=== PATIENT | female | born 1955 | race Caucasian/White ===

== ENCOUNTER → 2019-05-10 13:33 | Outpatient (BNVA) | payer MEDICAID, SELFPAY | PROVIDERS: Family Provider Internal Medicine; PCP Internal Medicine; Visit Provider Anesthesiology | DX: G89.29 Other chronic pain (principal); M54.16 Radiculopathy, lumbar region; M51.36 Other intervertebral disc degeneration, lumbar region; M47.816 Spondylosis without myelopathy or radiculopathy, lumbar region; M16.0 Bilateral primary osteoarthritis of hip; M17.0 Bilateral primary osteoarthritis of knee; Z79.891 Long term (current) use of opiate analgesic | CPT/HCPCS: 99214 ==

== ENCOUNTER → 2019-07-03 12:53 | Outpatient (BNVA) | payer MEDICAID, SELFPAY | PROVIDERS: Family Provider Internal Medicine; PCP Internal Medicine; Visit Provider Nurse Practitioner | DX: G89.29 Other chronic pain (principal); M54.5 Low back pain; M25.562 Pain in left knee; Z79.891 Long term (current) use of opiate analgesic | CPT/HCPCS: 99214 ==

== ENCOUNTER → 2019-07-09 13:35 | Outpatient (BNVA) | payer MEDICAID, SELFPAY | PROVIDERS: Family Provider Internal Medicine; PCP Internal Medicine; Visit Provider Nurse Practitioner | DX: F25.9 Schizoaffective disorder, unspecified (principal); F43.12 Post-traumatic stress disorder, chronic | CPT/HCPCS: 99214 ==

== ENCOUNTER → 2019-07-30 07:31 | Outpatient (BNVA) | payer MEDICAID, SELFPAY | PROVIDERS: Family Provider Internal Medicine; PCP Internal Medicine; Visit Provider Nurse Practitioner | DX: F43.12 Post-traumatic stress disorder, chronic (principal); F25.0 Schizoaffective disorder, bipolar type | CPT/HCPCS: 99214 ==

== ENCOUNTER → 2019-09-05 08:16 | Outpatient (BNVA) | payer MEDICAID, SELFPAY | PROVIDERS: Family Provider Internal Medicine; Visit Provider Nurse Practitioner | DX: F25.0 Schizoaffective disorder, bipolar type (principal); F43.12 Post-traumatic stress disorder, chronic | CPT/HCPCS: 99214 ==

== ENCOUNTER 2019-09-10 08:52 | Outpatient (CLI) | payer MEDICAID, SELFPAY ==
--- NOTE | 2019-09-10 09:28 | ECG_ITS ---
NAME OF STUDY: LEXISCAN SESTAMIBI STRESS TEST INDICATION: CHATTERJEE, PROCEDURE: At the baseline, the EKG revealed normal sinus rhythm with diffuse nonspecific ST-T changes. Poor R wave progression. The baseline blood pressure was 151/82 mm Hg with a heart rate of 90 beats/min. Lexiscan was infused over a period of 20 seconds. A total of 0.4 milligrams of Lexiscan was infused. The stress phase was continued for a total of 5 minutes. Heart rate at the end of the stress phase was 83 with a blood pressure 115/68. The EKG at the peak infusion revealed no significant changes. Sestamibi was injected 20 seconds after the Lexiscan infusion. Blood pressure at the end of the recovery phase was 118/70 with a heart rate of 88 per minute. CONCLUSION: 1. No significant EKG changes with the LexiScan infusion 2. No LexiScan induced chest pain or cardiac arrhythmia 3. Normal blood pressure and heart rate response 4. Sestamibi/sestamibi perfusion scan pending; see separate report. Electronically Signed On 09-11-2019 10:53:57 CDT by Julio Suazo M.D. [id number]
--- NOTE | 2019-09-10 09:28 | NMCV_ITS ---
NM shira perf SPECT r/s* [id number] Humera Navarrete Age: 64 Gender: F : 1955 Exam Date: 09/10/2019 10:29 Ordering Phys: Homero Arango MD Technologist: ANTONIO Brown Exam Location: [facility] Indications: CHATTERJEE STRESS TEST Please see separate stress test report in [facility] for full findings IMAGE PROTOCOL Rest/Stress 1 Lexiscan Day Radiopharmaceutical Dose (mCi) Administration Site Administered by Rest: Tc-99m 10.8 IV ANTONIO Pardo Sestamibi Stress:Tc-99m 32.7 IV ANTONIO Brown Sestamistephanie Rest: 10-Sep-2019 60 Discovery 630 Stress: 10-Sep-2019 30 Discovery 630 0.4mg Lexiscan. Images obtained in supine and prone position. SPECT RESULTS Technical Quality: Good Raw Data Analysis: Breast attenuation Image Corrections: No attenuation or motion correction applied Summed Stress Score: 4 Summed Rest Score: 8 Summed Difference Score: 0 PERFUSION FINDINGS Small area of decreased tracer uptake was noted in the mid and apical inferior wall and LV apex with no significant reversibility FUNCTIONAL RESULTS (calculated via Gated SPECT) Stress Image LV EF (%): 59 Stress EDV (mL):85 TID: 1.04 Stress ESV (mL):35 FUNCTIONAL FINDINGS: LV wall motion analysis revealing no gross wall motion abnormalities. IMPRESSIONS 1. Myocardial perfusion imaging revealing a small area of persistent decreased uptake in the apical inferior and LV apex, suggestive of myocardial scarring versus attenuation artifact. 2. Normal LV ejection fraction 59%. 3. LV wall motion analysis revealing no gross wall motion normalities. 4. Normal LV volume. No significant coronary ischemia, based on the above findings. No previous studies are available for comparison Dr Julio Suazo MD [facility] (Electronically Signed) Final Date: 10 Sep 2019 13:17 S
[2019-09-10 10:00] VITALS: BMI 44.6
[2019-09-10] MEDS: regadenoson 0.4 Mg/5 ml Syringe IVP (11:06)
[2019-09-10 11:31] VITALS: BP 118/70; PULSE 86
== END 2019-09-10 08:53 | disposition home or self-care (01) ==
LOC: RAD 08:55
PROVIDERS: Family Provider Internal Medicine; Visit Provider Internal Medicine
DX: R06.09 Other forms of dyspnea (principal)
CPT/HCPCS: 78452; 93017; A9500; J2785

== ENCOUNTER → 2019-09-26 08:23 | Outpatient (BNVA) | payer MEDICAID, SELFPAY | PROVIDERS: Family Provider Internal Medicine; PCP Internal Medicine; Visit Provider Nurse Practitioner | DX: F43.12 Post-traumatic stress disorder, chronic (principal); F25.0 Schizoaffective disorder, bipolar type | CPT/HCPCS: 99214 ==

== ENCOUNTER → 2019-11-14 10:47 | Outpatient (BNVA) | payer MEDICAID, SELFPAY | PROVIDERS: Family Provider Internal Medicine; PCP Internal Medicine; Visit Provider Anesthesiology | DX: G89.29 Other chronic pain (principal); M47.816 Spondylosis without myelopathy or radiculopathy, lumbar region; M54.16 Radiculopathy, lumbar region; M51.36 Other intervertebral disc degeneration, lumbar region; M17.0 Bilateral primary osteoarthritis of knee; M16.0 Bilateral primary osteoarthritis of hip; Z79.891 Long term (current) use of opiate analgesic | CPT/HCPCS: 99214 ==

== ENCOUNTER 2019-11-19 10:11 | Outpatient (CLI) | payer MEDICAID, SELFPAY ==
--- NOTE | 2019-11-19 14:19 | PFTS_ITS ---
Date of Study:11/19/19 Date of Dictation: MECHANICS: Forced vital capacity (FVC) is reduced. Forced expiratory volume in one second (FEV1) is reduced. FEV1/FVC is normal. FLOW VOLUME LOOP: Narrow. LUNG VOLUMES: Total lung capacity (TLC) is reduced. Residual volume (RV) is normal. DIFFUSING CAPACITY FOR CARBON MONOXIDE: Normal. INTERPRETATION: The pulmonary function tests are consistent with moderately severe restriction. There is no significant postbronchodilator response. Given the normal gas exchange, the etiology of restriction is likely extrapulmonary. The patient has reduction of both inspiratory capacity and expiratory reserve volume a feature that can be seen in patients with neuromuscular weakness. MTDD
== END 2019-11-19 10:12 | disposition home or self-care (01) ==
LOC: RT 10:15
PROVIDERS: PCP Internal Medicine; Visit Provider Internal Medicine
DX: R06.09 Other forms of dyspnea (principal)
CPT/HCPCS: 94060; 94726; 94729; J7611

== ENCOUNTER → 2019-12-20 10:03 | Outpatient (BNVA) | payer MEDICAID, SELFPAY | PROVIDERS: PCP Internal Medicine; Visit Provider Nurse Practitioner | DX: M54.42 Lumbago with sciatica, left side (principal); M51.36 Other intervertebral disc degeneration, lumbar region; M25.561 Pain in right knee; M16.0 Bilateral primary osteoarthritis of hip; Z79.891 Long term (current) use of opiate analgesic | CPT/HCPCS: 99213; 99214 ==

== ENCOUNTER → 2019-12-30 07:59 | Outpatient (BNVA) | payer MEDICAID, SELFPAY | PROVIDERS: PCP Internal Medicine; Visit Provider Nurse Practitioner | DX: F43.12 Post-traumatic stress disorder, chronic (principal); F25.0 Schizoaffective disorder, bipolar type; Z79.899 Other long term (current) drug therapy | CPT/HCPCS: 99214 ==

== ENCOUNTER → 2020-02-13 13:23 | Outpatient (BNVA) | payer MEDICAID, SELFPAY | PROVIDERS: PCP Internal Medicine; Visit Provider Anesthesiology | DX: G89.29 Other chronic pain (principal); M51.36 Other intervertebral disc degeneration, lumbar region; M47.816 Spondylosis without myelopathy or radiculopathy, lumbar region; M54.16 Radiculopathy, lumbar region; Z79.891 Long term (current) use of opiate analgesic | CPT/HCPCS: 99212; 99214 ==

== ENCOUNTER → 2020-02-25 08:17 | Outpatient (BNVA) | payer MEDICAID, SELFPAY | PROVIDERS: PCP Internal Medicine; Visit Provider Nurse Practitioner | DX: F43.12 Post-traumatic stress disorder, chronic (principal); F25.0 Schizoaffective disorder, bipolar type | CPT/HCPCS: 99214 ==

== ENCOUNTER → 2020-04-16 08:45 | Outpatient (BNVA) | payer MEDICAID, SELFPAY | PROVIDERS: PCP Internal Medicine; Visit Provider Nurse Practitioner | DX: G89.29 Other chronic pain (principal); M51.36 Other intervertebral disc degeneration, lumbar region; M47.816 Spondylosis without myelopathy or radiculopathy, lumbar region; M54.16 Radiculopathy, lumbar region; M17.0 Bilateral primary osteoarthritis of knee; M16.0 Bilateral primary osteoarthritis of hip; Z79.891 Long term (current) use of opiate analgesic | CPT/HCPCS: 99214 ==

== ENCOUNTER 2020-05-19 14:37 | Outpatient (CLI) | payer MEDICAID, SELFPAY ==
--- NOTE | 2020-05-19 14:42 | XRR_ITS ---
PROCEDURE INFORMATION: Exam: XR Abdomen, 1 View Exam date and time: 05/19/2020 3:05 PM Age: 64 years old Clinical indication: Condition or disease; Intestinal condition; Other: Full incontinence of feces; Prior surgery; Surgery type: Appy, gb, colon; Additional info: R15.9 - full incontinence of feces TECHNIQUE: Imaging protocol: XR of the abdomen. Views: Frontal supine view of the abdomen. 1 View. COMPARISON: CT abdomen pelvis wo con [id number] 05/10/2015 2:25 PM FINDINGS: Gastrointestinal tract: Normal. No bowel dilation. Evidence of cholecystectomy is seen. Intraperitoneal space: A small metallic surgical clip is seen in the upper central pelvis Bones/joints: Sclerotic densities and vacuum phenomena in the lower lumbar spine. These findings correspond to osteoarthritis. XR/XR KUB [id number] IMPRESSION: 1. No acute GI abnormality. 2. Status post cholecystectomy. 3. Metallic surgical clips upper central pelvis. 4. Osteoarthritis lumbar spine
== END 2020-05-19 14:38 | disposition home or self-care (01) ==
PROVIDERS: PCP Internal Medicine; Visit Provider Internal Medicine
DX: R15.9 Full incontinence of feces (principal); Z90.49 Acquired absence of other specified parts of digestive tract; M47.816 Spondylosis without myelopathy or radiculopathy, lumbar region
CPT/HCPCS: 74018

== ENCOUNTER → 2020-06-23 07:29 | Outpatient (BNVA) | payer MEDICAID, SELFPAY | PROVIDERS: PCP Internal Medicine; Visit Provider Nurse Practitioner | DX: F25.0 Schizoaffective disorder, bipolar type (principal); F43.12 Post-traumatic stress disorder, chronic | CPT/HCPCS: 99214 ==

== ENCOUNTER → 2020-06-24 10:21 | Outpatient (BNVA) | payer MEDICAID, SELFPAY | PROVIDERS: PCP Internal Medicine; Visit Provider Nurse Practitioner | DX: G89.29 Other chronic pain (principal); M51.36 Other intervertebral disc degeneration, lumbar region; M54.16 Radiculopathy, lumbar region; M47.816 Spondylosis without myelopathy or radiculopathy, lumbar region; M17.0 Bilateral primary osteoarthritis of knee; M16.0 Bilateral primary osteoarthritis of hip; Z79.891 Long term (current) use of opiate analgesic | CPT/HCPCS: 99213 ==

== ENCOUNTER → 2020-08-06 09:38 | Outpatient (BNVA) | payer MEDICAID, SELFPAY | PROVIDERS: PCP Internal Medicine; Visit Provider Nurse Practitioner | DX: F43.12 Post-traumatic stress disorder, chronic (principal); F25.0 Schizoaffective disorder, bipolar type; Z79.899 Other long term (current) drug therapy | CPT/HCPCS: 99214 ==

== ENCOUNTER 2020-08-12 15:01 | Emergency (ER) | payer MEDICAID, SELFPAY ==
[2020-08-12 15:02] VITALS: BP 145/61; PULSE 78; RESP 18; TEMP 36.6; O2SAT 96; BMI 40.3
[2020-08-12 15:17] VITALS: BP 145/61; PULSE 75; RESP 16
--- NOTE | 2020-08-12 15:19 | XR_ITS ---
WS: [id number] Lumbar spine, 3 views, 08/12/2020 Clinical Data: leg problems Comparison: CT lumbar spine, 10/18/2018. Findings: No new compression fractures or subluxation is seen. There is an old compression fracture involving 5 0% of the central vertebral body height of T12. There is degenerative disc narrowing at L3-L4, L4-L5 and L5-S1. Transverse processes and SI joints are normal.Minimal osteoarthritic spurring at L4 and L5 is seen. There are clips in the right upper quadrant from a cholecystectomy. XR/XR lumbar spine 2-3V* [id number] Impression: 1. Old T12 compression fracture. 2. Degenerative disc disease at L3-L4, L4-L5 and L5-S1. 3. Anterior osteoarthritic change of L4 and L5
--- NOTE | 2020-08-12 15:20 | ED_ITS ---
HPI - Weakness General: Chief complaint: Weakness Stated complaint: Bilateral leg weakness Time Seen by Provider: 08/12/20 15:12 History of Present Illness: HPI Narrative: . Patient has longstanding history of legs being weak and buckling at times. Patient arrives via ambulance today with complaints that knee is just buckling more. Denies any specific problem besides that is feeling fine Complaint: difficulty walking (nees feel like they would give out on her sporadically) Onset (ago): month(s) Duration: intermittent and progressively worsening Location: LLE and RLE Migration: none Severity: mild Severity scale (1-10): 1 Associated symptoms: Reports no associated symptoms; Denies chest pain, chills, easy bruising, fever(s), headache(s), nausea or vomiting Review of Systems Const: Denies: fever(s), chills or body aches Eyes: Denies: change in vision or blurry vision ENMT: Denies: throat pain or nasal congestion Card: Denies: chest pain or dyspnea on exertion Resp: Denies: dyspnea, productive cough or non-productive cough GI: Denies: abdominal pain, nausea or vomiting Musc: Reports: extremity pain and muscle weakness (Both legs feel weak at time) Skin/Breast: Denies: rash Neuro: Denies: headache(s) Psych: Denies: anxiety or depression Mayank/Lymph: Denies: easy bruising PFSH ED PFSH: Medical History (Updated 08/12/20 @ 16:23 by ANNA Belcher) Bilateral primary osteoarthritis of hip Bilateral primary osteoarthritis of knee Chronic low back pain Chronic lumbar radiculopathy Degeneration of lumbar intervertebral disc Encounter for long-term opiate analgesic use On high dose antipsychotic drug therapy Opioid contract exists Pain in right knee Post-traumatic stress disorder, chronic Schizoaffective disorder, bipolar type Spondylosis without myelopathy or radiculopathy, lumbar region Surgical History History of colostomy Family History Father Cancer Mother Cancer Other Diabetes Social History Smoking and tobacco status: former smoker Alcohol intake: former Former alcohol use details: NOT CURRENT History of recent travel: No Physical Exam Const: COMMON NORMALS: no acute distress, average body habitus and patient oriented x3 HENMT: COMMON NORMALS: normocephalic HEAD & SCALP: normal to inspection and normocephalic FACE & SINUS: normal facial exam Eye: COMMON NORMALS: conjunctivae normal GENERAL EYE: appearance normal, both eyes and all related structures CONJUNCTIVA: Yes conjunctivae normal Neck/C-Spine: COMMON NORMALS: no JVD Chest: COMMONS NORMALS: normal inspection of the chest Resp: COMMON NORMALS: normal respiratory effort and clear to auscultation bilaterally AUSCULTATION: clear to auscultation bilaterally Cardio: COMMON NORMALS: no JVD, regular rate and regular rhythm RATE: regular rate RHYTHM: regular rhythm GI: COMMON NORMALS: Normal to inspection, nondistended, normoactive bowel sounds present Extremity: COMMON NORMALS: normal to inspection and full ROM Neuro: COMMON NORMALS: patient oriented x3 Course Vital Signs: Vital signs: Vital Signs Temperature 97.8 F 08/12/20 15:02 Pulse Rate 75 08/12/20 15:17 Respiratory Rate 16 08/12/20 15:17 Blood Pressure 145/61 08/12/20 15:17 Pulse Oximetry 96 08/12/20 15:02 MDM - Weakness MDM Narrative: Medical decision making narrative: Patient having leg weakness by consistent with her hypocalcemia. Is discussed with Dr. Arango medications that might be causing this problem. She has increased calcium in her foods. Her arthritis in her back is worsening her L4-L5 shows increased arthritis in area. Lab Data: Labs: Lab Results 08/12/20 08/12/20 08/12/20 Range/Units 14:45 15:40 15:40 WBC 7.9 Cancelled (4.0-10.0) 10^3/ uL Corrected WBC Cancelled RBC 4.15 Cancelled (4.1-5.3) 10^6/u L Hgb 11.0 L Cancelled (11.5-15.3) g/dL Hct 36.4 L Cancelled (37.0-47.0) % MCV 87.7 Cancelled (81-99) fL MCH 26.5 L Cancelled (28.0-34.0) pg MCHC 30.2 Cancelled (30.0-36.0) g/dL RDW 17.5 H Cancelled (12.1-15.1) % Plt Count 275 Cancelled (130-400) 10^3/c mm MPV 11.9 H Cancelled (7.4-10.4) fL Gran % Cancelled Neut % (Auto) 53.7 Cancelled % Lymph % (Auto) 37.3 Cancelled % Hardeman % (Auto) 4.9 Cancelled % Eos % (Auto) 2.9 Cancelled % Baso % (Auto) 0.9 Cancelled % Neut # (Auto) 4.27 Cancelled (1.8-7.7) 10^3/u L Lymph # (Auto) 3.0 Cancelled (0.8-4.8) 10^3/u L Hardeman # (Auto) 0.4 Cancelled (0.2-0.9) 10^3/u L Eos # (Auto) 0.2 Cancelled (0.0-0.8) 10^3/u L Baso # (Auto) 0.1 Cancelled (0.0-0.1) 10^3/u L Absolute Gran (aut o) Cancelled Nucleated RBC % (a uto) 0 Cancelled % Nucleated RBCs # 0.0 Cancelled /100WBC Sodium 132 L (136-145) mmol/L Potassium 4.3 (3.5-5.1) mmol/L Chloride 97 L (98-107) mmol/L Carbon Dioxide 25 (22-29) mmol/L Anion Gap 14.3 (5-19) BUN 11 (8-23) mg/dL Creatinine 1.0 H (0.5-0.9) mg/dL GFR Calculation 55.6 L (90-130) mL/min Glucose 109 (65-115) mg/dL Calculated Osmolal ity 274 L (285-295) mOsm/k g Calcium 8.0 L (8.5-10.5) mg/dL Total Bilirubin 0.2 (0.15-1.2) mg/dL AST 23 (0-32) U/L ALT 24 (0-33) U/L Alkaline Phosphata se 183 H (35-105) IU/L Total Protein 7.3 (6.6-8.7) g/dL Albumin 4.1 (3.5-5.2) g/dL Globulin 3.2 (1.3-4.6) g/dL Discharge Plan Discharge Patient Disposition: Home Clinical Impression: Hypocalcemia, Degeneration of lumbar intervertebral disc Condition: Stable Prescriptions: New Calcium 500 500 mg calcium (1,250 mg) tablet 500 mg PO BID Qty: 30 RF: 0 No Action aspirin 81 mg tablet,delayed release (DR/EC) 81 mg PO QAM RF: 0 tizanidine 4 mg tablet 4 mg PO QID PRN (Reason: muscle spasticity) 30 Days Qty: 120 RF: 0 gabapentin 600 mg tablet 600 mg PO TID Qty: 90 RF: 1 oxycodone 20 mg tablet 20 mg PO QID PRN (Reason: pain) 30 Days Qty: 30 RF: 0 ziprasidone HCl [Geodon] 80 mg capsule 80 mg PO TID Qty: 90 RF: 2 quetiapine [Seroquel] 400 mg tablet 1,200 mg PO .BEDTIME Qty: 90 RF: 2 Linzess 145 mcg capsule 145 mcg PO QAM Qty: 30 RF: 3 solifenacin [Vesicare] 10 mg tablet 10 mg PO DAILY Qty: 30 RF: 3 lovastatin 40 mg tablet 40 mg PO DAILY Qty: 30 RF: 3 pantoprazole [Protonix] 40 mg tablet,delayed release (DR/EC) 40 mg PO BID Qty: 60 RF: 5 albuterol sulfate 2.5 mg /3 mL (0.083 %) solution for nebulization 2.5 mg INHALATION QID PRN (Reason: shortness of breath or wheezing) Qty: 90 RF: 0 Prozac 20 mg Capsule 20 mg PO TID RF: 0 Paxil 10 mg tablet 10 mg PO BEDTIME RF: 0 Lamictal 200 mg tablet 200 mg PO QAM RF: 0 Mobic 15 mg tablet 15 mg PO DAILY PRN (Reason: UNKNOWN) RF: 0 ropinirole 2 mg tablet 2 - 4 mg PO BEDTIME RF: 0 Discharge Orders: Discharge ED (Routine); Ordered 08/12/20 Ordered By: Fer Paul Referrals: Homero Arango MD [Primary Care Provider] - Discharge Diet: Usual diet Discharge Activity: Resume usual activity Patient Instructions: Hypocalcemia (ED), Opioid Safety Activity Restrictions/Additional Instructions: Follow-up with medical provider as directed. Take medications as prescribed. Return to the ER or your medical provider if condition worsens. Please read and understand discharge instructions. If any questions ask please. Increase calcium in your diet Coding Level of Care Code ED Indigo Mixer for Chg Fwd Exam Comprehensive
--- NOTE | 2020-08-12 15:26 | PC.NURSE ---
Read and agree with assessment
[2020-08-12 16:03] LABS: Alanine Aminotransferase 24 U/L (0-33); Albumin Level 4.1 g/dL (3.5-5.2); Alkaline Phosphatase 183 IU/L (35-105); Blood Urea Nitrogen 11 mg/dL (8-23); Carbon Dioxide 25 mmol/L (22-29); Chloride 97 mmol/L (98-107); Creatinine Clr Calc Pharmacy 71.6649; Globulin 3.2 g/dL (1.3-4.6); Glomerular Filtration Rate 55.6 mL/min (90-130); Glucose 109 mg/dL (65-115); Osmolality Calculated 274 mOsm/kg (285-295); Sodium 132 mmol/L (136-145); Total Bilirubin 0.2 mg/dL (0.15-1.2); Total Protein 7.3 g/dL (6.6-8.7)
[2020-08-12 16:13] LABS: Basophils # 0.1 10^3/uL (0.0-0.1); Basophils % 0.9 %; Eosinophils # 0.2 10^3/uL (0.0-0.8); Eosinophils % 2.9 %; Hematocrit 36.4 % (37.0-47.0); Lymphocytes % 37.3 %; Mean Corpuscular HGB Conc 30.2 g/dL (30.0-36.0); Mean Corpuscular Hemoglobin 26.5 pg (28.0-34.0); Mean Corpuscular Volume 87.7 fL (81-99); Mean Platelet Volume 11.9 fL (7.4-10.4); Monocytes # 0.4 10^3/uL (0.2-0.9); Monocytes % 4.9 %; Neutrophils # 4.27 10^3/uL (1.8-7.7); Neutrophils % 53.7 %; Nucleated Red Blood Cells % 0 %; Platelet Count 275 10^3/cmm (130-400); Red Blood Count 4.15 10^6/uL (4.1-5.3); Red Cell Distribution Width 17.5 % (12.1-15.1); White Blood Count 7.9 10^3/uL (4.0-10.0)
[2020-08-12 16:15] LABS: Anion Gap 14.3 (5-19); Aspartate Amino Transferase 23 U/L (0-32); Potassium 4.3 mmol/L (3.5-5.1)
[2020-08-12 16:59] VITALS: BP 99/78; PULSE 73; RESP 14; O2SAT 97
== END 2020-08-12 17:15 | disposition home or self-care (01) ==
PROVIDERS: Emergency Provider Nurse Practitioner Family; PCP Internal Medicine
DX: E83.51 Hypocalcemia (principal); M51.36 Other intervertebral disc degeneration, lumbar region; Z79.82 Long term (current) use of aspirin; Z87.891 Personal history of nicotine dependence
CPT/HCPCS: 72100; 80053; 85025; 99283

== ENCOUNTER 2020-08-18 09:10 | Inpatient (IN) | payer MEDICAID, SELFPAY ==
[2020-08-18] VITALS (8 sets, daily range): BP systolic 112–152; BP diastolic 52–80; PULSE 65–87; RESP 16–18; TEMP 36.6–36.9; O2SAT 94–98; BMI 40.3
--- NOTE | 2020-08-18 09:55 | XRR_ITS ---
PROCEDURE INFORMATION: Exam: XR Chest Exam date and time: 08/18/2020 10:10 AM Age: 65 years old Clinical indication: Cough and dyspnea and other: Weaknes, unable to umbulate; Patient HX: No chest complaints per PT; Additional info: Dyspnea/cough TECHNIQUE: Imaging protocol: XR of the chest. Views: 1 view. COMPARISON: CR Chest 2 views* [id number] 08/04/2016 3:52 PM FINDINGS: Lungs: Unremarkable. No consolidation. Pleural spaces: Unremarkable. No pleural effusion. No pneumothorax. Heart/Mediastinum: Unremarkable. No cardiomegaly. Bones/joints: Unremarkable. XR/XR chest 1V portable [id number] IMPRESSION: No acute findings.
--- NOTE | 2020-08-18 09:56 | ECG_ITS ---
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1955 Requested By: Wayne Wilkins Order Number: [id number] Reading MD: MICH TOPETE Measurements Intervals Shirley Rate: 66 P: 47 AL: 182 QRS: 69 QRSD: 107 T: 88 QT: 441 QTc: 462 Interpretive Statements SINUS RHYTHM WITH SINUS ARRHYTHMIA LOW QRS VOLTAGE IN PRECORDIAL LEADS [QRS DEFLECTION < 1.0 mV IN CHEST LEADS] NONSPECIFIC T-WAVE ABNORMALITY Compared to ECG 05/10/2015 15:09:49 Low QRS voltage now present T-wave abnormality still present Electronically Signed On 08-18-2020 23:40:29 CDT by MICH TOPETE [id number]
--- NOTE | 2020-08-18 09:57 | ED_ITS ---
HPI - Extremity Problem General: Chief complaint: Extremity Problem,Nontraumatic Stated complaint: unable to ambulate Time Seen by Provider: 08/18/20 09:25 History of Present Illness: HPI Narrative: 65-year-old female who presents emergency room complaining of not being able to walk. She was seen a week ago she said she had fallen she said she is not able to stand. Is difficult to get her to drill down to exactly what the issue is ultimately it seems to be more of an issue of proximal muscle weakness. She is complaining of some knee discomfort but states that is not really the limiting factor to her walking. Not previously had episodes like this she said it seemed to begin a week ago. She has choreatic-like movements in the lower extremities more noticeable on the left than the right but present bilaterally. She also has lower extremity ataxia again more prominent with left than right. She also states she is having difficulty with speech but no difficulty with swallowing. She has some visual blurring that is a little more prominent than it was previously. Onset (ago): week(s) Pain Consistency: constant Location: left, right and lower extremity Relieving factors: nothing Exacerbating factors: nothing Associated symptoms: Deny arthralgias, chest pain, fever(s), myalgias, rash or short of breath Review of Systems Const: Denies: fever(s), chills, body aches, change in appetite, fatigue or malaise ENMT: Denies: throat pain, ear or mastoid pain, nasal discharge or nasal congestion Card: Denies: chest pain Resp: Denies: dyspnea, productive cough or non-productive cough GI: Denies: abdominal pain, nausea, vomiting, hematemesis, coffee ground emesis, diarrhea, constipation, bloating, hematochezia or melena : Denies: flank pain, difficulty voiding, dysuria, urinary frequency or urinary urgency Skin/Breast: Denies: rash PFSH ED PFSH: Medical History (Updated 08/20/20 @ 07:44 by Wayne Cabrera DO) Bilateral primary osteoarthritis of hip Bilateral primary osteoarthritis of knee Chronic low back pain Chronic lumbar radiculopathy Degeneration of lumbar intervertebral disc Encounter for long-term opiate analgesic use On high dose antipsychotic drug therapy Opioid contract exists Pain in right knee Post-traumatic stress disorder, chronic Schizoaffective disorder, bipolar type Spondylosis without myelopathy or radiculopathy, lumbar region Surgical History History of colostomy Family History Father Cancer Mother Cancer Other Diabetes Social History Smoking and tobacco status: former smoker Alcohol intake: former Former alcohol use details: NOT CURRENT History of recent travel: No Physical Exam Const: COMMON NORMALS: no acute distress GENERAL APPEARANCE: cooperative and comfortable ORIENTATION/CONSCIOUSNESS: Yes awake, Yes oriented to person, Yes oriented to place and Yes oriented to time HENMT: COMMON NORMALS: normocephalic, atraumatic and hearing grossly normal bilaterally HEAD & SCALP: normocephalic and atraumatic Neck/C-Spine: COMMON NORMALS: no JVD Resp: COMMON NORMALS: normal respiratory effort, No retractions, No use of accessory muscles and clear to auscultation bilaterally AUSCULTATION: clear to auscultation bilaterally Cardio: COMMON NORMALS: no JVD, regular rate, regular rhythm and No murmurs present (Cardio) RATE: regular rate RHYTHM: regular rhythm GI: COMMON NORMALS: Soft to palpation and No hepatosplenomegaly present AUSCULTATION: Yes normoactive bowel sounds PALPATION: Yes Soft to palpation, No Tenderness to palpation present (GI), No Guarding due to palpation present (GI) and Yes No hepatosplenomegaly present Extremity: COMMON NORMALS: normal to inspection, capillary refill normal, no clubbing, cyanosis or edema, no calf tenderness and no pedal edema NARRATIVE EXTREMITY EXAM: Patient is choreatic movements of the lower and upper extremities with the right being greater than the right she has difficulty with [id number] difficulty with holding objects still with the right hand. She is unable to ambulate. Interestingly her proximal muscle strength and function seems to be preserved she can flex at the hip without difficulty while sitting in bed. Neuro: SENSORIUM/ORIENTATION: Yes oriented to person, Yes oriented to place and Yes oriented to time Skin: COMMON NORMALS: no rashes or lesions noted GENERAL SKIN EXAM: no rashes or lesions noted Course Vital Signs: Vital signs: Vital Signs Temperature 97.5 F L 08/20/20 07:25 Pulse Rate 83 08/20/20 07:25 Respiratory Rate 18 08/20/20 07:25 Blood Pressure 111/71 08/20/20 07:25 Pulse Oximetry 92 08/20/20 07:25 MDM - Extremity (Nontraumatic) MDM Narrative: Medical decision making narrative: 1110 -discussed with Dr. Ovalles requested consult. She is planning to come to the emergency room to see this patient. Patient will be admitted. Discussed with Dr. Ovalles. We will get an MRI hold off on lumbar tap some of her medications may be contributing to this. Lab Data: Labs: Lab Results 08/18/20 08/18/20 08/18/20 Range/Units 10:09 10:09 10:09 WBC 5.9 (4.0-10.0) 10^3/ uL RBC 4.31 (4.1-5.3) 10^6/u L Hgb 11.4 L (11.5-15.3) g/dL Hct 38.5 (37.0-47.0) % MCV 89.3 (81-99) fL MCH 26.5 L (28.0-34.0) pg MCHC 29.6 L (30.0-36.0) g/dL RDW 17.2 H (12.1-15.1) % Plt Count 267 (130-400) 10^3/c mm MPV 11.3 H (7.4-10.4) fL Neut % (Auto) 51.9 % Lymph % (Auto) 38.4 % [place] % (Auto) 5.3 % Eos % (Auto) 3.2 % Baso % (Auto) 0.9 % Neut # (Auto) 3.05 (1.8-7.7) 10^3/u L Lymph # (Auto) 2.3 (0.8-4.8) 10^3/u L [place] # (Auto) 0.3 (0.2-0.9) 10^3/u L Eos # (Auto) 0.2 (0.0-0.8) 10^3/u L Baso # (Auto) 0.1 (0.0-0.1) 10^3/u L Nucleated RBC % (a uto) 0 % Nucleated RBCs # 0.0 /100WBC Sodium 137 (136-145) mmol/L Potassium 4.4 (3.5-5.1) mmol/L Chloride 101 (98-107) mmol/L Carbon Dioxide 28 (22-29) mmol/L Anion Gap 12.4 (5-19) BUN 20 (8-23) mg/dL Creatinine 1.1 H (0.5-0.9) mg/dL GFR Calculation 49.8 L (90-130) mL/min Glucose 105 (65-115) mg/dL Calculated Osmolal ity 287 (285-295) mOsm/k g Lactic Acid 1.2 (0.5-2.2) mmol/L Calcium 8.4 L (8.5-10.5) mg/dL Magnesium 2.4 H (1.7-2.3) mg/dL Total Bilirubin 0.2 (0.15-1.2) mg/dL AST 17 (0-32) U/L ALT 20 (0-33) U/L Alkaline Phosphata se 193 H (35-105) IU/L Creatine Kinase 76 (26-192) U/L Troponin T Baselin e (0-10) ng/L Troponin T 120 Min gaby (0-10) ng/L Delta Troponin T (0-10) ABS# Total Protein 7.0 (6.6-8.7) g/dL Albumin 4.2 (3.5-5.2) g/dL Globulin 2.8 (1.3-4.6) g/dL TSH (0.27-4.20) uIU/ mL Free T4 (0.82-1.77) ng/d L Free T3 (2.0-4.4) PG/ML Urine Color (Yellow) Urine Appearance (CLEAR) Urine pH (5-7) Ur Specific Gravit y (1.005-1.030) Urine Protein (Negative) Urine Glucose (UA) (Normal) Urine Ketones (Negative) Urine Blood (Negative) Urine Nitrate (Negative) Urine Bilirubin (Negative) Urine Urobilinogen (Negative) mg/dL Ur Leukocyte Julia ase (Negative) Urine Opiates Scre en (Negative) ng/mL Ur Barbiturates Sc reen (Negative) ng/mL Ur Phencyclidine S crn (Negative) ng/mL Ur Amphetamines Sc reen (Negative) ng/mL U Benzodiazepines Scrn (Negative) ng/mL Urine Cocaine Scre en (Negative) ng/mL U Marijuana (THC) Screen (Negative) ng/mL 08/18/20 08/18/20 08/18/20 Range/Units 10:09 10:09 11:53 WBC (4.0-10.0) 10^3/ uL RBC (4.1-5.3) 10^6/u L Hgb (11.5-15.3) g/dL Hct (37.0-47.0) % MCV (81-99) fL MCH (28.0-34.0) pg MCHC (30.0-36.0) g/dL RDW (12.1-15.1) % Plt Count (130-400) 10^3/c mm MPV (7.4-10.4) fL Neut % (Auto) % Lymph % (Auto) % [place] % (Auto) % Eos % (Auto) % Baso % (Auto) % Neut # (Auto) (1.8-7.7) 10^3/u L Lymph # (Auto) (0.8-4.8) 10^3/u L [place] # (Auto) (0.2-0.9) 10^3/u L Eos # (Auto) (0.0-0.8) 10^3/u L Baso # (Auto) (0.0-0.1) 10^3/u L Nucleated RBC % (a uto) % Nucleated RBCs # /100WBC Sodium (136-145) mmol/L Potassium (3.5-5.1) mmol/L Chloride (98-107) mmol/L Carbon Dioxide (22-29) mmol/L Anion Gap (5-19) BUN (8-23) mg/dL Creatinine (0.5-0.9) mg/dL GFR Calculation (90-130) mL/min Glucose (65-115) mg/dL Calculated Osmolal ity (285-295) mOsm/k g Lactic Acid (0.5-2.2) mmol/L Calcium (8.5-10.5) mg/dL Magnesium (1.7-2.3) mg/dL Total Bilirubin (0.15-1.2) mg/dL AST (0-32) U/L ALT (0-33) U/L Alkaline Phosphata se (35-105) IU/L Creatine Kinase (26-192) U/L Troponin T Baselin e 6 (0-10) ng/L Troponin T 120 Min gaby (0-10) ng/L Delta Troponin T (0-10) ABS# Total Protein (6.6-8.7) g/dL Albumin (3.5-5.2) g/dL Globulin (1.3-4.6) g/dL TSH 8.06 H (0.27-4.20) uIU/ mL Free T4 0.60 L (0.82-1.77) ng/d L Free T3 2.0 (2.0-4.4) PG/ML Urine Color Yellow (Yellow) Urine Appearance Clear (CLEAR) Urine pH 6.5 (5-7) Ur Specific Gravit y 1.010 (1.005-1.030) Urine Protein Neg (Negative) Urine Glucose (UA) Norm (Normal) Urine Ketones Negative (Negative) Urine Blood Neg (Negative) Urine Nitrate Negative (Negative) Urine Bilirubin Neg (Negative) Urine Urobilinogen Norm (Negative) mg/dL Ur Leukocyte Julia ase Negative (Negative) Urine Opiates Scre en (Negative) ng/mL Ur Barbiturates Sc reen (Negative) ng/mL Ur Phencyclidine S crn (Negative) ng/mL Ur Amphetamines Sc reen (Negative) ng/mL U Benzodiazepines Scrn (Negative) ng/mL Urine Cocaine Scre en (Negative) ng/mL U Marijuana (THC) Screen (Negative) ng/mL 08/18/20 08/18/20 Range/Units 11:53 12:06 WBC (4.0-10.0) 10^3/ uL RBC (4.1-5.3) 10^6/u L Hgb (11.5-15.3) g/dL Hct (37.0-47.0) % MCV (81-99) fL MCH (28.0-34.0) pg MCHC (30.0-36.0) g/dL RDW (12.1-15.1) % Plt Count (130-400) 10^3/c mm MPV (7.4-10.4) fL Neut % (Auto) % Lymph % (Auto) % [place] % (Auto) % Eos % (Auto) % Baso % (Auto) % Neut # (Auto) (1.8-7.7) 10^3/u L Lymph # (Auto) (0.8-4.8) 10^3/u L [place] # (Auto) (0.2-0.9) 10^3/u L Eos # (Auto) (0.0-0.8) 10^3/u L Baso # (Auto) (0.0-0.1) 10^3/u L Nucleated RBC % (a uto) % Nucleated RBCs # /100WBC Sodium (136-145) mmol/L Potassium (3.5-5.1) mmol/L Chloride (98-107) mmol/L Carbon Dioxide (22-29) mmol/L Anion Gap (5-19) BUN (8-23) mg/dL Creatinine (0.5-0.9) mg/dL GFR Calculation (90-130) mL/min Glucose (65-115) mg/dL Calculated Osmolal ity (285-295) mOsm/k g Lactic Acid (0.5-2.2) mmol/L Calcium (8.5-10.5) mg/dL Magnesium (1.7-2.3) mg/dL Total Bilirubin (0.15-1.2) mg/dL AST (0-32) U/L ALT (0-33) U/L Alkaline Phosphata se (35-105) IU/L Creatine Kinase (26-192) U/L Troponin T Baselin e (0-10) ng/L Troponin T 120 Min gaby 6.00 (0-10) ng/L Delta Troponin T 0 (0-10) ABS# Total Protein (6.6-8.7) g/dL Albumin (3.5-5.2) g/dL Globulin (1.3-4.6) g/dL TSH (0.27-4.20) uIU/ mL Free T4 (0.82-1.77) ng/d L Free T3 (2.0-4.4) PG/ML Urine Color (Yellow) Urine Appearance (CLEAR) Urine pH (5-7) Ur Specific Gravit y (1.005-1.030) Urine Protein (Negative) Urine Glucose (UA) (Normal) Urine Ketones (Negative) Urine Blood (Negative) Urine Nitrate (Negative) Urine Bilirubin (Negative) Urine Urobilinogen (Negative) mg/dL Ur Leukocyte Julia ase (Negative) Urine Opiates Scre en Negative (Negative) ng/mL Ur Barbiturates Sc reen Negative (Negative) ng/mL Ur Phencyclidine S crn Negative (Negative) ng/mL Ur Amphetamines Sc reen Negative (Negative) ng/mL U Benzodiazepines Scrn Negative (Negative) ng/mL Urine Cocaine Scre en Negative (Negative) ng/mL U Marijuana (THC) Screen Negative (Negative) ng/mL Discharge Plan Discharge Patient Disposition: Admitted As Inpatient Admit Provider: Acosta Perea Clinical Impression: Myoclonus, Toxic encephalopathy, Schizoaffective disorder, bipolar type Condition: Stable Coding Level of Care Code ED Evaluator Transfer Students for Srini Perdomo
--- NOTE | 2020-08-18 09:59 | CT_ITS ---
WS: [id number] CT HEAD TECHNIQUE: Noncontrast and contrast-enhanced CT of the head. CLINICAL INFORMATION: CVA COMPARISON: CT 4 24,010 DLP: 1223.[address] scans at [facility] use at least one of these dose optimization techniques: automat ed exposure control; mA and/or kV adjustment per patient size (includes targeted exams where dose is matched to clinical indication); or iterative reconstruction. FINDINGS: No evidence of intracranial hemorrhage or mass effect. Ventricular system and basal cisterns are eddy nt. Mild small vessel changes. Mild parenchymal volume loss. No abnormal intracranial enhancement. Pa ranasal sinuses and mastoid air cells are well aerated. CT/CT head wo/w con 55014 IMPRESSION: 1. No evidence of intracranial hemorrhage or mass effect. 2. No abnormal intracranial enhancement. 3. Mild small vessel changes. Mild parenchymal volume loss. 4. No acute intracranial findings. Attempted notification Wayne Cabrera DO at 08/18/2020 10:46 AM.
[2020-08-18 10:17] LABS: Basophils # 0.1 10^3/uL (0.0-0.1); Basophils % 0.9 %; Eosinophils # 0.2 10^3/uL (0.0-0.8); Eosinophils % 3.2 %; Hematocrit 38.5 % (37.0-47.0); Hemoglobin 11.4 g/dL (11.5-15.3); Lymphocytes # 2.3 10^3/uL (0.8-4.8); Lymphocytes % 38.4 %; Mean Corpuscular HGB Conc 29.6 g/dL (30.0-36.0); Mean Corpuscular Hemoglobin 26.5 pg (28.0-34.0); Mean Corpuscular Volume 89.3 fL (81-99); Mean Platelet Volume 11.3 fL (7.4-10.4); Monocytes # 0.3 10^3/uL (0.2-0.9); Monocytes % 5.3 %; Neutrophils # 3.05 10^3/uL (1.8-7.7); Neutrophils % 51.9 %; Nucleated Red Blood Cells % 0 %; Platelet Count 267 10^3/cmm (130-400); Red Blood Count 4.31 10^6/uL (4.1-5.3); Red Cell Distribution Width 17.2 % (12.1-15.1); White Blood Count 5.9 10^3/uL (4.0-10.0)
[2020-08-18 10:34] LABS: Alanine Aminotransferase 20 U/L (0-33); Albumin Level 4.2 g/dL (3.5-5.2); Alkaline Phosphatase 193 IU/L (35-105); Anion Gap 12.4 (5-19); Aspartate Amino Transferase 17 U/L (0-32); Blood Urea Nitrogen 20 mg/dL (8-23); Calcium 8.4 mg/dL (8.5-10.5); Carbon Dioxide 28 mmol/L (22-29); Chloride 101 mmol/L (98-107); Creatine Phosphokinase 76 U/L (26-192); Globulin 2.8 g/dL (1.3-4.6); Glomerular Filtration Rate 49.8 mL/min (90-130); Glucose 105 mg/dL (65-115); Magnesium 2.4 mg/dL (1.7-2.3); Osmolality Calculated 287 mOsm/kg (285-295); Potassium 4.4 mmol/L (3.5-5.1); Sodium 137 mmol/L (136-145); Total Bilirubin 0.2 mg/dL (0.15-1.2)
[2020-08-18] MEDS: iohexol 300 mg/mL 100 mL Btl IV (10:34)
[2020-08-18 10:35] LABS: Lactic Sepsis W/Reflex 1.2 mmol/L (0.5-2.2)
[2020-08-18 10:36] LABS: Troponin(5th) Baseline 6 ng/L (0-10)
--- NOTE | 2020-08-18 11:56 | ECG_ITS ---
[facility] Test Date: 2020-08-18 Pat Name: Humera Navarrete Department: Room: Gender: Female Vp Marketing: : 1955 Requested By: Wayne Wilkins Order Number: [id number] Reading MD: MICH TOPETE Measurements Intervals [place] Rate: 81 P: 68 DE: 187 QRS: 78 QRSD: 109 T: 60 QT: 402 QTc: 468 Interpretive Statements SINUS RHYTHM LOW QRS VOLTAGE IN PRECORDIAL LEADS [QRS DEFLECTION < 1.0 mV IN CHEST LEADS] MODERATE INTRAVENTRICULAR CONDUCTION DELAY [105+ ms QRS DURATION, 80+ ms Q/S IN V1/V2, NO Q AND 60+ ms R IN I/aVL/V5/V6] NONSPECIFIC ST & T-WAVE ABNORMALITY Compared to ECG 08/18/2020 10:57:39 Intraventricular conduction delay now present Sinus arrhythmia no longer present T-wave abnormality still present Electronically Signed On 08-18-2020 23:43:17 CDT by MICH TOPETE [id number]
[2020-08-18 12:07] LABS: Add Urine Microscopic? NO; Charge for UA Resulting for Rev
[2020-08-18 12:14] LABS: Bilirubin Urine Neg (Negative); Blood Urine Neg (Negative); Glucose Urine UA Norm (Normal); Ketones Urine Negative (Negative); Leukocyte Esterase Urine Negative (Negative); Nitrate Urine Negative (Negative); Protein Urine Neg (Negative); Urine Appearance Clear (CLEAR); Urine Color Yellow (Yellow); Urobilinogen Urine Norm (Negative); pH Urine 6.5 (5-7)
--- NOTE | 2020-08-18 12:17 | PM.CONSULT ---
Providers/Reason For Consult Consulting Physican/Specialty*: Dr. Dontae Cabrera Reason for Consult*: Diffuse tremor Primary Care Provider: Homero Arango MD History of Present Illness History of Present Illness Humera Navarrete is a 65 year old woman who was brought by EMS because she could not walk. She gives me her correct address. She says she was fine yesterday but that this morning when she got up to try to make breakfast, she had to crawl. Her boyfriend had already gone to work. She talked with her son, who lives in [place], and she says that Krish called EMS. On arrival Dr. Cabrera discovered that the patient had profound diffuse myoclonic tremor and that she could not ambulate. She says that she has not been sick. She has not had flu if symptoms such as shortness of breath, aching of the muscles. She has low back pain. She says that her medications have not changed. Her last visit with Dr. Davies occurred 04/16/2020 and he administered oxycodone 20 mg 4 times daily. She received refills from [facility] of the same medications 06/24/2020. She receives pain clinic she is on Lamictal 200 mg daily for bipolar disorder and Seroquel 1200 mg at bedtime for schizoaffective disorder in addition to Geodon 80 mg 3 times a day. She is on tizanidine 4 mg 4 times daily from the pain clinic and ropinirole 2 mg twice daily for restless legs. She is on fluoxetine 20 mg twice daily and gabapentin 600 mg 3 times daily. She is sure that she has not changed her medications in any way. She has not had fever or chills. Review of Systems General: Reports: 10 or more systems reviewed and unremarkable except in HPI and below Const: Denies: fever(s), chills or body aches Eyes: Denies: change in vision ENMT: Denies: throat pain Card: Denies: chest pain, irregular heart rhythm or dyspnea on exertion Resp: Denies: dyspnea GI: Denies: abdominal pain, nausea or vomiting Musc: Reports: back pain Neuro: Reports: weakness in extremities, lack of coordination and difficulty walking; Denies: headache(s), dizziness, vertigo or confusion Psych: Reports: depression and mood swings (History of schizoaffective disorder and bipolar disorder) Meds/Allergies Home Medications and Allergies Home Medications Medication Instructions Recorded Confirmed Last Taken Type aspirin 81 mg tablet,delayed 81 mg PO QAM 05/10/19 08/12/20 Unknown History release tizanidine 4 mg tablet 4 mg PO QID PRN 30 Days #120 tab 04/16/20 08/12/20 Unknown Rx linaclotide 145 mcg capsule 145 mcg PO QAM #30 cap 05/28/20 08/12/20 Unknown Rx solifenacin 10 mg tablet 10 mg PO DAILY #30 tab 06/18/20 08/12/20 Unknown Rx gabapentin 600 mg tablet 600 mg PO TID #90 tab 06/24/20 08/12/20 Unknown Rx oxycodone 20 mg tablet 20 mg PO QID PRN 30 Days #30 tab 06/24/20 08/12/20 Unknown Rx lovastatin 40 mg tablet 40 mg PO DAILY #30 tab 07/02/20 08/12/20 Unknown Rx pantoprazole 40 mg tablet,delayed 40 mg PO BID #60 tab 07/09/20 08/12/20 Unknown Rx release albuterol sulfate 2.5 mg INHALATION QID PRN #90 ml 07/16/20 08/12/20 Unknown Rx quetiapine 400 mg tablet 1,200 mg PO .BEDTIME #90 tab 08/06/20 08/12/20 Unknown Rx ziprasidone HCl 80 mg capsule 80 mg PO TID #90 cap 08/06/20 08/12/20 Unknown Rx Lamictal 200 mg PO QAM 08/12/20 08/12/20 Unknown History Mobic 15 mg PO DAILY PRN 08/12/20 08/12/20 Unknown History Paxil 10 mg PO BEDTIME 08/12/20 08/12/20 Unknown History calcium carbonate [Calcium 500] 500 mg PO BID #30 tab 08/12/20 Unknown Rx fluoxetine [Prozac] 20 mg PO TID 08/12/20 08/12/20 Unknown History ropinirole 2 - 4 mg PO BEDTIME 08/12/20 08/12/20 Unknown History Allergies Allergy/AdvReac Type Severity Reaction Status Date / Time divalproex sodium AdvReac BEHAVIORAL Verified 08/18/20 09:16 [From Depakote] CHANGES NAUSEA AND VOMITING lithium AdvReac BEHAVIORAL Verified 08/18/20 09:16 CHANGES NAUSEA AND VOMITING PFSH Acute PFSH: Medical History (Updated 08/18/20 @ 12:28 by Gisela Ovalles MD) Bilateral primary osteoarthritis of hip Bilateral primary osteoarthritis of knee Chronic low back pain Chronic lumbar radiculopathy Degeneration of lumbar intervertebral disc Encounter for long-term opiate analgesic use On high dose antipsychotic drug therapy Opioid contract exists Pain in right knee Post-traumatic stress disorder, chronic Schizoaffective disorder, bipolar type Spondylosis without myelopathy or radiculopathy, lumbar region Surgical History History of colostomy Family History Father Cancer Mother Cancer Other Diabetes Social History Smoking and tobacco status: former smoker Alcohol intake: former Former alcohol use details: NOT CURRENT History of recent travel: No Vitals/I&O/Wt Last Vital Signs Temp 97.8 F 08/18/20 09:11 Pulse 87 08/18/20 11:26 Resp 18 08/18/20 11:26 BP 152/78 08/18/20 11:26 Pulse Ox 98 08/18/20 11:26 Weight last 48 hrs Weight 250 lb Physical Exam Narrative: EXAM NARRATIVE: Mental status exam: She is a little bit euphoric. She jokes about my daughter Lisa that she has seen on television. She knows what program is playing on the television to the point that she asks me not to change the channel. She is alert to the date and her address. She has intermittent pauses of speech due to myoclonic jerks. Cranial nerves: Eye movements full. Visual michael full to confrontation. Facial movements symmetric with intermittent myoclonic movements of the face. Similar movements with the tongue with tremor on tongue protrusion. Tongue and palate midline. She is managing her secretions. Motor: She has diffuse high amplitude myoclonic tremor in all 4 extremities which limits [id number] and [id number]. She cannot move herself up, sit up or maintain balance. Sensory exam intact to pin and touch distally. Deep tendon reflexes brisk throughout. Right toe upgoing and left is equivocal. Coordination: Remarkable for her diffuse high amplitude myoclonic tremor. Gait: Unable. HEENT no rash. Normocephalic. No conjunctival injection or scleral icterus Neck: Supple. Carotid upstroke strong bilaterally. Chest: Clear to auscultation cardiovascular: S1 and S2 normal with regular rate and rhythm. She is not tachycardic. Abdomen deferred. Extremities: No deformities. A&P Assessment and plan (1) Myoclonus: This 65-year-old woman presents with severe diffuse polymyoclonus. This is usually a toxic phenomenon but could be postinfectious such as postinfectious cerebellitis. She has not been ill of late. She is on a lot of medications that have the potential to cause toxic encephalopathy including high-dose opioids, Seroquel, Geodon, antidepressants. I think toxic encephalopathy is the most likely diagnosis. Thyroid encephalopathy is in the process of rule out but she is not tachycardic so I doubt that this is thyroid storm. MRI with and without contrast indicated to rule out postinfectious cerebellitis. Hold off on spinal fluid analysis for now as we obtained further toxic information and allow her medications to wear off somewhat. I would maintain her current dosages of atypical antipsychotics to avoid precipitating neuroleptic malignant syndrome. I would check CPK serially for that diagnosis. It would be reasonable to hold lamotrigine and gabapentin. It would be reasonable to cut back on oxycodone. Patient seen emergently in the emergency department and discussed with Dr. Cabrera. Status: Acute (2) Toxic encephalopathy: Status: Acute Consult Attestations Medical Necessity Statement: Severe diffuse myoclonus and inability to walk Time Spent in Patient Care: Greater than 35 minutes Critical Care Time: Critical Care Time (min): 45 Coding Level of Care Code Acute Tool Planer Set Up Operator for Srini Perdomo Diagnoses Myoclonus G25.3 Toxic encephalopathy G92
[2020-08-18 12:19] LABS: Amphetamines Screen Urine Negative (Negative); Barbiturates Screen Urine Negative (Negative); Benzodiazepines Screen Urine Negative (Negative); Cocaine Screen Urine Negative (Negative); Opiate Screen Urine Negative (Negative); PCP Screen Urine Negative (Negative); THC Screen Urine Negative (Negative)
[2020-08-18 12:29] LABS: Troponin 5 2HR Delta 0 ABS# (0-10)
[2020-08-18 12:32] LABS: Thyroid Stimulating Hormone 8.06 uIU/mL (0.27-4.20)
[2020-08-18] MEDS: sodium chloride 0.9% 1,000 ML 100 ML IV (15:31)
[2020-08-18] MEDS: acetaminophen 325 mg Tablet 650 MG PO (15:45)
--- NOTE | 2020-08-18 15:56 | ECG_ITS ---
[facility] ED Test Date: 2020-08-18 Pat Name: Humera Navarrete Department: Room: 271 Gender: Female Data Clerk: : 1955 Requested By: Wayne Wilkins Order Number: [id number] Margarita MD: Melissa Bagley M.D. Measurements Intervals [place] Rate: 75 P: 78 WI: 180 QRS: 75 QRSD: 96 T: 23 QT: 397 QTc: 445 Interpretive Statements SINUS RHYTHM LOW QRS VOLTAGE IN PRECORDIAL LEADS [QRS DEFLECTION < 1.0 mV IN CHEST LEADS] NONSPECIFIC T-WAVE ABNORMALITY Compared to ECG 08/18/2020 13:15:15 Intraventricular conduction delay no longer present T-wave abnormality still present Electronically Signed On 08-22-2020 5:29:15 CDT by Melissa Bagley M.D. [email or web address] [email or web address] Book Farmmari[facility].[employer]/store/OM/[id number]
--- NOTE | 2020-08-18 16:19 | PC.NURSE ---
radiology called wanting to know if pt could have mri tomorrow at 1015. this nurse asked Dr. Pineda who replied it needed to be today. This nurse called radiology and let know.
[2020-08-18 17:09] LABS: Troponin 5 6HR Delta 0 ng/L (0-12)
--- NOTE | 2020-08-18 17:58 | P.HP_ITS ---
Providers/Chief Complaint Admitting Physician: Acosta Perea MD Primary Care Provider: Homero Arango MD Chief Complaint: unable to ambulate History of Present Illness Humera Navarrete is a 65 year old female with a past medical history as outlined below who presented to the ER with chief complaints of inability to walk that started yesterday morning. Upon presentation to the ER she was noted to have profound diffuse myoclonic tremor and she could not ambulate. No recent change in her medications, no recent history of viral respiratory or diarrheal illness.. She was evaluated by Dr. Ovalles in the ER. Reports history of similar short-lived episodes in the past of myoclonus over the last 5 to 6 months that resolved within 24 hours. States usually this affects her legs. Review of Systems General: Reports: 10 or more systems reviewed and unremarkable except in HPI and below Const: Denies: fever(s), chills or body aches Eyes: Denies: change in vision, blurry vision or photophobia ENMT: Reports: hoarseness; Denies: throat pain, enlarged tonsils, odynophagia or nasal congestion Card: Denies: chest pain, palpitations, irregular heart rhythm, edema, swelling of feet/ankles, lightheadedness, pre-syncope, dyspnea on exertion or orthopnea Resp: Denies: dyspnea, productive cough, non-productive cough, wheezing, stridor, pain on inspiration, change in phlegm color, hemoptysis or chest congestion GI: Denies: abdominal pain, nausea, vomiting, hematemesis, coffee ground emesis, dysphagia, heartburn, diarrhea, constipation, GI cramping, change in stool character, hematochezia or melena : Denies: flank pain, difficulty voiding, dysuria, urinary frequency, urinary urgency, urinary hesitancy or hematuria Musc: Denies: neck pain, back pain, extremity pain, joint swelling, joint warmth or deformity Neuro: Reports: weakness in extremities and difficulty walking; Denies: headache(s), numbness in extremities, sensory changes, frequent falls, dizziness, vertigo, behavioral changes, Slurred speech present or seizure-like activity Psych: Denies: anxiety, depression, suicidal ideation or homicidal ideation Endo: Denies: polyuria, polydipsia, tired all the time, cold intolerance or hot flashes Mayank/Lymph: Denies: easy bruising or easy bleeding Medications/Allergies Home Medications Medication Instructions Recorded Confirmed Last Taken Type aspirin 81 mg tablet,delayed 81 mg PO BID@0600,1800 05/10/19 08/18/20 08/18/20 History release oxycodone 20 mg tablet 20 mg PO QID PRN 30 Days #30 tab 06/24/20 08/18/20 Unknown Rx albuterol sulfate 2.5 mg INHALATION QID PRN #90 ml 07/16/20 08/18/20 Unknown Rx fluoxetine [Prozac] 20 mg PO TID@0600,1200,1800 08/12/20 08/18/20 08/18/20 History meloxicam [Mobic] 15 mg PO DAILY@0600 PRN 08/12/20 08/18/20 08/18/20 History paroxetine HCl [Paxil] 10 mg PO BEDTIME@1800 PRN 08/12/20 08/18/20 Unknown History ropinirole 2 - 4 mg PO BEDTIME@1800 08/12/20 08/18/20 08/17/20 History Geodon 80 mg PO TID@0600,1200,1800 08/18/20 08/18/20 08/18/20 History Protonix 40 mg PO BID@0600,1800 08/18/20 08/18/20 08/18/20 History Seroquel 1,200 mg PO TID@06,12,18 08/18/20 08/18/20 08/18/20 History Vesicare 10 mg PO DAILY@0600 08/18/20 08/18/20 08/18/20 History albuterol sulfate See Rx Instructions .ROUTE .COMPLEX 08/18/20 08/18/20 Unknown History gabapentin 600 mg PO TID@0600,1200,1800 08/18/20 08/18/20 08/18/20 History linaclotide [Linzess] 145 mcg PO DAILY@0600 08/18/20 08/18/20 Unknown History lovastatin 40 mg PO DAILY@1800 08/18/20 08/18/20 08/18/20 History tizanidine 4 mg PO QID@0600,1200,1800 PRN 08/18/20 08/18/20 08/18/20 History Allergies Allergy/AdvReac Type Severity Reaction Status Date / Time divalproex sodium AdvReac BEHAVIORAL Verified 08/18/20 09:16 [From Depakote] CHANGES NAUSEA AND VOMITING lithium AdvReac BEHAVIORAL Verified 08/18/20 09:16 CHANGES NAUSEA AND VOMITING PFSH Acute PFSH: Medical History Bilateral primary osteoarthritis of hip Bilateral primary osteoarthritis of knee Chronic low back pain Chronic lumbar radiculopathy Degeneration of lumbar intervertebral disc Encounter for long-term opiate analgesic use On high dose antipsychotic drug therapy Opioid contract exists Pain in right knee Post-traumatic stress disorder, chronic Schizoaffective disorder, bipolar type Spondylosis without myelopathy or radiculopathy, lumbar region Surgical History History of colostomy Family History Father Cancer Mother Cancer Other Diabetes Social History Smoking and tobacco status: former smoker Alcohol intake: former Former alcohol use details: NOT CURRENT History of recent travel: No Vitals/I&O/Wt Last Vital Signs Temp 97.9 F 08/18/20 15:00 Pulse 76 08/18/20 15:00 Resp 17 08/18/20 15:00 BP 112/68 08/18/20 15:00 Pulse Ox 97 08/18/20 15:00 08/18/20 08/18/20 08/18/20 06:59 14:59 22:59 Intake Total 240 / 240 Balance 240 / 240 Weight last 48 hrs Weight 113.398 kg Physical Exam Const: COMMON NORMALS: no acute distress, average body habitus, patient or iented x3, no limitations, healthy appearing, alert and well nourished HENMT: COMMON NORMALS: normocephalic and atraumatic HEAD & SCALP: normocephalic and atraumatic Eye: COMMON NORMALS: Equal, round and reactive pupils present, EOMs intact bilaterally, conjunctivae normal and no scleral icterus CONJUNCTIVA: Yes conjunctivae normal PUPIL: Yes Equal, round and reactive pupils present Neck/C-Spine: COMMON NORMALS: no JVD Resp: COMMON NORMALS: normal respiratory effort, No retractions, No use of accessory muscles, clear to auscultation bilaterally and percussion normal AUSCULTATION: clear to auscultation bilaterally PERCUSSION: percussion normal Cardio: COMMON NORMALS: no JVD, regular rate, regular rhythm, S1 normal heart sound present, S2 normal heart sound present, No gallops present (Cardio), No clicks present (Cardio), No murmurs present (Cardio), No rub (Cardio) and Peripheral pulses 2+ throughout RATE: regular rate RHYTHM: regular rhythm HEART SOUNDS: S1 normal heart sound present and S2 normal heart sound present PERIPHERAL PULSES: Peripheral pulses 2+ throughout GI: COMMON NORMALS: Normal to inspection, nondistended, normoactive bowel sounds present, Soft to palpation, non-tender, No hepatosplenomegaly present, no masses and no bruits PALPATION: Yes Soft to palpation and Yes No hepato splenomegaly present Extremity: COMMON NORMALS: normal to inspection, full ROM, capillary refill normal, no joint enlargement, no clubbing, cyanosis or edema, no calf tenderness and no pedal edema Neuro: COMMON NORMALS: patient oriented x3 and CN's II-XII intact bilaterally SENSORIUM/ORIENTATION: Yes alert OTHER: diffuse myoclonic jerks Psych: COMMON NORMALS: mental status grossly normal, Normal thought process present, cooperative, normal affect, speech normal, activity/motor behavior normal, denies hallucinations, denies homicidal ideation and denies suicidal ideation SPEECH: Yes normal speech THOUGHT PROCESS: Normal thought process present Skin: COMMON NORMALS: no rashes or lesions noted, no wounds, turgor normal, no jaundice, no petechiae and no mottling GENERAL SKIN EXAM: no rashes or lesions noted and turgor normal Data : 08/18/20 10:09 08/18/20 10:09 A&P Assessment and plan (1) Myoclonus: severe diffuse polymyoclonus. Differentials include medication sode effects from high-dose opioids, Seroquel, Geodon, antidepressants vs postinfectious cerebellitis. 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
[2020-08-18] MEDS: enoxaparin 40 mg/0.4 mL Syringe SUBCUT (18:37)
[2020-08-19] VITALS (8 sets, daily range): BP systolic 114–156; BP diastolic 71–90; PULSE 75–81; RESP 15–18; TEMP 36.4–36.9; O2SAT 91–96
[2020-08-19] MEDS: sodium chloride 0.9% 1,000 ML 100 ML IV ×2 (01:40→11:54)
[2020-08-19 05:30] LABS: Basophils # 0.1 10^3/uL (0.0-0.1); Basophils % 1.1 %; Eosinophils # 0.2 10^3/uL (0.0-0.8); Eosinophils % 3.7 %; Hematocrit 36.5 % (37.0-47.0); Hemoglobin 11.1 g/dL (11.5-15.3); Lymphocytes # 2.9 10^3/uL (0.8-4.8); Lymphocytes % 44.7 %; Mean Corpuscular HGB Conc 30.4 g/dL (30.0-36.0); Mean Corpuscular Hemoglobin 26.7 pg (28.0-34.0); Mean Platelet Volume 11.5 fL (7.4-10.4); Monocytes # 0.4 10^3/uL (0.2-0.9); Monocytes % 5.9 %; Neutrophils # 2.88 10^3/uL (1.8-7.7); Neutrophils % 44.3 %; Nucleated Red Blood Cells % 0 %; Platelet Count 267 10^3/cmm (130-400); Red Blood Count 4.15 10^6/uL (4.1-5.3); Red Cell Distribution Width 17.1 % (12.1-15.1); White Blood Count 6.5 10^3/uL (4.0-10.0)
[2020-08-19 06:09] LABS: Estmated Average Glucose 128; Hemoglobin A1C 6.1 % (4.0-6.0)
[2020-08-19 06:23] LABS: Alanine Aminotransferase 18 U/L (0-33); Albumin Level 3.7 g/dL (3.5-5.2); Alkaline Phosphatase 166 IU/L (35-105); Anion Gap 11.4 (5-19); Aspartate Amino Transferase 23 U/L (0-32); Blood Urea Nitrogen 18 mg/dL (8-23); Calcium 8.3 mg/dL (8.5-10.5); Carbon Dioxide 28 mmol/L (22-29); Chloride 103 mmol/L (98-107); Globulin 3.1 g/dL (1.3-4.6); Glomerular Filtration Rate 49.8 mL/min (90-130); Glucose 112 mg/dL (65-115); Osmolality Calculated 289 mOsm/kg (285-295); Potassium 4.4 mmol/L (3.5-5.1); Sodium 138 mmol/L (136-145); Total Bilirubin 0.2 mg/dL (0.15-1.2); Total Protein 6.8 g/dL (6.6-8.7)
[2020-08-19 06:25] LABS: Creatine Phosphokinase 67 U/L (26-192)
[2020-08-19] MEDS: ziprasidone hcl 40 mg Capsule 80 MG PO ×3 (06:36→17:12)
[2020-08-19] MEDS: aspirin 81 mg EC Tablet PO ×2 (06:36→17:13)
[2020-08-19] MEDS: pantoprazole DR 40 mg Tablet PO ×2 (06:37→17:13)
--- NOTE | 2020-08-19 10:27 | PC.CHAP ---
Pastoral Care Encounter/Spiritual Assessment Type of Contact [] Declined deli slicer visit [] Patient/Family/Request visit [] Outpatient visit [] Follow-up visit [] Physician referral [] Code/Alert [x] Routine visit [] Staff referral [] Actively dying [] Patient sleeping [] Family support [] [] Out of room [] Palliative care [] [] Receiving care in room [] Pre-surgical visit [] Trauma [] Long length of stay [] ICU visit [] Other: Relational/Emotional Strength [x] Patient feels connected with others/family/visitors/staff [] Distress [] Loneliness/isolation [] Abandonment Spirituality of Patient [x] Person of Tessy [x] Attends Advent of their Tessy [x] Believes in Prayer [] Reads Bible or Jewish materials [] There are Spiritual issues to be addressed Mouse Breeder Interventions [x] Prayer [x] Active listening [x] Non-anxious presence [x] Spiritual/emotional support [] Crisis/trauma care [] Spiritual counseling [] Bereavement support [] Provided bereavement packet [] Provided Bible/devotional materials [] Provided toy/stuffed animal, coloring book to patient or family member [] Provided Communion [] Anointing/[place] [] Salvation [x] Completed spiritual assessment [] Other: Impact on Illness or Injury [] Angry [] Fearful [] Anxious [] Often cries [] Exhaustion [] Unable to work [] Unable to attend voodoo [] Unable to walk/stand [] Unable to read [] Unable to drive [] Unable to eat/drink [] Unable to sleep [] Unable to be with family [] Patient intubated [] Other: Summary Time spent with patient 15 mniun
[2020-08-19] MEDS: fluoxetine 20 mg Capsule PO ×2 (11:53→17:13)
[2020-08-19 14:28] LABS: Anti-Nuclear Antibody Screen NEGATIVE (NEGATIVE)
[2020-08-19] MEDS: ropinirole 2 mg Tablet PO (17:13)
--- NOTE | 2020-08-19 17:37 | P.PN_ITS ---
Subjective Subjective: Interval history: Improving lower extremity weakness today, patient was able to walk from bed to bedside chair. Fasciculations still persisting however better than before. Could not complete MRI as patient is claustrophobic, declined sedation for the procedure. Medications: Reviewed: Yes Vitals/I&O/Wt Last Vital Signs Temp 98.0 F 08/19/20 16:00 Pulse 80 08/19/20 16:00 Resp 18 08/19/20 16:00 BP 132/71 08/19/20 16:00 Pulse Ox 96 08/19/20 16:00 08/19/20 08/19/20 08/19/20 06:59 14:59 22:59 Intake Total 1000 / 1280 1360 / 1360 Output Total 300 / 300 Balance 700 / 980 1360 / 1360 Weight last 48 hrs Weight 113.398 kg Physical Exam Narrative: EXAM NARRATIVE: GENERAL: Awake, alert, oriented, in no acute distress. [] HEENT: Normocephalic, atraumatic, PERRLA. [] CHEST: Clear to auscultation bilaterally. [] CVS: S1, S2 normal. No murmur, rubs, gallops. Peripheral pulses palpable. [] ABDOMEN: Soft, nontender. Nondistended. Bowel sounds heard. [] NEUROVASCULAR: Awake, alert. Power 4/5 all extremities. myoclonus+, improving [] EXTREMITIES: No edema. [] Data : 08/19/20 04:58 08/19/20 04:58 A&P Assessment and plan (1) Myoclonus: severe diffuse polymyoclonus. Differentials include medication sode effects from high-dose opioids, Seroquel, Geodon, antidepressants vs postinfectious cerebellitis. 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
[2020-08-19] MEDS: enoxaparin 40 mg/0.4 mL Syringe SUBCUT (18:08)
--- NOTE | 2020-08-19 19:39 | P.PN_ITS ---
Subjective Subjective: Interval history: Her mother clonus has resolved. I am not sure why but she has not had an MRI of the brain and I think it can be canceled at this point. She says she has never experienced anything like this before. She is absolutely sure that she did not take any of her medications as an extra dose nor did she skip any of her medications. She would very much like to go home in the morning if it is possible. She will be glad to see me as an outpatient. Vitals/I&O/Wt Last Vital Signs Temp 98.4 F 08/19/20 19:35 Pulse 75 08/19/20 19:35 Resp 18 08/19/20 19:35 BP 114/79 08/19/20 19:35 Pulse Ox 95 08/19/20 19:35 08/19/20 08/19/20 08/19/20 06:59 14:59 22:59 Intake Total 1000 / 1280 1360 / 1360 240 / 1600 Output Total 300 / 300 Balance 700 / 980 1360 / 1360 240 / 1600 Weight last 48 hrs Weight 250 lb Physical Exam Narrative: EXAM NARRATIVE: Mental status exam: Again as yesterday she is alert and oriented. She is of above average intelligence. She is enthusiastic and has a good sense of humor. Cranial nerves II through XII are intact and she no longer has facial tremor. Speech is clear. Motor exam reveals no sign of tremor or myoclonus. She has normal strength throughout. Gait: She is ambulating with a walker. Data : 08/19/20 04:58 08/19/20 04:58 A&P Assessment and plan (1) Toxic encephalopathy: This 65-year-old woman presented with acute severe polymyoclonus. This is almost always a toxic phenomenon. She was hypocalcemic but in order to produce the kind of muscle irritability that she presented with, I would expect her calcium to be 7.5 or below and hers was 8. Similarly, she is hypothyroid with slightly elevated TSH, but polymyoclonus would be more likely associated with hyperthyroidism than hypothyroidism. She is confident that her medication dosages were not unusual. As I mentioned in my consult, multiple medications that she is taking may cause polymyoclonus include gabapentin, lamotrigine, less likely Geodon, more likely oxycodone and less likely quetiapine. At this time I would recommend discharging her on the same medications that she was taking before. I will be glad to see her in my clinic. I would schedule an EEG as an outpatient but I think we can cancel the MRI. Status: Acute (2) Myoclonus: Status: Acute (3) Hypocalcemia: Status: Acute (4) Hypothyroid: Status: Acute Attestations Medical Necessity Statement*: Severe gait disorder with polymyoclonus Coding Level of Care Code Acute Food Mixer for g Fwd Diagnoses Toxic encephalopathy G92 Myoclonus G25.3 Hypocalcemia E83.51 Hypothyroid E03.9
[2020-08-19] MEDS: quetiapine 300 mg Tablet 1200 MG PO (21:50)
--- NOTE | 2020-08-19 22:04 | PC.NURSE ---
Patient caught IV on something and accidentally pulled it out. She does not want another IV placed. Dr. Quan notified.
[2020-08-20] VITALS: BP 120/79; PULSE 74; RESP 18; TEMP 36.9; O2SAT 95
[2020-08-20 04:00] VITALS: BP 132/81; PULSE 84; RESP 18; TEMP 36.6; O2SAT 94
[2020-08-20] MEDS: aspirin 81 mg EC Tablet PO (05:53)
[2020-08-20] MEDS: ziprasidone hcl 40 mg Capsule 80 MG PO ×2 (05:53→11:20)
[2020-08-20] MEDS: fluoxetine 20 mg Capsule PO ×2 (05:57→11:20)
[2020-08-20] MEDS: pantoprazole DR 40 mg Tablet PO (05:58)
[2020-08-20 07:25] VITALS: BP 111/71; PULSE 83; RESP 18; TEMP 36.4; O2SAT 92
[2020-08-20 08:48] VITALS: PULSE 82; RESP 18; O2SAT 95
[2020-08-20 11:21] VITALS: BP 110/69; PULSE 86; RESP 18; TEMP 37.2; O2SAT 90
--- NOTE | 2020-08-20 12:10 | PM.DCS ---
Discharge Providers Date of Admission: 08/18/20 14:38 Date of Discharge: August 20, 2020 Attending Provider at Admission: Acosta Perea MD Attending Provider at Discharge: Tiffanie Pineda MD Primary Care Provider: Homero Arango MD Diagnoses at Discharge Discharge Diagnosis (1) Toxic encephalopathy: Status: Acute (2) Myoclonus: Status: Acute (3) Hypocalcemia: Status: Inactive (4) Hypothyroid: Status: Acute Reason for Visit Reason for Visit: unable to ambulate Hospital Course Hospital Course Humera Sosa is a 65-year-old female with multiple past medical history as outlined in HPI who presented to the ER on August 18, 2020 with chief complaints of inability to walk that started approximately 24 hours prior to ER arrival. She was found to have profound diffuse myoclonic tremor. No recent history of viral or diarrheal illness. She was seen by neurology during the course of admission. Patient did not tolerate an MRI and refused MRI with sedation to rule out infectious infectious cerebellitis. More likely that this was contributed by multiple medications that she is taking such as gabapentin, lamotrigine, Geodon, oxycodone and quetiapine. Her polymyoclonus did improve during the course of admission. She no longer had facial tremor, muscle strength improved, she was able to ambulate in the room. She was discharged on the same medications that she was taking before per neurology recommendations. Outpatient EEG will be scheduled, follow-up with neurology in 1 month. Incidentally noted to have hypothyroidism, added levothyroxine 25 mics, encouraged to follow-up with primary care provider. Physical Exam Narrative: EXAM NARRATIVE: GENERAL: Awake, alert, oriented, in no acute distress. [] HEENT: Normocephalic, atraumatic, PERRLA. [] CHEST: Clear to auscultation bilaterally. [] CVS: S1, S2 normal. No murmur, rubs, gallops. Peripheral pulses palpable. [] ABDOMEN: Soft, nontender. Nondistended. Bowel sounds heard. [] NEUROVASCULAR: Awake, alert. Power 5/5 all extremities. Ambulating with a walker today [] EXTREMITIES: No edema. [] Discharge Data Data Completed and Pending: Completed Studies During Hospitalization Category Date Time Status CT head wo/w con [id number] Stat Cat Scan 08/18/20 09:59 Completed XR chest 1V rima ble [id number] Stat Exams 08/18/20 09:55 Completed Pending at discharge Category Date Time Status SANTA Screen w/ Ref delia Stat Lab 08/18/20 16:40 Results Glucose CSF Routi ne Lab 08/18/20 14:15 Uncollected Lamotrigine (Lami ctal) Level Routin e Lab 08/18/20 16:40 Received Oligoclonal Bands IGG, CSF Stat Lab 08/18/20 16:40 Stop Req Labs from last 24 hours 08/18/20 16:40 SANTA Screen Negative Vitals: Last Vital Signs Temp 98.9 F 08/20/20 11:21 Pulse 86 08/20/20 11:21 Resp 18 08/20/20 11:21 BP 110/69 08/20/20 11:21 Pulse Ox 90 08/20/20 11:21 Discharge Plan Discharge Patient Disposition: Home Condition: Stable Prescriptions: New levothyroxine 25 mcg capsule 25 mcg PO DAILY 30 Days Qty: 30 RF: 0 Continued aspirin 81 mg tablet,delayed release (DR/EC) 81 mg PO BID@0600,1800 RF: 0 oxycodone 20 mg tablet 20 mg PO QID PRN (Reason: pain) 30 Days Qty: 30 RF: 0 albuterol sulfate 2.5 mg /3 mL (0.083 %) solution for nebulization 2.5 mg INHALATION QID PRN (Reason: shortness of breath or wheezing) Qty: 90 RF: 0 fluoxetine [Prozac] 20 mg Capsule 20 mg PO TID@0600,1200,1800 RF: 0 paroxetine HCl [Paxil] 10 mg tablet 10 mg PO BEDTIME@1800 RF: 0 meloxicam [Mobic] 15 mg tablet 15 mg PO DAILY@0600 PRN (Reason: UNKNOWN) RF: 0 ropinirole 2 mg tablet 2 - 4 mg PO BEDTIME@1800 RF: 0 albuterol sulfate 2.5 mg /3 mL (0.083 %) Solution For Nebulization See Rx Instructions .ROUTE .COMPLEX RF: 0 Geodon 80 mg capsule 80 mg PO TID@0600,1200,1800 RF: 0 gabapentin 600 mg tablet 600 mg PO TID@0600,1200,1800 RF: 0 tizanidine 4 mg tablet 4 mg PO QID PRN (Reason: muscle spasticity) RF: 0 lovastatin 40 mg tablet 40 mg PO DAILY@1800 RF: 0 Protonix 40 mg tablet,delayed release (DR/EC) 40 mg PO BID@0600,1800 RF: 0 Vesicare 10 mg tablet 10 mg PO DAILY@0600 RF: 0 quetiapine [Seroquel] 400 mg tablet 1,200 mg PO BEDTIME RF: 0 linaclotide 145 mcg capsule 145 mcg PO DAILY@0600 RF: 0 lamotrigine 200 mg Tablet 200 mg PO DAILY RF: 0 Discharge Orders: Discharge Order (Routine); Ordered 08/20/20 Ordered By: Tiffanie Pineda Other Ambulatory Orders: EEG electroencephalogram (Routine) Timeframe: 1 Week Facility: [facility] - Location: Neurology Ordered By: Tiffanie Pineda Referrals: Homero Arango MD [Primary Care Provider] - 08/27/20 11:15 am (You have an appointment with Dr. Arango on August 27 at 11:15. ) Gisela Ovalles MD [Physician] - 1 month Patient Instructions: Hypothyroidism (GEN), Opioid Safety Discharge Attestations Time Spent in Discharge Care*: less than 30 min Quality Metrics Clinical Quality Measures During this hospital stay, did patient experience: None Coding Level of Care Code Acute Chg FW DC note Diagnoses Toxic encephalopathy G92 Myoclonus G25.3 Hypocalcemia E83.51 Hypothyroid E03.9
[2020-08-20 13:50] VITALS: BP 110/69; PULSE 86; RESP 18; TEMP 37.2; O2SAT 90
--- NOTE | 2020-08-21 15:51 | PC.RESP ---
Pulmonary Rehab information sent to patient.
[2020-08-23 19:12] LABS: Lamotrigine (Lamictal) Level 8.6 mcg/mL (4.0-18.0)
== END 2020-08-20 13:51 | disposition home or self-care (01) | DRG 91 ==
LOC: ER 10:49 → MEDSURG 14:39
PROVIDERS: Admitting Provider Student in an Organized Health Care Education/Training Program; Emergency Provider Family Medicine; PCP Internal Medicine; Visit Provider Student in an Organized Health Care Education/Training Program
DX: G25.3 Myoclonus (principal); G92 Toxic encephalopathy; F25.0 Schizoaffective disorder, bipolar type; M16.0 Bilateral primary osteoarthritis of hip; M17.0 Bilateral primary osteoarthritis of knee; G89.29 Other chronic pain; M47.896 Other spondylosis, lumbar region; F43.12 Post-traumatic stress disorder, chronic; Z87.891 Personal history of nicotine dependence; Z93.3 Colostomy status; F40.240 Claustrophobia; E83.51 Hypocalcemia; E03.9 Hypothyroidism, unspecified; Z79.82 Long term (current) use of aspirin; Z79.891 Long term (current) use of opiate analgesic
CPT/HCPCS: 36415; 70470; 71045; 80053; 80175; 80306; 81003; 82550; 83036; 83605; 83735; 83916; 84439; 84443; 84481; 84484; 85025; 86038; 93005; 96372; 97161; 97530; 99285; C1751; J1650; J7030; Q9967

== ENCOUNTER → 2020-09-09 07:54 | Outpatient (BNVA) | payer MEDICAID, SELFPAY | PROVIDERS: PCP Internal Medicine; Visit Provider Anesthesiology | DX: G89.29 Other chronic pain (principal); M51.36 Other intervertebral disc degeneration, lumbar region; M47.816 Spondylosis without myelopathy or radiculopathy, lumbar region; M54.16 Radiculopathy, lumbar region; M17.0 Bilateral primary osteoarthritis of knee; Z79.891 Long term (current) use of opiate analgesic | CPT/HCPCS: 99214 ==

== ENCOUNTER → 2020-09-22 08:11 | Outpatient (BNVA) | payer MEDICAID, SELFPAY | PROVIDERS: PCP Internal Medicine; Visit Provider Nurse Practitioner | DX: F25.0 Schizoaffective disorder, bipolar type (principal); F43.12 Post-traumatic stress disorder, chronic | CPT/HCPCS: 99214 ==

== ENCOUNTER → 2020-11-06 08:25 | Outpatient (BNVA) | payer MEDICAID, SELFPAY | PROVIDERS: PCP Internal Medicine; Visit Provider Anesthesiology | DX: G89.29 Other chronic pain (principal); M51.36 Other intervertebral disc degeneration, lumbar region; M47.816 Spondylosis without myelopathy or radiculopathy, lumbar region; M54.16 Radiculopathy, lumbar region; F17.290 Nicotine dependence, other tobacco product, uncomplicated; Z79.891 Long term (current) use of opiate analgesic | CPT/HCPCS: 99213 ==

== ENCOUNTER → 2020-11-10 07:24 | Outpatient (BNVA) | payer MEDICAID, SELFPAY | PROVIDERS: PCP Internal Medicine; Visit Provider Nurse Practitioner | DX: F43.12 Post-traumatic stress disorder, chronic (principal); F25.0 Schizoaffective disorder, bipolar type | CPT/HCPCS: 99214 ==

== ENCOUNTER → 2020-12-21 14:55 | Outpatient (BNVA) | payer MEDICAID, SELFPAY | PROVIDERS: PCP Internal Medicine; Visit Provider Nurse Practitioner Family | DX: Z20.822 Contact with and (suspected) exposure to COVID-19 (principal); J06.9 Acute upper respiratory infection, unspecified | CPT/HCPCS: 87426 ==

== ENCOUNTER 2020-12-22 15:48 | Emergency (ER) | payer MEDICAID, SELFPAY ==
[2020-12-22 16:02] VITALS: BP 127/100; PULSE 89; RESP 26; TEMP 38.1; O2SAT 97; BMI 33.9
--- NOTE | 2020-12-22 16:03 | XRR_ITS ---
PROCEDURE INFORMATION: Exam: XR Chest Exam date and time: 12/22/2020 4:03 PM Age: 65 years old Clinical indication: Other: Hypoxia TECHNIQUE: Imaging protocol: XR of the chest. Views: 1 view. COMPARISON: CR XR chest 1V portable [id number] 08/18/2020 10:00 AM FINDINGS: Lungs: Diffusely increased interstitial opacities are more prominent than prior imaging. No focal airspace consolidation. Overall mild decrease in lung volumes. Pleural spaces: Unremarkable. No pleural effusion. No pneumothorax. Heart/Mediastinum: Unremarkable. No cardiomegaly. Bones/joints: Unremarkable. XR/XR chest 1V portable [id number] IMPRESSION: Increased prominence of the pulmonary interstitium diffusely. Interstitial edema versus pneumonia in the differential.
[2020-12-22 16:20] VITALS: O2SAT 92
[2020-12-22 16:20] LABS: ABG PCO2 35.2 mmHg (35-45); ABG PH Result 7.37 (7.35-7.45); Arterial Blood Gas Hematocrit 38.7 % (37-47); Base Excess ABG -4.1 mmol/L (-2.0-2.0); Blood Gas Allen Test Pos; Blood Gas Operator Identificat ED; Blood Gas Sample Site Radial, right; Blood Gas Sample Type Arterial; HCO3 ABG 20.5 mmol/L (22-26); Oxygen Device NRB; PO2 ABG 68.5 mmHg (80.0-100.0)
[2020-12-22 16:22] VITALS: PULSE 92; RESP 24; O2SAT 94
[2020-12-22 16:25] LABS: Basophils % 0.2 %; Hematocrit 37.8 % (37.0-47.0); Hemoglobin 12.1 g/dL (11.5-15.3); Lymphocytes # 1.7 10^3/uL (0.8-4.8); Lymphocytes % 27.4 %; Mean Corpuscular Hemoglobin 26.5 pg (28.0-34.0); Mean Corpuscular Volume 82.9 fl (81-99); Mean Platelet Volume 11.6 fL (7.4-10.4); Monocytes # 0.2 10^3/uL (0.2-0.9); Monocytes % 3.2 %; Neutrophils # 4.31 10^3/uL (1.8-7.7); Neutrophils % 68.7 %; Nucleated Red Blood Cells % 0 %; Platelet Count 229 10^3/cmm (130-400); Red Blood Count 4.56 10^6/uL (4.1-5.3); Red Cell Distribution Width 16.4 % (12.1-15.1); White Blood Count 6.3 10^3/uL (4.0-10.0)
--- NOTE | 2020-12-22 16:28 | W.ED.COVID ---
HPI - COVID General: Chief Complaint: COVID symptoms Stated Complaint: SOB/ COVID + Time Seen by Provider: 12/22/20 16:03 Triage information: Has fever, cough or shortness of breath. Exposure to COVID + person last 14 days History of Present Illness: HPI Narrative: 65-year-old female presents emergency room via EMS with known Covid. She tested positive Covid yesterday on 8 antigen test. Was administered through one of the outlying clinics. She is obese with a history of hypertension. 90s on arrival. He has had an ostomy a nonproductive cough myalgias headache and diarrhea. Has not previously been vaccinated and not previously been known to have Covid. States her symptoms began approximately 1 week ago MD complaint: known COVID positive Prior covid testing: yes, results known Prior testing date: 12/21/20 COVID 19 common symptoms: positive fever(s), chills, cough, non-productive cough, dyspnea, fatigue and body aches; negative throat pain, nasal congestion, nausea, vomiting or diarrhea COVID 19 other sytmptoms: positive requiring oxygen; negative chest pain Onset (ago): day(s) Severity: severe Pertinent comorbid conditions: hypertension, heart disease, COPD/respiratory disease and obesity Treatment prior to arrival: oxygen and breathing treatments COVID Results: SARS-CoV-2 Antigen (Rapid) Positive (Negative) H 12/21/20 14:55 12/21/20 Review of Systems Const: Reports: fever(s), chills, body aches and fatigue ENMT: Denies: throat pain, ear or mastoid pain, nasal discharge or nasal congestion Card: Denies: chest pain, edema, dyspnea on exertion or orthopnea Resp: Reports: dyspnea and non-productive cough GI: Denies: abdominal pain, nausea, vomiting, hematemesis, coffee ground emesis, diarrhea, constipation, bloating, hematochezia or melena : Denies: flank pain, difficulty voiding, dysuria, urinary frequency or urinary urgency Skin/Breast: Denies: rash or pruritus PFSH ED PFSH: Medical History (Updated 12/29/20 @ 06:03 by Wayne Cabrera DO) Bilateral primary osteoarthritis of hip Bilateral primary osteoarthritis of knee Chronic low back pain Chronic lumbar radiculopathy Degeneration of lumbar intervertebral disc Encounter for long-term opiate analgesic use On high dose antipsychotic drug therapy Opioid contract exists Pain in right knee Post-traumatic stress disorder, chronic Schizoaffective disorder, bipolar type Spondylosis without myelopathy or radiculopathy, lumbar region Surgical History History of colostomy Family History Father Cancer Mother Cancer Other Diabetes Social History Smoking and tobacco status: current every day smoker e-cigarettes E-Cigarette Details: vaporizer device E-cig/vape details: NON NICOTINE Alcohol intake: former Former alcohol use details: NOT CURRENT History of recent travel: No Physical Exam Const: COMMON NORMALS: average body habitus, patient oriented x3 and alert GENERAL APPEARANCE: cooperative, comfortable, well kempt and well developed NUTRITIONAL APPEARANCE: obese ORIENTATION/CONSCIOUSNESS: Yes awake, Yes oriented to person and Yes oriented to place HENMT: COMMON NORMALS: normocephalic, atraumatic and EAC's normal HEAD & SCALP: normocephalic and atraumatic EXTERNAL AUDITORY CANAL: EAC's normal Neck/C-Spine: COMMON NORMALS: no meningeal signs Lymph: LYMPHATIC: no lymphadenopathy noted Resp: AUSCULTATION: rales, rhonchi and wheezes Cardio: RATE: tachycardic HEART SOUNDS: no murmurs GI: COMMON NORMALS: Normal to inspection, nondistended, normoactive bowel sounds present, Soft to palpation and No hepatosplenomegaly present PALPATION: Yes Soft to palpation and Yes No hepatosplenomegaly present : COMMON NORMALS: Yes no CVA tenderness BLADDER/KIDNEY EXAM: Yes no CVA tenderness Back/Pelvis: COMMON NORMALS: no CVA tenderness LUMBAR SPINE/LOWER BACK: Yes normal to inspection Extremity: COMMON NORMALS: no clubbing, cyanosis or edema, no calf tenderness and no pedal edema Neuro: COMMON NORMALS: patient oriented x3 SENSORIUM/ORIENTATION: Yes alert, Yes oriented to person and Yes oriented to place MENINGEAL SIGNS: Yes no meningeal signs Psych: APPEARANCE: Yes well kempt Skin: COMMON NORMALS: no rashes or lesions noted and turgor normal GENERAL SKIN EXAM: no rashes or lesions noted and turgor normal Course Vital Signs: Vital signs: Vital Signs Temperature 100.5 F H 12/22/20 16:02 Pulse Rate 76 12/22/20 22:47 Respiratory Rate 18 12/22/20 22:47 Blood Pressure 126/63 12/22/20 22:47 Pulse Oximetry 91 12/22/20 22:47 MDM - COVID MDM Narrative: Medical decision making narrative: Patient tested positive yesterday for Covid. will need to be admitted to. We are able to get a bed at [facility] we do not have any beds available for this patient in our facility at this time. Patient switched to BiPAP for transfer to allow safe transfer since that heated high flow had a too high of an oxygen consumption rate for ground ambulance. Lab Data: Labs: Lab Results 12/22/20 12/22/20 12/22/20 Range/Units 16:10 16:15 16:15 WBC (4.0-10.0) 10^3/ uL RBC (4.1-5.3) 10^6/u L Hgb (11.5-15.3) g/dL Hct (37.0-47.0) % MCV (81-99) fl MCH (28.0-34.0) pg MCHC (30.0-36.0) g/dL RDW (12.1-15.1) % Plt Count (130-400) 10^3/c mm MPV (7.4-10.4) fL Neut % (Auto) % Lymph % (Auto) % [place] % (Auto) % Eos % (Auto) % Baso % (Auto) % Neut # (Auto) (1.8-7.7) 10^3/u L Lymph # (Auto) (0.8-4.8) 10^3/u L [place] # (Auto) (0.2-0.9) 10^3/u L Eos # (Auto) (0.0-0.8) 10^3/u L Baso # (Auto) (0.0-0.1) 10^3/u L Nucleated RBC % (a uto) % Nucleated RBCs # /100WBC D-Dimer 0.60 H (0-0.59) ug/mIFE U Specimen Type Arterial Sample Site Radial, right ABG pH 7.37 (7.35-7.45) ABG pCO2 35.2 (35-45) mmHg ABG pO2 68.5 L (80.0-100.0) mmH g ABG HCO3 20.5 L (22-26) mmol/L ABG Base Excess -4.1 L (-2.0-2.0) mmol/ L Demian Test Pos Hematocrit 38.7 (37-47) % O2 Delivery Device Nrb O2 Liters/Min 15.0 % FiO2 100.0 % Municipal [address] Judge ID Ed Sodium 133 L (136-145) mmol/L Potassium 3.8 (3.5-5.1) mmol/L Chloride 96 L (98-107) mmol/L Carbon Dioxide 20 L (22-29) mmol/L Anion Gap 20.8 H (5-19) BUN 19 (8-23) mg/dL Creatinine 1.3 H (0.5-0.9) mg/dL GFR Calculation 41.1 L (90-130) mL/min Glucose 139 H (65-115) mg/dL Calculated Osmolal ity 281 L (285-295) mOsm/k g Lactic Acid (0.5-2.2) mmol/L Calcium 8.3 L (8.5-10.5) mg/dL Magnesium (1.7-2.3) mg/dL Total Bilirubin 0.3 (0.15-1.2) mg/dL AST 47 H (0-32) U/L ALT 40 H (0-33) U/L Alkaline Phosphata se 331 H (35-105) IU/L Creatine Kinase 240 H (26-192) U/L Troponin T Baselin e (0-10) ng/L Troponin T 120 Min [place] (0-10) ng/L Delta Troponin T (0-10) ABS# C-Reactive Protein 195.5 H (0.0-4.9) mg/L NT-Pro-B Natriuret Pep (0-125) pg/mL Total Protein 7.7 (6.6-8.7) g/dL Albumin 3.9 (3.5-5.2) g/dL Globulin 3.8 (1.3-4.6) g/dL Procalcitonin 0.30 (0-0.5) ng/mL 12/22/20 12/22/20 12/22/20 Range/Units 16:15 16:15 16:15 WBC 6.3 (4.0-10.0) 10^3/ uL RBC 4.56 (4.1-5.3) 10^6/u L Hgb 12.1 (11.5-15.3) g/dL Hct 37.8 (37.0-47.0) % MCV 82.9 (81-99) fl MCH 26.5 L (28.0-34.0) pg MCHC 32.0 (30.0-36.0) g/dL RDW 16.4 H (12.1-15.1) % Plt Count 229 (130-400) 10^3/c mm MPV 11.6 H (7.4-10.4) fL Neut % (Auto) 68.7 % Lymph % (Auto) 27.4 % [place] % (Auto) 3.2 % Eos % (Auto) 0.0 % Baso % (Auto) 0.2 % Neut # (Auto) 4.31 (1.8-7.7) 10^3/u L Lymph # (Auto) 1.7 (0.8-4.8) 10^3/u L [place] # (Auto) 0.2 (0.2-0.9) 10^3/u L Eos # (Auto) 0.0 (0.0-0.8) 10^3/u L Baso # (Auto) 0.0 (0.0-0.1) 10^3/u L Nucleated RBC % (a uto) 0 % Nucleated RBCs # 0.0 /100WBC D-Dimer (0-0.59) ug/mIFE U Specimen Type Sample Site ABG pH (7.35-7.45) ABG pCO2 (35-45) mmHg ABG pO2 (80.0-100.0) mmH g ABG HCO3 (22-26) mmol/L ABG Base Excess (-2.0-2.0) mmol/ L Demian Test Hematocrit (37-47) % O2 Delivery Device O2 Liters/Min % FiO2 % Municipal Court Judge ID Sodium (136-145) mmol/L Potassium (3.5-5.1) mmol/L Chloride (98-107) mmol/L Carbon Dioxide (22-29) mmol/L Anion Gap (5-19) BUN (8-23) mg/dL Creatinine (0.5-0.9) mg/dL GFR Calculation (90-130) mL/min Glucose (65-115) mg/dL Calculated Osmolal ity (285-295) mOsm/k g Lactic Acid 1.6 (0.5-2.2) mmol/L Calcium (8.5-10.5) mg/dL Magnesium (1.7-2.3) mg/dL Total Bilirubin (0.15-1.2) mg/dL AST (0-32) U/L ALT (0-33) U/L Alkaline Phosphata se (35-105) IU/L Creatine Kinase (26-192) U/L Troponin T Baselin e 8 (0-10) ng/L Troponin T 120 Min [place] (0-10) ng/L Delta Troponin T (0-10) ABS# C-Reactive Protein (0.0-4.9) mg/L NT-Pro-B Natriuret Pep (0-125) pg/mL Total Protein (6.6-8.7) g/dL Albumin (3.5-5.2) g/dL Globulin (1.3-4.6) g/dL Procalcitonin (0-0.5) ng/mL 12/22/20 12/22/20 Range/Units 16:15 18:30 WBC (4.0-10.0) 10^3/ uL RBC (4.1-5.3) 10^6/u L Hgb (11.5-15.3) g/dL Hct (37.0-47.0) % MCV (81-99) fl MCH (28.0-34.0) pg MCHC (30.0-36.0) g/dL RDW (12.1-15.1) % Plt Count (130-400) 10^3/c mm MPV (7.4-10.4) fL Neut % (Auto) % Lymph % (Auto) % [place] % (Auto) % Eos % (Auto) % Baso % (Auto) % Neut # (Auto) (1.8-7.7) 10^3/u L Lymph # (Auto) (0.8-4.8) 10^3/u L [place] # (Auto) (0.2-0.9) 10^3/u L Eos # (Auto) (0.0-0.8) 10^3/u L Baso # (Auto) (0.0-0.1) 10^3/u L Nucleated RBC % (a uto) % Nucleated RBCs # /100WBC D-Dimer (0-0.59) ug/mIFE U Specimen Type Sample Site ABG pH (7.35-7.45) ABG pCO2 (35-45) mmHg ABG pO2 (80.0-100.0) mmH g ABG HCO3 (22-26) mmol/L ABG Base Excess (-2.0-2.0) mmol/ L Demian Test Hematocrit (37-47) % O2 Delivery Device O2 Liters/Min % FiO2 % Municipal Court Judge ID Sodium (136-145) mmol/L Potassium (3.5-5.1) mmol/L Chloride (98-107) mmol/L Carbon Dioxide (22-29) mmol/L Anion Gap (5-19) BUN (8-23) mg/dL Creatinine (0.5-0.9) mg/dL GFR Calculation (90-130) mL/min Glucose (65-115) mg/dL Calculated Osmolal ity (285-295) mOsm/k g Lactic Acid (0.5-2.2) mmol/L Calcium (8.5-10.5) mg/dL Magnesium 2.0 (1.7-2.3) mg/dL Total Bilirubin (0.15-1.2) mg/dL AST (0-32) U/L ALT (0-33) U/L Alkaline Phosphata se (35-105) IU/L Creatine Kinase 241 H (26-192) U/L Troponin T Baselin e (0-10) ng/L Troponin T 120 Min [place] 6.27 (0-10) ng/L Delta Troponin T -1.73 L (0-10) ABS# C-Reactive Protein (0.0-4.9) mg/L NT-Pro-B Natriuret Pep 62 (0-125) pg/mL Total Protein (6.6-8.7) g/dL Albumin (3.5-5.2) g/dL Globulin (1.3-4.6) g/dL Procalcitonin (0-0.5) ng/mL COVID Results: SARS-CoV-2 Antigen (Rapid) Positive (Negative) H 12/21/20 14:55 12/21/20 Discharge Plan Discharge Patient Disposition: Xfer Short-Term Hosp Clinical Impression: COVID-19, COPD (chronic obstructive pulmonary disease) Prescriptions: No Action aspirin 81 mg tablet,delayed release (DR/EC) 81 mg PO BID@0600,1800 RF: 0 Geodon 80 mg capsule 80 mg PO TID@0600,1200,1800 Qty: 90 RF: 1 quetiapine [Seroquel] 400 mg tablet 1,200 mg PO BEDTIME Qty: 90 RF: 1 lamotrigine 200 mg tablet 200 mg PO DAILY Qty: 30 RF: 1 trazodone 50 mg tablet 50 mg PO .HS Qty: 30 RF: 1 oxycodone 20 mg tablet 20 mg PO QID PRN (Reason: pain) 30 Days Qty: 30 RF: 0 albuterol sulfate 2.5 mg /3 mL (0.083 %) solution for nebulization 2.5 mg INHALATION QID MDD SEE PHARMACY COMMENT PRN (Reason: shortness of breath or wheezing) Qty: 90 RF: 0 Vesicare 10 mg tablet 10 mg PO DAILY@0600 Qty: 90 RF: 3 levothyroxine 25 mcg capsule 25 mcg PO DAILY 30 Days Qty: 30 RF: 3 Viibryd 20 mg tablet 20 mg PO DAILY Qty: 45 RF: 1 lovastatin 40 mg tablet 40 mg PO DAILY@1800 Qty: 30 RF: 3 tizanidine 4 mg tablet 4 mg PO TID PRN (Reason: muscle spasticity) 30 Days Qty: 90 RF: 1 gabapentin 600 mg tablet 600 mg PO TID@0600,1200,1800 30 Days Qty: 90 RF: 1 meloxicam [Mobic] 15 mg tablet 15 mg PO DAILY@0600 PRN (Reason: UNKNOWN) RF: 0 ropinirole 2 mg tablet 2 - 4 mg PO BEDTIME@1800 RF: 0 albuterol sulfate 2.5 mg /3 mL (0.083 %) Solution For Nebulization See Rx Instructions .ROUTE .COMPLEX RF: 0 pantoprazole [Protonix] 40 mg tablet,delayed release (DR/EC) 40 mg PO BID@0600,1800 RF: 0 linaclotide 145 mcg capsule 145 mcg PO DAILY@0600 RF: 0 Referrals: Homero Arango MD [Primary Care Provider] - Coding Level of Care Code ED Logistics Engineering Manager for Chg Fwd Exam Comprehensive
[2020-12-22 16:59] LABS: Lactic Sepsis W/Reflex 1.6 mmol/L (0.5-2.2)
--- NOTE | 2020-12-22 17:17 | ECG_ITS ---
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 Measurements Intervals [place] Rate: 87 P: 5 [place]: 152 QRS: 18 QRSD: 92 T: -4 QT: 378 QTc: 456 Interpretive Statements SINUS RHYTHM WITH SINUS ARRHYTHMIA LOW QRS VOLTAGE IN PRECORDIAL LEADS [QRS DEFLECTION < 1.0 mV IN CHEST LEADS] NONSPECIFIC ST & T-WAVE ABNORMALITY Compared to ECG 08/18/2020 16:30:50 No significant changes Electronically Signed On 12-22-2020 21:39:05 CDT by Warren Mohr M.D. [id number]
[2020-12-22 17:23] LABS: Alanine Aminotransferase 40 U/L (0-33); Albumin Level 3.9 g/dL (3.5-5.2); Alkaline Phosphatase 331 IU/L (35-105); Aspartate Amino Transferase 47 U/L (0-32); Blood Urea Nitrogen 19 mg/dL (8-23); C Reactive Protein 195.5 mg/L (0.0-4.9); Calcium 8.3 mg/dL (8.5-10.5); Carbon Dioxide 20 mmol/L (22-29); Chloride 96 mmol/L (98-107); Creatine Phosphokinase 240 U/L (26-192); Globulin 3.8 g/dL (1.3-4.6); Glomerular Filtration Rate 41.1 mL/min (90-130); Glucose 139 mg/dL (65-115); Osmolality Calculated 281 mOsm/kg (285-295); Sodium 133 mmol/L (136-145); Total Bilirubin 0.3 mg/dL (0.15-1.2); Total Protein 7.7 g/dL (6.6-8.7)
[2020-12-22 17:24] LABS: Anion Gap 20.8 (5-19); Potassium 3.8 mmol/L (3.5-5.1)
[2020-12-22] MEDS: remdesivir 200 MG in sodium chloride 0.9% (100 ml) 100 ML 100 MG IV (17:36)
[2020-12-22 18:13] LABS: Troponin(5th) Baseline 8 ng/L (0-10)
--- NOTE | 2020-12-22 18:13 | PC.PHAR ---
PT STATES SHE HAS HOME HEALTH, BUT DOESN'T KNOW WHICH ONE AT THIS TIME. SHE CANNOT CONFIRM MEDICATIONS. I GOT A PHARMACY LIST FROM [facility] AND I AM USING THAT AND THE PT'S MEDICATION HISTORY TO DO THE MED LIST.
--- NOTE | 2020-12-22 18:17 | PC.PHAR ---
I WAS ABLE TO FIND THE NAME OF THE HOME HEALTH COMPANY, BUT THEY ARE CLOSED AT THIS TIME. I CANNOT GET A MEDICATION LIST FROM THEM.
[2020-12-22 18:27] LABS: Creatine Phosphokinase 241 U/L (26-192); NT Pro B Type Natriuretic Pept 62 pg/mL (0-125)
[2020-12-22 18:29] VITALS: PULSE 87; RESP 38; O2SAT 93
--- NOTE | 2020-12-22 19:17 | ECG_ITS ---
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 Measurements Intervals [place] Rate: 85 P: 30 NC: 160 QRS: 26 QRSD: 92 T: -27 QT: 382 QTc: 456 Interpretive Statements SINUS RHYTHM LOW QRS VOLTAGE IN PRECORDIAL LEADS [QRS DEFLECTION < 1.0 mV IN CHEST LEADS] ST DEVIATION AND MODERATE T-WAVE ABNORMALITY, CONSIDER INFERIOR ISCHEMIA [-0.1+ mV T-WAVE IN II/aVF] Compared to ECG 12/22/2020 17:43:14 Possible ischemia now present Sinus arrhythmia no longer present T-wave abnormality still present Electronically Signed On 12-22-2020 21:39:31 CDT by Warren Mohr M.D. [id number]
[2020-12-22 19:26] LABS: Troponin 5 2HR 6.27 ng/L (0-10)
[2020-12-22 19:29] LABS: Troponin 5 2HR Delta -1.73 ABS# (0-10)
[2020-12-22 22:47] VITALS: BP 126/63; PULSE 76; RESP 18; O2SAT 91
== END 2020-12-22 23:39 | disposition short-term general hospital (02) ==
PROVIDERS: Family Medicine; Emergency Provider Family Medicine; PCP Internal Medicine
DX: U07.1 COVID-19 (principal); J44.9 Chronic obstructive pulmonary disease, unspecified; I10 Essential (primary) hypertension; E66.9 Obesity, unspecified; Z68.33 Body mass index [BMI] 33.0-33.9, adult
CPT/HCPCS: 36600; 71045; 80053; 82550; 82803; 83605; 83735; 83880; 84145; 84484; 85025; 85378; 86140; 87040; 93005; 96365; 99284

== ENCOUNTER 2021-01-05 16:23 | Inpatient (IN) | payer MEDICAID, SELFPAY ==
[2021-01-05] VITALS (8 sets, daily range): BP systolic 114–138; BP diastolic 65–84; PULSE 89–106; RESP 20–26; TEMP 36.6–37.2; O2SAT 93–96; BMI 36.3
--- NOTE | 2021-01-05 17:08 | W.ED.SOB ---
HPI - SOB/Dyspnea General: Chief Complaint: Shortness of Breath/Dyspnea Stated Complaint: SOB/ COVID + Time Seen by Provider: 01/05/21 16:47 History of Present Illness: HPI Narrative: 65-year-old female with a history of COPD came down with coronavirus infection on December 21. She was admitted to [facility] and discharged approximately 4 days ago. Since then she has been using oxygen between 3 and 6 L/min. She was discharged with these instructions. However over the last few days she has been increasing the oxygen to 7 L/min due to her dyspnea with minimal exertion. EMS reports that with her ambulating to the cot she dropped to about 84% on 6 L by their nasal cannula. She has ongoing dry cough, shortness of breath, and malaise. She has had difficulty taking care of herself due to this dyspnea and not wanting to exert herself. She is not having any hemoptysis and no longer having any fevers. She is using her inhalers at home. She was discharged with some medication which came in the mail but she has not yet opened it. Associated symptoms: Deny abdominal pain, chest pain, extremity pain, fever(s), hemoptysis, nausea, syncope or vomiting Review of Systems General: Reports: 10 or more systems reviewed and unremarkable except in HPI and below Const: Reports: body aches, fatigue and malaise; Denies: fever(s) or chills Eyes: Denies: change in vision ENMT: Denies: throat pain Card: Denies: chest pain, edema or syncope Resp: Reports: dyspnea, non-productive cough and wheezing; Denies: productive cough, pain on inspiration or hemoptysis GI: Denies: abdominal pain, nausea, vomiting or diarrhea : Denies: flank pain, dysuria or urinary frequency Musc: Denies: neck pain, back pain, extremity pain or extremity swelling Skin/Breast: Denies: rash or erythema Neuro: Reports: weakness in extremities (no energy) and difficulty walking; Denies: headache(s), numbness in extremities or lack of coordination PFS ED PFSH: Medical History (Updated 01/05/21 @ 19:32 by Boni Wilkinson MD) Bilateral primary osteoarthritis of hip Bilateral primary osteoarthritis of knee Chronic low back pain Chronic lumbar radiculopathy Degeneration of lumbar intervertebral disc Encounter for long-term opiate analgesic use On high dose antipsychotic drug therapy Opioid contract exists Pain in right knee Post-traumatic stress disorder, chronic Schizoaffective disorder, bipolar type Spondylosis without myelopathy or radiculopathy, lumbar region Surgical History History of colostomy Family History Father Cancer Mother Cancer Other Diabetes Social History Smoking and tobacco status: current every day smoker e-cigarettes E-Cigarette Details: vaporizer device E-cig/vape details: NON NICOTINE Alcohol intake: former Former alcohol use details: NOT CURRENT History of recent travel: No Physical Exam Const: COMMON NORMALS: no limitations, alert and well nourished EXAM LIMITATIONS: no altered mental status GENERAL APPEARANCE: cooperative and well developed NUTRITIONAL APPEARANCE: obese ORIENTATION/CONSCIOUSNESS: Yes awake, Yes oriented to person, Yes oriented to place and Yes oriented to time; not confused HENMT: COMMON NORMALS: normocephalic, atraumatic, external ears normal and Normal external nose present HEAD & SCALP: normal to inspection, normocephalic and atraumatic FACE & SINUS: face symmetric NOSE: Normal external nose present EXTERNAL EAR: Yes external ears normal MOUTH: lip normal; no muffled voice Eye: COMMON NORMALS: EOMs intact bilaterally and conjunctivae normal GENERAL EYE: appearance normal, both eyes and all related structures CONJUNCTIVA: Yes conjunctivae normal Neck/C-Spine: COMMON NORMALS: no JVD GENERAL: Yes normal visual inspection and Yes trachea midline Chest: CHEST: Yes Symmetrical chest wall rise Resp: EFFORT & INSPECTION: Yes tachypneic, Yes labored, Yes Actively coughing (With inspiration) non-productive, No tracheal deviation and No tripod positioning AUSCULTATION: wheezes and diminished lung sounds Cardio: COMMON NORMALS: no JVD, regular rate and regular rhythm RATE: regular rate RHYTHM: regular rhythm PERIPHERAL PULSES: radial pulses present GI: COMMON NORMALS: Soft to palpation INSPECTION: Yes normal to inspection PALPATION: Yes Soft to palpation, No Tenderness to palpation present (GI) and No Guarding due to palpation present (GI) Back/Pelvis: COMMON NORMALS: thoraco-lumbar ROM normal Extremity: COMMON NORMALS: normal to inspection GENERAL: Yes normal exam except as noted Neuro: COMMON NORMALS: moves all extremities, no focal motor deficits and no sensory deficits noted SENSORIUM/ORIENTATION: Yes alert, Yes oriented to person, Yes oriented to place and Yes oriented to time Psych: COMMON NORMALS: mental status grossly normal, Normal thought process present, cooperative, normal affect and speech normal SPEECH: Yes normal speech THOUGHT PROCESS: Normal thought process present Skin: COMMON NORMALS: no rashes or lesions noted, turgor normal and no jaundice GENERAL SKIN EXAM: no rashes or lesions noted and turgor normal Course Vital Signs: Vital signs: Vital Signs Temperature 98.9 F 01/05/21 18:31 Pulse Rate 90 01/05/21 18:39 Respiratory Rate 20 H 01/05/21 18:39 Blood Pressure 114/73 01/05/21 18:31 Pulse Oximetry 95 01/05/21 18:39 MDM - SOB/Dyspnea MDM Narrative: Medical decision making narrative: 65-year-old female with COPD who is recovering from coronavirus infection on day 14 based on my review. She presents with ongoing symptoms of dyspnea with hypoxia. She had known hypoxic respiratory failure on discharge. She was sent home with some medications but states that she has not yet started them as they came in the mail and she has not been feeling well. She does not have any unilateral extremity pain, swelling, and denies any hemoptysis. Patient has multifocal pneumonia on CXR. She remains tachypneic with any minimal exertion; which causes her to get weak. She is still on 6L NC and as long as she isn't exerting herself, she stay above 90% spo2. Start rocephin/doxycycline. Continue steorids and inhalation treatment. Discussed with Dr Pineda for admission. Lab Data: Labs: Lab Results 01/05/21 01/05/21 Range/Units 17:04 17:04 WBC 10.1 H (4.0-10.0) 10^3/ uL RBC 4.00 L (4.1-5.3) 10^6/u L Hgb 10.5 L (11.5-15.3) g/dL Hct 34.3 L (37.0-47.0) % MCV 85.8 (81-99) fl MCH 26.3 L (28.0-34.0) pg MCHC 30.6 (30.0-36.0) g/dL RDW 16.8 H (12.1-15.1) % Plt Count 234 (130-400) 10^3/c mm MPV 12.0 H (7.4-10.4) fL Neut % (Auto) 71.4 % Lymph % (Auto) 20.1 % [place] % (Auto) 6.8 % Eos % (Auto) 1.0 % Baso % (Auto) 0.4 % Neut # (Auto) 7.18 (1.8-7.7) 10^3/u L Lymph # (Auto) 2.0 (0.8-4.8) 10^3/u L Mower # (Auto) 0.7 (0.2-0.9) 10^3/u L Eos # (Auto) 0.1 (0.0-0.8) 10^3/u L Baso # (Auto) 0.0 (0.0-0.1) 10^3/u L Nucleated RBC % (a uto) 0 % Nucleated RBCs # 0.0 /100WBC Sodium 140 (136-145) mmol/L Potassium 4.3 (3.5-5.1) mmol/L Chloride 102 (98-107) mmol/L Carbon Dioxide 26 (22-29) mmol/L Anion Gap 16.3 (5-19) BUN 11 (8-23) mg/dL Creatinine 0.9 (0.5-0.9) mg/dL GFR Calculation 62.8 L (90-130) mL/min Glucose 104 (65-115) mg/dL Calculated Osmolal ity 290 (285-295) mOsm/k g Calcium 8.4 L (8.5-10.5) mg/dL Magnesium 2.3 (1.7-2.3) mg/dL Total Bilirubin 0.3 (0.15-1.2) mg/dL AST 26 (0-32) U/L ALT 30 (0-33) U/L Alkaline Phosphata se 253 H (35-105) IU/L NT-Pro-B Natriuret Pep 1437 H (0-125) pg/mL Total Protein 7.3 (6.6-8.7) g/dL Albumin 3.3 L (3.5-5.2) g/dL Globulin 4.0 (1.3-4.6) g/dL EKG Data^: EKG 1: Interpretation: This appears to be a sinus rhythm although there is electrical interference. The axis is normal, the QRS is borderline prolonged, there are no concerning ST segment elevations although there are some nonspecific T wave changes, no ectopy is noted, wandering baseline in a few leads. Discharge Plan Discharge Patient Disposition: Admitted As Inpatient Clinical Impression: Pneumonia due to 2019 novel coronavirus, Acute hypoxemic respiratory failure due to severe acute respiratory syndrome coronavirus 2 (SARS-CoV-2) disease Condition: Stable Coding Level of Care Code ED Travel Agent for Chg Fwd Exam Comprehensive
--- NOTE | 2021-01-05 17:11 | XRR_ITS ---
PROCEDURE INFORMATION: Exam: XR Chest Exam date and time: 01/05/2021 5:11 PM Age: 65 years old Clinical indication: Cough and shortness of breath; Additional info: Covid dyspnea TECHNIQUE: Imaging protocol: XR of the chest. Views: 1 view. COMPARISON: CR XR chest 1V portable [id number] 12/22/2020 4:12 PM FINDINGS: Lungs: Patchy ground-glass opacities have increased in both lungs. Pleural spaces: Unremarkable. No pleural effusion. No pneumothorax. Heart/Mediastinum: Unremarkable. No cardiomegaly. Bones/joints: Unremarkable. XR/XR chest 1V portable [id number] IMPRESSION: 1. Worsened multilobar pneumonia.
--- NOTE | 2021-01-05 17:11 | ECG_ITS ---
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 Measurements Intervals [place] Rate: 92 P: 14 [place]: 153 QRS: 10 QRSD: 86 T: -22 QT: 360 QTc: 445 Interpretive Statements SINUS RHYTHM LOW QRS VOLTAGE IN PRECORDIAL LEADS [QRS DEFLECTION < 1.0 mV IN CHEST LEADS] Compared to ECG 12/22/2020 19:31:09 T-wave abnormality no longer present Possible ischemia no longer present Electronically Signed On 01-07-2021 9:00:19 CDT by Melissa Bagley M.D. [id number]
[2021-01-05 17:41] LABS: Basophils % 0.4 %; Eosinophils # 0.1 10^3/uL (0.0-0.8); Hematocrit 34.3 % (37.0-47.0); Hemoglobin 10.5 g/dL (11.5-15.3); Lymphocytes % 20.1 %; Mean Corpuscular HGB Conc 30.6 g/dL (30.0-36.0); Mean Corpuscular Hemoglobin 26.3 pg (28.0-34.0); Mean Corpuscular Volume 85.8 fl (81-99); Monocytes # 0.7 10^3/uL (0.2-0.9); Monocytes % 6.8 %; Neutrophils # 7.18 10^3/uL (1.8-7.7); Neutrophils % 71.4 %; Nucleated Red Blood Cells % 0 %; Platelet Count 234 10^3/cmm (130-400); Red Cell Distribution Width 16.8 % (12.1-15.1); White Blood Count 10.1 10^3/uL (4.0-10.0)
[2021-01-05 18:01] LABS: Alanine Aminotransferase 30 U/L (0-33); Albumin Level 3.3 g/dL (3.5-5.2); Alkaline Phosphatase 253 IU/L (35-105); Anion Gap 16.3 (5-19); Aspartate Amino Transferase 26 U/L (0-32); Blood Urea Nitrogen 11 mg/dL (8-23); Calcium 8.4 mg/dL (8.5-10.5); Carbon Dioxide 26 mmol/L (22-29); Chloride 102 mmol/L (98-107); Glomerular Filtration Rate 62.8 mL/min (90-130); Glucose 104 mg/dL (65-115); Magnesium 2.3 mg/dL (1.7-2.3); NT Pro B Type Natriuretic Pept 1437 pg/mL (0-125); Osmolality Calculated 290 mOsm/kg (285-295); Potassium 4.3 mmol/L (3.5-5.1); Sodium 140 mmol/L (136-145); Total Bilirubin 0.3 mg/dL (0.15-1.2); Total Protein 7.3 g/dL (6.6-8.7)
[2021-01-05] MEDS: ipratropium-albuterol 3 mL Neb INHALATION (18:29)
[2021-01-05] MEDS: magnesium sulfate premix 2 GM/50 ML PIGGYBACK IV (18:42)
[2021-01-05 19:43] LABS: D Dimer 5.86 ug/mIFEU (0-0.59)
--- NOTE | 2021-01-05 19:43 | PC.NURSE ---
Attempted to ambulate patient she only walked about 5 feet before her spo2 dropped to 86on 6L/NC from 94% on 6L/NC. Respiration increased from 24 to 38 and begins coughing. Patient is assisted back to bed. Doctor is notified.
--- NOTE | 2021-01-05 19:47 | CTR_ITS ---
PROCEDURE INFORMATION: Exam: CTA Chest With Contrast Exam date and time: 01/05/2021 7:47 PM Age: 65 years old Clinical indication: Abnormal findings; Abnormal diagnostic tests; Elevated d-dimer; Cough and shortness of breath; Additional info: Hypoxia, recent covid, elevated dd TECHNIQUE: Imaging protocol: Computed tomographic angiography of the chest with contrast. 3D rendering (Not supervised by radiologist): MIP and/or 3D reconstructed images were created by the technologist. Radiation optimization: All CT scans at this facility use at least one of these dose optimization techniques: automated exposure control; mA and/or kV adjustment per patient size (includes targeted exams where dose is matched to clinical indication); or iterative reconstruction. Contrast material: OMNI 350; Contrast volume: 76 ml; Contrast route: INTRAVENOUS (IV); COMPARISON: CR (CHEST, ) 01/05/2021 5:46 PM RADIATION DOSE METRICS: Total DLP (mGy-cm): 538.74 FINDINGS: Pulmonary arteries: Multiple small filling defects within pulmonary artery branches of the right upper, middle, and lower lobes. Small filling defects within pulmonary artery branches in the left upper and lower lobes. Aorta: Unremarkable. No aortic aneurysm. No aortic dissection. Thyroid: 1.2 cm right thyroid nodule. No follow-up imaging is recommended. Lungs: Peripheral ground-glass opacities scattered throughout both lungs, greatest in the upper lobes. Pleural spaces: Unremarkable. No pneumothorax. No pleural effusion. Heart: The heart size is normal. No evidence for elevated right heart pressure. Mediastinal space: Hiatal hernia. Lymph nodes: Prominent mediastinal and hilar lymph nodes are most likely reactive. Gallbladder and bile ducts: Cholecystectomy. Prominence of the bile ducts is most likely reservoir effect. Bones/joints: T12 compression fracture. Soft tissues: Unremarkable. CT/CT angio chest PE protcl [id number] IMPRESSION: 1. Study is positive for bilateral pulmonary emboli. No evidence for elevated right heart pressure. 2. Severe multilobar ground-glass opacities, consistent with COVID-19 pneumonia. 3. Age indeterminate T12 compression fracture. COMMENTS: Consistent with the [employer]'s Incidental Findings Committee white paper (J Am Jomar Radiol 2015): In patients aged 35 years and older with an incidental thyroid nodule equal to or greater than 1.[address], MRI or extrathyroidal US, further evaluation with dedicated thyroid US is recommended for patients with normal life expectancy and without comorbidities. For smaller nodules without suspicious features, no further evaluation or follow up is recommended. Radiation Dose CTDIVOL = (mGy): DLP = 538.74 (mGy-cm)
[2021-01-05] MEDS: iohexol 350 mg/mL 100 mL Btl IV (20:05)
--- NOTE | 2021-01-05 21:08 | P.HP_ITS ---
Providers/Chief Complaint Admitting Physician: Tiffanie Pineda MD Primary Care Provider: Homero Arango MD Chief Complaint: SOB/ COVID + History of Present Illness Humera Navarrete is a 65 year old female with PMH COPD, PTSD, h/o polymyoclonus, recently diagnosed with COVID 19 pneumonia for which she was admitted at [facility] in [place] and discharged 4 days ago. She was using up to 6lpm NC supplemental 02 at home, however found to have low sats in the 80s in spite of 6lpm, desaturating with minimal exertion. ROS + for fatigue, dry cough additionally. She is uncertain of her home medications at discharge. CTA perfromed today shows B/L PE. States possibly was diagnosed with clots at [facility] but not sure if she was discharged with any anticoagulants. Review of Systems General: Reports: 10 or more systems reviewed and unremarkable except in HPI and below Const: Denies: fever(s), chills or body aches Eyes: Denies: change in vision, blurry vision or photophobia ENMT: Reports: hoarseness; Denies: throat pain, enlarged tonsils, odynophagia or nasal congestion Card: Denies: chest pain, palpitations, irregular heart rhythm, edema, swelling of feet/ankles, lightheadedness, pre-syncope, dyspnea on exertion or orthopnea Resp: Denies: dyspnea, productive cough, non-productive cough, wheezing, stridor, pain on inspiration, change in phlegm color, hemoptysis or chest congestion GI: Denies: abdominal pain, nausea, vomiting, hematemesis, coffee ground emesis, dysphagia, heartburn, diarrhea, constipation, GI cramping, change in stool character, hematochezia or melena : Denies: flank pain, difficulty voiding, dysuria, urinary frequency, urinary urgency, urinary hesitancy or hematuria Musc: Denies: neck pain, back pain, extremity pain, joint swelling, joint warmth or deformity Neuro: Denies: headache(s), numbness in extremities, weakness in extremities, sensory changes, difficulty walking, frequent falls, dizziness, vertigo, behavioral changes, Slurred speech present or seizure-like activity Psych: Denies: anxiety, depression, suicidal ideation or homicidal ideation Endo: Denies: polyuria, polydipsia, tired all the time, cold intolerance or hot flashes Mayank/Lymph: Denies: easy bruising or easy bleeding Medications/Allergies Home Medications Medication Instructions Recorded Confirmed Last Taken Type aspirin 81 mg tablet,delayed 81 mg PO BID@0600,1800 05/10/19 12/22/20 08/18/20 History release albuterol sulfate 2.5 mg INHALATION QID PRN #90 ml 07/16/20 12/22/20 Unknown Rx MDD SEE PHARMACY COMMENT meloxicam [Mobic] 15 mg PO DAILY@0600 PRN 08/12/20 12/22/20 08/18/20 History ropinirole 2 - 4 mg PO BEDTIME@1800 08/12/20 12/22/20 08/17/20 History albuterol sulfate See Rx Instructions .ROUTE .COMPLEX 08/18/20 12/22/20 Unknown History linaclotide 145 mcg PO DAILY@0600 08/18/20 12/22/20 Unknown History pantoprazole [Protonix] 40 mg PO BID@0600,1800 08/18/20 12/22/20 08/18/20 History levothyroxine 25 mcg capsule 25 mcg PO DAILY 30 Days #30 cap 10/15/20 12/22/20 Unknown Rx solifenacin 10 mg tablet 10 mg PO DAILY@0600 #90 tab 10/15/20 12/22/20 Unknown Rx oxycodone 20 mg tablet 20 mg PO QID PRN 30 Days #30 tab 11/06/20 12/22/20 Unknown Rx lamotrigine 200 mg tablet 200 mg PO DAILY #30 tab 11/10/20 12/22/20 Unknown Rx quetiapine 400 mg tablet 1,200 mg PO BEDTIME #90 tab 11/10/20 12/22/20 Unknown Rx trazodone 50 mg tablet 50 mg PO .HS #30 tab 11/10/20 12/22/20 Unknown Rx ziprasidone HCl 80 mg capsule 80 mg PO TID@0600,1200,1800 #90 cap 11/10/2012/22 Unknown Rx vilazodone 20 mg tablet 20 mg PO DAILY #45 tab 11/12/20 12/22/20 Unknown Rx lovastatin 40 mg tablet 40 mg PO DAILY@1800 #30 tab 11/20/20 12/22/20 Unknown Rx gabapentin 600 mg tablet 600 mg PO TID@0600,1200,1800 30 11/30/20 12/22/20 Unknown Rx Days #90 tab tizanidine 4 mg tablet 4 mg PO TID PRN 30 Days #90 tab 11/30/20 12/22/20 Unknown Rx Allergies Allergy/AdvReac Type Severity Reaction Status Date / Time divalproex sodium AdvReac BEHAVIORAL Verified 12/22/20 10:02 [From Depakote] CHANGES NAUSEA AND VOMITING lithium AdvReac BEHAVIORAL Verified 12/22/20 10:02 CHANGES NAUSEA AND VOMITING PFSH Acute PFSH: Medical History Bilateral primary osteoarthritis of hip Bilateral primary osteoarthritis of knee Chronic low back pain Chronic lumbar radiculopathy Degeneration of lumbar intervertebral disc Encounter for long-term opiate analgesic use On high dose antipsychotic drug therapy Opioid contract exists Pain in right knee Post-traumatic stress disorder, chronic Schizoaffective disorder, bipolar type Spondylosis without myelopathy or radiculopathy, lumbar region Surgical History History of colostomy Family History Father Cancer Mother Cancer Other Diabetes Social History Smoking and tobacco status: current every day smoker e-cigarettes E-Cigarette Details: vaporizer device E-cig/vape details: NON NICOTINE Alcohol intake: former Former alcohol use details: NOT CURRENT History of recent travel: No Vitals/I&O/Wt Last Vital Signs Temp 97.9 F 01/05/21 19:39 Pulse 91 01/05/21 19:39 Resp 24 H 01/05/21 19:39 BP 121/72 01/05/21 19:39 Pulse Ox 96 01/05/21 19:39 Weight last 48 hrs Weight 102.058 kg Physical Exam Narrative: EXAM NARRATIVE: General: No acute distress, AO x3 HEENT: PERRLA, pupils bilaterally equal and reactive, pallors not present Chest: B/L fine crackles to auscultation CVS: S1-S2 regular, no murmurs, no tachycardia, no gallops, no rubs Abdomen: Soft, nontender, no organomegaly, bowel sounds present Neuro: No focal deficits, no facial deformity, AO x3, power 5/5 in all limbs Extremities: no edema clubbing or cyanosis Data : 01/05/21 17:04 01/05/21 17:04 A&P Assessment and plan (1) Pulmonary embolism: Start Lovenox 1mg/kg s/c q12h for treatment Check LE Duplex Status: Acute Qualifiers: Pulmonary embolism type: multiple subsegmental (without acute cor pulmonale) Qualified Code(s): I26.94 - Multiple subsegmental pulmonary emboli without acute cor pulmonale (2) Pneumonia due to 2019 novel coronavirus: B/L infiltrates on CXR compatible with COVID 19 pneumonia Recently treated at [facility], obtain records Obtain baseline CRP today Dexamethasone 6mg IVP for scattered wheezing on exam today, can likely taper down if inflammatory markers return within range Inhaled scheduled duoneb and budesonide supplemental 02 to keep saturation >90-92% Status: Acute (3) Acute hypoxemic respiratory failure due to severe acute respiratory syndrome coronavirus 2 (SARS-CoV-2) disease: As above Status: Acute Attestations Medical Necessity Statement*: >2midnight stay anticipated for treatment of PE, hypoxic respiratory failure 2/2 COVID 19 pneumonia Coding Level of Care Code Acute Concrete [employer] Buster for [facility] Fwd Diagnoses Pulmonary embolism I26.94 Pulmonary embolism type: multiple subsegmental (without acute cor pulmonale) Pneumonia due to 2019 novel coronavirus U07.1; J12.82 Acute hypoxemic respiratory failure due to severe acute respiratory syndrome coronavirus 2 (SARS-CoV-2) disease U07.1; J96.01
[2021-01-05] MEDS: cefTRIAXone 1,000 MG in sodium chloride 0.9% (plus) 50 ML 100 MG IV (21:37)
[2021-01-05] MEDS: dexamethasone 4 mg/mL INJ 6 MG IVP (22:08)
[2021-01-05] MEDS: enoxaparin 100 mg/mL Syringe SUBCUT (22:12)
[2021-01-05] MEDS: doxycycline 100 MG in sodium chloride 0.9% (plus) 100 ML IV (22:27)
[2021-01-05 22:47] LABS: C Reactive Protein 135.4 mg/L (0.0-4.9)
[2021-01-05] MEDS: trazodone 50 mg Tablet PO (23:42)
--- NOTE | 2021-01-05 23:53 | PC.NURSE ---
[id number] This nurse has taken over care of this patient at this time
[2021-01-06] VITALS (15 sets, daily range): BP systolic 99–125; BP diastolic 69–87; PULSE 78–97; RESP 18–20; TEMP 36.8–37; O2SAT 90–96; BMI 36.9
[2021-01-06] MEDS: ipratropium-albuterol 3 mL Neb INHALATION ×4 (02:05→22:44)
[2021-01-06 04:18] LABS: Basophils % 0.1 %; Hematocrit 33.8 % (37.0-47.0); Hemoglobin 10.2 g/dL (11.5-15.3); Lymphocytes # 0.9 10^3/uL (0.8-4.8); Lymphocytes % 12.2 %; Mean Corpuscular HGB Conc 30.2 g/dL (30.0-36.0); Mean Corpuscular Hemoglobin 26.3 pg (28.0-34.0); Mean Corpuscular Volume 87.1 fl (81-99); Mean Platelet Volume 11.4 fL (7.4-10.4); Monocytes # 0.1 10^3/uL (0.2-0.9); Monocytes % 1.1 %; Neutrophils # 6.44 10^3/uL (1.8-7.7); Neutrophils % 86.3 %; Nucleated Red Blood Cells % 0 %; Platelet Count 234 10^3/cmm (130-400); Red Blood Count 3.88 10^6/uL (4.1-5.3); Red Cell Distribution Width 16.8 % (12.1-15.1); White Blood Count 7.5 10^3/uL (4.0-10.0)
--- NOTE | 2021-01-06 04:36 | PC.NURSE ---
patient does not want to get into hospital bed
[2021-01-06 05:00] LABS: Alanine Aminotransferase 27 U/L (0-33); Albumin Level 3.1 g/dL (3.5-5.2); Alkaline Phosphatase 268 IU/L (35-105); Anion Gap 17.4 (5-19); Aspartate Amino Transferase 21 U/L (0-32); Blood Urea Nitrogen 12 mg/dL (8-23); Calcium 8.5 mg/dL (8.5-10.5); Carbon Dioxide 25 mmol/L (22-29); Chloride 101 mmol/L (98-107); Creatinine Clr Calc Pharmacy 84.5608; Globulin 4.4 g/dL (1.3-4.6); Glucose 230 mg/dL (65-115); Osmolality Calculated 295 mOsm/kg (285-295); Potassium 4.4 mmol/L (3.5-5.1); Sodium 139 mmol/L (136-145); Thyroid Stimulating Hormone 1.16 uIU/mL (0.27-4.20); Total Bilirubin 0.2 mg/dL (0.15-1.2); Total Protein 7.5 g/dL (6.6-8.7)
[2021-01-06] MEDS: aspirin 81 mg EC Tablet PO ×2 (05:45→19:11)
[2021-01-06] MEDS: gabapentin 300 mg Capsule 600 MG PO ×3 (05:45→19:11)
[2021-01-06] MEDS: pantoprazole DR 40 mg Tablet PO ×2 (05:45→19:12)
[2021-01-06] MEDS: ziprasidone hcl 40 mg Capsule 80 MG PO ×3 (05:45→19:10)
--- NOTE | 2021-01-06 09:14 | USCV_ITS ---
Sherrie Navarretey Age: 65 Gender: F : 1955 Exam Date: 01/06/2021 09:37 Ordering Phys: Nishant Navarro MD Technologist: [place]am [place] [facility] [place]: SOB PE BP: 156 / 103 HR: 89 Rhythm: Sinus Technical Quality: Adequate MEASUREMENTS (Male / Female) Normal Values 2D ECHO LV Diastolic Diameter PLAX 3.2 cm 4.2 - 5.9 / 3.9 - 5.3 cm LV Systolic Diameter PLAX 2.2 cm IVS Diastolic Thickness 0.9 cm 0.6 - 1.0 / 0.6 - 0.9 cm IVS Systolic Thickness 0.9 cm LVPW Diastolic Thickness 1.1 cm 0.6 - 1.0 / 0.6 - 0.9 cm LVPW Systolic Thickness 1.4 cm LVOT Diameter 2.0 cm LV Ejection Fraction 2D Teich 62.1 % LV Ejection Fraction MOD 2C 74.7 % LV Ejection Fraction 2C AL 73.1 % LA Diameter 3.1 cm LA Width 3.8 cm LA Height 4.7 cm RA Width 3.3 cm RA Height 4.5 cm DOPPLER AV Peak Velocity 165.0 cm/s LVOT Peak Velocity 100.0 cm/s AV Area Cont Eq vti 2.1 cm squared AV Area Cont Eq pk 1.9 cm squared MV Area PHT 5.0 cm squared Mitral E to A Ratio 1.5 MV E' Velocity 50.0 cm/s Mitral E to MV E' Ratio 7.8 Mitral E to LV E' Lateral Ratio 7.4 Mitral E to LV E' Septal Ratio 8.4 TR Peak Velocity 142.7 cm/s TR Peak Gradient 8.1 mmHg TV Peak E Velocity 64.0 cm/s Right Atrial Pressure 3.0 mmHg Pulmonary Artery Systolic Pressu 11.1 mmHg PV Peak Velocity 93.0 cm/s FINDINGS Left Ventricle Normal left ventricular size. LV systolic function is normal with EF of 55-60%. No regional wall motion abnormalities. Normal diastolic filling pattern. Right Ventricle Not well visualized. Grossly normal in size and function Right Atrium The right atrium is normal in size. Left Atrium The left atrium is normal in size. Mitral Valve Structurally normal mitral valve without significant stenosis or prolapse. There is no mitral regurgitation. Aortic Valve Structurally normal aortic valve without significant sclerosis or stenosis. There is no aortic regurgitation. Tricuspid Valve Structurally normal tricuspid valve without significant stenosis or regurgitation. Insufficient TR jet to calculate RVSP Pulmonic Valve Structurally normal pulmonic valve without significant stenosis. There is no pulmonic regurgitation. Pericardium Normal pericardium without effusion. Aorta Normal ascending aorta dimension. CONCLUSIONS LV systolic function is normal with EF of 55-60% Diastolic function is normal Grossly RV is normal in size and function No significant valvular heart disease No comparison studies are avialable Warren Mohr MD (Electronically Signed) Final Date: 06 January 2021 16:53 S
[2021-01-06] MEDS: budesonide 0.5 mg/2 mL Neb INHALATION ×2 (09:19→22:44)
[2021-01-06] MEDS: levothyroxine 25 mcg Tablet PO (10:05)
[2021-01-06] MEDS: lamoTRIgine 100 mg Tablet 200 MG PO (10:05)
[2021-01-06] MEDS: enoxaparin 100 mg/mL Syringe SUBCUT ×2 (10:06→21:14)
[2021-01-06] MEDS: azithromycin 500 MG in sodium chloride 0.9% 250 ML 250 MG IV (10:08)
[2021-01-06 10:33] LABS: Troponin(5th) Baseline 7 ng/L (0-10)
--- NOTE | 2021-01-06 10:36 | PC.PHAR ---
PT STATES SHE HAS SOMEONE FROM [facility] IN [facility] THAT SETS UP HER MEDS FOR HER-MEDICATIONS ENTERED ARE MEDS THAT ARE ON THE PTS MED LIST FROM [facility] IN [place] AND WHAT THE PHARMACY HAS FILLED RECENTLY-NOTES ARE MADE IN THE PHARMACY COMMENTS
[2021-01-06 10:41] LABS: NT Pro B Type Natriuretic Pept 1076 pg/mL (0-125); Procalcitonin 0.07 ng/mL (0-0.5)
--- NOTE | 2021-01-06 11:15 | ECG_ITS ---
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 Measurements Intervals [place] Rate: 86 P: 56 [place]: 160 QRS: 25 QRSD: 95 T: -1 QT: 363 QTc: 435 Interpretive Statements SINUS RHYTHM LOW QRS VOLTAGE IN PRECORDIAL LEADS [QRS DEFLECTION < 1.0 mV IN CHEST LEADS] NONSPECIFIC T-WAVE ABNORMALITY Compared to ECG 01/05/2021 17:38:41 T-wave abnormality now present Electronically Signed On 01-07-2021 10:38:27 CDT by Melissa Bagley M.D. [id number]
[2021-01-06] MEDS: cefTRIAXone 1,000 MG in sodium chloride 0.9% (plus) 50 ML 100 MG IV (11:31)
[2021-01-06] MEDS: sucralfate 1 gm Tablet PO ×3 (11:34→21:15)
[2021-01-06 12:06] LABS: Ferritin 148 ng/mL (15-150); Iron 23 ug/dL (37-145); Percent Saturation 9.8 % (20-50); Total Iron Binding Capacity 234 mcg/dl; Unsaturated Iron Binding 211 ug/dL (112-347)
[2021-01-06 12:22] LABS: Vitamin B12 291 pg/mL (232-1245)
--- NOTE | 2021-01-06 15:15 | ECG_ITS ---
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 Measurements Intervals [place] Rate: 82 P: 61 [place]: 161 QRS: 34 QRSD: 90 T: -14 QT: 356 QTc: 417 Interpretive Statements SINUS RHYTHM LOW QRS VOLTAGE IN PRECORDIAL LEADS [QRS DEFLECTION < 1.0 mV IN CHEST LEADS] NONSPECIFIC T-WAVE ABNORMALITY Compared to ECG 01/06/2021 12:08:04 No significant changes Electronically Signed On 01-07-2021 9:28:44 CDT by Melissa Bagley M.D. [id number]
--- NOTE | 2021-01-06 16:39 | PM.PN ---
Subjective Subjective: Interval history: Patient was seen this morning, she tells me that she was hospitalized in [facility], she is not sure if she had a blood clot, she doesn't remember a lot of what happened, she is not sure if she had a GI bleed or was told she was anemic, but she was discharged on 6 L, currently no chest pain, she is feeling better, on 6 L, no nausea, no vomiting, no chest pain, no shortness of breath Vitals/I&O/Wt Last Vital Signs Temp 98.4 F 01/06/21 03:30 Pulse 85 01/06/21 15:00 Resp 20 H 01/06/21 15:00 BP 125/73 01/06/21 12:00 Pulse Ox 93 01/06/21 15:00 01/06/21 01/06/21 01/06/21 06:59 14:59 22:59 Intake Total 100 / 200 300 / 300 Balance 100 / 200 300 / 300 Weight last 48 hrs Weight 102.058 kg Physical Exam Const: COMMON NORMALS: no acute distress and patient oriented x3 Resp: COMMON NORMALS: No retractions and No use of accessory muscles AUSCULTATION: wheezes Cardio: COMMON NORMALS: regular rate, regular rhythm, S1 normal heart sound present and S2 normal heart sound present RATE: regular rate RHYTHM: regular rhythm HEART SOUNDS: S1 normal heart sound present and S2 normal heart sound present GI: COMMON NORMALS: Normal to inspection, nondistended, normoactive bowel sounds present, Soft to palpation, non-tender and No hepatosplenomegaly present PALPATION: Yes Soft to palpation and Yes No hepatosplenomegaly present Extremity: COMMON NORMALS: no pedal edema Neuro: COMMON NORMALS: patient oriented x3 Psych: COMMON NORMALS: mental status grossly normal Data : 01/06/21 04:00 01/06/21 04:00 A&P Assessment and plan (1) Pulmonary embolism: Start Lovenox 1mg/kg s/c q12h for treatment Lower extremity ultrasound negative for DVT No significant delta troponin, EKG sinus rhythm BNP elevated at 1076, is not fluid overloaded, echocardiogram pending Status: Acute Qualifiers: Pulmonary embolism type: multiple subsegmental (without acute cor pulmonale) Qualified Code(s): I26.94 - Multiple subsegmental pulmonary emboli without acute cor pulmonale (2) Pneumonia due to 2019 novel coronavirus: B/L infiltrates on CXR compatible with COVID 19 pneumonia Recently treated at [facility], obtain records CRP 135, pro-Alvino within normal limits Dexamethasone 6mg IVP for scattered wheezing on exam today Inhaled scheduled duoneb and budesonide supplemental 02 to keep saturation >90-92% We'll start on Rocephin and azithromycin Follow urine cultures, blood cultures, sputum cultures Vitamin C, zinc, vitamin D Status: Acute (3) Acute hypoxemic respiratory failure due to severe acute respiratory syndrome coronavirus 2 (SARS-CoV-2) disease: As above Status: Acute Additional A&P Information Hemoglobin 10.2, Protonix, Carafate, iron studies, folate Continue his home Seroquel, Zyprexa, gabapentin, Lamictal, QTC 417, will monitor QTC Hypothyroidism, continue levothyroxine Attestations Medical Necessity Statement*: Requires hospitalization due to form embolism, pneumonia secondary COVID-19, possible secondary bacterial pneumonia Coding Level of Care Code Acute Learning Solutions Specialist for [facility] Fwd Diagnoses Pulmonary embolism I26.94 Pulmonary embolism type: multiple subsegmental (without acute cor pulmonale) Pneumonia due to 2019 novel coronavirus U07.1; J12.82 Acute hypoxemic respiratory failure due to severe acute respiratory syndrome coronavirus 2 (SARS-CoV-2) disease U07.1; J96.01
[2021-01-06 17:47] LABS: Troponin 5 6HR 8.61 ng/L (0-10); Troponin 5 6HR Delta 1.61 ng/L (0-12)
[2021-01-06 18:29] LABS: Glucose Point of Care 116 mg/dL (70-110)
[2021-01-06] MEDS: atorvastatin 40 mg Tablet 20 MG PO (19:11)
[2021-01-06] MEDS: ropinirole 2 mg Tablet PO (19:11)
[2021-01-06] MEDS: ascorbic acid 500 mg Tablet PO (19:12)
[2021-01-06] MEDS: dexamethasone 4 mg/mL INJ 6 MG IVP (21:14)
[2021-01-06] MEDS: trazodone 50 mg Tablet PO (21:15)
[2021-01-06] MEDS: quetiapine 300 mg Tablet 1200 MG PO (21:15)
--- NOTE | 2021-01-06 21:19 | USCV_ITS ---
Humera Navarrete Age: 65 Gender: F : 1955 Exam Date: 01/06/2021 05:01 Ordering Phys: Tiffanie Pineda MD Technologist: Tamy Way [place] [facility] [place]: PE HISTORY: PE PROCEDURES: The venous duplex Doppler examination of both lower extremities was performed in the standard fashion. The following venous structures were evaluated: common femoral vein, profunda vein, proximal portion of the greater saphenous vein, superficial femoral vein, and the popliteal vein. In addition, the posterior tibial and peroneal trunk were evaluated. Serial compression, augmentation maneuvers, and spectral Doppler flow evaluation were performed. FINDINGS: Normal 2-D Doppler and augmentation and compressibility throughout the lower extremity venous structures. Additional imaging through the proximal calf veins also reveals no thrombus. Limited evaluation of the greater saphenous vein is patent with no thrombus.. CONCLUSIONS No evidence of right lower extremity DVT. No evidence of left lower extremity DVT. Lázaro Mcgregor MD (Electronically Signed) Final Date: 06 January 2021 09:57 S
[2021-01-07] VITALS (9 sets, daily range): BP systolic 100–112; BP diastolic 56–75; PULSE 79–91; RESP 17–28; TEMP 36.4–36.8; O2SAT 90–97
[2021-01-07] MEDS: ipratropium-albuterol 3 mL Neb INHALATION ×4 (04:27→20:15)
[2021-01-07] MEDS: pantoprazole DR 40 mg Tablet PO ×2 (05:36→17:50)
[2021-01-07] MEDS: gabapentin 300 mg Capsule 600 MG PO ×3 (05:36→17:50)
[2021-01-07] MEDS: aspirin 81 mg EC Tablet PO ×2 (05:36→17:50)
[2021-01-07] MEDS: ziprasidone hcl 40 mg Capsule 80 MG PO ×3 (05:36→17:49)
[2021-01-07 05:51] LABS: Basophils % 0.1 %; Hematocrit 30.7 % (37.0-47.0); Hemoglobin 9.3 g/dL (11.5-15.3); Lymphocytes # 1.4 10^3/uL (0.8-4.8); Lymphocytes % 10.7 %; Mean Corpuscular HGB Conc 30.3 g/dL (30.0-36.0); Mean Corpuscular Hemoglobin 26.3 pg (28.0-34.0); Mean Platelet Volume 11.5 fL (7.4-10.4); Monocytes # 0.6 10^3/uL (0.2-0.9); Monocytes % 4.2 %; Neutrophils # 11.24 10^3/uL (1.8-7.7); Neutrophils % 84.6 %; Nucleated Red Blood Cells % 0 %; Platelet Count 249 10^3/cmm (130-400); Red Blood Count 3.53 10^6/uL (4.1-5.3); Red Cell Distribution Width 17.1 % (12.1-15.1); White Blood Count 13.3 10^3/uL (4.0-10.0)
[2021-01-07 06:02] LABS: INR 1.04 (0.8-1.2)
[2021-01-07 06:08] LABS: Alanine Aminotransferase 33 U/L (0-33); Alkaline Phosphatase 242 IU/L (35-105); Anion Gap 14.2 (5-19); Aspartate Amino Transferase 26 U/L (0-32); Blood Urea Nitrogen 20 mg/dL (8-23); C Reactive Protein 67.6 mg/L (0.0-4.9); Calcium 8.3 mg/dL (8.5-10.5); Carbon Dioxide 27 mmol/L (22-29); Chloride 104 mmol/L (98-107); Globulin 3.9 g/dL (1.3-4.6); Glucose 184 mg/dL (65-115); Magnesium 2.4 mg/dL (1.7-2.3); Osmolality Calculated 299 mOsm/kg (285-295); Phosphorus 3.3 mg/dL (2.5-4.5); Potassium 4.2 mmol/L (3.5-5.1); Sodium 141 mmol/L (136-145); Total Bilirubin 0.2 mg/dL (0.15-1.2); Total Protein 6.9 g/dL (6.6-8.7)
[2021-01-07 06:17] LABS: NT Pro B Type Natriuretic Pept 797 pg/mL (0-125); Procalcitonin 0.07 ng/mL (0-0.5)
[2021-01-07] MEDS: budesonide 0.5 mg/2 mL Neb INHALATION ×2 (08:53→20:15)
[2021-01-07] MEDS: zinc gluconate 50 mg Tablet PO (09:17)
[2021-01-07] MEDS: cholecalciferol (vitamin D3) 1,000 unit Tablet 1000 UNIT PO (09:17)
[2021-01-07] MEDS: azithromycin 250 mg Tablet PO (09:17)
[2021-01-07] MEDS: levothyroxine 25 mcg Tablet PO (09:17)
[2021-01-07] MEDS: cefTRIAXone 1,000 MG in sodium chloride 0.9% (plus) 50 ML 100 MG IV (09:17)
[2021-01-07] MEDS: lamoTRIgine 100 mg Tablet 200 MG PO (09:17)
[2021-01-07] MEDS: ascorbic acid 500 mg Tablet PO ×2 (09:17→17:50)
[2021-01-07] MEDS: enoxaparin 100 mg/mL Syringe SUBCUT ×2 (09:18→21:11)
[2021-01-07] MEDS: FUROsemide 10 mg/mL SDV 4mL 40 MG IVP ×2 (10:27→21:14)
[2021-01-07] MEDS: cefepime 2,000 MG in sodium chloride 0.9% (plus) 50 ML 100 MG IV ×2 (10:29→23:01)
[2021-01-07] MEDS: sucralfate 1 gm Tablet PO ×3 (11:30→21:15)
--- NOTE | 2021-01-07 15:49 | P.PN_ITS ---
Subjective Subjective: Interval history: Patient was seen this morning, she is on 15 L, she complains of shortness of breath, no chest pain, no palpitations, she is a bit anxious, denies nausea, no vomiting, no fevers overnight Vitals/I&O/Wt Last Vital Signs Temp 97.5 F L 01/07/21 11:45 Pulse 82 01/07/21 15:02 Resp 17 01/07/21 15:02 BP 100/56 01/07/21 11:45 Pulse Ox 91 01/07/21 15:02 01/07/21 01/07/21 01/07/21 06:59 14:59 22:59 Intake Total 590 / 590 Output Total 1100 / 1100 1200 / 2300 Balance -510 / -510 -1200 / -1710 Weight last 48 hrs Weight 103.737 kg Weight 102.058 kg Physical Exam Const: COMMON NORMALS: no acute distress and patient oriented x3 Resp: COMMON NORMALS: normal respiratory effort, No retractions and No use of accessory muscles AUSCULTATION: diminished lung sounds diffuse Cardio: COMMON NORMALS: regular rate, regular rhythm, S1 normal heart sound present and S2 normal heart sound present RATE: regular rate RHYTHM: regular rhythm HEART SOUNDS: S1 normal heart sound present and S2 normal heart sound present GI: COMMON NORMALS: Normal to inspection, nondistended, normoactive bowel sounds present, Soft to palpation and non-tender PALPATION: Yes Soft to palpation Extremity: COMMON NORMALS: no pedal edema Neuro: COMMON NORMALS: patient oriented x3 Psych: COMMON NORMALS: mental status grossly normal Data : 01/07/21 05:18 01/07/21 05:18 Micro: Microbiology 01/07/21 09:33 Bacterial Antigens - Final Urine,Voided 01/06/21 20:35 Blood Culture - Preliminary Blood SPECIMEN COLLECTED 01/06/21 20:30 Blood Culture - Preliminary Blood SPECIMEN COLLECTED A&P Assessment and plan (1) Pulmonary embolism: Start Lovenox 1mg/kg s/c q12h for treatment Lower extremity ultrasound negative for DVT No significant delta troponin, EKG sinus rhythm BNP elevated at 1076, Lasix 40 IV twice daily echocardiogram LV systolic function is normal with EF of 55-60% Diastolic function is normal Grossly RV is normal in size and function No significant valvular heart disease No comparison studies are avialable Probably find out positive thing with you Status: Acute Qualifiers: Pulmonary embolism type: multiple subsegmental (without acute cor pulmonale) Qualified Code(s): I26.94 - Multiple subsegmental pulmonary emboli without acute cor pulmonale (2) Pneumonia due to 2019 novel coronavirus: B/L infiltrates on CXR compatible with COVID 19 pneumonia Recently treated at [facility], obtain records CRP 67.6, pro-Alvino within normal limits Dexamethasone 6mg IVP for scattered wheezing on exam today Inhaled scheduled duoneb and budesonide On 15L, slightly tachypnic, anxious supplemental 02 to keep saturation >90-92% Expand antibiotic coverage to vancomycin, cefepime add caspofungin Follow urine cultures, blood cultures, sputum cultures Vitamin C, zinc, vitamin D Status: Acute (3) Acute hypoxemic respiratory failure due to severe acute respiratory syndrome coronavirus 2 (SARS-CoV-2) disease: As above Status: Acute Additional A&P Information Hemoglobin 9.3, Protonix, Carafate, iron studies, folate Continue his home Seroquel, Zyprexa, gabapentin, Lamictal, QTC 417, will monitor QTC Hypothyroidism, continue levothyroxine Attestations Medical Necessity Statement*: Patient course hospitalization for acute respiratory failure secondary pulmonary bleed, possible secondary bacterial infection Coding Level of Care Code Acute Director [employer] for [facility] Fw Diagnoses Pulmonary embolism I26.94 Pulmonary embolism type: multiple subsegmental (without acute cor pulmonale) Pneumonia due to 2019 novel coronavirus U07.1; J12.82 Acute hypoxemic respiratory failure due to severe acute respiratory syndrome coronavirus 2 (SARS-CoV-2) disease U07.1; J96.01
[2021-01-07] MEDS: atorvastatin 40 mg Tablet 20 MG PO (17:49)
[2021-01-07] MEDS: ropinirole 2 mg Tablet PO (17:50)
[2021-01-07] MEDS: dexamethasone 4 mg/mL INJ 6 MG IVP (21:12)
[2021-01-07] MEDS: quetiapine 300 mg Tablet 1200 MG PO (21:15)
[2021-01-07] MEDS: trazodone 50 mg Tablet PO (21:15)
[2021-01-08] VITALS (11 sets, daily range): BP systolic 94–123; BP diastolic 56–79; PULSE 79–92; RESP 16–22; TEMP 36.2–36.7; O2SAT 90–97
[2021-01-08] MEDS: ipratropium-albuterol 3 mL Neb INHALATION ×4 (03:45→20:14)
[2021-01-08] MEDS: vancomycin 1,250 MG/250 ML PIGGYBACK 250 MG IV ×2 (04:37→16:24)
[2021-01-08 05:21] LABS: Basophils % 0.2 %; Eosinophils % 0.1 %; Hemoglobin 9.2 g/dL (11.5-15.3); Lymphocytes # 1.5 10^3/uL (0.8-4.8); Lymphocytes % 16.9 %; Mean Corpuscular HGB Conc 30.7 g/dL (30.0-36.0); Mean Corpuscular Hemoglobin 26.8 pg (28.0-34.0); Mean Corpuscular Volume 87.5 fl (81-99); Mean Platelet Volume 11.6 fL (7.4-10.4); Monocytes # 0.4 10^3/uL (0.2-0.9); Monocytes % 4.5 %; Neutrophils # 6.88 10^3/uL (1.8-7.7); Neutrophils % 77.8 %; Nucleated Red Blood Cells % 0 %; Platelet Count 258 10^3/cmm (130-400); Red Blood Count 3.43 10^6/uL (4.1-5.3); Red Cell Distribution Width 17.2 % (12.1-15.1); White Blood Count 8.8 10^3/uL (4.0-10.0)
[2021-01-08 05:38] LABS: INR 1.12 (0.8-1.2)
[2021-01-08 05:56] LABS: ABG PCO2 45.8 mmHg (35-45); ABG PH Result 7.43 (7.35-7.45); Arterial Blood Gas Hematocrit 35.5 % (37-47); Base Excess ABG 5.3 mmol/L (-2.0-2.0); Blood Gas Sample Site Brachial, right; Blood Gas Sample Type Arterial; HCO3 ABG 30.4 mmol/L (22-26); Oxygen Device NC; PO2 ABG 80.6 mmHg (80.0-100.0)
[2021-01-08 05:56] LABS: NT Pro B Type Natriuretic Pept 514 pg/mL (0-125)
--- NOTE | 2021-01-08 06:00 | ECG_ITS ---
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 Measurements Intervals [place] Rate: 78 P: 24 [place]: 146 QRS: 37 QRSD: 106 T: 49 QT: 420 QTc: 479 Interpretive Statements SINUS RHYTHM LOW QRS VOLTAGE IN PRECORDIAL LEADS [QRS DEFLECTION < 1.0 mV IN CHEST LEADS] NONSPECIFIC T-WAVE ABNORMALITY Compared to ECG 01/06/2021 15:56:04 No significant changes Electronically Signed On 01-08-2021 20:38:33 CDT by Warren Mohr M.D. [id number]
[2021-01-08 06:06] LABS: Creatine Phosphokinase 29 U/L (26-192)
[2021-01-08] MEDS: gabapentin 300 mg Capsule 600 MG PO ×3 (06:11→16:26)
[2021-01-08] MEDS: sucralfate 1 gm Tablet PO ×4 (06:16→22:24)
[2021-01-08] MEDS: ziprasidone hcl 40 mg Capsule 80 MG PO ×3 (06:17→16:26)
[2021-01-08] MEDS: aspirin 81 mg EC Tablet PO ×2 (06:17→16:25)
[2021-01-08] MEDS: pantoprazole DR 40 mg Tablet PO ×2 (06:18→16:26)
[2021-01-08 06:22] LABS: Alanine Aminotransferase 41 U/L (0-33); Alkaline Phosphatase 242 IU/L (35-105); Anion Gap 14.3 (5-19); Aspartate Amino Transferase 27 U/L (0-32); Blood Urea Nitrogen 17 mg/dL (8-23); C Reactive Protein 52.8 mg/L (0.0-4.9); Calcium 8.1 mg/dL (8.5-10.5); Carbon Dioxide 27 mmol/L (22-29); Chloride 99 mmol/L (98-107); Globulin 4.1 g/dL (1.3-4.6); Glucose 152 mg/dL (65-115); Magnesium 1.9 mg/dL (1.7-2.3); NT Pro B Type Natriuretic Pept 514 pg/mL (0-125); Osmolality Calculated 287 mOsm/kg (285-295); Phosphorus 3.6 mg/dL (2.5-4.5); Potassium 4.3 mmol/L (3.5-5.1); Sodium 136 mmol/L (136-145); Total Bilirubin 0.2 mg/dL (0.15-1.2); Total Protein 7.1 g/dL (6.6-8.7)
--- NOTE | 2021-01-08 07:00 | XR_ITS ---
WS: [id number] Portable AP upright chest, 01/08/2021 Clinical Data: sob Comparison: Portable chest, 01/05/2021. Findings: The diffuse bilateral pulmonary opacities are not changed. The heart is slightly enlarged. No pneumothorax is seen. There are no nodules, masses or effusions. XR/XR chest 1V portable [id number] Impression: 1. Diffuse bilateral pulmonary opacities consistent with pneumonia. 2. Cardiomegaly.
[2021-01-08] MEDS: ascorbic acid 500 mg Tablet PO ×2 (08:47→16:25)
[2021-01-08] MEDS: lamoTRIgine 100 mg Tablet 200 MG PO (08:48)
[2021-01-08] MEDS: zinc gluconate 50 mg Tablet PO (08:48)
[2021-01-08] MEDS: cholecalciferol (vitamin D3) 1,000 unit Tablet 1000 UNIT PO (08:48)
[2021-01-08] MEDS: levothyroxine 25 mcg Tablet PO (08:48)
[2021-01-08] MEDS: enoxaparin 100 mg/mL Syringe SUBCUT ×2 (08:49→22:24)
[2021-01-08] MEDS: budesonide 0.5 mg/2 mL Neb INHALATION ×2 (09:24→20:14)
[2021-01-08] MEDS: cefepime 2,000 MG in sodium chloride 0.9% (plus) 50 ML 100 MG IV ×2 (10:35→23:00)
[2021-01-08] MEDS: ALPRAZolam 0.5 mg Tablet 0.25 MG PO (14:32)
--- NOTE | 2021-01-08 14:59 | P.PN_ITS ---
Subjective Subjective: Interval history: This morning patient was seen, she continues to complain of shortness of breath with minimal exertion, is quite anxious, no chest pain, no palpitations, no fevers, no chills Vitals/I&O/Wt Last Vital Signs Temp 97.8 F 01/08/21 12:00 Pulse 79 01/08/21 12:00 Resp 18 01/08/21 12:00 BP 115/74 01/08/21 12:00 Pulse Ox 90 01/08/21 12:00 01/07/21 01/08/21 01/08/21 22:59 06:59 14:59 Intake Total 300.000 / 1130.000 300 / 300 Output Total 1200 / 2300 1100 / 3400 Balance -1200 / -1470 -800.000 / -2270.000 300 / 300 Weight last 48 hrs Weight 103.737 kg Physical Exam Const: COMMON NORMALS: no acute distress and patient oriented x3 Resp: COMMON NORMALS: normal respiratory effort, No retractions, No use of accessory muscles and clear to auscultation bilaterally AUSCULTATION: clear to auscultation bilaterally Cardio: COMMON NORMALS: regular rate, regular rhythm, S1 normal heart sound present and S2 normal heart sound present RATE: regular rate RHYTHM: regular rhythm HEART SOUNDS: S1 normal heart sound present and S2 normal heart sound present GI: COMMON NORMALS: Normal to inspection, nondistended, normoactive bowel sounds present, Soft to palpation and non-tender PALPATION: Yes Soft to palpation Extremity: COMMON NORMALS: no pedal edema Neuro: COMMON NORMALS: patient oriented x3 Psych: COMMON NORMALS: mental status grossly normal Data : 01/08/21 05:00 01/08/21 05:00 Micro: Microbiology 01/07/21 10:49 MRSA Culture - Final Nose 01/06/21 20:30 Blood Culture - Preliminary Blood NEGATIVE TO DATE 01/06/21 20:35 Blood Culture - Preliminary Blood NEGATIVE TO DATE 01/07/21 09:33 Bacterial Antigens - Final Urine,Voided A&P Assessment and plan (1) Pulmonary embolism: Start Lovenox 1mg/kg s/c q12h for treatment Lower extremity ultrasound negative for DVT No significant delta troponin, EKG sinus rhythm BNP elevated at 1076, Lasix 40 IV twice daily echocardiogram LV systolic function is normal with EF of 55-60% Diastolic function is normal Grossly RV is normal in size and function No significant valvular heart disease No comparison studies are avialable Probably find out positive thing with you Status: Acute Qualifiers: Pulmonary embolism type: multiple subsegmental (without acute cor pulmonale) Qualified Code(s): I26.94 - Multiple subsegmental pulmonary emboli without acute cor pulmonale (2) Pneumonia due to 2019 novel coronavirus: B/L infiltrates on CXR compatible with COVID 19 pneumonia Recently treated at [facility], obtain records Dexamethasone 6mg IVP for scattered wheezing on exam today Inhaled scheduled duoneb and budesonide On 11L, slightly tachypnic, anxious supplemental 02 to keep saturation >90-92% Currently on vancomycin, cefepime On caspofungin Follow urine cultures, blood cultures, sputum cultures Vitamin C, zinc, vitamin D Status: Acute (3) Acute hypoxemic respiratory failure due to severe acute respiratory syndrome coronavirus 2 (SARS-CoV-2) disease: As above Status: Acute Additional A&P Information Hemoglobin 9.2, Protonix, Carafate, iron iron studies show low iron, low normal ferritin, concerning for possible slow GI bleed, Hemoccult pending, continue Protonix and Carafate, monitor hemoglobin Continue his home Seroquel, Zyprexa, gabapentin, Lamictal, QTC 417, will monitor QTC Hypothyroidism, continue levothyroxine Attestations Medical Necessity Statement*: Patient requires hospitalization for pulmonary embolism, pneumonia secondary to COVID-19, anemia Coding Level of Care Code Acute 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
[2021-01-08] MEDS: atorvastatin 40 mg Tablet 20 MG PO (16:25)
[2021-01-08] MEDS: ropinirole 2 mg Tablet PO (16:26)
--- NOTE | 2021-01-08 18:02 | PC.RESP ---
SMOKING CESSATION AND PULMONARY REHAB INFORMATION SENT TO PATIENT.
[2021-01-08] MEDS: dexamethasone 4 mg/mL INJ 6 MG IVP (21:05)
[2021-01-08] MEDS: trazodone 50 mg Tablet PO (22:24)
[2021-01-08] MEDS: quetiapine 300 mg Tablet 1200 MG PO (22:24)
[2021-01-09] VITALS (15 sets, daily range): BP systolic 99–140; BP diastolic 63–80; PULSE 77–91; RESP 17–24; TEMP 36.3–37.1; O2SAT 90–98
[2021-01-09 02:40] LABS: Basophils % 0.5 %; Eosinophils % 0.4 %; Hematocrit 30.5 % (37.0-47.0); Lymphocytes # 1.3 10^3/uL (0.8-4.8); Lymphocytes % 16.8 %; Mean Corpuscular HGB Conc 29.5 g/dL (30.0-36.0); Mean Corpuscular Hemoglobin 25.9 pg (28.0-34.0); Mean Corpuscular Volume 87.6 fl (81-99); Mean Platelet Volume 11.6 fL (7.4-10.4); Monocytes # 0.2 10^3/uL (0.2-0.9); Monocytes % 2.8 %; Neutrophils # 6.22 10^3/uL (1.8-7.7); Nucleated Red Blood Cells % 0 %; Platelet Count 279 10^3/cmm (130-400); Red Blood Count 3.48 10^6/uL (4.1-5.3); White Blood Count 7.9 10^3/uL (4.0-10.0)
[2021-01-09] MEDS: ipratropium-albuterol 3 mL Neb INHALATION ×4 (02:43→20:25)
[2021-01-09 02:47] LABS: INR 1.06 (0.8-1.2)
[2021-01-09 03:00] LABS: Vancomycin Trough 13.2 ug/mL (10-15)
[2021-01-09] MEDS: vancomycin 1,250 MG/250 ML PIGGYBACK 250 MG IV ×2 (03:00→15:25)
[2021-01-09 03:09] LABS: NT Pro B Type Natriuretic Pept 238 pg/mL (0-125); Procalcitonin 0.07 ng/mL (0-0.5)
[2021-01-09 03:21] LABS: Alanine Aminotransferase 36 U/L (0-33); Albumin Level 3.1 g/dL (3.5-5.2); Alkaline Phosphatase 237 IU/L (35-105); Anion Gap 15.6 (5-19); Aspartate Amino Transferase 27 U/L (0-32); Blood Urea Nitrogen 16 mg/dL (8-23); C Reactive Protein 35.7 mg/L (0.0-4.9); Calcium 8.6 mg/dL (8.5-10.5); Carbon Dioxide 25 mmol/L (22-29); Chloride 100 mmol/L (98-107); Creatine Phosphokinase 25 U/L (26-192); Globulin 3.8 g/dL (1.3-4.6); Glomerular Filtration Rate 62.8 mL/min (90-130); Glucose 213 mg/dL (65-115); Magnesium 1.9 mg/dL (1.7-2.3); Osmolality Calculated 290 mOsm/kg (285-295); Phosphorus 3.5 mg/dL (2.5-4.5); Potassium 4.6 mmol/L (3.5-5.1); Sodium 136 mmol/L (136-145); Total Bilirubin 0.2 mg/dL (0.15-1.2); Total Protein 6.9 g/dL (6.6-8.7)
--- NOTE | 2021-01-09 06:00 | ECG_ITS ---
[facility] Test Date: 2021-01-09 Pat Name: Humera Navarrete Department: Room: 276 Gender: Female [employer]oth [employer] Weaver: : 1955 Requested By: Nishant Navarro Order Number: [id number] Margarita MD: Melissa Bagley M.D. Measurements Intervals [place] Rate: 80 P: 19 MO: 145 QRS: 34 QRSD: 108 T: 46 QT: 408 QTc: 473 Interpretive Statements SINUS RHYTHM Compared to ECG 01/08/2021 05:09:33 T-wave abnormality no longer present Electronically Signed On 01-11-2021 21:43:13 CDT by Melissa Bagley M.D. [id number]
[2021-01-09] MEDS: ziprasidone hcl 40 mg Capsule 80 MG PO ×3 (06:19→17:45)
[2021-01-09] MEDS: pantoprazole DR 40 mg Tablet PO ×2 (06:20→17:45)
[2021-01-09] MEDS: aspirin 81 mg EC Tablet PO ×2 (06:21→17:46)
[2021-01-09] MEDS: gabapentin 300 mg Capsule 600 MG PO ×3 (06:21→17:46)
[2021-01-09] MEDS: sucralfate 1 gm Tablet PO ×4 (06:56→22:06)
[2021-01-09] MEDS: levothyroxine 25 mcg Tablet PO (09:13)
[2021-01-09] MEDS: zinc gluconate 50 mg Tablet PO (09:14)
[2021-01-09] MEDS: lamoTRIgine 100 mg Tablet 200 MG PO (09:14)
[2021-01-09] MEDS: cholecalciferol (vitamin D3) 1,000 unit Tablet 1000 UNIT PO (09:14)
[2021-01-09] MEDS: ascorbic acid 500 mg Tablet PO ×2 (09:14→17:46)
[2021-01-09] MEDS: enoxaparin 100 mg/mL Syringe SUBCUT ×2 (09:15→22:06)
[2021-01-09] MEDS: budesonide 0.5 mg/2 mL Neb INHALATION ×2 (10:20→20:25)
[2021-01-09] MEDS: cefepime 2,000 MG in sodium chloride 0.9% (plus) 50 ML 100 MG IV ×2 (10:49→22:05)
--- NOTE | 2021-01-09 15:59 | PM.PN ---
Subjective Subjective: Interval history: Patient is doing well this morning, is on 8 L, still complaining of shortness of breath with exertion, no fevers, chills, no nausea, no vomiting, Vitals/I&O/Wt Last Vital Signs Temp 98.0 F 01/09/21 15:43 Pulse 81 01/09/21 15:43 Resp 24 H 01/09/21 15:43 BP 103/63 01/09/21 15:43 Pulse Ox 92 01/09/21 15:43 01/09/21 01/09/21 01/09/21 06:59 14:59 22:59 Intake Total 300 / 1330 540 / 540 Output Total 1500 / 1500 600 / 600 Balance -1200 / -170 540 / 540 -600 / -60 Physical Exam Const: COMMON NORMALS: no acute distress and patient oriented x3 Resp: COMMON NORMALS: normal respiratory effort, No retractions, No use of accessory muscles and clear to auscultation bilaterally AUSCULTATION: clear to auscultation bilaterally Cardio: COMMON NORMALS: regular rate, regular rhythm, S1 normal heart sound present and S2 normal heart sound present RATE: regular rate RHYTHM: regular rhythm HEART SOUNDS: S1 normal heart sound present and S2 normal heart sound present GI: COMMON NORMALS: Normal to inspection, nondistended, normoactive bowel sounds present, Soft to palpation, non-tender and No hepatosplenomegaly present PALPATION: Yes Soft to palpation and Yes No hepatosplenomegaly present Extremity: COMMON NORMALS: no pedal edema Neuro: COMMON NORMALS: patient oriented x3 Psych: COMMON NORMALS: mental status grossly normal Data : 01/09/21 02:20 01/09/21 02:20 Micro: Microbiology 01/07/21 10:49 MRSA Culture - Final Nose A&P Assessment and plan (1) Pulmonary embolism: Continue Lovenox 1mg/kg s/c q12h for treatment Lower extremity ultrasound negative for DVT No significant delta troponin, EKG sinus rhythm BNP 232 hold Lasix echocardiogram LV systolic function is normal with EF of 55-60% Diastolic function is normal Grossly RV is normal in size and function No significant valvular heart disease No comparison studies are avialable Plan for today continue antibiotics, continue steroids, monitor respiratory status, hold off Lasix Status: Acute Qualifiers: Pulmonary embolism type: multiple subsegmental (without acute cor pulmonale) Qualified Code(s): I26.94 - Multiple subsegmental pulmonary emboli without acute cor pulmonale (2) Pneumonia due to 2019 novel coronavirus: B/L infiltrates on CXR compatible with COVID 19 pneumonia Recently treated at [facility], obtain records Dexamethasone 6mg IVP for scattered wheezing on exam today Inhaled scheduled duoneb and budesonide On 8L, currently resting comfortably supplemental 02 to keep saturation >90-92% Currently on vancomycin, cefepime On caspofungin Follow urine cultures, blood cultures, sputum cultures Vitamin C, zinc, vitamin D Status: Acute (3) Acute hypoxemic respiratory failure due to severe acute respiratory syndrome coronavirus 2 (SARS-CoV-2) disease: As above Status: Acute Additional A&P Information Hemoglobin 9.2, Protonix, Carafate, iron iron studies show low iron, low normal ferritin, concerning for possible slow GI bleed, Hemoccult pending, continue Protonix and Carafate, monitor hemoglobin Continue his home Seroquel, Zyprexa, gabapentin, Lamictal, QTC 417, will monitor QTC Hypothyroidism, continue levothyroxine Attestations Medical Necessity Statement*: Patient requires hospitalization for pulmonary embolism, pneumonia, acute respiratory failure COVID-19 Coding Level of Care Code Acute Supervisor Partial Dent[employer] Department for [facility] Diagnoses Pulmonary embolism I26.94 Pulmonary embolism type: multiple subsegmental (without acute cor pulmonale) Pneumonia due to 2019 novel coronavirus U07.1; J12.82 Acute hypoxemic respiratory failure due to severe acute respiratory syndrome coronavirus 2 (SARS-CoV-2) disease U07.1; J96.01
[2021-01-09] MEDS: ropinirole 2 mg Tablet PO (17:46)
[2021-01-09] MEDS: atorvastatin 40 mg Tablet 20 MG PO (17:47)
--- NOTE | 2021-01-09 18:52 | PC.NURSE ---
Shift Note Frequent safety and comfort rounds continue. Patient rested well throughout this shift with no complaints. Patient currently resting in bed watching television. Will continue to monitor.
[2021-01-09] MEDS: dexamethasone 4 mg/mL INJ 6 MG IVP (22:04)
[2021-01-09] MEDS: ALPRAZolam 0.5 mg Tablet 0.25 MG PO (22:07)
[2021-01-09] MEDS: trazodone 50 mg Tablet PO (22:07)
[2021-01-09] MEDS: quetiapine 300 mg Tablet 1200 MG PO (22:07)
[2021-01-10] VITALS (12 sets, daily range): BP systolic 101–124; BP diastolic 66–81; PULSE 74–88; RESP 18–30; TEMP 36.6–37.1; O2SAT 90–97
[2021-01-10] MEDS: ipratropium-albuterol 3 mL Neb INHALATION ×4 (02:30→21:19)
[2021-01-10] MEDS: vancomycin 1,250 MG/250 ML PIGGYBACK 250 MG IV ×2 (03:58→15:03)
[2021-01-10 07:10] LABS: Basophils % 0.4 %; Eosinophils % 0.4 %; Hemoglobin 9.5 g/dL (11.5-15.3); Lymphocytes # 1.8 10^3/uL (0.8-4.8); Lymphocytes % 22.2 %; Mean Corpuscular HGB Conc 29.7 g/dL (30.0-36.0); Mean Corpuscular Volume 87.4 fl (81-99); Mean Platelet Volume 12.7 fL (7.4-10.4); Monocytes # 0.2 10^3/uL (0.2-0.9); Monocytes % 2.9 %; Neutrophils # 5.84 10^3/uL (1.8-7.7); Neutrophils % 73.3 %; Nucleated Red Blood Cells % 0 %; Platelet Count 233 10^3/cmm (130-400); Red Blood Count 3.66 10^6/uL (4.1-5.3); Red Cell Distribution Width 17.1 % (12.1-15.1)
[2021-01-10] MEDS: ziprasidone hcl 40 mg Capsule 80 MG PO ×3 (07:28→17:16)
[2021-01-10] MEDS: gabapentin 300 mg Capsule 600 MG PO ×3 (07:29→17:16)
[2021-01-10] MEDS: pantoprazole DR 40 mg Tablet PO ×2 (07:29→17:16)
[2021-01-10] MEDS: sucralfate 1 gm Tablet PO ×4 (07:29→21:21)
[2021-01-10] MEDS: aspirin 81 mg EC Tablet PO ×2 (07:29→17:16)
[2021-01-10 07:55] LABS: Alanine Aminotransferase 34 U/L (0-33); Albumin Level 3.3 g/dL (3.5-5.2); Alkaline Phosphatase 220 IU/L (35-105); Anion Gap 12.6 (5-19); Aspartate Amino Transferase 18 U/L (0-32); Blood Urea Nitrogen 24 mg/dL (8-23); C Reactive Protein 22.2 mg/L (0.0-4.9); Calcium 8.8 mg/dL (8.5-10.5); Carbon Dioxide 28 mmol/L (22-29); Chloride 103 mmol/L (98-107); Globulin 3.8 g/dL (1.3-4.6); Glucose 147 mg/dL (65-115); Magnesium 2.1 mg/dL (1.7-2.3); NT Pro B Type Natriuretic Pept 199 pg/mL (0-125); Osmolality Calculated 295 mOsm/kg (285-295); Phosphorus 3.2 mg/dL (2.5-4.5); Potassium 4.6 mmol/L (3.5-5.1); Sodium 139 mmol/L (136-145); Total Bilirubin 0.2 mg/dL (0.15-1.2); Total Protein 7.1 g/dL (6.6-8.7)
[2021-01-10 07:57] LABS: NT Pro B Type Natriuretic Pept 209 pg/mL (0-125)
[2021-01-10] MEDS: zinc gluconate 50 mg Tablet PO (08:45)
[2021-01-10] MEDS: levothyroxine 25 mcg Tablet PO (08:45)
[2021-01-10] MEDS: ascorbic acid 500 mg Tablet PO ×2 (08:45→17:16)
[2021-01-10] MEDS: cholecalciferol (vitamin D3) 1,000 unit Tablet 1000 UNIT PO (08:45)
[2021-01-10] MEDS: lamoTRIgine 100 mg Tablet 200 MG PO (08:45)
[2021-01-10] MEDS: ALPRAZolam 0.5 mg Tablet 0.25 MG PO ×2 (08:46→21:21)
[2021-01-10] MEDS: enoxaparin 100 mg/mL Syringe SUBCUT ×2 (08:48→21:20)
[2021-01-10 09:47] LABS: Creatine Phosphokinase 23 U/L (26-192)
[2021-01-10] MEDS: budesonide 0.5 mg/2 mL Neb INHALATION ×2 (09:56→21:19)
[2021-01-10] MEDS: cefepime 2,000 MG in sodium chloride 0.9% (plus) 50 ML 100 MG IV ×2 (11:45→23:55)
[2021-01-10] MEDS: ropinirole 2 mg Tablet PO (17:16)
[2021-01-10] MEDS: atorvastatin 40 mg Tablet 20 MG PO (17:16)
--- NOTE | 2021-01-10 17:19 | PC.NURSE ---
Shift Note Frequent safety and comfort rounds continue. Orders and/or nursing care completed as indicated. Patient monitored for response to intervention and treatment(s). Education provided includes using incentive spirometer. Patient verbalized understanding. Patient did complain of shortness of breath at beginning of shift and received a breathing treatment from respiratory, patient then improved. Patient is currently resting comfortably in bed watching television. Will continue to monitor.
--- NOTE | 2021-01-10 17:29 | PM.PN ---
Subjective Subjective: Interval history: Patient was seen this morning, no fevers, no chills, no nausea, no vomiting, still complains of shortness of breath with exertion, but down to 8 L Vitals/I&O/Wt Last Vital Signs Temp 98.8 F 01/10/21 16:00 Pulse 74 01/10/21 16:00 Resp 20 H 01/10/21 16:00 BP 117/67 01/10/21 16:00 Pulse Ox 92 01/10/21 16:00 01/10/21 01/10/21 01/10/21 06:59 14:59 22:59 Intake Total 250 / 1330 780 / 780 490 / 1270 Output Total 900 / 1500 1000 / 1000 400 / 1400 Balance -650 / -170 -220 / -220 90 / -130 Physical Exam Const: COMMON NORMALS: no acute distress and patient oriented x3 Resp: COMMON NORMALS: normal respiratory effort, No retractions and No use of accessory muscles AUSCULTATION: wheezes Cardio: COMMON NORMALS: regular rate, regular rhythm, S1 normal heart sound present and S2 normal heart sound present RATE: regular rate RHYTHM: regular rhythm HEART SOUNDS: S1 normal heart sound present and S2 normal heart sound present GI: COMMON NORMALS: Normal to inspection, nondistended, normoactive bowel sounds present, Soft to palpation and non-tender PALPATION: Yes Soft to palpation Extremity: COMMON NORMALS: no pedal edema Neuro: COMMON NORMALS: patient oriented x3 Psych: COMMON NORMALS: mental status grossly normal Data : 01/10/21 06:07 01/10/21 06:07 A&P Assessment and plan (1) Pulmonary embolism: Continue Lovenox 1mg/kg s/c q12h for treatment Lower extremity ultrasound negative for DVT No significant delta troponin, EKG sinus rhythm Hold Lasix for today echocardiogram LV systolic function is normal with EF of 55-60% Diastolic function is normal Grossly RV is normal in size and function No significant valvular heart disease No comparison studies are avialable Plan for today de-escalate antibiotics, continue steroids, monitor respiratory status, hold off on Lasix Status: Acute Qualifiers: Pulmonary embolism type: multiple subsegmental (without acute cor pulmonale) Qualified Code(s): I26.94 - Multiple subsegmental pulmonary emboli without acute cor pulmonale (2) Pneumonia due to 2019 novel coronavirus: B/L infiltrates on CXR compatible with COVID 19 pneumonia Recently treated at [facility] Dexamethasone 6mg IVP for scattered wheezing on exam today Inhaled scheduled duoneb and budesonide On 8L, currently resting comfortably supplemental 02 to keep saturation >90-92% Continue cefepime, stop vancomycin Stop caspofungin Follow urine cultures, blood cultures, sputum cultures so far negative Vitamin C, zinc, vitamin D Status: Acute (3) Acute hypoxemic respiratory failure due to severe acute respiratory syndrome coronavirus 2 (SARS-CoV-2) disease: As above Status: Acute Additional A&P Information Hemoglobin 9.5, Protonix, Carafate, iron iron studies show low iron, low normal ferritin, concerning for possible slow GI bleed, Hemoccult pending, continue Protonix and Carafate, monitor hemoglobin Continue his home Seroquel, Zyprexa, gabapentin, Lamictal, QTC 417, will monitor QTC Hypothyroidism, continue levothyroxine Attestations Medical Necessity Statement*: Patient requires hospitalization for acute respiratory failure secondary to pulmonary blood, COVID-19, possible secondary bacterial pneumonia Coding Level of Care Code Acute Director Emergency Services for [facility] Fwd Diagnoses Pulmonary embolism I26.94 Pulmonary embolism type: multiple subsegmental (without acute cor pulmonale) Pneumonia due to 2019 novel coronavirus U07.1; J12.82 Acute hypoxemic respiratory failure due to severe acute respiratory syndrome coronavirus 2 (SARS-CoV-2) disease U07.1; J96.01
[2021-01-10] MEDS: dexamethasone 4 mg/mL INJ 6 MG IVP (21:20)
[2021-01-10] MEDS: quetiapine 300 mg Tablet 1200 MG PO (21:21)
[2021-01-10] MEDS: trazodone 50 mg Tablet PO (21:22)
[2021-01-11] VITALS (9 sets, daily range): BP systolic 94–140; BP diastolic 64–84; PULSE 73–89; RESP 16–24; TEMP 36.6–36.8; O2SAT 92–96
[2021-01-11] MEDS: ipratropium-albuterol 3 mL Neb INHALATION ×3 (03:05→21:05)
[2021-01-11 06:43] LABS: Basophils % 0.4 %; Eosinophils % 0.1 %; Hematocrit 30.6 % (37.0-47.0); Hemoglobin 9.1 g/dL (11.5-15.3); Lymphocytes # 1.7 10^3/uL (0.8-4.8); Lymphocytes % 23.9 %; Mean Corpuscular HGB Conc 29.7 g/dL (30.0-36.0); Mean Corpuscular Hemoglobin 26.3 pg (28.0-34.0); Mean Corpuscular Volume 88.4 fl (81-99); Mean Platelet Volume 11.2 fL (7.4-10.4); Monocytes # 0.3 10^3/uL (0.2-0.9); Monocytes % 3.4 %; Neutrophils # 5.18 10^3/uL (1.8-7.7); Neutrophils % 71.2 %; Nucleated Red Blood Cells % 0 %; Platelet Count 294 10^3/cmm (130-400); Red Blood Count 3.46 10^6/uL (4.1-5.3); Red Cell Distribution Width 17.2 % (12.1-15.1); White Blood Count 7.3 10^3/uL (4.0-10.0)
[2021-01-11] MEDS: aspirin 81 mg EC Tablet PO ×2 (06:48→17:16)
[2021-01-11] MEDS: gabapentin 300 mg Capsule 600 MG PO ×3 (06:48→17:16)
[2021-01-11] MEDS: sucralfate 1 gm Tablet PO ×4 (06:48→21:27)
[2021-01-11] MEDS: ziprasidone hcl 40 mg Capsule 80 MG PO ×3 (06:48→17:16)
[2021-01-11] MEDS: pantoprazole DR 40 mg Tablet PO ×2 (06:49→17:16)
[2021-01-11 07:14] LABS: Alanine Aminotransferase 34 U/L (0-33); Albumin Level 3.3 g/dL (3.5-5.2); Alkaline Phosphatase 198 IU/L (35-105); Anion Gap 13.6 (5-19); Aspartate Amino Transferase 21 U/L (0-32); Blood Urea Nitrogen 20 mg/dL (8-23); C Reactive Protein 12.6 mg/L (0.0-4.9); Calcium 8.7 mg/dL (8.5-10.5); Carbon Dioxide 27 mmol/L (22-29); Chloride 100 mmol/L (98-107); Globulin 3.5 g/dL (1.3-4.6); Glucose 135 mg/dL (65-115); Magnesium 1.9 mg/dL (1.7-2.3); Osmolality Calculated 287 mOsm/kg (285-295); Phosphorus 4.1 mg/dL (2.5-4.5); Potassium 4.6 mmol/L (3.5-5.1); Sodium 136 mmol/L (136-145); Total Bilirubin 0.2 mg/dL (0.15-1.2); Total Protein 6.8 g/dL (6.6-8.7)
[2021-01-11 07:15] LABS: NT Pro B Type Natriuretic Pept 133 pg/mL (0-125)
[2021-01-11] MEDS: budesonide 0.5 mg/2 mL Neb INHALATION ×2 (08:58→21:05)
[2021-01-11] MEDS: cholecalciferol (vitamin D3) 1,000 unit Tablet 1000 UNIT PO (09:21)
[2021-01-11] MEDS: ascorbic acid 500 mg Tablet PO ×2 (09:21→17:16)
[2021-01-11] MEDS: levothyroxine 25 mcg Tablet PO (09:21)
[2021-01-11] MEDS: lamoTRIgine 100 mg Tablet 200 MG PO (09:21)
[2021-01-11] MEDS: enoxaparin 100 mg/mL Syringe SUBCUT ×2 (09:21→21:27)
[2021-01-11] MEDS: zinc gluconate 50 mg Tablet PO (09:21)
[2021-01-11] MEDS: cefepime 2,000 MG in sodium chloride 0.9% (plus) 50 ML 100 MG IV ×2 (11:09→22:51)
--- NOTE | 2021-01-11 15:12 | P.PN_ITS ---
Subjective Subjective: Interval history: Patient was seen and examined this morning,SOB has improved at rest ,has SOB with exertion. Medications: Reviewed: Yes Vitals/I&O/Wt Last Vital Signs Temp 98.0 F 01/11/21 12:00 Pulse 77 01/11/21 12:00 Resp 20 H 01/11/21 12:00 BP 140/81 01/11/21 12:00 Pulse Ox 93 01/11/21 12:00 01/11/21 01/11/21 01/11/21 06:59 14:59 22:59 Intake Total 1300 / 3050 1530 / 1530 Output Total 1750 / 3150 Balance -450 / -100 1530 / 1530 Physical Exam Const: COMMON NORMALS: patient oriented x3 HENMT: COMMON NORMALS: normocephalic and atraumatic HEAD & SCALP: normocephalic and atraumatic Resp: COMMON NORMALS: clear to auscultation bilaterally EFFORT & INSPECTION: Yes symmetric chest movement AUSCULTATION: clear to auscultation bilaterally Cardio: COMMON NORMALS: regular rate, regular rhythm, S1 normal heart sound present, S2 normal heart sound present, No gallops present (Cardio), No murmurs present (Cardio), No rub (Cardio) and Peripheral pulses 2+ throughout RATE: regular rate RHYTHM: regular rhythm HEART SOUNDS: S1 normal heart sound present and S2 normal heart sound present PERIPHERAL PULSES: Peripheral pulses 2+ throughout GI: COMMON NORMALS: Normal to inspection, nondistended, normoactive bowel sounds present, Soft to palpation, non-tender, No hepatosplenomegaly present and no masses AUSCULTATION: Yes normoactive bowel sounds PALPATION: Yes Soft to palpation and Yes No hepatosplenomegaly present RECTAL EXAM: deferred Extremity: COMMON NORMALS: no clubbing, cyanosis or edema and no pedal edema Neuro: COMMON NORMALS: patient oriented x3 Data : 01/12/21 03:05 01/12/21 03:05 A&P Assessment and plan (1) Pulmonary embolism: Continue Lovenox 1mg/kg s/c q12h for treatment Lower extremity ultrasound negative for DVT No significant delta troponin, EKG sinus rhythm Hold Lasix for today echocardiogram LV systolic function is normal with EF of 55-60% Diastolic function is normal Grossly RV is normal in size and function No significant valvular heart disease No comparison studies are avialable Plan for today de-escalate antibiotics, continue steroids, monitor respiratory status, hold off on Lasix Status: Acute Qualifiers: Pulmonary embolism type: multiple subsegmental (without acute cor pulmonale) Qualified Code(s): I26.94 - Multiple subsegmental pulmonary emboli without acute cor pulmonale (2) Pneumonia due to 2019 novel coronavirus: B/L infiltrates on CXR compatible with COVID 19 pneumonia Recently treated at [facility] Dexamethasone 6mg IVP for scattered wheezing on exam today Inhaled scheduled duoneb and budesonide On 8L, currently resting comfortably supplemental 02 to keep saturation >90-92% Continue cefepime, stop vancomycin Stop caspofungin Follow urine cultures, blood cultures, sputum cultures so far negative Vitamin C, zinc, vitamin D Status: Acute (3) Acute hypoxemic respiratory failure due to severe acute respiratory syndrome coronavirus 2 (SARS-CoV-2) disease: As above Status: Acute Additional A&P Information Hemoglobin 9.5, Protonix, Carafate, iron iron studies show low iron, low normal ferritin, concerning for possible slow GI bleed, Hemoccult pending, continue Protonix and Carafate, monitor hemoglobin Continue his home Seroquel, Zyprexa, gabapentin, Lamictal, QTC 417, will monitor QTC Hypothyroidism, continue levothyroxine Attestations Medical Necessity Statement*: Patient needs to be in hospital for management of Pneumonia Coding Level of Care Code Acute [employer] for [facility] Fwd Diagnoses Pulmonary embolism I26.94 Pulmonary embolism type: multiple subsegmental (without acute cor pulmonale) Pneumonia due to 2019 novel coronavirus U07.1; J12.82 Acute hypoxemic respiratory failure due to severe acute respiratory syndrome coronavirus 2 (SARS-CoV-2) disease U07.1; J96.01
[2021-01-11] MEDS: atorvastatin 40 mg Tablet 20 MG PO (17:16)
[2021-01-11] MEDS: ropinirole 2 mg Tablet PO (17:16)
--- NOTE | 2021-01-11 17:49 | PC.RESP ---
RT Shift Note Frequent safety and respiratory rounds continue. Orders completed as indicated. Patient monitored pre and post treatments throughout shift. Patient did tolerate treatments appropriately. Condition improved. Patient and/or indirect sales representative educated on respiratory treatment and medications. Patient and/or indirect sales representative verbalized understanding. Will continue to monitor patient progress.
[2021-01-11] MEDS: quetiapine 300 mg Tablet 1200 MG PO (21:26)
[2021-01-11] MEDS: trazodone 50 mg Tablet PO (21:27)
[2021-01-11] MEDS: dexamethasone 4 mg/mL INJ 6 MG IVP (21:27)
[2021-01-12] VITALS (8 sets, daily range): BP systolic 108–148; BP diastolic 63–88; PULSE 70–77; RESP 17–20; TEMP 36.4–36.9; O2SAT 80–96
[2021-01-12] MEDS: ipratropium-albuterol 3 mL Neb INHALATION ×2 (02:50→08:53)
[2021-01-12 03:24] LABS: Basophils # 0.1 10^3/uL (0.0-0.1); Basophils % 0.6 %; Eosinophils # 0.1 10^3/uL (0.0-0.8); Hematocrit 31.2 % (37.0-47.0); Hemoglobin 9.2 g/dL (11.5-15.3); Lymphocytes # 2.4 10^3/uL (0.8-4.8); Lymphocytes % 30.8 %; Mean Corpuscular HGB Conc 29.5 g/dL (30.0-36.0); Mean Corpuscular Hemoglobin 26.6 pg (28.0-34.0); Mean Corpuscular Volume 90.2 fl (81-99); Mean Platelet Volume 11.1 fL (7.4-10.4); Monocytes # 0.3 10^3/uL (0.2-0.9); Monocytes % 3.2 %; Neutrophils # 4.99 10^3/uL (1.8-7.7); Neutrophils % 63.1 %; Nucleated Red Blood Cells % 0 %; Platelet Count 299 10^3/cmm (130-400); Red Blood Count 3.46 10^6/uL (4.1-5.3); Red Cell Distribution Width 17.3 % (12.1-15.1); White Blood Count 7.9 10^3/uL (4.0-10.0)
[2021-01-12 03:57] LABS: NT Pro B Type Natriuretic Pept 68 pg/mL (0-125); Procalcitonin 0.08 ng/mL (0-0.5)
[2021-01-12 04:08] LABS: Alanine Aminotransferase 38 U/L (0-33); Alkaline Phosphatase 190 IU/L (35-105); Anion Gap 14.2 (5-19); Aspartate Amino Transferase 25 U/L (0-32); Blood Urea Nitrogen 24 mg/dL (8-23); C Reactive Protein 7.9 mg/L (0.0-4.9); Calcium 8.4 mg/dL (8.5-10.5); Carbon Dioxide 25 mmol/L (22-29); Chloride 101 mmol/L (98-107); Globulin 3.5 g/dL (1.3-4.6); Glucose 151 mg/dL (65-115); Magnesium 1.9 mg/dL (1.7-2.3); Osmolality Calculated 287 mOsm/kg (285-295); Phosphorus 3.3 mg/dL (2.5-4.5); Potassium 5.2 mmol/L (3.5-5.1); Sodium 135 mmol/L (136-145); Total Bilirubin 0.2 mg/dL (0.15-1.2); Total Protein 6.5 g/dL (6.6-8.7)
[2021-01-12] MEDS: gabapentin 300 mg Capsule 600 MG PO ×2 (06:26→12:03)
[2021-01-12] MEDS: ziprasidone hcl 40 mg Capsule 80 MG PO ×2 (06:26→12:03)
[2021-01-12] MEDS: sucralfate 1 gm Tablet PO ×2 (06:26→12:04)
[2021-01-12] MEDS: aspirin 81 mg EC Tablet PO (06:26)
[2021-01-12] MEDS: pantoprazole DR 40 mg Tablet PO (06:26)
[2021-01-12] MEDS: budesonide 0.5 mg/2 mL Neb INHALATION (08:53)
[2021-01-12] MEDS: zinc gluconate 50 mg Tablet PO (09:12)
[2021-01-12] MEDS: levothyroxine 25 mcg Tablet PO (09:12)
[2021-01-12] MEDS: cholecalciferol (vitamin D3) 1,000 unit Tablet 1000 UNIT PO (09:12)
[2021-01-12] MEDS: enoxaparin 100 mg/mL Syringe SUBCUT (09:12)
[2021-01-12] MEDS: ascorbic acid 500 mg Tablet PO (09:12)
[2021-01-12] MEDS: lamoTRIgine 100 mg Tablet 200 MG PO (09:12)
--- NOTE | 2021-01-12 11:33 | PM.DCS ---
Discharge Providers Date of Admission: 01/05/21 19:27 Date of Discharge: January 12, 2021 Attending Provider at Admission: Tiffanie Pineda MD Attending Provider at Discharge: Shawn Mittal MD Primary Care Provider: Homero Arango MD Diagnoses at Discharge Discharge Diagnosis (1) Pulmonary embolism: Status: Acute Qualifiers: Pulmonary embolism type: multiple subsegmental (without acute cor pulmonale) Qualified Code(s): I26.94 - Multiple subsegmental pulmonary emboli without acute cor pulmonale (2) Pneumonia due to 2019 novel coronavirus: Status: Acute (3) Acute hypoxemic respiratory failure due to severe acute respiratory syndrome coronavirus 2 (SARS-CoV-2) disease: Status: Acute Reason for Visit Reason for Visit: SOB/ COVID + Hospital Course Hospital Course 65 year old female with PMH COPD, PTSD, h/o polymyoclonus, recently diagnosed with COVID 19 pneumonia for which she was admitted at [facility] in [place] and discharged 4 days ago. She was using up to 6lpm NC supplemental 02 at home, however found to have low sats in the 80s in spite of 6lpm, desaturating with minimal exertion. CTA perfromed on admission showed B/L PE. She was admitted for the management of pulmonary embolism, pneumonia, she was kept on broad-spectrum antibiotics and dexamethasone, and other respiratory support, she was also kept on therapeutic anticoagulation and was discharged on Eliquis. Blood culture was negative, urine bacterial antigen was negative.CV venous duplex LE BI: No DVT. Patient responded well to the medical management, she was discharged on home oxygen (3 L on rest and 5 L on exertion) Patient will continue to follow with the primary care physician as well as pulmonary as an outpatient. Physical Exam Const: COMMON NORMALS: patient oriented x3 HENMT: COMMON NORMALS: normocephalic and atraumatic HEAD & SCALP: normocephalic and atraumatic Resp: COMMON NORMALS: clear to auscultation bilaterally EFFORT & INSPECTION: Yes symmetric chest movement AUSCULTATION: clear to auscultation bilaterally Cardio: COMMON NORMALS: regular rate, regular rhythm, S1 normal heart sound present, S2 normal heart sound present, No gallops present (Cardio), No murmurs present (Cardio), No rub (Cardio) and Peripheral pulses 2+ throughout RATE: regular rate RHYTHM: regular rhythm HEART SOUNDS: S1 normal heart sound present and S2 normal heart sound present PERIPHERAL PULSES: Peripheral pulses 2+ throughout GI: COMMON NORMALS: Normal to inspection, nondistended, normoactive bowel sounds present, Soft to palpation, non-tender, No hepatosplenomegaly present and no masses AUSCULTATION: Yes normoactive bowel sounds PALPATION: Yes Soft to palpation and Yes No hepatosplenomegaly present RECTAL EXAM: deferred Extremity: COMMON NORMALS: no clubbing, cyanosis or edema and no pedal edema Neuro: COMMON NORMALS: patient oriented x3 Discharge Data Data Completed and Pending: Completed Studies During Hospitalization Category Date Time Status CT angio chest PE protcl [id number] Urge nt Cat Scan 01/05/21 19:47 Completed XR chest 1V rima ble [id number] Routine Exams 01/08/21 07:00 Completed XR chest 1V rima ble [id number] Urgent Exams 01/05/21 17:11 [place] [id number] Routin e Ultrasound 01/06/21 21:19 Completed CV. echo complete * [id number] Routine Ultrasound 01/06/21 09:14 Completed Pending at discharge Category Date Time Status Clostridioides Di fficile PCR Routin e Lab 01/07/21 09:29 Ordered Enteric Bacterial Panel by PCR Rout ine Lab 01/07/21 09:29 Ordered Enteric Parasite Panel by PCR Routi ne Lab 01/07/21 09:29 Ordered Immunochemical Fe phil OCB Routine Lab 01/07/21 09:29 Ordered Lactoferrin Routi ne Lab 01/07/21 09:29 Ordered Sputum Culture an d Gram Stain Stat Lab 01/06/21 16:42 Uncollected Labs from last 24 hours 01/12/21 01/12/21 03:05 03:05 WBC 7.9 RBC 3.46 L Hgb 9.2 L Hct 31.2 L MCV 90.2 MCH 26.6 L MCHC 29.5 L RDW 17.3 H Plt Count 299 MPV 11.1 H Neut % (Auto) 63.1 Lymph % (Auto) 30.8 [place] % (Auto) 3.2 Eos % (Auto) 1.0 Baso % (Auto) 0.6 Neut # (Auto) 4.99 Lymph # (Auto) 2.4 [place] # (Auto) 0.3 Eos # (Auto) 0.1 Baso # (Auto) 0.1 Nucleated RBC % (a uto) 0 Nucleated RBCs # 0.0 Sodium 135 L Potassium 5.2 H Chloride 101 Carbon Dioxide 25 Anion Gap 14.2 BUN 24 H Creatinine 0.7 GFR Calculation 84.0 L Glucose 151 H Calculated Osmolal ity 287 Calcium 8.4 L Phosphorus 3.3 Magnesium 1.9 Total Bilirubin 0.2 AST 25 ALT 38 H Alkaline Phosphata se 190 H C-Reactive Protein 7.9 H NT-Pro-B Natriuret Pep 68 Total Protein 6.5 L Albumin 3.0 L Globulin 3.5 Procalcitonin 0.08 Vitals: Last Vital Signs Temp 97.6 F 01/12/21 11:21 Pulse 76 01/12/21 11:21 Resp 18 01/12/21 11:21 BP 108/63 01/12/21 11:21 Pulse Ox 94 01/12/21 11:21 Discharge Plan Discharge Patient Disposition: Home Condition: Stable Prescriptions: New Medrol ([place]) 4 mg tablets,dose pack See Rx Instructions .ROUTE .COMPLEX Qty: 21 RF: 0 budesonide 90 mcg/actuation aerosol powdr breath activated 1 inh inhalation BID Qty: 1 RF: 0 Eliquis 5 mg tablet 5 mg PO BID Qty: 60 RF: 3 Continued aspirin 81 mg tablet,delayed release (DR/EC) 81 mg PO QAM RF: 0 Geodon 80 mg capsule 80 mg PO TID@0600,1200,1800 Qty: 90 RF: 1 quetiapine [Seroquel] 400 mg tablet 1,200 mg PO BEDTIME Qty: 90 RF: 1 lamotrigine 200 mg tablet 200 mg PO DAILY Qty: 30 RF: 1 oxycodone 20 mg tablet 20 mg PO QID PRN (Reason: pain) 30 Days Qty: 30 RF: 0 albuterol sulfate 2.5 mg /3 mL (0.083 %) solution for nebulization 2.5 mg INHALATION QID MDD SEE PHARMACY COMMENT PRN (Reason: shortness of breath or wheezing) Qty: 90 RF: 0 Vesicare 10 mg tablet 10 mg PO DAILY@0600 Qty: 90 RF: 3 lovastatin 40 mg tablet 40 mg PO DAILY@1800 Qty: 30 RF: 3 tizanidine 4 mg tablet 4 mg PO TID PRN (Reason: muscle spasticity) 30 Days Qty: 90 RF: 1 gabapentin 600 mg tablet 600 mg PO TID@0600,1200,1800 30 Days Qty: 90 RF: 1 ropinirole 2 mg tablet 2 - 4 mg PO BEDTIME RF: 0 pantoprazole [Protonix] 40 mg tablet,delayed release (DR/EC) 40 mg PO BID RF: 0 trazodone 50 mg Tablet 50 mg PO BEDTIME RF: 0 levothyroxine 25 mcg Tablet 25 mcg PO QAM RF: 0 Viibryd 10 mg Tablet 10 mg PO TID RF: 0 Discontinued dexamethasone 4 mg Tablet 6 mg PO DAILY RF: 0 Discharge Orders: Discharge Order (Routine); Ordered 01/12/21 Ordered By: Shawn Mittal Other Ambulatory Orders: DME: Oxygen (Order) Location: None Selected Ordered By: Shawn Mittal Referrals: Homero Arango MD [Primary Care Provider] - 01/26/21 10:45 am Datar,Mikael Dias MD [Physician] - 01/26/21 1:30 pm (appointment in 2 weeks ) Discharge Diet: Regular Discharge Activity: Increase activity as tolerated Patient Instructions: Methylprednisolone (By mouth), Budesonide (By breathing), Using Oxygen at Home (GEN), Hypoxia (GEN), Pneumonia (GEN), Opioid Safety, Pneumonia Stoplight Discharge Attestations Time Spent in Discharge Care*: less than 30 min Specific Discharge Activities: educating patient, educating and/or supporting family/caregiver, discussing with pcp/other providers, discussing with immigration case manager/social workers/dc planners, documenting/other paperwork and evaluating patient/reviewing data Status at Discharge: Cognitive status at discharge: cognitively intact, Behavioral status at discharge: cooperative, Functional status at discharge: independent ambulation Overall status at discharge: patient is progressing back to baseline Quality Metrics Clinical Quality Measures During this hospital stay, did patient experience: None Coding Level of Care Code Acute Chg FW DC note Exam Detailed Diagnoses Pulmonary embolism I26.94 Pulmonary embolism type: multiple subsegmental (without acute cor pulmonale) Pneumonia due to 2019 novel coronavirus U07.1; J12.82 Acute hypoxemic respiratory failure due to severe acute respiratory syndrome coronavirus 2 (SARS-CoV-2) disease U07.1; J96.01
[2021-01-12] MEDS: cefepime 2,000 MG in sodium chloride 0.9% (plus) 50 ML 100 MG IV (12:02)
--- NOTE | 2021-01-12 14:53 | PC.NURSE ---
patient given discharge instructions and verbalized understanding of instructions. patient's IV removed. patient taken to private vehicle via wheelchair by staff.
--- NOTE | 2021-01-14 09:29 | PC.SOCIAL ---
discharge follow up call made. patient will have medications delivered to her home today. patient given follow up appointment date and times. no questions or concerns voiced. patient is using home O2 @3L.
== END 2021-01-12 14:56 | disposition home or self-care (01) | DRG 177 ==
LOC: ER 20:12 → ER IP 20:17 → MEDSURG 01-06 15:17
PROVIDERS: Family Medicine; Admitting Provider Student in an Organized Health Care Education/Training Program; Emergency Provider Emergency Medicine; PCP Internal Medicine; Visit Provider Internal Medicine
DX: U07.1 COVID-19 (principal); J12.82 Pneumonia due to coronavirus disease 2019; I26.94 Multiple subsegmental thrombotic pulmonary emboli without acute cor pulmonale; J96.01 Acute respiratory failure with hypoxia; J44.0 Chronic obstructive pulmonary disease with (acute) lower respiratory infection; D64.9 Anemia, unspecified; E03.9 Hypothyroidism, unspecified; G25.3 Myoclonus; F43.12 Post-traumatic stress disorder, chronic; F25.0 Schizoaffective disorder, bipolar type
CPT/HCPCS: 36415; 36416; 36600; 71045; 71275; 80053; 80202; 82550; 82607; 82728; 82746; 82803; 82962; 83540; 83550; 83735; 83880; 84100; 84145; 84443; 84484; 85025; 85378; 85610; 86140; 86403; 87040; 87641; 93005; 93306; 93970; 94640; 96365; 96372; 99285; J0456; J0637; J0692; J0696; J1100; J1650; J1940; J2930; J3370; J3475; J3490; J7050; J7626; Q0144; Q9967

== ENCOUNTER → 2021-01-19 10:17 | Outpatient (BNVA) | payer MEDICAID, SELFPAY | PROVIDERS: PCP Internal Medicine; Visit Provider Anesthesiology | DX: G89.29 Other chronic pain (principal); M51.36 Other intervertebral disc degeneration, lumbar region; M47.816 Spondylosis without myelopathy or radiculopathy, lumbar region; M54.16 Radiculopathy, lumbar region; M17.0 Bilateral primary osteoarthritis of knee; M16.0 Bilateral primary osteoarthritis of hip; F17.290 Nicotine dependence, other tobacco product, uncomplicated; Z79.891 Long term (current) use of opiate analgesic | CPT/HCPCS: 99214 ==

== ENCOUNTER 2021-01-21 20:02 | Inpatient (IN) | payer MEDICAID, SELFPAY ==
[2021-01-21] VITALS (9 sets, daily range): BP systolic 111–161; BP diastolic 84–110; PULSE 81–101; RESP 12–26; TEMP 37.1; O2SAT 93–100; BMI 40.2
--- NOTE | 2021-01-21 20:05 | CTR_ITS ---
PROCEDURE INFORMATION: Exam: CT Head Without Contrast Exam date and time: 01/21/2021 8:05 PM Age: 65 years old Clinical indication: Altered mental status/memory loss; Patient HX: Worsening lethargy. ; Additional info: AMS TECHNIQUE: Imaging protocol: Computed tomography of the head without contrast. Total images: 187 Radiation optimization: All CT scans at this facility use at least one of these dose optimization techniques: automated exposure control; mA and/or kV adjustment per patient size (includes targeted exams where dose is matched to clinical indication); or iterative reconstruction. COMPARISON: CT head wo/w con [id number] 08/18/2020 10:42 AM RADIATION DOSE METRICS: Total DLP (mGy-cm): 1523.72 FINDINGS: Brain: No evidence of active or acute intracranial pathologic process, hemorrhage, or trauma. No visible evidence of diffuse cerebral edema or generalized demyelination. No hyperdense MCA or insular ribbon sign. No mass effect. No midline shift. Cerebral ventricles: No ventriculomegaly. Paranasal sinuses: Visualized sinuses are unremarkable. No fluid levels. Mastoid air cells: Visualized mastoid air cells are well aerated. Bones/joints: Unremarkable. No acute fracture. Soft tissues: Unremarkable. Other findings: Motion artifact. CT/CT head wo con* [id number] IMPRESSION: No evidence of active or acute intracranial pathologic process, hemorrhage, or trauma. Radiation Dose CTDIVOL = (mGy): DLP = 1523.72 (mGy-cm)
--- NOTE | 2021-01-21 20:05 | ECG_ITS ---
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 Measurements Intervals [place] Rate: 93 P: 45 PA: 158 QRS: 35 QRSD: 90 T: 40 QT: 367 QTc: 458 Interpretive Statements SINUS RHYTHM WITH SINUS ARRHYTHMIA Compared to ECG 01/09/2021 05:34:59 No significant changes Electronically Signed On 01-21-2021 20:38:42 CDT by Julio Suazo M.D. [id number]
--- NOTE | 2021-01-21 20:05 | XRR_ITS ---
PROCEDURE INFORMATION: Exam: XR Chest Exam date and time: 01/21/2021 8:05 PM Age: 65 years old Clinical indication: Other: AMS TECHNIQUE: Imaging protocol: XR of the chest. Views: 1 view. Total images: 1 COMPARISON: CR XR chest 1V portable [id number] 01/08/2021 6:16 AM FINDINGS: Lungs: No definite visible evidence of active interstitial or alveolar airspace disease. Senile fibrosis. Interval improvement cardiopulmonary status since last evaluation of 01/08/2021. Pleural spaces: Unremarkable. No pleural effusion. No pneumothorax. Heart/Mediastinum: Cardiomegaly. Bones/joints: Unremarkable. Other findings: Obesity. XR/XR chest 1V portable [id number] IMPRESSION: Nonacute.
--- NOTE | 2021-01-21 20:07 | W.ED.AMS ---
HPI - Altered Mental Status General: Chief Complaint: General Medical Stated Complaint: ALTERED MENTAL Time Seen by Provider: 01/21/21 20:03 Source: patient and EMS Mode of arrival: EMS Limitations: no limitations History of Present Illness: HPI narrative: 65-year-old female who states she is unsure what happened but does remain at found her in her house altered with shallow respirations. Patient was normal earlier this morning. She is on gabapentin EMS given Narcan she is now awake and alert. Patient states she feels great and feels at her baseline. She has no complaints. She denies any head injuries. She did have Covid 1 month ago. She denies any recent fevers or vomiting. Associated symptoms: Deny depression Review of Systems Const: Denies: fever(s), chills, body aches or change in appetite Eyes: Denies: blurry vision or eye discomfort ENMT: Denies: throat pain or dental pain Card: Denies: chest pain Resp: Denies: dyspnea GI: Denies: abdominal pain, nausea, vomiting or diarrhea : Denies: dysuria Musc: Denies: neck pain or back pain Skin/Breast: Denies: rash Neuro: Denies: headache(s) Psych: Denies: depression Mayank/Lymph: Denies: easy bruising All/Imm: Denies: urticaria PFSH ED PFSH: Medical History Acute hypoxemic respiratory failure due to severe acute respiratory syndrome coronavirus 2 (SARS-CoV-2) disease Bilateral primary osteoarthritis of hip Bilateral primary osteoarthritis of knee Chronic low back pain Chronic lumbar radiculopathy Degeneration of lumbar intervertebral disc Encounter for long-term opiate analgesic use On high dose antipsychotic drug therapy Opioid contract exists Pain in right knee Pneumonia due to 2019 novel coronavirus Post-traumatic stress disorder, chronic Pulmonary embolism Schizoaffective disorder, bipolar type Spondylosis without myelopathy or radiculopathy, lumbar region Surgical History History of colostomy Family History Father Cancer Mother Cancer Other Diabetes Social History Smoking and tobacco status: current every day smoker e-cigarettes E-Cigarette Details: vaporizer device E-cig/vape details: NON NICOTINE Alcohol intake: former Former alcohol use details: NOT CURRENT History of recent travel: No Physical Exam Const: COMMON NORMALS: no acute distress, patient oriented x3 and healthy appearing HENMT: COMMON NORMALS: normocephalic and atraumatic HEAD & SCALP: normocephalic and atraumatic Eye: COMMON NORMALS: Equal, round and reactive pupils present and EOMs intact bilaterally PUPIL: Yes Equal, round and reactive pupils present Neck/C-Spine: COMMON NORMALS: full ROM and supple Chest: COMMONS NORMALS: normal inspection of the chest and normal palpation of entire chest wall Resp: COMMON NORMALS: normal respiratory effort, No retractions, No use of accessory muscles and clear to auscultation bilaterally AUSCULTATION: clear to auscultation bilaterally Cardio: COMMON NORMALS: regular rate, regular rhythm and No murmurs present (Cardio) RATE: regular rate RHYTHM: regular rhythm GI: COMMON NORMALS: Normal to inspection, nondistended, normoactive bowel sounds present, Soft to palpation, non-tender and no masses PALPATION: Yes Soft to palpation Extremity: COMMON NORMALS: normal to inspection and full ROM Neuro: COMMON NORMALS: patient oriented x3, moves all extremities and no focal motor deficits Psych: COMMON NORMALS: mental status grossly normal, Normal thought process present and cooperative THOUGHT PROCESS: Normal thought process present Skin: COMMON NORMALS: no rashes or lesions noted and no wounds GENERAL SKIN EXAM: no rashes or lesions noted Course Vital Signs: Vital signs: Vital Signs Temperature 98.7 F 01/21/21 20:05 Pulse Rate 91 01/21/21 23:37 Respiratory Rate 14 01/21/21 23:37 Blood Pressure 112/89 01/21/21 23:37 Pulse Oximetry 97 01/21/21 23:37 MDM - Altered Mental Status MDM Narrative: Medical decision making narrative: Patient presents here with altered mental status of bleed likely due to taking too much of her medication. She will awake with Narcan. Slight elevation in CO2 as well placed patient on BiPAP and is improving. Spoke to hospitalist will admit for her altered mental status. She has been stable while here. Lab Data: Labs: Lab Results 09/23/21 09/23/21 09/23/21 21:04 21:05 21:05 WBC 11.2 10^3/uL H 10 ^3/uL (4.0-10.0) RBC 3.83 10^6/uL L 10 ^6/uL (4.1-5.3) Hgb 10.0 g/dL L g/dL (11.5-15.3) Hct 34.0 % L % (37.0-47.0) MCV 88.8 fl fl (81-99) MCH 26.1 pg L pg (28.0-34.0) MCHC 29.4 g/dL L g/dL (30.0-36.0) RDW 17.4 % H % (12.1-15.1) Plt Count 373 10^3/cmm 10^3 /cmm (130-400) MPV 11.2 fL H fL (7.4-10.4) Neut % (Auto) 53.8 % % Lymph % (Auto) 34.1 % % [place] % (Auto) 6.0 % % Eos % (Auto) 4.6 % % Baso % (Auto) 0.7 % % Neut # (Auto) 6.01 10^3/uL 10^3 /uL (1.8-7.7) Lymph # (Auto) 3.8 10^3/uL 10^3/ uL (0.8-4.8) [place] # (Auto) 0.7 10^3/uL 10^3/ uL (0.2-0.9) Eos # (Auto) 0.5 10^3/uL 10^3/ uL (0.0-0.8) Baso # (Auto) 0.1 10^3/uL 10^3/ uL (0.0-0.1) Nucleated RBC % (a uto) 0 % % Nucleated RBCs # 0.0 /100WBC /100W BC Specimen Type Arterial Sample Site Radial, left ABG pH 7.22 L (7.35-7.45) ABG pCO2 ABG pO2 133.0 mmHg H mmHg (80.0-100.0) ABG HCO3 27.0 mmol/L H mmo l/L (22-26) ABG Base Excess -1.4 mmol/L mmol/ L (-2.0-2.0) Demian Test Pos Hematocrit 29.9 % L % (37-47) O2 Delivery Device Room air FiO2 21.0 % % PEEP Test Center Administrator ID [email or web address] Sodium 140 mmol/L mmol/L (136-145) Potassium 4.4 mmol/L mmol/L (3.5-5.1) Chloride 106 mmol/L mmol/L (98-107) Carbon Dioxide 25 mmol/L mmol/L (22-29) Anion Gap 13.4 (5-19) BUN 19 mg/dL mg/dL (8-23) Creatinine 1.0 mg/dL H mg/dL (0.5-0.9) GFR Calculation 55.6 mL/min L mL/ min (90-130) Glucose 114 mg/dL mg/dL (65-115) Calculated Osmolal ity 293 mOsm/kg mOsm/ kg (285-295) Calcium 8.0 mg/dL L mg/dL (8.5-10.5) Total Bilirubin 0.2 mg/dL mg/dL (0.15-1.2) AST 30 U/L U/L (0-32) ALT 28 U/L U/L (0-33) Alkaline Phosphata se 170 IU/L H IU/L (35-105) Total Protein 6.6 g/dL g/dL (6.6-8.7) Albumin 3.4 g/dL L g/dL (3.5-5.2) Globulin 3.2 g/dL g/dL (1.3-4.6) TSH 9.04 uIU/mL H uIU /mL (0.27-4.20) Urine Color Urine Appearance Urine pH Ur Specific Gravit y Urine Protein Urine Glucose (UA) Urine Ketones Urine Blood Urine Nitrate Urine Bilirubin Urine Urobilinogen Ur Leukocyte Julia ase Salicylates 0.5 mg/dL L mg/dL (3-10) Urine Opiates Scre en Acetaminophen < 5.0 ug/mL L ug/ mL (10-30) Ur Barbiturates Sc reen Ur Phencyclidine S crn Ur Amphetamines Sc reen U Benzodiazepines Scrn Urine Cocaine Scre en U Marijuana (THC) Screen Ethyl Alcohol < 10 mg/dL mg/dL (0-10) 01/21/21 01/21/21 01/21/21 22:22 22:24 22:24 WBC RBC Hgb Hct MCV MCH MCHC RDW Plt Count MPV Neut % (Auto) Lymph % (Auto) [place] % (Auto) Eos % (Auto) Baso % (Auto) Neut # (Auto) Lymph # (Auto) [place] # (Auto) Eos # (Auto) Baso # (Auto) Nucleated RBC % (a uto) Nucleated RBCs # Specimen Type Arterial Sample Site Radial, left ABG pH 7.28 L (7.35-7.45) ABG pCO2 57.6 mmHg H mmHg (35-45) ABG pO2 78.7 mmHg L mmHg (80.0-100.0) ABG HCO3 27.1 mmol/L H mmo l/L (22-26) ABG Base Excess -0.3 mmol/L mmol/ L (-2.0-2.0) Demian Test Pos Hematocrit 30.4 % L % (37-47) O2 Delivery Device Bipap FiO2 30.0 % % PEEP 8.0 cmH20 cmH20 Test Center Administrator ID [email or web address] Sodium Potassium Chloride Carbon Dioxide Anion Gap BUN Creatinine GFR Calculation Glucose Calculated Osmolal ity Calcium Total Bilirubin AST ALT Alkaline Phosphata se Total Protein Albumin Globulin TSH Urine Color Yellow (Yellow) Urine Appearance Clear (CLEAR) Urine pH 5 (5-7) Ur Specific Gravit y 1.030 (1.005-1.030) Urine Protein Neg (Negative) Urine Glucose (UA) Norm (Normal) Urine Ketones Negative (Negative) Urine Blood Neg (Negative) Urine Nitrate Negative (Negative) Urine Bilirubin Neg (Negative) Urine Urobilinogen Norm mg/dL mg/dL (Negative) Ur Leukocyte Julia ase Negative (Negative) Salicylates Urine Opiates Scre en Positive ng/mL H ng/mL (Negative) Acetaminophen Ur Barbiturates Sc reen Negative ng/mL ng /mL (Negative) Ur Phencyclidine S crn Negative ng/mL ng /mL (Negative) Ur Amphetamines Sc reen Negative ng/mL ng /mL (Negative) U Benzodiazepines Scrn Negative ng/mL ng /mL (Negative) Urine Cocaine Scre en Positive ng/mL H ng/mL (Negative) U Marijuana (THC) Screen Negative ng/mL ng /mL (Negative) Ethyl Alcohol Imaging Data^: CT Head: Radiologist's impression: [address] [address] [address] Scan Report Signed Patient: Humera Navarrete Unit #: [id number] : 1955 Age/Sex: 65 / F ADM Date: 01/21/21 Loc: ER Room/Bed: Attending Dr: Ordering Provider/Ordering MD: Shola Longo MD Date of Service: 01/21/21 Procedure(s): CT head wo con* [id number] Accession Number(s): [id number] Report Number: [id number] PROCEDURE INFORMATION: Exam: CT Head Without Contrast Exam date and time: 01/21/2021 8:05 PM Age: 65 years old Clinical indication: Altered mental status/memory loss; Patient HX: Worsening lethargy. ; Additional info: AMS TECHNIQUE: Imaging protocol: Computed tomography of the head without contrast. Total images: 187 Radiation optimization: All CT scans at this facility use at least one of these dose optimization techniques: automated exposure control; mA and/or kV adjustment per patient size (includes targeted exams where dose is matched to clinical indication); or iterative reconstruction. COMPARISON: CT head wo/w con [id number] 08/18/2020 10:42 AM RADIATION DOSE METRICS: Total DLP (mGy-cm): 1523.72 FINDINGS: Brain: No evidence of active or acute intracranial pathologic process, hemorrhage, or trauma. No visible evidence of diffuse cerebral edema or generalized demyelination. No hyperdense MCA or insular ribbon sign. No mass effect. No midline shift. Cerebral ventricles: No ventriculomegaly. Paranasal sinuses: Visualized sinuses are unremarkable. No fluid levels. Mastoid air cells: Visualized mastoid air cells are well aerated. Bones/joints: Unremarkable. No acute fracture. Soft tissues: Unremarkable. Other findings: Motion artifact. CT/CT head wo con* [id number] IMPRESSION: No evidence of active or acute intracranial pathologic process, hemorrhage, or trauma. Radiation Dose CTDIVOL = (mGy): DLP = 1523.72 (mGy-cm) Dictated By: Ozzy Roberto Signed By: Ozzy Roberto Signed Date/Time: 01/21/212114 DD/ 12 CXR: Radiologist's impression: [address] [address] XRay Report Signed Patient: Humera Navarrete Unit #: [id number] : 1955 Age/Sex: 65 / F ADM Date: 01/21/21 Loc: ER Room/Bed: Attending Dr: Ordering Provider/Ordering MD: Shola Longo MD Date of Service: 01/21/21 Procedure(s): XR chest 1V portable [id number] Accession Number(s): [id number] Report Number: [id number] PROCEDURE INFORMATION: Exam: XR Chest Exam date and time: 01/21/2021 8:05 PM Age: 65 years old Clinical indication: Other: AMS TECHNIQUE: Imaging protocol: XR of the chest. Views: 1 view. Total images: 1 COMPARISON: CR XR chest 1V portable [id number] 01/08/2021 6:16 AM FINDINGS: Lungs: No definite visible evidence of active interstitial or alveolar airspace disease. Senile fibrosis. Interval improvement cardiopulmonary status since last evaluation of 01/08/2021. Pleural spaces: Unremarkable. No pleural effusion. No pneumothorax. Heart/Mediastinum: Cardiomegaly. Bones/joints: Unremarkable. Other findings: Obesity. XR/XR chest 1V portable [id number] IMPRESSION: Nonacute. Dictated By: Ozzy Roberto Signed By: Ozzy Roberto Signed Date/Time: 01/21/212031 DD/ 30 EKG Data^: EKG 1: Attestation: I personally reviewed and interpreted this EKG as follows: EKG interpretation date: 01/21/21 EKG interpretation time: 20:15 Interpretation: nsr hr [address] or t wave abnormalities qrd 90 qtc 418 Discharge Plan Discharge Admit Provider: Tiffanie Pineda Coding Level of Care Code ED Electromechanical Engineer for Chg Fwd Exam Comprehensive
[2021-01-21 21:13] LABS: Basophils # 0.1 10^3/uL (0.0-0.1); Basophils % 0.7 %; Eosinophils # 0.5 10^3/uL (0.0-0.8); Eosinophils % 4.6 %; Lymphocytes # 3.8 10^3/uL (0.8-4.8); Lymphocytes % 34.1 %; Mean Corpuscular HGB Conc 29.4 g/dL (30.0-36.0); Mean Corpuscular Hemoglobin 26.1 pg (28.0-34.0); Mean Corpuscular Volume 88.8 fl (81-99); Mean Platelet Volume 11.2 fL (7.4-10.4); Monocytes # 0.7 10^3/uL (0.2-0.9); Neutrophils # 6.01 10^3/uL (1.8-7.7); Neutrophils % 53.8 %; Nucleated Red Blood Cells % 0 %; Platelet Count 373 10^3/cmm (130-400); Red Blood Count 3.83 10^6/uL (4.1-5.3); Red Cell Distribution Width 17.4 % (12.1-15.1); White Blood Count 11.2 10^3/uL (4.0-10.0)
[2021-01-21 21:16] LABS: ABG PH Result 7.22 (7.35-7.45); Arterial Blood Gas Hematocrit 29.9 % (37-47); Base Excess ABG -1.4 mmol/L (-2.0-2.0); Blood Gas Allen Test Pos; Blood Gas Sample Type Arterial
[2021-01-21 21:18] LABS: Blood Gas Sample Site Radial, left; Oxygen Device ROOM AIR
[2021-01-21 21:40] LABS: Alanine Aminotransferase 28 U/L (0-33); Albumin Level 3.4 g/dL (3.5-5.2); Alkaline Phosphatase 170 IU/L (35-105); Anion Gap 13.4 (5-19); Aspartate Amino Transferase 30 U/L (0-32); Blood Urea Nitrogen 19 mg/dL (8-23); Carbon Dioxide 25 mmol/L (22-29); Chloride 106 mmol/L (98-107); Globulin 3.2 g/dL (1.3-4.6); Glomerular Filtration Rate 55.6 mL/min (90-130); Glucose 114 mg/dL (65-115); Osmolality Calculated 293 mOsm/kg (285-295); Potassium 4.4 mmol/L (3.5-5.1); Salicylate 0.5 mg/dL (3-10); Sodium 140 mmol/L (136-145); Thyroid Stimulating Hormone 9.04 uIU/mL (0.27-4.20); Total Bilirubin 0.2 mg/dL (0.15-1.2); Total Protein 6.6 g/dL (6.6-8.7)
[2021-01-21] MEDS: naloxone 0.4 mg/ml SDV 1 MG IVP (21:40)
[2021-01-21 21:45] LABS: Acetaminophen < 5.0 ug/mL (10-30); Alcohol Level < 10 mg/dL (0-10)
--- NOTE | 2021-01-21 21:56 | PC.NURSE ---
Report to MAXI Murphy. Pt placed on BIpap
[2021-01-21 22:28] LABS: Add Urine Microscopic? NO; Charge for UA Resulting for Rev
[2021-01-21 22:29] LABS: Bilirubin Urine Neg (Negative); Blood Urine Neg (Negative); Glucose Urine UA Norm (Normal); Ketones Urine Negative (Negative); Leukocyte Esterase Urine Negative (Negative); Nitrate Urine Negative (Negative); Protein Urine Neg (Negative); Urine Appearance Clear (CLEAR); Urine Color Yellow (Yellow); Urobilinogen Urine Norm (Negative); pH Urine 5 (5-7)
[2021-01-21 22:37] LABS: ABG PCO2 57.6 mmHg (35-45); ABG PH Result 7.28 (7.35-7.45); Arterial Blood Gas Hematocrit 30.4 % (37-47); Base Excess ABG -0.3 mmol/L (-2.0-2.0); Blood Gas Allen Test Pos; Blood Gas Sample Type Arterial; HCO3 ABG 27.1 mmol/L (22-26); PO2 ABG 78.7 mmHg (80.0-100.0)
[2021-01-21 22:38] LABS: Blood Gas Sample Site Radial, left; Oxygen Device BIPAP
[2021-01-21 22:39] LABS: Amphetamines Screen Urine Negative (Negative); Barbiturates Screen Urine Negative (Negative); Benzodiazepines Screen Urine Negative (Negative); Cocaine Screen Urine Positive (Negative); Opiate Screen Urine Positive (Negative); PCP Screen Urine Negative (Negative); THC Screen Urine Negative (Negative)
[2021-01-21] MEDS: labetalol 5 mg/mL SDV 20mL 10 MG IVP (22:54)
--- NOTE | 2021-01-21 23:48 | P.HP_ITS ---
Providers/Chief Complaint Admitting Physician: Tiffanie Pineda MD Primary Care Provider: Homero Arango MD Chief Complaint: ALTERED MENTAL History of Present Illness Humera Navarrete is a 65 year old female with recent history of COVID 19 one month ago complicated by development of PE for which she is currently on Eliquis 5mg BID. Presents today from home with AMS. Per available history, she was found to be unresponsive at home, had shallow respirations upon EMS arrival, improved signifcantly after being given Narcan. Patient denies any intentional drug overdose, denies using opiates, however home medication list has oxycodone. U tox today is positive for opaites and cocaine. She is on multiple psychotropic medications and has previously been admitted here for myoclonus which was also thought to be related to polypharmacy. She was scheduled to have an EEG as outpatient but this has not yet been completed. ABG upon arrival showed hypercapneic respiratory failure, likely related to poor respiratory effort. Received narcan again in the ER, since has been alert, awake. Currently on Bipap with some improvement in hypercapnea. Denies chest pain, dyspnea, palpitations. Review of Systems General: Reports: 10 or more systems reviewed and unremarkable except in HPI and below Const: Denies: fever(s), chills or body aches Eyes: Denies: change in vision, blurry vision or photophobia ENMT: Reports: hoarseness; Denies: throat pain, enlarged tonsils, odynophagia or nasal congestion Card: Denies: chest pain, palpitations, irregular heart rhythm, edema, swelling of feet/ankles, lightheadedness, pre-syncope, dyspnea on exertion or orthopnea Resp: Denies: dyspnea, productive cough, non-productive cough, wheezing, stridor, pain on inspiration, change in phlegm color, hemoptysis or chest congestion GI: Denies: abdominal pain, nausea, vomiting, hematemesis, coffee ground emesis, dysphagia, heartburn, diarrhea, constipation, GI cramping, change in stool character, hematochezia or melena : Denies: flank pain, difficulty voiding, dysuria, urinary frequency, ur inary urgency, urinary hesitancy or hematuria Musc: Denies: neck pain, back pain, extremity pain, joint swelling, joint warmth or deformity Neuro: Denies: headache(s), numbness in extremities, weakness in extremities, sensory changes, difficulty walking, frequent falls, dizziness, vertigo, behavioral changes, Slurred speech present or seizure-like activity Psych: Denies: anxiety, depression, suicidal ideation or homicidal ideation Endo: Denies: polyuria, polydipsia, tired all the time, cold intolerance or hot flashes Mayank/Lymph: Denies: easy bruising or easy bleeding Medications/Allergies Home Medications Medication Instructions Recorded Confirmed Last Taken Type aspirin 81 mg tablet,delayed 81 mg PO QAM 05/10/19 01/19/21 08/18/20 History release albuterol sulfate 2.5 mg INHALATION QID PRN #90 ml 07/16/20 01/19/21 Unknown Rx MDD SEE PHARMACY COMMENT ropinirole 2 - 4 mg PO BEDTIME 08/12/20 01/19/21 08/17/20 History pantoprazole [Protonix] 40 mg PO BID 08/18/20 01/19/21 08/18/20 History solifenacin 10 mg tablet 10 mg PO DAILY@0600 #90 tab 10/15/20 01/19/21 Unknown Rx lovastatin 40 mg tablet 40 mg PO DAILY@1800 #30 tab 11/20/20 01/19/21 Unknown Rx Viibryd 10 mg PO TID 01/06/21 01/19/21 Unknown History levothyroxine 25 mcg PO QAM 01/06/21 01/19/21 Unknown History apixaban [Eliquis] 5 mg PO BID #60 tab 01/12/21 01/19/21 Unknown Rx budesonide 1 inh INHALATION BID #1 ea 01/12/21 01/19/21 Unknown Rx methylprednisolone [Medrol ([place])] See Rx Instructions .ROUTE 01/12/21 01/19/21 Unknown Rx .COMPLEX #21 ea lamotrigine 200 mg tablet 200 mg PO DAILY #30 tab 01/15/21 01/19/21 Unknown Rx quetiapine 400 mg tablet 1,200 mg PO BEDTIME #90 tab 01/15/21 01/19/21 Unknown Rx trazodone 50 mg tablet 50 mg PO BEDTIME #30 tab 01/15/21 01/19/21 Unknown Rx ziprasidone HCl 80 mg capsule 80 mg PO TID@0600,1200,1800 #90 cap 01/15/21 01/19/21 Unknown Rx gabapentin 600 mg tablet 600 mg PO TID@0600,1200,1800 30 01/19/21 01/19/21 Unknown Rx Days #90 tab oxycodone 20 mg tablet 20 mg PO QID PRN 30 Days #30 tab 01/19/21 01/19/21 Unknown Rx oxycodone 20 mg tablet 20 mg PO QID PRN 30 Days #30 tab 01/19/21 01/19/21 Unknown Rx oxycodone 20 mg tablet 20 mg PO QID PRN 30 Days #90 tab 01/19/21 01/19/21 Unknown Rx oxycodone 20 mg tablet 20 mg PO QID PRN 30 Days #90 tab 01/19/21 01/19/21 Unknown Rx tizanidine 4 mg tablet 4 mg PO TID PRN 30 Days #90 tab 01/19/21 01/19/21 Unknown Rx Allergies Allergy/AdvReac Type Severity Reaction Status Date / Time divalproex sodium AdvReac BEHAVIORAL Verified 01/19/21 10:26 [From Depakote] CHANGES NAUSEA AND VOMITING lithium AdvReac BEHAVIORAL Verified 01/19/21 10:26 CHANGES NAUSEA AND VOMITING PFSH Acute PFSH: Medical History (Updated 01/22/21 @ 00:00 by Tiffanie Pineda MD) Acute hypoxemic respiratory failure due to severe acute respiratory syndrome coronavirus 2 (SARS-CoV-2) disease Bilateral primary osteoarthritis of hip Bilateral primary osteoarthritis of knee Chronic low back pain Chronic lumbar radiculopathy Degeneration of lumbar intervertebral disc Encounter for long-term opiate analgesic use On high dose antipsychotic drug therapy Opioid contract exists Pain in right knee Pneumonia due to 2019 novel coronavirus Post-traumatic stress disorder, chronic Pulmonary embolism Schizoaffective disorder, bipolar type Schizoaffective disorder, bipolar type Spondylosis without myelopathy or radiculopathy, lumbar region Surgical History History of colostomy Family History Father Cancer Mother Cancer Other Diabetes Social History Smoking and tobacco status: current every day smoker e-cigarettes E-Cigarette Details: vaporizer device E-cig/vape details: NON NICOTINE Alcohol intake: former Former alcohol use details: NOT CURRENT History of recent travel: No Vitals/I&O/Wt Last Vital Signs Temp 98.7 F 01/21/21 20:05 Pulse 91 01/21/21 23:37 Resp 14 01/21/21 23:37 BP 112/89 01/21/21 23:37 Pulse Ox 97 01/21/21 23:37 Weight last 48 hrs Weight 99.79 kg Physical Exam Narrative: EXAM NARRATIVE: General: AO x3, though intermittently confused, tangential conversation HEENT: PERRLA, pupils bilaterally equal and reactive Chest: Normal vesicular breath sounds, scattered wheezing on auscultation CVS: S1-S2 regular, no murmurs, no tachycardia, no gallops, no rubs Abdomen: Soft, nontender, no organomegaly, bowel sounds present Neuro: No focal deficits, no facial deformity, AO x3, power 5/5 in all limbs Data : 01/21/21 21:05 01/22/21 05:06 A&P Assessment and plan (1) Altered mental status: Appears to be likely related to opiate overdose and intoxication , po lypharmacy recovery of mentation with administration of narcan correlates additionally with this possibility hold all opiates for now continuing gabapentin, lamotrigine, ziprasidone Noted also to have TSH 9 today, will check free T3-T4 to see if hypothyroidism may additionally be contributing. Normal range LFTs including T bili AST ALT, creatinine normal at 1.0. Status: Acute Qualifiers: Altered mental status type: somnolence Qualified Code(s): R40.0 - Somnolence (2) Opiate or related narcotic overdose: Status: Acute Qualifiers: Encounter type: initial encounter Injury intent: accidental or unintentional Qualified Code(s): T40.601A - Poisoning by unspecified narcotics, accidental (unintentional), initial encounter (3) Hypercapnic respiratory failure: Patient with a history of COPD, ABG with hypercapnic respiratory failure Currently on BiPAP, tolerating well. Mentation is slowly improving. Likely to be contributed by underlying COPD and hypoventilation from altered mental status. DuoNebs every 6 hours, budesonide 0.5 twice daily inhalation, prednisone 40 mg p.o. daily Status: Acute Qualifiers: Chronicity: acute Qualified Code(s): J96.02 - Acute respiratory failure with hypercapnia (4) COPD (chronic obstructive pulmonary disease): Status: Acute Qualifiers: COPD type: unspecified COPD Qualified Code(s): J44.9 - Chronic obstructive pulmonary disease, unspecified Attestations Medical Necessity Statement*: Anticipate greater than 2 midnight admission for above defined care Coding Level of Care Code Acute Director Of Personnel for [facility] Fwd Diagnoses Altered mental status R40.0 Altered mental status type: somnolence Opiate or related narcotic overdose T40.601A Encounter type: initial encounter Injury intent: accidental or unintentional Hypercapnic respiratory failure J96.02 Chronicity: acute COPD (chronic obstructive pulmonary disease) J44.9 COPD type: unspecified COPD
[2021-01-22] VITALS (20 sets, daily range): BP systolic 97–137; BP diastolic 55–80; PULSE 69–100; RESP 16–23; TEMP 36.4–37.3; O2SAT 83–98; BMI 36.8
[2021-01-22 00:51] LABS: Troponin T (5th) Once 6 ng/L (0-10)
[2021-01-22] MEDS: aspirin 81 mg EC Tablet PO (05:52)
[2021-01-22] MEDS: levothyroxine 25 mcg Tablet PO (05:52)
[2021-01-22] MEDS: ziprasidone hcl 40 mg Capsule 80 MG PO ×2 (05:52→11:59)
[2021-01-22 06:02] LABS: Alanine Aminotransferase 27 U/L (0-33); Alkaline Phosphatase 189 IU/L (35-105); Anion Gap 15.3 (5-19); Aspartate Amino Transferase 23 U/L (0-32); Blood Urea Nitrogen 18 mg/dL (8-23); Calcium 8.1 mg/dL (8.5-10.5); Carbon Dioxide 23 mmol/L (22-29); Chloride 107 mmol/L (98-107); Globulin 3.5 g/dL (1.3-4.6); Glomerular Filtration Rate 55.6 mL/min (90-130); Glucose 115 mg/dL (65-115); Magnesium 2.4 mg/dL (1.7-2.3); Osmolality Calculated 295 mOsm/kg (285-295); Potassium 4.3 mmol/L (3.5-5.1); Sodium 141 mmol/L (136-145); Total Bilirubin 0.2 mg/dL (0.15-1.2); Total Protein 6.5 g/dL (6.6-8.7)
[2021-01-22 06:05] LABS: T3 Free 2.2 PG/ML (2.0-4.4)
[2021-01-22] MEDS: gabapentin 300 mg Capsule 600 MG PO ×2 (06:06→11:59)
[2021-01-22] MEDS: lamoTRIgine 100 mg Tablet 200 MG PO (07:48)
[2021-01-22] MEDS: pantoprazole DR 40 mg Tablet PO (07:49)
[2021-01-22] MEDS: apixaban 5 mg Tablet PO ×2 (07:49→20:12)
[2021-01-22] MEDS: predniSONE 20 mg Tablet 40 MG PO (07:49)
[2021-01-22] MEDS: budesonide 0.5 mg/2 mL Neb INHALATION ×2 (09:16→20:55)
[2021-01-22] MEDS: ipratropium-albuterol 3 mL Neb INHALATION ×3 (09:16→20:55)
[2021-01-22] MEDS: levothyroxine 100 mcg Tablet PO (09:39)
--- NOTE | 2021-01-22 09:40 | PC.PHAR ---
Addendum entered by Marycarmen Duenas 01/22/21 09:48: pt had a medrol (jennie) filled on 01/12/21 6d/s pts home health med list has pt finished Original Note: pt states she has home health that sets up her meds pt states she only takes what they put in her med manufacturing planner-medications entered are from the p[facility]-rx filled on 01/20/21 30d/s for oxycodone 20mg tid pts insurance only pays for 90 tabs pt pays for the other 30 tabs so pt takes 20mg qid prn -notes are made in the pharmacy comments
--- NOTE | 2021-01-22 13:11 | PM.PN ---
Subjective Subjective: Interval history: Patient was taken off BiPAP, she is alert and awake stating that she is not sure why she is in the hospital, she is denying IV drug abuse, cocaine methamphetamine overdosing on opioids She does appear anxious, she was put on 5 L nasal cannula at home she is on 5 L She lives with her boyfriend She is not sure about her home medications Vitals/I&O/Wt Last Vital Signs Temp 97.8 F 01/22/21 11:08 Pulse 85 01/22/21 11:08 Resp 20 H 01/22/21 11:08 BP 137/77 01/22/21 11:08 Pulse Ox 94 01/22/21 11:08 01/21/21 01/22/21 01/22/21 22:59 06:59 14:59 Intake Total 200 / 200 240 / 240 Output Total 300 / 300 Balance -100 / -100 240 / 240 Weight last 48 hrs Weight 109.769 kg Weight 99.79 kg Physical Exam Narrative: EXAM NARRATIVE: Awake and alert oriented x3 GCS 15 female appears stated age Appropriate grooming No neurological deficits Oriented x3 No facial droop No signs of stroke No use of respiratory sensory muscles Mild wheezing noted on lung auscultation S1, S2 Clinically looks euvolemic No joint swelling Lower extremity no edema Data : 01/21/21 21:05 01/22/21 05:06 A&P Assessment and plan (1) Hypercapnic respiratory failure: Status: Acute Qualifiers: Chronicity: acute Qualified Code(s): J96.02 - Acute respiratory failure with hypercapnia (2) Opiate or related narcotic overdose: Status: Acute Qualifiers: Encounter type: initial encounter Injury intent: accidental or unintentional Qualified Code(s): T40.601A - Poisoning by unspecified narcotics, accidental (unintentional), initial encounter (3) Altered mental status: Status: Acute Qualifiers: Altered mental status type: somnolence Qualified Code(s): R40.0 - Somnolence (4) Hypothyroid: Status: Acute (5) Actinic keratosis: Status: Acute (6) COPD (chronic obstructive pulmonary disease): Status: Acute Qualifiers: COPD type: unspecified COPD Qualified Code(s): J44.9 - Chronic obstructive pulmonary disease, unspecified (7) Chronic lumbar radiculopathy: Status: Chronic Additional A&P Information Active issues Altered mental status Hypothyroidism Cocaine abuse Chronic hypoxia Acute hypercarbia Plan Patient did improve on BiPAP currently she is doing well on 5 L nasal cannula which is her home O2 requirement, has active wheezing continue steroids I will monitor her for 1 more day She is denying use of opioids or cocaine however not sure about her home medications I have increased her levothyroxine dose to 100 mcg She does not have typical presentation of myxedema coma blood pressure stable heart rate within normal range Acute hypercarbia seems related to drug overuse which improved after Narcan, chest x-ray unremarkable Full code Repeat ABG today Attestations Medical Necessity Statement*: Anticipating discharge tomorrow Time Spent in Patient Care: 16 - 35 minutes Coding Level of Care Code Acute 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
--- NOTE | 2021-01-22 14:28 | PC.CHAP ---
Pastoral Care Encounter/Spiritual Assessment Type of Contact [] Declined a and p mechanic visit [] Patient/Family/Request visit [] Outpatient visit [] Follow-up visit [] Physician referral [] Code/Alert [] Routine visit [] Staff referral [] Actively dying [xx] Patient sleeping [] Family support [] [] Out of room [] Palliative care [] [] Receiving care in room [] Pre-surgical visit [] Trauma [] Long length of stay [] ICU visit [xx] Other: Oxygen in use Relational/Emotional Strength [] Patient feels connected with others/family/visitors/staff [] Distress [] Loneliness/isolation [] Abandonment Spirituality of Patient [] Person of Tessy [] Attends Pentecostal of their Tessy [] Believes in Prayer [] Reads Bible or Jain materials [] There are Spiritual issues to be addressed Fabrication Engineer Interventions [] Prayer [] Active listening [] Non-anxious presence [] Spiritual/emotional support [] Crisis/trauma care [] Spiritual counseling [] Bereavement support [] Provided bereavement packet [] Provided Bible/devotional materials [] Provided toy/stuffed animal, coloring book to patient or family member [] Provided Communion [] Anointing/[place] [] Salvation [] Completed spiritual assessment [] Other: Impact on Illness or Injury [] Angry [] Fearful [] Anxious [] Often cries [] Exhaustion [] Unable to work [] Unable to attend restorationism [] Unable to walk/stand [] Unable to read [] Unable to drive [] Unable to eat/drink [] Unable to sleep [] Unable to be with family [] Patient intubated [] Other: Summary Patient on oxygen and asleep. Try follow up later. Time spent with patient
[2021-01-22 15:12] LABS: ABG PH Result 7.25 (7.35-7.45); Arterial Blood Gas Hematocrit 27.8 % (37-47); Base Excess ABG 0.8 mmol/L (-2.0-2.0); Blood Gas Operator Identificat AMH; Blood Gas Sample Site Brachial, left; Blood Gas Sample Type Arterial; HCO3 ABG 28.8 mmol/L (22-26); Oxygen Device NC
--- NOTE | 2021-01-22 15:12 | PC.RESP ---
SMOKING CESSATION INFORMATION SENT TO PATIENT.
[2021-01-22 15:17] LABS: ABG PCO2 65.4 mmHg (35-45)
[2021-01-22 17:16] LABS: Arterial Blood Gas Hematocrit 28.2 % (37-47); Base Excess ABG 3.2 mmol/L (-2.0-2.0); Blood Gas Operator Identificat AMH; Blood Gas Sample Site Brachial, left; Blood Gas Sample Type Arterial; HCO3 ABG 30.7 mmol/L (22-26); Oxygen Device BIPAP; PO2 ABG 83.1 mmHg (80.0-100.0)
[2021-01-22 17:18] LABS: ABG PCO2 63.2 mmHg (35-45)
[2021-01-22 17:22] LABS: ABG PCO2 65.4 mmHg (35-45)
[2021-01-22] MEDS: atorvastatin 40 mg Tablet 20 MG PO (20:12)
[2021-01-22] MEDS: ropinirole 2 mg Tablet PO (20:12)
[2021-01-23] VITALS (7 sets, daily range): BP systolic 115–146; BP diastolic 62–91; PULSE 83–90; RESP 16–18; TEMP 36.8–37.1; O2SAT 95–98
[2021-01-23] MEDS: ipratropium-albuterol 3 mL Neb INHALATION ×2 (03:27→08:20)
[2021-01-23 04:10] LABS: Blood Gas Allen Test Pos; Blood Gas Sample Type Arterial
[2021-01-23 04:24] LABS: ABG PCO2 49.7 mmHg (35-45); ABG PH Result 7.41 (7.35-7.45); Arterial Blood Gas Hematocrit 27.6 % (37-47); HCO3 ABG 31.5 mmol/L (22-26); PO2 ABG 76.2 mmHg (80.0-100.0)
[2021-01-23 04:26] LABS: Blood Gas Sample Site Radial, right; Oxygen Device NC
[2021-01-23] MEDS: ziprasidone hcl 40 mg Capsule 80 MG PO ×2 (04:58→11:18)
[2021-01-23] MEDS: gabapentin 300 mg Capsule 600 MG PO ×2 (04:59→11:18)
[2021-01-23] MEDS: levothyroxine 100 mcg Tablet PO (04:59)
[2021-01-23] MEDS: aspirin 81 mg EC Tablet PO (04:59)
[2021-01-23 06:47] LABS: Anion Gap 8.1 (5-19); Blood Urea Nitrogen 14 mg/dL (8-23); Calcium 8.6 mg/dL (8.5-10.5); Carbon Dioxide 31 mmol/L (22-29); Chloride 98 mmol/L (98-107); Glucose 153 mg/dL (65-115); Osmolality Calculated 280 mOsm/kg (285-295); Potassium 4.1 mmol/L (3.5-5.1); Sodium 133 mmol/L (136-145)
[2021-01-23 06:52] LABS: Procalcitonin 0.06 ng/mL (0-0.5)
[2021-01-23] MEDS: budesonide 0.5 mg/2 mL Neb INHALATION (08:20)
[2021-01-23] MEDS: lamoTRIgine 100 mg Tablet 200 MG PO (09:02)
[2021-01-23] MEDS: apixaban 5 mg Tablet PO (09:02)
--- NOTE | 2021-01-23 10:20 | P.DS_ITS ---
Discharge Providers Date of Admission: 01/21/21 22:46 Date of Discharge: January 23, 2021 Attending Provider at Admission: Tiffanie Pineda MD Attending Provider at Discharge: Jesus Cote MD Primary Care Provider: Homero Arango MD Diagnoses at Discharge Discharge Diagnosis (1) Hypercapnic respiratory failure: Status: Acute Qualifiers: Chronicity: acute Qualified Code(s): J96.02 - Acute respiratory failure with hypercapnia (2) Opiate or related narcotic overdose: Status: Acute Qualifiers: Encounter type: initial encounter Injury intent: accidental or unintentional Qualified Code(s): T40.601A - Poisoning by unspecified narcotics, accidental (unintentional), initial encounter (3) Altered mental status: Status: Acute Qualifiers: Altered mental status type: somnolence Qualified Code(s): R40.0 - Somnolence (4) Hypothyroid: Status: Acute (5) Actinic keratosis: Status: Acute (6) COPD (chronic obstructive pulmonary disease): Status: Acute Qualifiers: COPD type: unspecified COPD Qualified Code(s): J44.9 - Chronic obstructive pulmonary disease, unspecified (7) Chronic lumbar radiculopathy: Status: Chronic Reason for Visit Reason for Visit: ALTERED MENTAL Hospital Course Hospital Course Patient was admitted for management of altered mental status, hypercapnia, polysubstance abuse. Please read H&P for further detail. Patient symptoms improved with use of BiPAP, on the day of discharge pH 7.4 PCO2 49 PO2 76, at baseline she uses 5 L of oxygen, initially she denied taking cocaine however on the day of discharge she did admit to use of cocaine. Her shallow breathing and hypercapnia did improve with Narcan and use of BiPAP. She did not exhibit any neurological deficits, no seizure-like activity noticed duri ng her hospitalization. She was able to tolerate diet, she was in good mood and very conversive at the time of discharge. Eager to go home does not want to stay in the hospital for 1 more day. Her kidney function improved with IV fluid hydration. Chest x-ray, head CT unremarkable. Her cultures were unremarkable. Patient did endorse to electronic cigarettes/vaps. She was counseled at the colten e of discharge to avoid electronic cigarettes and refrain from drugs. Please note her TSH was 9.04 and free T4 0.6, I increased her levothyroxine dosage at the time of discharge she did not have typical presentation of myxedema coma she never became hypotensive, bradycardic or hypothermic, her mentation improved as explained above. Physical Exam Narrative: EXAM NARRATIVE: Awake and alert oriented x3 GCS 15 female appears stated age Appropriate grooming No neurological deficits Oriented x3 No facial droop No signs of stroke No use of respiratory sensory muscles saturating well on 5 L nasal cannula which is her baseline Mild wheezing noted on lung auscultation S1, S2 Clinically looks euvolemic No joint swelling Lower extremity no edema Discharge Data Data Completed and Pending: Completed Studies During Hospitalization Category Date Time Status CT head wo con* [id number] Urgent Cat Scan 01/21/21 20:05 Completed XR chest 1V rima ble [id number] Urgent Exams 01/21/21 20:05 Completed Labs from last 24 hours 01/23/21 01/23/21 01/22/21 06:13 03:55 17:05 Specimen Type Arterial Arterial Sample Site Radial, right Brachial, left ABG pH 7.41 7.30 L ABG pCO2 49.7 H 63.2 H* ABG pO2 76.2 L 83.1 ABG HCO3 31.5 H 30.7 H ABG Base Excess 6.0 H 3.2 H Demian Test Pos N/a Hematocrit 27.6 L 28.2 L O2 Delivery Device Nc Bipap O2 Liters/Min 4.0 FiO2 30.0 PEEP 8.0 Rn Medication ID [id number] Amh Sodium 133 L Potassium 4.1 Chloride 98 Carbon Dioxide 31 H Anion Gap 8.1 BUN 14 Creatinine 0.8 GFR Calculation 72.0 L Glucose 153 H Calculated Osmolal ity 280 L Calcium 8.6 Procalcitonin 0.06 01/22/21 01/21/21 15:00 21:04 Specimen Type Arterial Sample Site Brachial, left ABG pH 7.25 L ABG pCO2 65.4 H* 65.4 H* ABG pO2 104.0 H ABG HCO3 28.8 H ABG Base Excess 0.8 Demian Test N/a Hematocrit 27.8 L O2 Delivery Device Nc O2 Liters/Min 5.0 FiO2 40.0 PEEP Rn Medication ID Amh Sodium Potassium Chloride Carbon Dioxide Anion Gap BUN Creatinine GFR Calculation Glucose Calculated Osmolal ity Calcium Procalcitonin Vitals: Last Vital Signs Temp 98.7 F 01/23/21 07:19 Pulse 88 01/23/21 08:20 Resp 18 01/23/21 08:20 BP 146/91 01/23/21 07:19 Pulse Ox 97 01/23/21 08:20 Discharge Plan Discharge Patient Disposition: Home Condition: Stable Prescriptions: New Medrol ([place]) 4 mg tablets,dose pack See Rx Instructions .ROUTE .COMPLEX Qty: 21 RF: 0 levofloxacin 750 mg tablet 750 mg PO DAILY 5 Days Qty: 5 RF: 0 levothyroxine 75 mcg capsule 75 mcg PO DAILY Qty: 60 RF: 1 Continued aspirin 81 mg tablet,delayed release (DR/EC) 81 mg PO QAM RF: 0 gabapentin 600 mg tablet 600 mg PO TID@0600,1200,1800 30 Days Qty: 90 RF: 1 tizanidine 4 mg tablet 4 mg PO TID PRN (Reason: muscle spasticity) 30 Days Qty: 90 RF: 0 albuterol sulfate 2.5 mg /3 mL (0.083 %) solution for nebulization 2.5 mg INHALATION QID MDD SEE PHARMACY COMMENT PRN (Reason: shortness of breath or wheezing) Qty: 90 RF: 0 Vesicare 10 mg tablet 10 mg PO DAILY@0600 Qty: 90 RF: 3 lovastatin 40 mg tablet 40 mg PO DAILY@1800 Qty: 30 RF: 3 lamotrigine 200 mg tablet 200 mg PO DAILY Qty: 30 RF: 1 ropinirole 2 mg tablet 2 - 4 mg PO BEDTIME RF: 0 pantoprazole [Protonix] 40 mg tablet,delayed release (DR/EC) 40 mg PO BID RF: 0 levothyroxine 25 mcg Tablet 25 mcg PO QAM RF: 0 Viibryd 10 mg Tablet 10 mg PO TID RF: 0 budesonide 90 mcg/actuation aerosol powdr breath activated 1 inh inhalation BID Qty: 1 RF: 0 Eliquis 5 mg tablet 5 mg PO BID Qty: 60 RF: 3 Changed Seroquel 400 mg tablet 400 mg PO BEDTIME Qty: 90 RF: 1 Held oxycodone 20 mg tablet 20 mg PO QID PRN (Reason: pain) 30 Days Qty: 30 RF: 0 Hold Instructions: Resume on 02/02/21. Geodon 80 mg capsule 80 mg PO TID@0600,1200,1800 Qty: 90 RF: 1 Hold Instructions: Resume on 02/02/21. Discontinued trazodone 50 mg tablet 50 mg PO BEDTIME Qty: 30 RF: 1 Discharge Orders: Discharge Order (Routine); Ordered 01/23/21 Ordered By: Jesus Cote Discharge Diet: Cardiac Discharge Activity: Increase activity as tolerated Patient Instructions: Levothyroxine (By mouth), Methylprednisolone (By mouth), Levofloxacin (By mouth), Opioid Safety Discharge Attestations Time Spent in Discharge Care*: less than 30 min Status at Discharge: Cognitive status at discharge: cognitively intact , Behavioral status at discharge: cooperative , Quality Metrics Clinical Quality Measures During this hospital stay, did patient experience: None Coding Level of Care Code Acute Chg FW DC note Diagnoses Hypercapnic respiratory failure J96.02 Chronicity: acute Opiate or related narcotic overdose T40.601A Encounter type: initial encounter Injury intent: accidental or unintentional Altered mental status R40.0 Altered mental status type: somnolence Hypothyroid E03.9 Actinic keratosis L57.0 COPD (chronic obstructive pulmonary disease) J44.9 COPD type: unspecified COPD Chronic lumbar radiculopathy M54.16
--- NOTE | 2021-01-27 10:22 | PC.SOCIAL ---
discharge follow up call made, patient with patient. she had her follow up appointment with Dr. Aragno yesterday. patient reports she feels great. picked up new medications from the pharmacy and she is taking as directed. patient is aware to not resume oxycodone or geodon until 10-5. patient continues to use o2 at 5l. patient denies questions or concerns.
== END 2021-01-23 12:14 | disposition home or self-care (01) | DRG 917 ==
LOC: ER 22:55 → MEDSURG 23:17
PROVIDERS: Admitting Provider Student in an Organized Health Care Education/Training Program; Emergency Provider Emergency Medicine; PCP Internal Medicine; Visit Provider Internal Medicine
DX: T40.601A Poisoning by unspecified narcotics, accidental (unintentional), initial encounter (principal); J96.02 Acute respiratory failure with hypercapnia; R41.82 Altered mental status, unspecified; Z86.16 Personal history of COVID-19; M16.0 Bilateral primary osteoarthritis of hip; M17.0 Bilateral primary osteoarthritis of knee; G89.29 Other chronic pain; M54.16 Radiculopathy, lumbar region; M43.06 Spondylolysis, lumbar region; Z87.01 Personal history of pneumonia (recurrent); Z86.711 Personal history of pulmonary embolism; F25.0 Schizoaffective disorder, bipolar type; F17.290 Nicotine dependence, other tobacco product, uncomplicated; F14.10 Cocaine abuse, uncomplicated; E03.9 Hypothyroidism, unspecified; L57.0 Actinic keratosis; Z79.82 Long term (current) use of aspirin; Z79.51 Long term (current) use of inhaled steroids; Z79.01 Long term (current) use of anticoagulants
CPT/HCPCS: 36600; 70450; 71045; 80048; 80053; 80306; 80307; 81003; 82803; 83735; 84145; 84439; 84443; 84481; 84484; 85025; 93005; 94640; 94660; 94664; 96374; 99291; J2310; J2920; J3490; J7512; J7626

== ENCOUNTER → 2021-02-12 07:14 | Outpatient (BNVA) | payer MEDICARE, MEDICAID, SELFPAY | PROVIDERS: PCP Internal Medicine; Visit Provider Nurse Practitioner | DX: F43.12 Post-traumatic stress disorder, chronic (principal); F25.0 Schizoaffective disorder, bipolar type | CPT/HCPCS: 99214 ==

== ENCOUNTER → 2021-04-13 07:50 | Outpatient (BNVA) | payer MEDICARE, MEDICAID, SELFPAY | PROVIDERS: PCP Internal Medicine; Visit Provider Nurse Practitioner | DX: F25.0 Schizoaffective disorder, bipolar type (principal); F43.12 Post-traumatic stress disorder, chronic | CPT/HCPCS: 99214 ==

== ENCOUNTER 2021-07-24 18:32 | Inpatient (IN) | payer MEDICAID, SELFPAY ==
[2021-07-24 18:44] VITALS: BP 160/88; PULSE 92; RESP 16; O2SAT 96
--- NOTE | 2021-07-24 18:50 | ECG_ITS ---
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 Measurements Intervals [place] Rate: 92 P: 45 WV: 167 QRS: 30 QRSD: 107 T: -52 QT: 370 QTc: 459 Interpretive Statements SINUS RHYTHM WITH MARKED SINUS ARRHYTHMIA NONSPECIFIC ST & T-WAVE ABNORMALITY Compared to ECG 01/21/2021 20:15:50 T-wave abnormality now present Electronically Signed On 07-26-2021 9:02:03 CDT by Warren Mohr M.D. [email or web address]
--- NOTE | 2021-07-24 18:50 | CTR_ITS ---
PROCEDURE INFORMATION: Exam: CT Head Without Contrast Exam date and time: 07/24/2021 7:18 PM Age: 65 years old Clinical indication: Altered mental status/memory loss; Confusion or disorientation; Patient HX: AMS - confusion TECHNIQUE: Imaging protocol: Computed tomography of the head without contrast. Radiation optimization: All CT scans at this facility use at least one of these dose optimization techniques: automated exposure control; mA and/or kV adjustment per patient size (includes targeted exams where dose is matched to clinical indication); or iterative reconstruction. COMPARISON: CT head wo con* [id number] 01/21/2021 8:42 PM RADIATION DOSE METRICS: Total DLP (mGy-cm): 1536.32 FINDINGS: Brain: No hemorrhage or evidence of acute infarction. No mass effect. Cerebral ventricles: No ventriculomegaly. Paranasal sinuses: Visualized sinuses are unremarkable. No fluid levels. Mastoid air cells: Visualized mastoid air cells are well aerated. Bones/joints: Unremarkable. No acute fracture. Soft tissues: Unremarkable. CT/CT head wo con* [id number] IMPRESSION: No acute intracranial abnormality.
--- NOTE | 2021-07-24 18:51 | XRR_ITS ---
PROCEDURE INFORMATION: Exam: XR Chest Exam date and time: 07/24/2021 8:03 PM Age: 65 years old Clinical indication: Other: AMS TECHNIQUE: Imaging protocol: XR of the chest. Views: 1 view. COMPARISON: CR XR chest 1V portable [id number] 01/21/2021 8:11 PM FINDINGS: Lungs: Right basilar atelectasis is appreciated. The lungs are otherwise clear. The right hemidiaphragm is prominently elevated Pleural spaces: Unremarkable. No pleural effusion. No pneumothorax. Heart/Mediastinum: Unremarkable. No cardiomegaly. Bones/joints: Unremarkable. XR/XR chest 1V portable [id number] IMPRESSION: Right basilar atelectasis and prominent right hemidiaphragm elevation.
--- NOTE | 2021-07-24 18:56 | ED_ITS ---
HPI - General Adult General: Chief complaint: Altered Mental Status Stated complaint: AMS Time Seen by Provider: 07/24/21 18:47 History of Present Illness: Patient is a 65-year-old female with history of schizoaffective disorder, Covid pneumonia, COPD presenting to the emergency room for altered mental status and confusion x 1 day. The son Julio C lives in [place] had called her mother noticed that she was confused and talking funny. Patient son then called police patrol lieutenant who did a wellness check on the patient and called EMS. On arrival, patient is AAO x3, answering all questions but appears to be confused and incoherent thoughts. Patient reports that Spider-Man is here to rescue me. Patient denies any other complaints including weakness in the arms or legs, fever/chills, neck pain, chest pain, shortness breath, nausea/vomiting, diarrhea, or urinary complaints at this time. Patient has a history of psychiatric issues for which she is on multiple medication. Patient stated that she is compliant with her medicine. Onset: 1 day Duration:ongoing Location:home Severity:moderate Associated symptoms: Deny chest pain, dyspnea, nausea, rash, palpitations or vomiting Review of Systems Const: Denies: fever(s) or chills Eyes: Denies: change in vision ENMT: Denies: mouth pain Card: Denies: chest pain or palpitations Resp: Denies: dyspnea or non-productive cough GI: Denies: abdominal pain, nausea, vomiting or diarrhea : Denies: dysuria Musc: Denies: extremity pain Skin/Breast: Denies: rash or new lesions Neuro: Reports: other (+confusion); Denies: weakness in extremities Psych: Reports: other (Normal mood) Mayank/Lymph: Denies: easy bruising [facility] PFSH: Medical History (Updated 07/24/21 @ 22:51 by Nishant Navarro MD) Actinic keratosis Acute hypoxemic respiratory failure due to severe acute respiratory syndrome coronavirus 2 (SARS-CoV-2) disease Bilateral primary osteoarthritis of hip Bilateral primary osteoarthritis of knee Chronic low back pain Chronic lumbar radiculopathy COPD (chronic obstructive pulmonary disease) Degeneration of lumbar intervertebral disc Encounter for long-term opiate analgesic use Hypothyroid On high dose antipsychotic drug therapy Opioid contract exists Pain in right knee Pneumonia due to 2019 novel coronavirus Post-traumatic stress disorder, chronic Psychiatric care Pulmonary embolism Schizoaffective disorder, bipolar type Schizoaffective disorder, bipolar type Spondylosis without myelopathy or radiculopathy, lumbar region Surgical History History of colostomy Family History Father Cancer Mother Cancer Other Diabetes Social History Smoking and tobacco status: former smoker Alcohol intake: former Former alcohol use details: NOT CURRENT History of recent travel: No Physical Exam Const: COMMON NORMALS: alert HENMT: COMMON NORMALS: atraumatic HEAD & SCALP: atraumatic MOUTH: moist mucous membranes not abnormal Eye: COMMON NORMALS: EOMs intact bilaterally and conjunctivae normal CONJUNCTIVA: Yes conjunctivae normal Neck/C-Spine: COMMON NORMALS: full ROM and supple Resp: COMMON NORMALS: normal respiratory effort and clear to auscultation bilaterally AUSCULTATION: clear to auscultation bilaterally Cardio: COMMON NORMALS: regular rate RATE: regular rate GI: COMMON NORMALS: Soft to palpation and non-tender PALPATION: Yes Soft to palpation Extremity: COMMON NORMALS: full ROM Neuro: SENSORIUM/ORIENTATION: Yes alert MOTOR EXAM: No Abnormal motor strength present and Other motor observations present (+ Moving all extremities, following commands, neuro exam grossly intact) OTHER: +GCS of 14 (confusion ) Psych: COMMON NORMALS: speech normal SPEECH: Yes normal speech MOOD & AFFECT: Yes euthymic mood THOUGHT PROCESS: Circumstantial thought process present, incoherent, disorganized and confused Course Vital Signs: Vital signs: Vital Signs Temperature 97.6 F 07/25/21 07:32 Pulse Rate 77 07/25/21 07:32 Respiratory Rate 18 07/25/21 07:32 Blood Pressure 132/62 07/25/21 07:32 Pulse Oximetry 95 07/25/21 07:32 [facility] [place] - General Adult Medical Decision Making 65-year-old female with history of COPD, COVID pneumonia, schizoaffective disorder presenting to the emergency room for evaluation of new onset altered mental status of unknown duration. On exam, patient is GCS 14 confused and has incoherent thoughts. Rest of physical exam within normal limit. CT brain within normal limit your x-ray chest did not show any focal pathology other than right-sided hemidiaphragm elevation. No signs of pneumonia. UA showed 2+ bacteria without any nitrite or leukocyte esterase or WBC. Patient has a new SONYA on CKD with creatinine 1.3 with baseline of 1.0. WBC of 13.3, unclear cause. Patient is afebrile, do not suspect that this is sepsis. Given new onset of altered mental status, I have discussed case with patient's son Julio C and Tiburcio. Both sons agree that this is unlikely due to psychiatric flareups this patient psychiatric complaints has largely been under control [facility] e she was 18. It is unclear why patient is having acute onset of altered mental status and will be admitted to the hospital for further evaluation of this time. Disposition: admission Lab Data : 07/25/21 08:29 07/25/21 02:[address] 07/24/21 18:50 IMPRESSION: No acute intracranial abnormality. Chest X-Ray 07/24/21 18:51 IMPRESSION: Right basilar atelectasis and prominent right hemidiaphragm elevation. Laboratory Results WBC 13.5 10^3/uL (4.0-10.0) H 07/24/21 18:18 RBC 4.26 10^6/uL (4.1-5.3) 07/24/21 18:18 Hgb 8.8 g/dL (11.5-15.3) L 07/24/21 18:18 Hct 30.0 % (37.0-47.0) L 07/24/21 18:18 MCV 70.4 fl (81-99) L 07/24/21 18:18 MCH 20.7 pg (28.0-34.0) L 07/24/21 18:18 MCHC 29.3 g/dL (30.0-36.0) L 07/24/21 18:18 RDW 19.9 % (12.1-15.1) H 07/24/21 18:18 Plt Count 337 10^3/cmm (130-400) 07/24/21 18:18 MPV 11.9 fL (7.4-10.4) H 07/24/21 18:18 Neut % (Auto) 63.0 % 07/24/21 18:18 Lymph % (Auto) 30.3 % 07/24/21 18:18 [place] % (Auto) 5.3 % 07/24/21 18:18 Eos % (Auto) 0.4 % 07/24/21 18:18 Baso % (Auto) 0.6 % 07/24/21 18:18 Neut # (Auto) 8.49 10^3/uL (1.8-7.7) H 07/24/21 18:18 Lymph # (Auto) 4.1 10^3/uL (0.8-4.8) 07/24/21 18:18 [place] # (Auto) 0.7 10^3/uL (0.2-0.9) 07/24/21 18:18 Eos # (Auto) 0.1 10^3/uL (0.0-0.8) 07/24/21 18:18 Baso # (Auto) 0.1 10^3/uL (0.0-0.1) 07/24/21 18:18 Nucleated RBC % (auto) 0 % 07/24/21 18:18 Nucleated RBCs # 0.0 /100WBC 07/24/21 18:18 Specimen Type Venous 07/24/21 19:50 Sample Site Not specified 07/24/21 19:50 Demian Test N/a 07/24/21 19:50 VBG pH 7.32 (7.32-7.42) 07/24/21 19:50 VBG pCO2 54.0 mmHg (41-51) H 07/24/21 19:50 VBG pO2 29.0 mmHg (25-40) 07/24/21 19:50 VBG HCO3 27.5 mmol/L (24-28) 07/24/21 19:50 VBG Base Excess 0.9 mmol/L (-3.0-3.0) 07/24/21 19:50 VBG Hematocrit 26.4 % (37-47) L 07/24/21 19:50 O2 Delivery Device Room air 07/24/21 19:50 Rn Team Leader ID Buttr 07/24/21 19:50 Sodium 136 mmol/L (136-145) 07/24/21 18:18 Potassium 3.7 mmol/L (3.5-5.1) 07/24/21 18:18 Chloride 100 mmol/L (98-107) 07/24/21 18:18 Carbon Dioxide 22 mmol/L (22-29) 07/24/21 18:18 Anion Gap 17.7 (5-19) 07/24/21 18:18 BUN 15 mg/dL (8-23) 07/24/21 18:18 Creatinine 1.3 mg/dL (0.5-0.9) H 07/24/21 18:18 GFR Calculation 41.1 mL/min (90-130) L 07/24/21 18:18 Glucose 98 mg/dL (65-115) 07/24/21 18:18 Calculated Osmolality 283 mOsm/kg (285-295) L 07/24/21 18:18 Calcium 9.8 mg/dL (8.5-10.5) 07/24/21 18:18 Total Bilirubin 0.2 mg/dL (0.15-1.2) 07/24/21 18:18 AST 18 U/L (0-32) 07/24/21 18:18 ALT 14 U/L (0-33) 07/24/21 18:18 Alkaline Phosphatase 167 IU/L (35-105) H 07/24/21 18:18 Ammonia 21 umol/L (11-51) 07/24/21 20:02 Creatine Kinase 138 U/L (26-192) 07/24/21 18:18 Troponin T Baseline 9 ng/L (0-10) 07/24/21 18:18 Troponin T 120 Minute 11.13 ng/L (0-10) H 07/24/21 20:02 Delta Troponin T 2.13 ABS# (0-10) 07/24/21 20:02 Total Protein 7.9 g/dL (6.6-8.7) 07/24/21 18:18 Albumin 4.3 g/dL (3.5-5.2) 07/24/21 18:18 Globulin 3.6 g/dL (1.3-4.6) 07/24/21 18:18 Lipase 12 U/L (13-60) L 07/24/21 18:18 TSH 1.82 uIU/mL (0.27-4.20) 07/24/21 18:18 Free T4 1.03 ng/dL (0.82-1.77) 07/24/21 18:18 Urine Color Yellow (Yellow) 07/24/21 19:37 Urine Appearance Clear (CLEAR) 07/24/21 19:37 Urine pH 5 (5-7) 07/24/21 19:37 Ur Specific [place] 1.030 (1.005-1.030) 07/24/21 19:37 Urine Protein 1+ (Negative) H 07/24/21 19:37 Urine Glucose (UA) Norm (Normal) 07/24/21 19:37 Urine Ketones 1+ (Negative) H 07/24/21 19:37 Urine Blood Neg (Negative) 07/24/21 19:37 Urine Nitrate Negative (Negative) 07/24/21 19:37 Urine Bilirubin Neg (Negative) 07/24/21 19:37 Urine Urobilinogen Norm mg/dL (Negative) 07/24/21 19:37 Ur Leukocyte Esterase Negative (Negative) 07/24/21 19:37 Urine RBC 0-4 /hpf (0-2) H 07/24/21 19:37 Urine WBC 0-4 /hpf (0-5) H 07/24/21 19:37 Ur Squamous Epith Cells 15-25 /hpf (0-5) H 07/24/21 19:37 Amorphous Sediment 2+ /hpf 07/24/21 19:37 Urine Bacteria 2+ /hpf (NONE) H 07/24/21 19:37 Hyaline Casts 0-4 /lpf H 07/24/21 19:37 Urine Mucus 4+ /hpf 07/24/21 19:37 Salicylates < 0.3 mg/dL (3-10) L 07/24/21 18:18 Urine Opiates Screen Negative ng/mL (Negative) 07/24/21 19:37 Acetaminophen < 5.0 ug/mL (10-30) L 07/24/21 18:18 Ur Barbiturates Screen Negative ng/mL (Negative) 07/24/21 19:37 Ur Phencyclidine Scrn Negative ng/mL (Negative) 07/24/21 19:37 Ur Amphetamines Screen Negative ng/mL (Negative) 07/24/21 19:37 U Benzodiazepines Scrn Negative ng/mL (Negative) 07/24/21 19:37 Urine Cocaine Screen Positive ng/mL (Negative) H 07/24/21 19:37 U Marijuana (THC) Screen Positive ng/mL (Negative) H 07/24/21 19:37 Imaging Data Other Imaging: Radiologist's impression: [facility] [address] [place] [address]. [place] [address] CT Scan Report Signed Patient: Humera Navarrete Unit #: [id number] : 1955 Age/Sex: 65 / F ADM Date: 07/24/21 Loc: ER Room/Bed: Attending Dr: Ordering Provider/Ordering MD: Jesse Jaramillo MD Date of Service: 07/24/21 Procedure(s): CT head wo con* [id number] Accession Number(s): [id number] Report Number: [id number] PROCEDURE INFORMATION: Exam: CT Head Without Contrast Exam date and time: 07/24/2021 7:18 PM Age: 65 years old Clinical indication: Altered mental status/memory loss; Confusion or disorientation; Patient HX: AMS - confusion TECHNIQUE: Imaging protocol: Computed tomography of the head without contrast. Radiation optimization: All CT scans at this facility use at least one of these dose optimization techniques: automated exposure control; mA and/or kV adjustment per patient size (includes targeted exams where dose is matched to clinical indication); or iterative reconstruction. COMPARISON: CT head wo con* [id number] 01/21/2021 8:42 PM RADIATION DOSE METRICS: Total DLP (mGy-cm): 1536.32 FINDINGS: Brain:? No hemorrhage or evidence of acute infarction. No mass effect. Cerebral ventricles: No ventriculomegaly. Paranasal sinuses: Visualized sinuses are unremarkable. No fluid levels. Mastoid air cells: Visualized mastoid air cells are well aerated. Bones/joints: Unremarkable. No acute fracture. Soft tissues: Unremarkable. CT/CT head wo con* [id number] IMPRESSION: No acute intracranial abnormality. ? Dictated By: Alvin Villalba MD Signed By: Alvin Villalba MD Signed Date/Time: 07/24/211942 DD/ 17 [employer] [address] [place] [address] XRay Report Signed Patient: Humera Navarrete Unit #: [id number] : 1955 Age/Sex: 65 / F ADM Date: 07/24/21 Loc: ER Room/Bed: Attending Dr: Ordering Provider/Ordering MD: Jesse Jaramillo MD Date of Service: 07/24/21 Procedure(s): XR chest 1V portable [id number] Accession Number(s): [id number] Report Number: [id number] PROCEDURE INFORMATION: Exam: XR Chest Exam date and time: 07/24/2021 8:03 PM Age: 65 years old Clinical indication: Other: AMS TECHNIQUE: Imaging protocol: XR of the chest. Views: 1 view. COMPARISON: CR XR chest 1V portable [id number] 01/21/2021 8:11 PM FINDINGS: Lungs: Right basilar atelectasis is appreciated. The lungs are otherwise clear. The right hemidiaphragm is prominently elevated Pleural spaces: Unremarkable. No pleural effusion. No pneumothorax. Heart/Mediastinum: Unremarkable. No cardiomegaly. Bones/joints: Unremarkable. XR/XR chest 1V portable [id number] IMPRESSION: Right basilar atelectasis and prominent right hemidiaphragm elevation. ? Dictated By: Alvin Villalba MD Signed By: Alvin Villalba MD Signed Date/Time: 07/24/212027 DD/ 02 Discharge Plan Discharge Patient Disposition: Admitted As Inpatient Admit Provider: Nishant Navarro Clinical Impression: Altered mental status Condition: Stable Coding Level of Care Code ED [employer]iler for Chg Fwd Exam Comprehensive
[2021-07-24 19:12] LABS: Basophils # 0.1 10^3/uL (0.0-0.1); Basophils % 0.6 %; Eosinophils # 0.1 10^3/uL (0.0-0.8); Eosinophils % 0.4 %; Hemoglobin 8.8 g/dL (11.5-15.3); Lymphocytes # 4.1 10^3/uL (0.8-4.8); Lymphocytes % 30.3 %; Mean Corpuscular HGB Conc 29.3 g/dL (30.0-36.0); Mean Corpuscular Hemoglobin 20.7 pg (28.0-34.0); Mean Corpuscular Volume 70.4 fl (81-99); Mean Platelet Volume 11.9 fL (7.4-10.4); Monocytes # 0.7 10^3/uL (0.2-0.9); Monocytes % 5.3 %; Neutrophils # 8.49 10^3/uL (1.8-7.7); Nucleated Red Blood Cells % 0 %; Platelet Count 337 10^3/cmm (130-400); Red Blood Count 4.26 10^6/uL (4.1-5.3); Red Cell Distribution Width 19.9 % (12.1-15.1); White Blood Count 13.5 10^3/uL (4.0-10.0)
[2021-07-24 19:34] LABS: Troponin(5th) Baseline 9 ng/L (0-10)
[2021-07-24 19:43] LABS: Acetaminophen < 5.0 ug/mL (10-30); Alanine Aminotransferase 14 U/L (0-33); Albumin Level 4.3 g/dL (3.5-5.2); Alkaline Phosphatase 167 IU/L (35-105); Anion Gap 17.7 (5-19); Aspartate Amino Transferase 18 U/L (0-32); Blood Urea Nitrogen 15 mg/dL (8-23); Calcium 9.8 mg/dL (8.5-10.5); Carbon Dioxide 22 mmol/L (22-29); Chloride 100 mmol/L (98-107); Creatine Phosphokinase 138 U/L (26-192); Globulin 3.6 g/dL (1.3-4.6); Glomerular Filtration Rate 41.1 mL/min (90-130); Glucose 98 mg/dL (65-115); Lipase 12 U/L (13-60); Osmolality Calculated 283 mOsm/kg (285-295); Potassium 3.7 mmol/L (3.5-5.1); Salicylate < 0.3 mg/dL (3-10); Sodium 136 mmol/L (136-145); Thyroid Stimulating Hormone 1.82 uIU/mL (0.27-4.20); Total Bilirubin 0.2 mg/dL (0.15-1.2); Total Protein 7.9 g/dL (6.6-8.7)
[2021-07-24 20:02] LABS: Base Excess VBG 0.9 mmol/L (-3.0-3.0); Blood Gas Sample Site Not specified; Blood Gas Sample Type Venous; HCO3 VBG 27.5 mmol/L (24-28); Oxygen Device ROOM AIR; Venous Blood Gas Hematocrit 26.4 % (37-47); pH VBG 7.32 (7.32-7.42)
[2021-07-24 20:17] LABS: Add Urine Microscopic? YES; Bilirubin Urine Neg (Negative); Blood Urine Neg (Negative); Glucose Urine UA Norm (Normal); Ketones Urine 1+ (Negative); Leukocyte Esterase Urine Negative (Negative); Nitrate Urine Negative (Negative); Protein Urine 1+ (Negative); Urine Appearance Clear (CLEAR); Urine Color Yellow (Yellow); Urobilinogen Urine Norm (Negative); pH Urine 5 (5-7)
[2021-07-24 20:26] LABS: Troponin 5 2HR 11.13 ng/L (0-10)
[2021-07-24 20:27] LABS: Ammonia 21 umol/L (11-51); Troponin 5 2HR Delta 2.13 ABS# (0-10)
[2021-07-24 20:33] LABS: Add Urine Culture? No; Amorphous Sediment Urine 2+ /hpf; Bacteria Urine 2+ /hpf; Hyaline Casts Urine 0-4 /lpf; Mucus Urine 4+ /hpf; RBC Urine 0-4 /hpf (0-2); Squamous Epithelial Cell Urine 15-25 /hpf (0-5); WBC Urine 0-4 /hpf (0-5)
--- NOTE | 2021-07-24 20:50 | ECG_ITS ---
[facility] Test Date: 2021-07-24 Pat Name: Humera Navarrete Department: Room: Gender: Female Family Educator: : 1955 Requested By: Jesse Jaramillo Order Number: [id number] Margarita MD: Warren Mohr M.D. Measurements Intervals [place] Rate: 80 P: 38 CT: 169 QRS: 45 QRSD: 105 T: -9 QT: 379 QTc: 439 Interpretive Statements SINUS RHYTHM ST DEVIATION AND MODERATE T-WAVE ABNORMALITY, CONSIDER INFERIOR ISCHEMIA [-0.1+ mV T-WAVE IN II/aVF] Compared to ECG 07/24/2021 19:08:17 Possible ischemia now present Sinus arrhythmia no longer present T-wave abnormality still present Electronically Signed On 07-26-2021 9:07:14 CDT by Warren Mohr M.D. [id number]
[2021-07-24 20:52] VITALS: BP 145/81; PULSE 92; RESP 16; TEMP 36.8; O2SAT 96
[2021-07-24] MEDS: sodium chloride 0.9% 1,000 ML 999 ML IV (20:59)
[2021-07-24 22:06] VITALS: BP 135/70; PULSE 89; RESP 16; TEMP 36.8; O2SAT 97
--- NOTE | 2021-07-24 22:40 | PM.HP ---
Providers/Chief Complaint Admitting Physician: Nishant Navarro MD Primary Care Provider: Homero Arango MD Chief Complaint: AMS History of Present Illness Humera Navarrete is a 65 year old female with a history of COVID-19 pneumonia, developed a pulmonary emboli on Eliquis, history of drug use, history of back pain on narcotics, history of schizoaffective disorder, history of anemia concerning for slow GI bleed, hypothyroidism, on multiple psychotropic medications who presents [facility] due to altered mental status. Currently patient is alert to person, to place, to time, she follows all commands, her speech is pressured, but she has no complaints and she does not know why she is here in the hospital. She tells her that she lives with her boyfriend Tonny, she had 4 children before she met Tonny, she denies any falls, no injuries, no chest pain, no shortness of breath, no abdominal pain, no diarrhea, no dysuria, no cough. She does not know why she is here in the hospital, she tells me that they forced her to come here, no neck pain, no weakness, no slurring of her words, no facial droop, no focal paresthesias. What I was told was family had called patient, and she was not acting appropriately, so her son in [place] called the police who did a wellness check, on arrival she was alert oriented x3, but appeared to have incoherent thoughts, confused, she was telling the officers that Spider-Man is here to rescue me. Denies suicidal ideation, denies homicidal ideation, denies hearing or seeing things are not there, denies feeling down depressed or sad. She adamantly denies any drug use, no alcohol use, but does eventually confessed that she uses marijuana, but tells me that it is too expensive and she cannot afford it anymore Review of Systems Const: Denies: fever(s), chills, fatigue or malaise Eyes: Denies: change in vision or blurry vision ENMT: Denies: nasal congestion Resp: Denies: dyspnea, productive cough, non-productive cough or wheezing GI: Denies: abdominal pain, nausea, vomiting, hematemesis, diarrhea, constipation, hematochezia or melena : Denies: flank pain, dysuria or urinary frequency Musc: Denies: neck pain or back pain Skin/Breast: Denies: rash Neuro: Denies: headache(s), dizziness or vertigo Psych: Denies: anxiety or depression Endo: Denies: polyuria or polydipsia Medications/Allergies Home Medications Medication Instructions Recorded Confirmed Last Taken Type albuterol sulfate 2.5 mg (3 mL) INHALATION QID PRN 07/16/20 07/06/21 Unknown Rx #90 ml MDD SEE PHARMACY COMMENT apixaban 5 mg tablet (Eliquis) 5 mg PO BID #60 tab 01/12/21 07/06/21 Unknown Rx budesonide 90 mcg/actuation breath 1 inh INHALATION BID #1 ea 01/12/21 07/06/21 Unknown Rx activated powder inhaler gabapentin 600 mg tablet 600 mg PO TID@0600,1200,1800 30 01/19/21 07/06/21 Unknown Rx Days #90 tab oxycodone 20 mg tablet 20 mg PO QID PRN 30 Days #30 tab 01/19/21 07/06/21 Unknown Rx tizanidine 4 mg tablet 4 mg PO TID PRN 30 Days #90 tab 01/19/21 07/06/21 Unknown Rx methylprednisolone 4 mg tablets in See Rx Instructions .ROUTE 01/23/21 07/06/21 Unknown Rx a dose pack (Medrol ([place])) .COMPLEX #21 ea Portable oxygen concentrator #1 ea 01/26/21 07/06/21 Unknown Rx vilazodone 10 mg tablet (Viibryd) 10 mg PO TID #90 tab 04/13/21 07/06/21 Unknown Rx lovastatin 40 mg tablet 40 mg PO DAILY@1800 #30 tab 05/27/21 07/06/21 Unknown Rx aspirin 81 mg tablet,delayed 81 mg PO QAM #30 tab 06/15/21 07/06/21 Unknown Rx release solifenacin 10 mg tablet See Rx Instructions .ROUTE 06/15/21 07/06/21 Unknown Rx .COMPLEX #90 tab pantoprazole 40 mg tablet,delayed 40 mg PO BID #60 tab 07/05/21 07/06/21 Unknown Rx release (Protonix) levothyroxine 75 mcg tablet See Rx Instructions .ROUTE 07/06/21 Unknown Rx .COMPLEX #60 tablet oxycodone 20 mg tablet 20 mg PO QID PRN 30 Days #30 tab 07/06/21 07/06/21 Unknown Rx ropinirole 2 mg tablet 2 - 4 mg PO BEDTIME #180 tab 07/07/21 Unknown Rx lamotrigine 200 mg tablet 200 mg PO DAILY #30 tab 07/13/21 Unknown Rx quetiapine 400 mg tablet (Seroquel) 1,200 mg PO BEDTIME #90 tab 07/13/21 Unknown Rx trazodone 150 mg tablet 150 mg PO DAILY #30 tab 07/13/21 Unknown Rx ziprasidone HCl 80 mg capsule 80 mg PO TID@0600,1200,1800 #90 cap 07/13/21 Unknown Rx (Geodon) Allergies Allergy/AdvReac Type Severity Reaction Status Date / Time divalproex sodium AdvReac BEHAVIORAL Verified 07/06/21 11:12 [From Depakote] CHANGES NAUSEA AND VOMITING lithium AdvReac BEHAVIORAL Verified 07/06/21 11:12 CHANGES NAUSEA AND VOMITING PFSH Acute PFSH: Medical History (Updated 07/24/21 @ 22:51 by Nishant Navarro MD) Actinic keratosis Acute hypoxemic respiratory failure due to severe acute respiratory syndrome coronavirus 2 (SARS-CoV-2) disease Bilateral primary osteoarthritis of hip Bilateral primary osteoarthritis of knee Chronic low back pain Chronic lumbar radiculopathy COPD (chronic obstructive pulmonary disease) Degeneration of lumbar intervertebral disc Encounter for long-term opiate analgesic use Hypothyroid On high dose antipsychotic drug therapy Opioid contract exists Pain in right knee Pneumonia due to 2019 novel coronavirus Post-traumatic stress disorder, chronic Psychiatric care Pulmonary embolism Schizoaffective disorder, bipolar type Schizoaffective disorder, bipolar type Spondylosis without myelopathy or radiculopathy, lumbar region Surgical History History of colostomy Family History Father Cancer Mother Cancer Other Diabetes Social History Smoking and tobacco status: former smoker Alcohol intake: former Former alcohol use details: NOT CURRENT History of recent travel: No Vitals/I&O/Wt Last Vital Signs Temp 98.2 F 07/24/21 22:06 Pulse 89 07/24/21 22:06 Resp 16 07/24/21 22:06 BP 135/70 07/24/21 22:06 Pulse Ox 97 07/24/21 22:06 07/24/21 07/24/21 07/24/21 06:59 14:59 22:59 Intake Total 1000 / 1000 Balance 1000 / 1000 Physical Exam Const: COMMON NORMALS: no acute distress and patient oriented x3 HENMT: COMMON NORMALS: normocephalic HEAD & SCALP: normocephalic Neck/C-Spine: COMMON NORMALS: no JVD Resp: COMMON NORMALS: normal respiratory effort, No retractions, No use of accessory muscles and clear to auscultation bilaterally AUSCULTATION: clear to auscultation bilaterally Cardio: COMMON NORMALS: no JVD, regular rate, regular rhythm, S1 normal heart sound present and S2 normal heart sound present RATE: regular rate RHYTHM: regular rhythm HEART SOUNDS: S1 normal heart sound present and S2 normal heart sound present GI: COMMON NORMALS: Normal to inspection, nondistended, normoactive bowel sounds present, Soft to palpation, non-tender, No hepatosplenomegaly present, no masses and no bruits PALPATION: Yes Soft to palpation and Yes No hepatosplenomegaly present Extremity: COMMON NORMALS: capillary refill normal, no clubbing, cyanosis or edema, no calf tenderness and no pedal edema Neuro: COMMON NORMALS: patient oriented x3, CN's II-XII intact bilaterally, moves all extremities, no focal motor deficits and no sensory deficits noted Psych: COMMON NORMALS: mental status grossly normal OTHER: Speech is a bit pressured Data : 07/24/21 18:18 07/24/21 18:18 A&P Assessment and plan (1) Altered mental status: Status: Acute (2) Schizoaffective disorder, bipolar type: Status: Acute (3) On high dose antipsychotic drug therapy: Status: Acute (4) Pulmonary embolism: Status: Acute Qualifiers: Pulmonary embolism type: multiple subsegmental (without acute cor pulmonale) Qualified Code(s): I26.94 - Multiple subsegmental pulmonary emboli without acute cor pulmonale (5) Anemia: Status: Acute Plan altered mental status -White blood cell count 13.5 -UA unremarkable -Chest x-ray does show right basilar atelectasis no focal infiltrate, no complaints of shortness of breath, no fevers, not requiring oxygen -CT head within normal limits -No headache, no blurry vision, no neck stiffness -No significant electrolyte abnormalities -U tox pending -Alcohol levels pending -On my examination she is alert oriented x3, her speech is a bit pressured, but she is fairly coherent, follows commands, -Possibly exacerbation of underlying psychiatric issues? However she is adamant that she is taking her medications -Neurochecks, NIH stroke scale, aspiration precautions SONYA, creatinine 1.30, possibly dehydration IV fluids Anemia -Acute on chronic anemia -Denies bloody or black stools -Hemoglobin down to 8.8, MCV low indicating iron deficiency anemia -He is on Eliquis for history of pulmonary emboli -For now hold Eliquis, transition to heparin drip monitor hemoglobin -Protonix, Carafate -Iron studies -Monitor hemodynamics History of pulmonary emboli, on Eliquis, its roughly been 6 months since her PE was diagnosed, argument could be made to take her off Eliquis, will order D-dimer Schizoaffective disorder, continue home medications Attestations Medical Necessity Statement*: Requires hospitalization, outpatient with observation for altered mental status Coding Level of Care Code Acute Embedded Linux Developer for [facility] Fwd Diagnoses Altered mental status R41.82 Schizoaffective disorder, bipolar type F25.0 On high dose antipsychotic drug therapy Z79.899 Pulmonary embolism I26.94 Pulmonary embolism type: multiple subsegmental (without acute cor pulmonale) Anemia D64.9
[2021-07-24 23:05] LABS: INR 1.41 (0.8-1.2)
[2021-07-24 23:11] LABS: Lactic Sepsis W/Reflex 0.7 mmol/L (0.5-2.2)
[2021-07-24 23:19] LABS: Procalcitonin 0.05 ng/mL (0-0.5)
[2021-07-25] VITALS (8 sets, daily range): BP systolic 114–146; BP diastolic 62–81; PULSE 75–87; RESP 17–18; TEMP 36.4–36.9; O2SAT 92–96; BMI 34.3
[2021-07-25] MEDS: pantoprazole 40 mg SDV IVP ×3 (00:47→23:38)
[2021-07-25] MEDS: sodium chloride 0.9% 1,000 ML 75 ML IV ×2 (00:47→17:46)
[2021-07-25 01:29] LABS: Free T4 Free Thyroxine 1.03 ng/dL (0.82-1.77)
[2021-07-25 01:52] LABS: Amphetamines Screen Urine Negative (Negative); Barbiturates Screen Urine Negative (Negative); Benzodiazepines Screen Urine Negative (Negative); Cocaine Screen Urine Positive (Negative); Opiate Screen Urine Negative (Negative); PCP Screen Urine Negative (Negative); THC Screen Urine Positive (Negative)
[2021-07-25 02:15] LABS: Basophils # 0.1 10^3/uL (0.0-0.1); Basophils % 0.8 %; Eosinophils # 0.2 10^3/uL (0.0-0.8); Eosinophils % 1.5 %; Hematocrit 30.7 % (37.0-47.0); Hemoglobin 8.5 g/dL (11.5-15.3); Lymphocytes # 3.7 10^3/uL (0.8-4.8); Lymphocytes % 35.5 %; Mean Corpuscular HGB Conc 27.7 g/dL (30.0-36.0); Mean Corpuscular Hemoglobin 20.5 pg (28.0-34.0); Mean Corpuscular Volume 74.2 fl (81-99); Mean Platelet Volume 11.9 fL (7.4-10.4); Monocytes # 0.6 10^3/uL (0.2-0.9); Monocytes % 5.6 %; Neutrophils # 5.92 10^3/uL (1.8-7.7); Neutrophils % 56.4 %; Nucleated Red Blood Cells % 0 %; Platelet Count 297 10^3/cmm (130-400); Red Blood Count 4.14 10^6/uL (4.1-5.3); Red Cell Distribution Width 20.1 % (12.1-15.1); White Blood Count 10.5 10^3/uL (4.0-10.0)
[2021-07-25 02:31] LABS: Alanine Aminotransferase 11 U/L (0-33); Albumin Level 3.7 g/dL (3.5-5.2); Alkaline Phosphatase 146 IU/L (35-105); Anion Gap 15.4 (5-19); Aspartate Amino Transferase 14 U/L (0-32); Blood Urea Nitrogen 13 mg/dL (8-23); Calcium 8.7 mg/dL (8.5-10.5); Carbon Dioxide 22 mmol/L (22-29); Chloride 105 mmol/L (98-107); Globulin 2.9 g/dL (1.3-4.6); Glomerular Filtration Rate 49.8 mL/min (90-130); Glucose 101 mg/dL (65-115); Magnesium 1.8 mg/dL (1.7-2.3); Osmolality Calculated 288 mOsm/kg (285-295); Phosphorus 3.7 mg/dL (2.5-4.5); Potassium 3.4 mmol/L (3.5-5.1); Sodium 139 mmol/L (136-145); Total Bilirubin 0.2 mg/dL (0.15-1.2); Total Protein 6.6 g/dL (6.6-8.7)
[2021-07-25 02:34] LABS: C Reactive Protein 16.5 mg/L (0.0-4.9); Ferritin 9 ng/mL (15-150); Iron 15 ug/dL (37-145); Percent Saturation 4.9 % (20-50); Total Iron Binding Capacity 301 mcg/dl; Unsaturated Iron Binding 286 ug/dL (112-347)
[2021-07-25 02:34] LABS: D Dimer 0.29 ug/mIFEU (0-0.59)
[2021-07-25 02:36] LABS: Alcohol Level < 10 mg/dL (0-10)
[2021-07-25 02:49] LABS: Vitamin B12 222 pg/mL (232-1245)
[2021-07-25 02:54] LABS: Folate Level 10.1 ng/mL (4.8-37.3)
[2021-07-25 03:14] LABS: Partial Thromboplastin Time 43.9 SECONDS (23.9-36.7)
[2021-07-25] MEDS: heparin 5,000 unit/mL INJ 1 mL IV (03:32)
[2021-07-25] MEDS: heparin drip 25,000 UNIT/500 ML PREMIX 28 UNIT IV (03:32)
[2021-07-25] MEDS: ziprasidone hcl 40 mg Capsule 80 MG PO ×3 (06:23→17:43)
[2021-07-25] MEDS: aspirin 81 mg EC Tablet PO (06:23)
[2021-07-25] MEDS: gabapentin 300 mg Capsule 600 MG PO ×3 (06:23→17:44)
[2021-07-25] MEDS: sucralfate 1 gm Tablet PO ×4 (06:23→21:11)
--- NOTE | 2021-07-25 07:45 | PC.NURSE ---
heparin gtt this nurse saw that at 0645 the ordered heparin gtt was placed on hold by this nurse stopped infusion at 0745 but was unable to pause the infusion in the EMAR due to being unable to acknowledge the order. order could not be acknowledged due to it being on hold.
[2021-07-25 09:01] LABS: Hemoglobin 7.9 g/dL (11.5-15.3)
[2021-07-25] MEDS: lamoTRIgine 100 mg Tablet 200 MG PO (09:55)
[2021-07-25] MEDS: levothyroxine 75 mcg Tablet PO (09:55)
[2021-07-25] MEDS: iron sucrose 200 MG in sodium chloride 0.9% (100 ml) 100 ML 220 MG IV (09:55)
[2021-07-25] MEDS: acetaminophen 325 mg Tablet 650 MG PO ×2 (09:56→21:11)
[2021-07-25] MEDS: cyanocobalamin 1,000 mcg Tablet 1000 MCG PO (09:56)
[2021-07-25 10:29] LABS: Partial Thromboplastin Time 45.9 SECONDS (23.9-36.7)
[2021-07-25] MEDS: heparin 5,000 unit/mL INJ 1 mL 5000 UNIT SUBCUT ×2 (11:08→23:39)
[2021-07-25 12:53] LABS: Hematocrit 29.6 % (37.0-47.0); Hemoglobin 8.4 g/dL (11.5-15.3)
--- NOTE | 2021-07-25 13:10 | PM.PN ---
Subjective Subjective: Admit overnight. Seen with sitter at bedside. Awake and alert. Calm. Denies any nausea vomiting, headache. Not sure why she is in the hospital. Complaining of IV pump making a lot of noise. Pleasant Vitals/I&O/Wt Last Vital Signs Temp 98.0 F 07/25/21 12:00 Pulse 79 07/25/21 12:00 Resp 18 07/25/21 12:00 BP 114/64 07/25/21 12:00 Pulse Ox 92 07/25/21 12:00 07/24/21 07/25/21 07/25/21 22:59 06:59 14:59 Intake Total 1000 / 1000 230 / 230 Balance 1000 / 1000 230 / 230 Weight last 48 hrs Weight 99.564 kg Physical Exam Const: COMMON NORMALS: no acute distress and patient oriented x3 HENMT: COMMON NORMALS: normocephalic HEAD & SCALP: normocephalic Neck/C-Spine: COMMON NORMALS: no JVD Resp: COMMON NORMALS: normal respiratory effort, No retractions, No use of accessory muscles and clear to auscultation bilaterally AUSCULTATION: clear to auscultation bilaterally Cardio: COMMON NORMALS: no JVD, regular rate, regular rhythm, S1 normal heart sound present and S2 normal heart sound present RATE: regular rate RHYTHM: regular rhythm HEART SOUNDS: S1 normal heart sound present and S2 normal heart sound present GI: COMMON NORMALS: Normal to inspection, nondistended, normoactive bowel sounds present, Soft to palpation, non-tender, No hepatosplenomegaly present, no masses and no bruits PALPATION: Yes Soft to palpation and Yes No hepatosplenomegaly present Extremity: COMMON NORMALS: capillary refill normal, no clubbing, cyanosis or edema, no calf tenderness and no pedal edema Neuro: COMMON NORMALS: patient oriented x3, CN's II-XII intact bilaterally, moves all extremities, no focal motor deficits and no sensory deficits noted Psych: COMMON NORMALS: mental status grossly normal OTHER: Speech is a bit pressured Data : 07/25/21 12:30 07/25/21 02:00 Micro: Microbiology 07/25/21 01:45 Blood Culture - Preliminary Blood SPECIMEN COLLECTED 07/25/21 01:40 Blood Culture - Preliminary Blood SPECIMEN COLLECTED A&P Assessment and plan (1) Altered mental status: Status: Acute (2) Cocaine abuse: Status: Acute (3) Schizoaffective disorder, bipolar type: Status: Acute (4) On high dose antipsychotic drug therapy: Status: Acute (5) Pulmonary embolism: Status: Chronic Qualifiers: Pulmonary embolism type: multiple subsegmental (without acute cor pulmonale) Qualified Code(s): I26.94 - Multiple subsegmental pulmonary emboli without acute cor pulmonale (6) Anemia: Status: Acute Plan AMS 2/2 Cocaine Abuse: Drug screen positive. Unlikley 2/2 infectious process: White blood cell count 13.5,-UA unremarkable, Chest x-ray no consolidation, on RA CT head within normal limits, No headache, no blurry vision, no neck stiffness Neurochecks, NIH stroke scale, aspiration precautions SONYA: 2/2 Dehydration. Resolving. Check BMP daily. H/o PE: More than 6 months ago when Covid positive. On Eliquis as OP. Dimer negative. Can plan for d/c eliquis for now. Anemia: AGNES. C/w IV iron supplementation 200 mg IV daily x 5 days. Protonix, Carafate B12 Supplementation Schizoaffective disorder, continue home medications Cardiac diet Heparin 500 Q12 Attestations Medical Necessity Statement*: Requires further hospitalization for management of SONYA, AGNES, cocaine abuse leading to altered mental status Time Spent in Patient Care: Greater than 35 minutes Coding Level of Care Code Acute Head Of Operation And Logistics for Srini Perdomo Diagnoses Altered mental status R41.82 Schizoaffective disorder, bipolar type F25.0 On high dose antipsychotic drug therapy Z79.899 Pulmonary embolism I26.94 Pulmonary embolism type: multiple subsegmental (without acute cor pulmonale) Anemia D64.9 Cocaine abuse F14.10
[2021-07-25 16:56] LABS: Hematocrit 29.9 % (37.0-47.0); Hemoglobin 8.5 g/dL (11.5-15.3)
[2021-07-25] MEDS: atorvastatin 40 mg Tablet 20 MG PO (17:44)
[2021-07-25] MEDS: trazodone 150 mg Tablet PO (21:12)
[2021-07-25] MEDS: ropinirole 2 mg Tablet PO (21:12)
[2021-07-25] MEDS: quetiapine 300 mg Tablet 1200 MG PO (21:12)
[2021-07-26] VITALS (7 sets, daily range): BP systolic 106–149; BP diastolic 54–81; PULSE 76–88; RESP 17–18; TEMP 36.4–36.8; O2SAT 90–95
--- NOTE | 2021-07-26 02:50 | PC.PHAR ---
Pharmacokinetic dosing service Date: 07/26/21 Time: 299 Objective: Patient: Humera Navarrete Floor: 252-1 Age: 65 yo Serum creatinine: 1.1 mg/dL Height: 67.0 Inches Weight (kg): 99.564 Diagnosis: Relevant medical/social history: Cultures and sensitivities: Other labs: Assessment: IBW (kg): 61.60 Dosing wt(kg): 99.564 Estimated Creatinine clearance (ml/min): 49.6 CRCL method: Cockcroft and Gault using ibw(default). Drug selected: Vancomycin Loading dose (mg): 0 Vd (liters): 89.6 (factor used: 0.9 L/kg) El (hr-1): 0.046 Half life (hrs): 15.07 Recommended dose: 1500 mg Interval: 24 hrs Infusion time (hrs): 1.5 Predicted peak (mcg/mL): 24.2 Predicted trough (mcg/mL): 8.60 Total body weight is being used for vancomycin dosing. Renal function is stable [ ] /unstable [ ] Recommendations: Give Vancomycin 1500 mg q 24 hrs with an expected Cpeak of 24.2 mcg/ml and an expected Ctrough of 8.60 mcg/ml Renal dosing of other antibiotics (review renal dosing of other medications and list guidelines here): Thank you for the consult, will continue to follow. Signature: Carley Xie [facility]
[2021-07-26] MEDS: vancomycin 1,500 MG/300 ML PIGGYBACK 200 MG IV (03:34)
[2021-07-26 05:04] LABS: Basophils # 0.1 10^3/uL (0.0-0.1); Basophils % 0.7 %; Eosinophils # 0.2 10^3/uL (0.0-0.8); Eosinophils % 2.7 %; Hematocrit 27.1 % (37.0-47.0); Hemoglobin 7.5 g/dL (11.5-15.3); Lymphocytes # 3.5 10^3/uL (0.8-4.8); Lymphocytes % 40.6 %; Mean Corpuscular HGB Conc 27.7 g/dL (30.0-36.0); Mean Corpuscular Hemoglobin 21.4 pg (28.0-34.0); Mean Corpuscular Volume 77.4 fl (81-99); Mean Platelet Volume 11.1 fL (7.4-10.4); Monocytes # 0.5 10^3/uL (0.2-0.9); Monocytes % 5.5 %; Neutrophils # 4.32 10^3/uL (1.8-7.7); Neutrophils % 50.3 %; Nucleated Red Blood Cells % 0 %; Platelet Count 270 10^3/cmm (130-400); Red Cell Distribution Width 20.7 % (12.1-15.1); White Blood Count 8.6 10^3/uL (4.0-10.0)
[2021-07-26] MEDS: aspirin 81 mg EC Tablet PO (05:28)
[2021-07-26] MEDS: ziprasidone hcl 40 mg Capsule 80 MG PO ×3 (05:28→17:24)
[2021-07-26] MEDS: sucralfate 1 gm Tablet PO ×4 (05:28→20:15)
[2021-07-26] MEDS: gabapentin 300 mg Capsule 600 MG PO ×3 (05:28→17:24)
[2021-07-26 05:31] LABS: Alanine Aminotransferase 9 U/L (0-33); Albumin Level 3.3 g/dL (3.5-5.2); Alkaline Phosphatase 138 IU/L (35-105); Anion Gap 15.5 (5-19); Aspartate Amino Transferase 15 U/L (0-32); Blood Urea Nitrogen 9 mg/dL (8-23); Calcium 8.4 mg/dL (8.5-10.5); Carbon Dioxide 22 mmol/L (22-29); Chloride 106 mmol/L (98-107); Globulin 2.7 g/dL (1.3-4.6); Glomerular Filtration Rate 62.8 mL/min (90-130); Glucose 130 mg/dL (65-115); Osmolality Calculated 290 mOsm/kg (285-295); Phosphorus 3.3 mg/dL (2.5-4.5); Potassium 3.5 mmol/L (3.5-5.1); Sodium 140 mmol/L (136-145); Total Bilirubin 0.2 mg/dL (0.15-1.2)
[2021-07-26] MEDS: sodium chloride 0.9% 1,000 ML 75 ML IV (05:31)
[2021-07-26] MEDS: levothyroxine 75 mcg Tablet PO (09:57)
[2021-07-26] MEDS: lamoTRIgine 100 mg Tablet 200 MG PO (09:57)
[2021-07-26] MEDS: cyanocobalamin 1,000 mcg Tablet 1000 MCG PO (09:57)
--- NOTE | 2021-07-26 10:20 | PC.CHAP ---
Pastoral Care Encounter/Spiritual Assessment Type of Contact [] Declined sole rounder visit [] Patient/Family/Request visit [] Outpatient visit [] Follow-up visit [] Physician referral [] Code/Alert [x] Routine visit [] Staff referral [] Actively dying [] Patient sleeping [] Family support [] [] Out of room [] Palliative care [] [] Receiving care in room [] Pre-surgical visit [] Trauma [] Long length of stay [] ICU visit [] Other: Relational/Emotional Strength [x] Patient feels connected with others/family/visitors/staff [] Distress [] Loneliness/isolation [] Abandonment Spirituality of Patient [x] Person of Tessy [] Attends Buddhism of their Tessy [x] Believes in Prayer [] Reads Bible or Jew materials [] There are Spiritual issues to be addressed Hand Alterations Tailor Interventions [x] Prayer [x] Active listening [x] Non-anxious presence [x] Spiritual/emotional support [] Crisis/trauma care [] Spiritual counseling [] Bereavement support [] Provided bereavement packet [] Provided Bible/devotional materials [] Provided toy/stuffed animal, coloring book to patient or family member [] Provided Communion [] Anointing/Gipsy [] Salvation [x] Completed spiritual assessment [] Other: Impact on Illness or Injury [] Angry [] Fearful [] Anxious [] Often cries [] Exhaustion [] Unable to work [] Unable to attend buddhist [] Unable to walk/stand [] Unable to read [] Unable to drive [] Unable to eat/drink [] Unable to sleep [] Unable to be with family [] Patient intubated [] Other: Summary Time spent with patient 10 min
--- NOTE | 2021-07-26 11:59 | USCV_ITS ---
Landon Humera Age: 65 Gender: F : 1955 Exam Date: 07/26/2021 13:46 Ordering Phys: Nishant Navarro MD Technologist: Adonis Rizzo Exam Location: [facility] [place] Indication: chest pain BP: 134 / 82 HR: 142 Rhythm: Sinus Technical Quality: Adequate MEASUREMENTS (Male / Female) Normal Values 2D ECHO LV Diastolic Diameter PLAX 4.9 cm 4.2 - 5.9 / 3.9 - 5.3 cm LV Systolic Diameter PLAX 3.2 cm IVS Diastolic Thickness 1.0 cm 0.6 - 1.0 / 0.6 - 0.9 cm IVS Systolic Thickness 1.3 cm LVPW Diastolic Thickness 1.2 cm 0.6 - 1.0 / 0.6 - 0.9 cm LVPW Systolic Thickness 1.3 cm LVOT Diameter 2.0 cm LV Ejection Fraction 2D Teich 62.1 % LV Ejection Fraction MOD 2C 56.2 % LV Ejection Fraction 2C AL 57.9 % LA Diameter 3.8 cm Aorta at Sinotubular Diameter 2.5 cm M-MODE Aortic Annulus Diameter 3.3 cm LA Ao Ratio MM 1.3 MV E Point Septal Separation 0.6 cm DOPPLER AV Peak Velocity 153.0 cm/s LVOT Peak Velocity 108.0 cm/s AV Area Cont Eq vti 2.2 cm squared AV Area Cont Eq pk 2.3 cm squared MV Area PHT 5.0 cm squared Mitral E to A Ratio 1.4 MV E' Velocity 94.0 cm/s Mitral E to LV E' Septal Ratio 6.8 TR Peak Velocity 116.3 cm/s TR Peak Gradient 5.4 mmHg FINDINGS Left Ventricle Normal left ventricular size and systolic function, EF 66 %. No regional wall motion abnormalities. Right Ventricle The right ventricle is normal in size and function. Right Atrium The right atrium is normal in size. Left Atrium The left atrium is normal in size. Mitral Valve Trace to mild mitral valve regurgitation. Aortic Valve No gross abnormalities noted Tricuspid Valve Trace tricuspid valve regurgitation. Pulmonic Valve Pulmonic valve not well visualized. Pericardium Normal pericardium without effusion. Aorta Normal ascending aorta dimension. CONCLUSIONS Normal left ventricular size and systolic function, EF 66 %. No regional wall motion abnormalities. Trace to mild mitral valve regurgitation. Trace tricuspid valve regurgitation. There is no pericardial effusion. There are no intracardiac masses. Compared to the study from 01/06/2021, there may not be a significant change Dr Julio Suazo MD [facility] (Electronically Signed) Final Date: 26 July 2021 23:30 S
--- NOTE | 2021-07-26 11:59 | PM.PN ---
Subjective Subjective: Patient was seen this morning, she is alert to person, to place, not to time, during my examination, she can answer questions appropriately, goes off subject, it is hard to keep her straight on a topic and on my questioning. When I asked her about her cocaine positivity, she tells that she tested +3 times in the past, she tells me that somebody came here in the hospital and gave it to her? She apparently became confused about her own answer, then told me that she thinks that may be the marijuana that she has been using has been laced with possible cocaine, but she tells me she has not used it in over a few weeks due to affordability issues, according to nursing staff she does easily become confused, she will get up and wander the hallways afebrile overnight, normotensive, she is eating breakfast appropriately, smiling, denies any headache, no blurry vision, denies any IV drug use Vitals/I&O/Wt Last Vital Signs Temp 97.5 F L 07/26/21 11:23 Pulse 76 07/26/21 11:23 Resp 18 07/26/21 11:23 BP 133/73 07/26/21 11:23 Pulse Ox 93 07/26/21 11:23 07/25/21 07/26/21 07/26/21 22:59 06:59 14:59 Intake Total 360 / 1590 1181.25 / 2771.25 240 / 240 Balance 360 / 1590 1181.25 / 2771.25 240 / 240 Weight last 48 hrs Weight 99.564 kg Physical Exam Const: COMMON NORMALS: no acute distress EXAM LIMITATIONS: altered mental status ORIENTATION/CONSCIOUSNESS: Yes awake, Yes oriented to person and Yes oriented to place; not oriented to time HENMT: COMMON NORMALS: normocephalic HEAD & SCALP: normocephalic Resp: COMMON NORMALS: normal respiratory effort, No retractions, No use of accessory muscles and clear to auscultation bilaterally AUSCULTATION: clear to auscultation bilaterally Cardio: COMMON NORMALS: regular rate, regular rhythm, S1 normal heart sound present and S2 normal heart sound present RATE: regular rate RHYTHM: regular rhythm HEART SOUNDS: S1 normal heart sound present and S2 normal heart sound present GI: COMMON NORMALS: Normal to inspection, nondistended, normoactive bowel sounds present, Soft to palpation, non-tender and No hepatosplenomegaly present PALPATION: Yes Soft to palpation and Yes No hepatosplenomegaly present Extremity: COMMON NORMALS: no pedal edema Neuro: SENSORIUM/ORIENTATION: Yes oriented to person, Yes oriented to place and No oriented to time Data : 07/26/21 04:39 07/26/21 04:32 Micro: Microbiology 07/26/21 04:32 Blood Culture - Preliminary Blood SPECIMEN COLLECTED 07/26/21 04:32 Blood Culture - Preliminary Blood SPECIMEN COLLECTED 07/25/21 01:45 Blood Culture - Preliminary Blood 07/25/21 01:40 Blood Culture - Preliminary Blood NEGATIVE TO DATE A&P Assessment and plan (1) Altered mental status: Status: Acute (2) Cocaine abuse: Status: Acute (3) Schizoaffective disorder, bipolar type: Status: Acute (4) On high dose antipsychotic drug therapy: Status: Acute (5) Pulmonary embolism: Status: Chronic Qualifiers: Pulmonary embolism type: multiple subsegmental (without acute cor pulmonale) Qualified Code(s): I26.94 - Multiple subsegmental pulmonary emboli without acute cor pulmonale (6) Anemia: Status: Acute Plan Gram-positive blood cultures 1 out of 2 bottles -Remains afebrile, no significant leukocytosis, no headache, blurry vision, no murmurs heard on exam -Sensitivity and identification pending -Given history of cocaine abuse, possibly concerning for related to endocarditis however it could be a contamination as a second set was negative -For now continue vancomycin -Repeat blood cultures pending -Cardiac echocardiogram ordered AMS 2/2 Cocaine Abuse: Drug screen positive. Reports that her marijuana might be l[facility] 2/2 infectious process: White blood cell count 806,-UA unremarkable, Chest x-ray no consolidation, on RA CT head within normal limits, No headache, no blurry vision, no neck stiffness Neurochecks, NIH stroke scale, aspiration precautions SONYA: 2/2 Dehydration. Resolving. Check BMP daily. H/o PE: More than 6 months ago when Covid positive. On Eliquis as OP. Dimer negative. Can plan for d/c eliquis for now. Anemia: AGNES. Hemoglobin down to 7.5 for recheck in the afternoon C/w IV iron supplementation 200 mg IV daily x 5 days. Protonix, Carafate B12 Supplementation Schizoaffective disorder, continue home medications Cardiac diet Heparin 500 Q12 currently on hold given anemia Attestations Medical Necessity Statement*: Patient requires hospitalization for gram-positive bacteremia, cocaine positivity, altered mental status Coding Level of Care Code Acute Telephone Supervisor for g Fwd Diagnoses Altered mental status R41.82 Cocaine abuse F14.10 Schizoaffective disorder, bipolar type F25.0 On high dose antipsychotic drug therapy Z79.899 Pulmonary embolism I26.94 Pulmonary embolism type: multiple subsegmental (without acute cor pulmonale) Anemia D64.9
[2021-07-26 13:09] LABS: Hematocrit 26.8 % (37.0-47.0); Hemoglobin 7.4 g/dL (11.5-15.3)
[2021-07-26] MEDS: iron sucrose 200 MG in sodium chloride 0.9% (100 ml) 100 ML 220 MG IV (15:39)
[2021-07-26] MEDS: acetaminophen 325 mg Tablet 650 MG PO ×2 (15:40→20:16)
[2021-07-26] MEDS: pantoprazole 40 mg SDV IVP (16:30)
[2021-07-26] MEDS: atorvastatin 40 mg Tablet 20 MG PO (17:24)
[2021-07-26] MEDS: trazodone 150 mg Tablet PO (20:16)
[2021-07-26] MEDS: ropinirole 2 mg Tablet PO (20:16)
[2021-07-26] MEDS: quetiapine 300 mg Tablet 1200 MG PO (20:16)
[2021-07-27] VITALS (11 sets, daily range): BP systolic 120–167; BP diastolic 63–84; PULSE 75–90; RESP 16–18; TEMP 36.4–36.8; O2SAT 90–96
[2021-07-27] MEDS: pantoprazole 40 mg SDV IVP (01:01)
[2021-07-27] MEDS: vancomycin 1,500 MG/300 ML PIGGYBACK 200 MG IV (03:03)
[2021-07-27 05:19] LABS: Basophils # 0.1 10^3/uL (0.0-0.1); Basophils % 0.8 %; Eosinophils # 0.3 10^3/uL (0.0-0.8); Eosinophils % 3.6 %; Hematocrit 25.7 % (37.0-47.0); Hemoglobin 7.1 g/dL (11.5-15.3); Lymphocytes # 3.1 10^3/uL (0.8-4.8); Lymphocytes % 38.8 %; Mean Corpuscular HGB Conc 27.6 g/dL (30.0-36.0); Mean Corpuscular Hemoglobin 20.8 pg (28.0-34.0); Mean Corpuscular Volume 75.4 fl (81-99); Mean Platelet Volume 11.3 fL (7.4-10.4); Monocytes # 0.4 10^3/uL (0.2-0.9); Monocytes % 4.6 %; Neutrophils # 4.12 10^3/uL (1.8-7.7); Neutrophils % 51.8 %; Nucleated Red Blood Cells % 0 %; Platelet Count 276 10^3/cmm (130-400); Red Blood Count 3.41 10^6/uL (4.1-5.3); Red Cell Distribution Width 20.7 % (12.1-15.1)
[2021-07-27 05:42] LABS: Alanine Aminotransferase 11 U/L (0-33); Albumin Level 3.1 g/dL (3.5-5.2); Alkaline Phosphatase 132 IU/L (35-105); Anion Gap 12.7 (5-19); Aspartate Amino Transferase 13 U/L (0-32); Blood Urea Nitrogen 9 mg/dL (8-23); Calcium 8.4 mg/dL (8.5-10.5); Carbon Dioxide 23 mmol/L (22-29); Chloride 106 mmol/L (98-107); Globulin 3.1 g/dL (1.3-4.6); Glomerular Filtration Rate 83.7 mL/min (90-130); Glucose 100 mg/dL (65-115); Magnesium 1.9 mg/dL (1.7-2.3); Osmolality Calculated 285 mOsm/kg (285-295); Phosphorus 3.2 mg/dL (2.5-4.5); Potassium 3.7 mmol/L (3.5-5.1); Sodium 138 mmol/L (136-145); Total Bilirubin 0.2 mg/dL (0.15-1.2); Total Protein 6.2 g/dL (6.6-8.7)
[2021-07-27] MEDS: aspirin 81 mg EC Tablet PO (06:19)
[2021-07-27] MEDS: gabapentin 300 mg Capsule 600 MG PO ×3 (06:19→17:03)
[2021-07-27] MEDS: sucralfate 1 gm Tablet PO ×3 (06:19→17:04)
[2021-07-27] MEDS: ziprasidone hcl 40 mg Capsule 80 MG PO ×3 (06:42→17:03)
[2021-07-27] MEDS: iron sucrose 200 MG in sodium chloride 0.9% (100 ml) 100 ML 220 MG IV (06:50)
[2021-07-27] MEDS: sodium chloride 0.9% 1,000 ML 75 ML IV (08:07)
[2021-07-27] MEDS: cyanocobalamin 1,000 mcg Tablet 1000 MCG PO (08:08)
[2021-07-27] MEDS: lamoTRIgine 100 mg Tablet 200 MG PO (08:08)
[2021-07-27] MEDS: levothyroxine 75 mcg Tablet PO (08:08)
--- NOTE | 2021-07-27 10:55 | P.DS_ITS ---
Discharge Providers Date of Admission: 07/25/21 13:55 Date of Discharge: July 27, 2021 Attending Provider at Admission: Nishant Navarro MD Attending Provider at Discharge: Nishant Navarro MD Primary Care Provider: Homero Arango MD Diagnoses at Discharge Discharge Diagnosis (1) Altered mental status: Status: Acute (2) Cocaine abuse: Status: Acute (3) Schizoaffective disorder, bipolar type: Status: Acute (4) On high dose antipsychotic drug therapy: Status: Acute (5) Pulmonary embolism: Status: Chronic Qualifiers: Pulmonary embolism type: multiple subsegmental (without acute cor pulmonale) Qualified Code(s): I26.94 - Multiple subsegmental pulmonary emboli without acute cor pulmonale (6) Anemia: Status: Acute Reason for Visit Reason for Visit: [facility] Hospital Course Hospital Course Humera Navarrete is a 65 year old female with a history of COVID-19 pneumonia, developed a pulmonary emboli on Eliquis, history of drug use, history of back pain on narcotics, history of schizoaffective disorder, history of anemia concerning for slow GI bleed, hypothyroidism, on multiple psychotropic medications who presents [facility] due to altered mental status. Patient was admitted to [facility] for altered mental status likely secondary to cocaine abuse, she reports that maybe the marijuana she uses could have been laced with cocaine, this is the third time she tells me that her urine toxicology screen has been positive for cocaine. Adamantly denies any IV drug abuse. Her mentation remained relatively stable during hospitalization, alert oriented x3, following all commands, speech a bit pressured, ambulating without symptomatology, discharged home. Patient was advised to abstain from marijuana or cocaine use. Patient denied any suicidal ideation, no homicidal ideation, denies hearing or seeing things are not there. Denies feeling, down, depressed or sad. Patient was found to be anemic during the hospitalization, hemoglobin down to 7.1, likely slow GI bleed, iron deficiency anemia, and B12 deficiency. Was transfused 1 unit PRBC. No significant evidence of bloody or black stools, no hemodynamic compromise. Discharged with Protonix, Carafate, follow-up with Dr. Arango in the next few days for consideration of EGD and colonoscopy. Discharged on iron supplementation, and B12 supplementation. In terms her anticoagulation, she takes Eliquis for history of PE, more than 6 months ago when she was Covid positive, D-dimer was within norm limits, she has completed treatment for pulmonary embolism, Eliquis was discontinued on discharge. During hospitalization she was found to have gram-positive blood cultures, 1 out of 2 blood culture positive, managed with antibiotic therapy, remained afebrile, no significant leukocytosis, no significant inflammatory marker elevation, no other symptomatology, no chest pain, no shortness of breath, no headache, no blurry vision, no neck pain, echocardiogram was ordered given her history of cocaine abuse although patient adamantly denies any IV drug abuse, nonetheless echocardiogram did not show any gross vegetations. Blood cultures returned positive for coagulase-negative staph, on 07/27/2021, likely contamination Repeat blood cultures have been unremarkable, she is relatively asymptomatic, discharged without antibiotic therapy. If Dr. Arango could kindly follow-up blood culture results Physical Exam Const: COMMON NORMALS: no acute distress and patient oriented x3 Resp: COMMON NORMALS: normal respiratory effort, No retractions, No use of accessory muscles and clear to auscultation bilaterally AUSCULTATION: clear to auscultation bilaterally Cardio: COMMON NORMALS: regular rate, regular rhythm, S1 normal heart sound present and S2 normal heart sound present RATE: regular rate RHYTHM: regular rhythm HEART SOUNDS: S1 normal heart sound present and S2 normal heart sound present GI: COMMON NORMALS: Normal to inspection, nondistended, normoactive bowel sounds present, Soft to palpation, non-tender and No hepatosplenomegaly present PALPATION: Yes Soft to palpation and Yes No hepatosplenomegaly present Extremity: COMMON NORMALS: no pedal edema Neuro: COMMON NORMALS: patient oriented x3 Psych: COMMON NORMALS: mental status grossly normal Discharge Data Studies Completed and Pending Completed Studies During Hospitalization Category Date Time Status CT head wo con* [id number] Urgent Cat Scan 07/24/21 18:50 Completed XR chest 1V portable [id number] Stat Exams 07/24/21 18:51 Completed CV. echo complete* [id number] Routine Ultrasound 07/26/21 11:59 Completed Pending at discharge Category Date Time Status Blood Culture Routine Lab 07/25/21 01:45 Results Blood Culture Stat Lab 07/26/21 04:32 Results Leukocyte Reduced RBC Stat Lab 07/27/21 08:38 Results Type and Screen Stat Lab 07/27/21 08:38 Results Vancomycin Trough Timed Lab 07/28/21 02:00 Ordered Radiology Impressions Head CT 07/24/21 18:50 IMPRESSION: No acute intracranial abnormality. Chest X-Ray 07/24/21 18:51 IMPRESSION: Right basilar atelectasis and prominent right hemidiaphragm elevation. Laboratory Results WBC 8.0 10^3/uL (4.0-10.0) 07/27/21 04:25 RBC 3.41 10^6/uL (4.1-5.3) L 07/27/21 04:25 Hgb 7.1 g/dL (11.5-15.3) L 07/27/21 04:25 Hct 25.7 % (37.0-47.0) L 07/27/21 04:25 MCV 75.4 fl (81-99) L 07/27/21 04:25 MCH 20.8 pg (28.0-34.0) L 07/27/21 04:25 MCHC 27.6 g/dL (30.0-36.0) L 07/27/21 04:25 RDW 20.7 % (12.1-15.1) H 07/27/21 04:25 Plt Count 276 10^3/cmm (130-400) 07/27/21 04:25 MPV 11.3 fL (7.4-10.4) H 07/27/21 04:25 Neut % (Auto) 51.8 % 07/27/21 04:25 Lymph % (Auto) 38.8 % 07/27/21 04:25 [place] % (Auto) 4.6 % 07/27/21 04:25 Eos % (Auto) 3.6 % 07/27/21 04:25 Baso % (Auto) 0.8 % 07/27/21 04:25 Neut # (Auto) 4.12 10^3/uL (1.8-7.7) 07/27/21 04:25 Lymph # (Auto) 3.1 10^3/uL (0.8-4.8) 07/27/21 04:25 [place] # (Auto) 0.4 10^3/uL (0.2-0.9) 07/27/21 04:25 Eos # (Auto) 0.3 10^3/uL (0.0-0.8) 07/27/21 04:25 Baso # (Auto) 0.1 10^3/uL (0.0-0.1) 07/27/21 04:25 Nucleated RBC % (auto) 0 % 07/27/21 04:25 Nucleated RBCs # 0.0 /100WBC 07/27/21 04:25 PT 17.60 SECONDS (12.1-14.9) H 07/24/21 22:40 INR 1.41 (0.8-1.2) H 07/24/21 22:40 APTT 45.9 SECONDS (23.9-36.7) H 07/25/21 10:02 D-Dimer 0.29 ug/mIFEU (0-0.59) 07/25/21 01:45 Specimen Type Venous 07/24/21 19:50 Sample Site Not specified 07/24/21 19:50 Demian Test N/a 07/24/21 19:50 VBG pH 7.32 (7.32-7.42) 07/24/21 19:50 VBG pCO2 54.0 mmHg (41-51) H 07/24/21 19:50 VBG pO2 29.0 mmHg (25-40) 07/24/21 19:50 VBG HCO3 27.5 mmol/L (24-28) 07/24/21 19:50 VBG Base Excess 0.9 mmol/L (-3.0-3.0) 07/24/21 19:50 VBG Hematocrit 26.4 % (37-47) L 07/24/21 19:50 O2 Delivery Device Room air 07/24/21 19:50 Lobster Fisherman ID Buttr 07/24/21 19:50 Sodium 138 mmol/L (136-145) 07/27/21 04:25 Potassium 3.7 mmol/L (3.5-5.1) 07/27/21 04:25 Chloride 106 mmol/L (98-107) 07/27/21 04:25 Carbon Dioxide 23 mmol/L (22-29) 07/27/21 04:25 Anion Gap 12.7 (5-19) 07/27/21 04:25 BUN 9 mg/dL (8-23) 07/27/21 04:25 Creatinine 0.7 mg/dL (0.5-0.9) 07/27/21 04:25 GFR Calculation 83.7 mL/min (90-130) L 07/27/21 04:25 Glucose 100 mg/dL (65-115) 07/27/21 04:25 Calculated Osmolality 285 mOsm/kg (285-295) 07/27/21 04:25 Lactic Acid 0.7 mmol/L (0.5-2.2) 07/24/21 22:40 Calcium 8.4 mg/dL (8.5-10.5) L 07/27/21 04:25 Phosphorus 3.2 mg/dL (2.5-4.5) 07/27/21 04:25 Magnesium 1.9 mg/dL (1.7-2.3) 07/27/21 04:25 Iron 15 ug/dL (37-145) L 07/25/21 02:00 TIBC 301 mcg/dl 07/25/21 02:00 % Saturation 4.9 % (20-50) L 07/25/21 02:00 Unsat Iron Binding 286 ug/dL (112-347) 07/25/21 02:00 Ferritin 9 ng/mL (15-150) L 07/25/21 02:00 Total Bilirubin 0.2 mg/dL (0.15-1.2) 07/27/21 04:25 AST 13 U/L (0-32) 07/27/21 04:25 ALT 11 U/L (0-33) 07/27/21 04:25 Alkaline Phosphatase 132 IU/L (35-105) H 07/27/21 04:25 Ammonia 21 umol/L (11-51) 07/24/21 20:02 Creatine Kinase 138 U/L (26-192) 07/24/21 18:18 Troponin T Baseline 9 ng/L (0-10) 07/24/21 18:18 Troponin T 120 Minute 11.13 ng/L (0-10) H 07/24/21 20:02 Delta Troponin T 2.13 ABS# (0-10) 07/24/21 20:02 C-Reactive Protein 16.5 mg/L (0.0-4.9) H 07/25/21 02:00 Total Protein 6.2 g/dL (6.6-8.7) L 07/27/21 04:25 Albumin 3.1 g/dL (3.5-5.2) L 07/27/21 04:25 Globulin 3.1 g/dL (1.3-4.6) 07/27/21 04:25 Lipase 12 U/L (13-60) L 07/24/21 18:18 Vitamin B12 222 pg/mL (232-1245) L 07/25/21 02:00 Folate 10.1 ng/mL (4.8-37.3) 07/25/21 00:20 Procalcitonin 0.05 ng/mL (0-0.5) 07/24/21 22:40 TSH 1.82 uIU/mL (0.27-4.20) 07/24/21 18:18 Free T4 1.03 ng/dL (0.82-1.77) 07/24/21 18:18 Urine Color Yellow (Yellow) 07/24/21 19:37 Urine Appearance Clear (CLEAR) 07/24/21 19:37 Urine pH 5 (5-7) 07/24/21 19:37 Ur Specific [place] 1.030 (1.005-1.030) 07/24/21 19:37 Urine Protein 1+ (Negative) H 07/24/21 19:37 Urine Glucose (UA) Norm (Normal) 07/24/21 19:37 Urine Ketones 1+ (Negative) H 07/24/21 19:37 Urine Blood Neg (Negative) 07/24/21 19:37 Urine Nitrate Negative (Negative) 07/24/21 19:37 Urine Bilirubin Neg (Negative) 07/24/21 19:37 Urine Urobilinogen Norm mg/dL (Negative) 07/24/21 19:37 Ur Leukocyte Esterase Negative (Negative) 07/24/21 19:37 Urine RBC 0-4 /hpf (0-2) H 07/24/21 19:37 Urine WBC 0-4 /hpf (0-5) H 07/24/21 19:37 Ur Squamous Epith Cells 15-25 /hpf (0-5) H 07/24/21 19:37 Amorphous Sediment 2+ /hpf 07/24/21 19:37 Urine Bacteria 2+ /hpf (NONE) H 07/24/21 19:37 Hyaline Casts 0-4 /lpf H 07/24/21 19:37 Urine Mucus 4+ /hpf 07/24/21 19:37 Salicylates < 0.3 mg/dL (3-10) L 07/24/21 18:18 Urine Opiates Screen Negative ng/mL (Negative) 07/24/21 19:37 Acetaminophen < 5.0 ug/mL (10-30) L 07/24/21 18:18 Ur Barbiturates Screen Negative ng/mL (Negative) 07/24/21 19:37 Ur Phencyclidine Scrn Negative ng/mL (Negative) 07/24/21 19:37 Ur Amphetamines Screen Negative ng/mL (Negative) 07/24/21 19:37 U Benzodiazepines Scrn Negative ng/mL (Negative) 07/24/21 19:37 Urine Cocaine Screen Positive ng/mL (Negative) H 07/24/21 19:37 U Marijuana (THC) Screen Positive ng/mL (Negative) H 07/24/21 19:37 Ethyl Alcohol < 10 mg/dL (0-10) 07/25/21 02:00 Blood Type O Negative 07/27/21 08:38 Rho(D) Type Negative 07/27/21 08:38 Antibody Screen Negative 07/27/21 08:38 Crossmatch See Detail 07/27/21 08:38 Vitals Last Vital Signs Temp 98.2 F 07/27/21 07:14 Pulse 90 07/27/21 07:56 Resp 18 07/27/21 07:56 BP 120/76 07/27/21 07:14 Pulse Ox 94 07/27/21 07:56 Discharge Plan Discharge Patient Disposition: Home Condition: Stable Prescriptions: New levothyroxine 75 mcg Tablet 75 mcg PO DAILY 30 Days Qty: 30 0RF cyanocobalamin (vitamin B-12) [Vitamin B-12] 1,000 mcg Tablet 1,000 mcg PO DAILY 30 Days Qty: 30 0RF sucralfate 1 gram Tablet 1 g PO AC&BEDTIME 30 Days Qty: 30 0RF ferrous sulfate 325 mg (65 mg iron) tablet 325 mg PO BID 30 Days Qty: 60 0RF Continued (DME) Portable oxygen concentrator See Rx Instructions .Route .MEDSUPPLY Qty: 1 0RF Rx Instructions: 5 liters continuous oxygen gabapentin 600 mg tablet 600 mg PO TID@0600,1200,1800 30 Days Qty: 90 1RF tizanidine 4 mg tablet 4 mg PO TID PRN (Reason: muscle spasticity) 30 Days Qty: 90 0RF Viibryd 10 mg tablet 10 mg PO TID Qty: 90 2RF albuterol sulfate 2.5 mg /3 mL (0.083 %) solution for nebulization 2.5 mg INHALATION QID MDD SEE PHARMACY COMMENT PRN (Reason: shortness of breath or wheezing) Qty: 90 0RF lovastatin 40 mg tablet 40 mg PO DAILY@1800 Qty: 30 3RF solifenacin 10 mg tablet See Rx Instructions .ROUTE .COMPLEX Qty: 90 3RF Dose Instruction: TAKE 1 TABLET BY MOUTH EVERY DAY Rx Instructions: TAKE 1 TABLET BY MOUTH EVERY DAY aspirin 81 mg tablet,delayed release (DR/EC) 81 mg PO QAM Qty: 30 3RF ropinirole 2 mg tablet 2 - 4 mg PO BEDTIME Qty: 180 0RF lamotrigine 200 mg tablet 200 mg PO DAILY Qty: 30 2RF quetiapine [Seroquel] 400 mg tablet 1,200 mg PO BEDTIME Qty: 90 2RF trazodone 150 mg tablet 150 mg PO DAILY Qty: 30 2RF ziprasidone HCl [Geodon] 80 mg capsule 80 mg PO TID@0600,1200,1800 Qty: 90 2RF Hold Instructions: Resume on 02/02/21. budesonide 90 mcg/actuation aerosol powdr breath activated 1 inh inhalation BID Qty: 1 0RF pantoprazole [Protonix] 40 mg tablet,delayed release (DR/EC) 40 mg PO BID 30 Days Qty: 60 0RF Discontinued oxycodone 20 mg tablet 20 mg PO QID PRN (Reason: pain) 30 Days Qty: 30 0RF Hold Instructions: Resume on 02/02/21. Rx Instructions: fill on or after 02/18/21 levothyroxine 75 mcg tablet See Rx Instructions .ROUTE .COMPLEX Qty: 60 0RF Dose Instruction: TAKE 1 TABLET BY MOUTH EVERY DAY *NEEDS TSH CHECK BEFORE THIS SCRIPT RUNS COMPLETELY OUT* Rx Instructions: TAKE 1 TABLET BY MOUTH EVERY DAY *NEEDS TSH CHECK BEFORE THIS SCRIPT RUNS COMPLETELY OUT* methylprednisolone [Medrol ([place])] 4 mg tablets,dose pack See Rx Instructions .ROUTE .COMPLEX Qty: 21 0RF Rx Instructions: orally per package directions Eliquis 5 mg tablet 5 mg PO BID Qty: 60 3RF Discharge Orders: Discharge Order (Routine); Ordered 07/27/21 Ordered By: Nishant Navarro Referrals: Homero Arango MD [Primary Care Provider] - 07/28/21 1:30 pm (egd and colonoscopy) Discharge Diet: Cardiac Discharge Activity: Resume usual activity Patient Instructions: Opioid Safety Activity Restrictions/Additional Instructions: -If you develop bloody or black stools please go to the emergency room -For your anemia please take iron supplementation, B12 supplementation, Protonix, Carafate -If you develop lightheaded or dizziness go to emergency room -Please stop Eliquis -Please stop marijuana use, stop cocaine use -Follow-up with primary care provider in 1 to 3 days for consideration of EGD and colonoscopy Discharge Attestations Time Spent in Discharge Care*: less than 30 min Status at Discharge: Cognitive status at discharge: cognitively intact , Behavioral status at discharge: cooperative , Quality Metrics Clinical Quality Measures [ No reported AMI, CVA or VTE this stay] Coding Level of Care Code Acute [facility] note Diagnoses Altered mental status R41.82 Cocaine abuse F14.10 Schizoaffective disorder, bipolar type F25.0 On high dose antipsychotic drug therapy Z79.899 Pulmonary embolism I26.94 Pulmonary embolism type: multiple subsegmental (without acute cor pulmonale) Anemia D64.9
[2021-07-27] MEDS: acetaminophen 325 mg Tablet 650 MG PO (14:30)
[2021-07-27] MEDS: atorvastatin 40 mg Tablet 20 MG PO (17:03)
== END 2021-07-27 18:32 | disposition home or self-care (01) | DRG 897 ==
LOC: ER 19:40 → MEDSURG 21:19
PROVIDERS: Admitting Provider Family Medicine; Emergency Provider Emergency Medicine; PCP Internal Medicine; Visit Provider Family Medicine
DX: F14.10 Cocaine abuse, uncomplicated (principal); N17.9 Acute kidney failure, unspecified; F25.0 Schizoaffective disorder, bipolar type; Z79.899 Other long term (current) drug therapy; Z86.711 Personal history of pulmonary embolism; Z79.01 Long term (current) use of anticoagulants; Z86.16 Personal history of COVID-19; J44.9 Chronic obstructive pulmonary disease, unspecified; Z87.891 Personal history of nicotine dependence; N18.9 Chronic kidney disease, unspecified; D50.9 Iron deficiency anemia, unspecified; E03.9 Hypothyroidism, unspecified; Z79.82 Long term (current) use of aspirin
CPT/HCPCS: 36415; 36430; 36600; 70450; 71045; 80053; 80306; 80307; 81001; 82140; 82550; 82607; 82728; 82746; 82803; 83540; 83550; 83605; 83690; 83735; 84100; 84145; 84439; 84443; 84484; 85014; 85018; 85025; 85378; 85610; 85730; 86140; 86850; 86900; 86920; 87040; 87205; 93005; 93306; 94664; 96360; 96372; 99285; C9113; G0378; J1644; J1756; J3370; J7030; P9016

== ENCOUNTER → 2021-08-20 10:32 | Outpatient (BNVA) | payer MEDICARE, MEDICAID, SELFPAY | PROVIDERS: PCP Internal Medicine; Visit Provider Nurse Practitioner | DX: F25.0 Schizoaffective disorder, bipolar type (principal); F43.12 Post-traumatic stress disorder, chronic | CPT/HCPCS: 99214 ==

== ENCOUNTER 2021-08-22 11:49 | Emergency (ER) | payer MEDICARE, MEDICAID, SELFPAY ==
--- NOTE | 2021-08-22 11:58 | CTR_ITS ---
PROCEDURE INFORMATION: Exam: CT Head Without Contrast Exam date and time: 08/22/2021 1:00 PM Age: 66 years old Clinical indication: Other: Confusion TECHNIQUE: Imaging protocol: Computed tomography of the head without contrast. Radiation optimization: All CT scans at this facility use at least one of these dose optimization techniques: automated exposure control; mA and/or kV adjustment per patient size (includes targeted exams where dose is matched to clinical indication); or iterative reconstruction. COMPARISON: CT head wo con* [id number] 07/24/2021 7:18 PM RADIATION DOSE METRICS: Total DLP (mGy-cm): 1023.29 FINDINGS: Limitations: There is motion artifact partially and overall mildly degrading examination. Brain: There is no acute intracranial hemorrhage. No extra-axial fluid collection. No evidence of acute infarct. Singh white differentiation is intact. There is no evidence of mass. There is no mass effect or midline shift. Cerebral ventricles: No ventriculomegaly. Paranasal sinuses: Visualized sinuses are unremarkable. No fluid levels. Mastoid air cells: No significant mastoid effusion. Bones/joints: No acute fracture. Soft tissues: Unremarkable as visualized. CT/CT head wo con* [id number] IMPRESSION: No evidence of acute intracranial abnormality. No acute hemorrhage. No evidence of acute infarct or mass.
--- NOTE | 2021-08-22 11:59 | XR_ITS ---
WS: [id number] Portable AP upright chest, 08/22/2021 Clinical Data: hypoxia Comparison: Portable chest, 07/24/2021. Findings: No nodules, masses or effusions are seen. The heart is normal. The pulmonary vascularity is not increased. No pneumothorax is seen. There is minimal patchy opacity in the left lower lobe. The right diaphragm remains elevated and there is minimal atelectasis over the surface. Monitor leads are on the chest wall. XR/XR chest 1V portable [id number] Impression: Minimal patchy left lower lobe opacity which could represent atelectasis and/or pneumonia.
[2021-08-22 12:00] VITALS: BP 138/87; PULSE 79; RESP 24; TEMP 36.5; O2SAT 92; BMI 40.5
--- NOTE | 2021-08-22 12:00 | ECG_ITS ---
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 Measurements Intervals [place] Rate: 80 P: 53 DE: 174 QRS: 45 QRSD: 98 T: 48 QT: 381 QTc: 440 Interpretive Statements SINUS RHYTHM WITH SINUS ARRHYTHMIA LOW QRS VOLTAGE IN PRECORDIAL LEADS [QRS DEFLECTION < 1.0 mV IN CHEST LEADS] NONSPECIFIC T-WAVE ABNORMALITY Compared to ECG 07/24/2021 21:03:02 Low QRS voltage now present Possible ischemia no longer present T-wave abnormality still present Electronically Signed On 08-22-2021 19:26:28 CDT by Warren Mohr M.D. [email or web address]
[2021-08-22 12:08] VITALS: BP 138/87; PULSE 77; RESP 27; O2SAT 99
[2021-08-22 12:17] LABS: ABG PCO2 59.5 mmHg (35-45); ABG PH Result 7.28 (7.35-7.45); Arterial Blood Gas Hematocrit 36.3 % (37-47); Base Excess ABG 0.1 mmol/L (-2.0-2.0); Blood Gas Allen Test Pos; Blood Gas Sample Site Radial, left; Blood Gas Sample Type Arterial; HCO3 ABG 27.9 mmol/L (22-26); Oxygen Device NC; PO2 ABG 79.1 mmHg (80.0-100.0)
[2021-08-22 12:45] LABS: Basophils # 0.1 10^3/uL (0.0-0.1); Basophils % 0.7 %; Eosinophils # 0.2 10^3/uL (0.0-0.8); Eosinophils % 2.5 %; Hematocrit 39.4 % (37.0-47.0); Hemoglobin 11.5 g/dL (11.5-15.3); Lymphocytes # 3.3 10^3/uL (0.8-4.8); Lymphocytes % 44.9 %; Mean Corpuscular HGB Conc 29.2 g/dL (30.0-36.0); Mean Corpuscular Hemoglobin 24.9 pg (28.0-34.0); Mean Corpuscular Volume 85.5 fl (81-99); Mean Platelet Volume 11.3 fL (7.4-10.4); Monocytes # 0.4 10^3/uL (0.2-0.9); Monocytes % 5.6 %; Neutrophils # 3.36 10^3/uL (1.8-7.7); Nucleated Red Blood Cells % 0 %; Platelet Count 227 10^3/cmm (130-400); Red Blood Count 4.61 10^6/uL (4.1-5.3); White Blood Count 7.3 10^3/uL (4.0-10.0)
[2021-08-22 12:47] VITALS: BP 114/65; PULSE 81; RESP 19; O2SAT 986
[2021-08-22 13:07] LABS: Add Urine Microscopic? YES; Bacteria Urine TRACE /hpf; Bilirubin Urine Neg (Negative); Blood Urine Neg (Negative); Glucose Urine UA Norm (Normal); Ketones Urine 1+ (Negative); Leukocyte Esterase Urine Negative (Negative); Mucus Urine 1+ /hpf; Nitrate Urine Negative (Negative); Protein Urine Trace (Negative); RBC Urine 0-4 /hpf (0-2); Squamous Epithelial Cell Urine 0-4 /hpf (0-5); Urine Appearance Clear (CLEAR); Urine Color Yellow (Yellow); Urobilinogen Urine Norm (Negative); WBC Urine 0-4 /hpf (0-5); pH Urine 5 (5-7)
[2021-08-22 13:08] LABS: Lactate (Lactic Acid level) 1.1 mmol/L (0.5-2.2)
[2021-08-22 13:11] LABS: Troponin(5th) Baseline 6 ng/L (0-10)
[2021-08-22 13:14] VITALS: PULSE 78; RESP 18; O2SAT 92
[2021-08-22] MEDS: ipratropium-albuterol 3 mL Neb INHALATION (13:14)
--- NOTE | 2021-08-22 13:19 | ED_ITS ---
HPI - Altered Mental Status General: Chief Complaint: Altered Mental Status Stated Complaint: AMS Time Seen by Provider: 08/22/21 11:54 History of Present Illness: 66-year-old female brought in by EMS. EMS reports that the patient's son called after visiting with her on the phone due to her being confused. When EMS arrived they found that she had a low oxygen level. That she is supposed to use home oxygen but has not been using it. Patient has no reports of recent illness. Upon arrival she is alert to person place but does not know why she is here in the ER or have any complaints. She does not follow-up on questions asked outside of her name place. I am unsure of her ba smiley but sounds like this is new confusion per her son report from EMS. Review of Systems General: Reports: Other (Limited due to her medical condition) Const: Denies: fever(s) or chills Card: Denies: chest pain or palpitations Resp: Reports: dyspnea GI: Denies: abdominal pain, nausea or vomiting Musc: Denies: neck pain or back pain Neuro: Reports: other (Please see HPI) PFSH ED PFSH: Medical History Actinic keratosis Acute hypoxemic respiratory failure due to severe acute respiratory syndrome coronavirus 2 (SARS-CoV-2) disease Bilateral primary osteoarthritis of hip Bilateral primary osteoarthritis of knee Chronic low back pain Chronic lumbar radiculopathy COPD (chronic obstructive pulmonary disease) COVID-19 Degeneration of lumbar intervertebral disc Encounter for long-term opiate analgesic use Hypothyroid Non-healing skin lesion of nose On high dose antipsychotic drug therapy Opioid contract exists Pain in right knee Pneumonia due to 2019 novel coronavirus Post-traumatic stress disorder, chronic Psychiatric care Pulmonary embolism Schizoaffective disorder, bipolar type Schizoaffective disorder, bipolar type Spondylosis without myelopathy or radiculopathy, lumbar region Transient leg paralysis Surgical History History of colostomy Family History Father Cancer Mother Cancer Other Diabetes Social History Smoking and tobacco status: former smoker Alcohol intake: former Former alcohol use details: NOT CURRENT History of recent travel: No Physical Exam Const: COMMON NORMALS: no acute distress ORIENTATION/CONSCIOUSNESS: Yes oriented to person and Yes oriented to place Eye: COMMON NORMALS: Equal, round and reactive pupils present and EOMs intact bilaterally PUPIL: Yes Equal, round and reactive pupils present Neck/C-Spine: COMMON NORMALS: full ROM Resp: AUSCULTATION: diminished lung sounds diffuse Cardio: COMMON NORMALS: regular rate and regular rhythm RATE: regular rate RHYTHM: regular rhythm GI: COMMON NORMALS: Normal to inspection, nondistended, normoactive bowel sounds present, Soft to palpation and non-tender PALPATION: Yes Soft to palpation : COMMON NORMALS: Yes no CVA tenderness BLADDER/KIDNEY EXAM: Yes no CVA tenderness Back/Pelvis: COMMON NORMALS: no CVA tenderness Extremity: COMMON NORMALS: capillary refill normal Neuro: SENSORIUM/ORIENTATION: Yes oriented to person and Yes oriented to place CRANIAL NERVES: Yes CN normal except as noted SPEECH: speech normal Skin: COMMON NORMALS: no rashes or lesions noted GENERAL SKIN EXAM: no rashes or lesions noted Course Vital Signs: Vital signs: Vital Signs Temperature 97.7 F 08/22/21 12:00 Pulse Rate 79 08/22/21 13:21 Respiratory Rate 18 08/22/21 13:14 Blood Pressure 114/65 08/22/21 12:47 Pulse Oximetry 92 08/22/21 13:14 MDM - Altered Mental Status Medical Decision Making Patient is doing significant better following her breathing treatment and having oxygen placed on her. Discussed with patient the need to be sure that she is wearing her home O2. Patient will be given Solu-Medrol 125 here in the ER. I will also prescribe her azithromycin. Patient states that she would like to build to go home now is she doing a lot better. Once again I encouraged her to wear her home oxygen at her prescribed 2 L. Patient stable upon discharge Lab Data : 08/22/21 12:20 08/22/21 12:[address] 08/22/21 11:58 IMPRESSION: No evidence of acute intracranial abnormality. No acute hemorrhage. No evidence of acute infarct or mass. Laboratory Results WBC 7.3 10^3/uL (4.0-10.0) 08/22/21 12:20 RBC 4.61 10^6/uL (4.1-5.3) 08/22/21 12:20 Hgb 11.5 g/dL (11.5-15.3) 08/22/21 12:20 Hct 39.4 % (37.0-47.0) 08/22/21 12:20 MCV 85.5 fl (81-99) 08/22/21 12:20 MCH 24.9 pg (28.0-34.0) L 08/22/21 12:20 MCHC 29.2 g/dL (30.0-36.0) L 08/22/21 12:20 RDW 26.0 % (12.1-15.1) H 08/22/21 12:20 Plt Count 227 10^3/cmm (130-400) 08/22/21 12:20 MPV 11.3 fL (7.4-10.4) H 08/22/21 12:20 Neut % (Auto) 46.0 % 08/22/21 12:20 Lymph % (Auto) 44.9 % 08/22/21 12:20 [place] % (Auto) 5.6 % 08/22/21 12:20 Eos % (Auto) 2.5 % 08/22/21 12:20 Baso % (Auto) 0.7 % 08/22/21 12:20 Neut # (Auto) 3.36 10^3/uL (1.8-7.7) 08/22/21 12:20 Lymph # (Auto) 3.3 10^3/uL (0.8-4.8) 08/22/21 12:20 [place] # (Auto) 0.4 10^3/uL (0.2-0.9) 08/22/21 12:20 Eos # (Auto) 0.2 10^3/uL (0.0-0.8) 08/22/21 12:20 Baso # (Auto) 0.1 10^3/uL (0.0-0.1) 08/22/21 12:20 Nucleated RBC % (auto) 0 % 08/22/21 12:20 Nucleated RBCs # 0.0 /100WBC 08/22/21 12:20 Specimen Type Arterial 08/22/21 12:07 Sample Site Radial, left 08/22/21 12:07 ABG pH 7.28 (7.35-7.45) L 08/22/21 12:07 ABG pCO2 59.5 mmHg (35-45) H 08/22/21 12:07 ABG pO2 79.1 mmHg (80.0-100.0) L 08/22/21 12:07 ABG HCO3 27.9 mmol/L (22-26) H 08/22/21 12:07 ABG Base Excess 0.1 mmol/L (-2.0-2.0) 08/22/21 12:07 Demian Test Pos 08/22/21 12:07 Hematocrit 36.3 % (37-47) L 08/22/21 12:07 O2 Delivery Device Nc 08/22/21 12:07 O2 Liters/Min 5.0 % 08/22/21 12:07 Computer Compositor ID Braxton 08/22/21 12:07 Sodium 138 mmol/L (136-145) 08/22/21 12:20 Potassium 3.8 mmol/L (3.5-5.1) 08/22/21 12:20 Chloride 100 mmol/L (98-107) 08/22/21 12:20 Carbon Dioxide 26 mmol/L (22-29) 08/22/21 12:20 Anion Gap 15.8 (5-19) 08/22/21 12:20 BUN 16 mg/dL (8-23) 08/22/21 12:20 Creatinine 1.1 mg/dL (0.5-0.9) H 08/22/21 12:20 GFR Calculation 49.7 mL/min (90-130) L 08/22/21 12:20 Glucose 105 mg/dL (65-115) 08/22/21 12:20 Calculated Osmolality 288 mOsm/kg (285-295) 08/22/21 12:20 Lactate 1.1 mmol/L (0.5-2.2) 08/22/21 12:20 Calcium 8.4 mg/dL (8.5-10.5) L 08/22/21 12:20 Magnesium 2.0 mg/dL (1.7-2.3) 08/22/21 12:20 Total Bilirubin 0.2 mg/dL (0.15-1.2) 08/22/21 12:20 AST 20 U/L (0-32) 08/22/21 12:20 ALT 15 U/L (0-33) 08/22/21 12:20 Alkaline Phosphatase 175 IU/L (35-105) H 08/22/21 12:20 Troponin T Baseline 6 ng/L (0-10) 08/22/21 12:20 C-Reactive Protein 20.6 mg/L (0.0-4.9) H 08/22/21 12:20 NT-Pro-B Natriuret Pep 39 pg/mL (0-125) 08/22/21 12:20 Total Protein 7.2 g/dL (6.6-8.7) 08/22/21 12:20 Albumin 4.2 g/dL (3.5-5.2) 08/22/21 12:20 Globulin 3.0 g/dL (1.3-4.6) 08/22/21 12:20 Urine Color Yellow (Yellow) 08/22/21 12:46 Urine Appearance Clear (CLEAR) 08/22/21 12:46 Urine pH 5 (5-7) 08/22/21 12:46 Ur Specific [place] 1.030 (1.005-1.030) 08/22/21 12:46 Urine Protein Trace (Negative) 08/22/21 12:46 Urine Glucose (UA) Norm (Normal) 08/22/21 12:46 Urine Ketones 1+ (Negative) H 08/22/21 12:46 Urine Blood Neg (Negative) 08/22/21 12:46 Urine Nitrate Negative (Negative) 08/22/21 12:46 Urine Bilirubin Neg (Negative) 08/22/21 12:46 Urine Urobilinogen Norm mg/dL (Negative) 08/22/21 12:46 Ur Leukocyte Esterase Negative (Negative) 08/22/21 12:46 Urine RBC 0-4 /hpf (0-2) H 08/22/21 12:46 Urine WBC 0-4 /hpf (0-5) H 08/22/21 12:46 Ur Squamous Epith Cells 0-4 /hpf (0-5) H 08/22/21 12:46 Amorphous Sediment Not Reportable 08/22/21 12:46 Urine Bacteria Trace /hpf (NONE) 08/22/21 12:46 Urine Mucus 1+ /hpf 08/22/21 12:46 Discharge Plan Discharge Patient Disposition: Home Clinical Impression: COPD with acute bronchitis, Chronic respiratory failure with hypoxia, on home O2 therapy Condition: Stable Prescriptions: New azithromycin 250 mg tablet See Rx Instructions .ROUTE .COMPLEX Qty: 6 0RF Rx Instructions: For 250 mg dose pack: take 500 mg today (day 1), then 250 mg for 4 days (days 2-5) No Action (DME) Portable oxygen concentrator See Rx Instructions .Route .MEDSUPPLY Qty: 1 0RF Rx Instructions: 5 liters continuous oxygen tizanidine 4 mg tablet 4 mg PO TID PRN (Reason: muscle spasticity) 30 Days Qty: 90 0RF Viibryd 10 mg tablet 10 mg PO TID Qty: 90 2RF trazodone 100 mg tablet 200 mg PO DAILY Qty: 60 2RF gabapentin 600 mg tablet 600 mg PO TID@0600,1200,1800 0RF oxycodone 20 mg tablet 20 mg PO BID PRN (Reason: pain) 30 Days Qty: 60 0RF albuterol sulfate 2.5 mg /3 mL (0.083 %) solution for nebulization 2.5 mg INHALATION QID MDD SEE PHARMACY COMMENT PRN (Reason: shortness of breath or wheezing) Qty: 90 0RF lovastatin 40 mg tablet 40 mg PO DAILY@1800 Qty: 30 3RF solifenacin 10 mg tablet See Rx Instructions .ROUTE .COMPLEX Qty: 90 3RF Dose Instruction: TAKE 1 TABLET BY MOUTH EVERY DAY Rx Instructions: TAKE 1 TABLET BY MOUTH EVERY DAY aspirin 81 mg tablet,delayed release (DR/EC) 81 mg PO QAM Qty: 30 3RF ropinirole 2 mg tablet 2 - 4 mg PO BEDTIME Qty: 180 0RF lamotrigine 200 mg tablet 200 mg PO DAILY Qty: 30 2RF quetiapine [Seroquel] 400 mg tablet 1,200 mg PO BEDTIME Qty: 90 2RF ziprasidone HCl [Geodon] 80 mg capsule 80 mg PO TID@0600,1200,1800 Qty: 90 2RF Hold Instructions: Resume on 02/02/21. levothyroxine 75 mcg tablet See Rx Instructions .ROUTE .COMPLEX Qty: 60 0RF Dose Instruction: TAKE 1 TABLET BY MOUTH EVERY DAY *NEEDS TSH CHECK BEFORE THIS SCRIPT RUNS COMPLETELY OUT* Rx Instructions: TAKE 1 TABLET BY MOUTH EVERY DAY *NEEDS TSH CHECK BEFORE THIS SCRIPT RUNS COMPLETELY OUT* budesonide 90 mcg/actuation aerosol powdr breath activated 1 inh inhalation BID Qty: 1 0RF Vitamin B-12 1,000 mcg Tablet 1,000 mcg PO DAILY 30 Days Qty: 30 0RF Protonix 40 mg tablet,delayed release (DR/EC) 40 mg PO BID 30 Days Qty: 60 0RF ferrous sulfate 325 mg (65 mg iron) tablet 325 mg PO BID 30 Days Qty: 60 0RF Discharge Orders: Discharge ED (Routine); Ordered 08/22/21 Ordered By: Johnson Castro Referrals: Homero Arango MD [Primary Care Provider] - Discharge Diet: Usual diet Discharge Activity: Resume usual activity Patient Instructions: COPD, Using Oxygen at Home (ED), Opioid Safety Activity Restrictions/Additional Instructions: Please be sure to use your home oxygen as prescribed, take your respiratory medications as prescribed. Follow-up with your primary care provider in 3 days. Coding Level of Care Code ED Placement Manager for Srini Fwd Exam Comprehensive
[2021-08-22 13:20] LABS: Alanine Aminotransferase 15 U/L (0-33); Albumin Level 4.2 g/dL (3.5-5.2); Alkaline Phosphatase 175 IU/L (35-105); Blood Urea Nitrogen 16 mg/dL (8-23); C Reactive Protein 20.6 mg/L (0.0-4.9); Calcium 8.4 mg/dL (8.5-10.5); Carbon Dioxide 26 mmol/L (22-29); Chloride 100 mmol/L (98-107); Glomerular Filtration Rate 49.7 mL/min (90-130); Glucose 105 mg/dL (65-115); NT Pro B Type Natriuretic Pept 39 pg/mL (0-125); Osmolality Calculated 288 mOsm/kg (285-295); Sodium 138 mmol/L (136-145); Total Bilirubin 0.2 mg/dL (0.15-1.2); Total Protein 7.2 g/dL (6.6-8.7)
[2021-08-22 13:21] VITALS: PULSE 79
[2021-08-22 13:40] LABS: Anion Gap 15.8 (5-19); Aspartate Amino Transferase 20 U/L (0-32); Potassium 3.8 mmol/L (3.5-5.1); Slide Review Slide Review Perform
[2021-08-22 16:00] VITALS: BP 133/86
[2021-08-22 20:36] LABS: Glucose Point of Care 118 mg/dL (70-110)
== END 2021-08-22 14:50 | disposition home or self-care (01) ==
PROVIDERS: Emergency Provider Student in an Organized Health Care Education/Training Program; PCP Internal Medicine
DX: J44.0 Chronic obstructive pulmonary disease with (acute) lower respiratory infection (principal); J20.9 Acute bronchitis, unspecified; J96.11 Chronic respiratory failure with hypoxia; Z99.81 Dependence on supplemental oxygen; Z79.82 Long term (current) use of aspirin; Z79.891 Long term (current) use of opiate analgesic; Z87.891 Personal history of nicotine dependence
CPT/HCPCS: 36416; 36600; 70450; 71045; 80053; 81001; 82803; 82962; 83605; 83735; 83880; 84484; 85025; 86140; 93005; 94640; 99284

== ENCOUNTER 2021-10-16 13:50 | Inpatient (IN) | payer MEDICAID, SELFPAY ==
[2021-10-16] VITALS (32 sets, daily range): BP systolic 116–188; BP diastolic 66–132; PULSE 77–87; RESP 12–26; TEMP 36.4–36.8; O2SAT 95–100; BMI 32.3
--- NOTE | 2021-10-16 14:14 | ECG_ITS ---
[facility] Test Date: 2021-10-16 Pat Name: Humera Navarrete Department: Room: Gender: Female Crocheter: : 1955 Requested By: Peter Maurice Order Number: [id number] Margarita MD: Melissa Bagley M.D. Measurements Intervals [place] Rate: 78 P: 43 MT: 171 QRS: 50 QRSD: 116 T: 53 QT: 415 QTc: 474 Interpretive Statements SINUS RHYTHM WITH OCCASIONAL SUPRAVENTRICULAR PREMATURE COMPLEXES LOW QRS VOLTAGE IN PRECORDIAL LEADS [QRS DEFLECTION < 1.0 mV IN CHEST LEADS] MODERATE INTRAVENTRICULAR CONDUCTION DELAY NONSPECIFIC T-WAVE ABNORMALITY Compared to ECG 08/22/2021 12:30:49 Intraventricular conduction delay now present Sinus arrhythmia no longer present T-wave abnormality still present Electronically Signed On 10-17-2021 13:02:09 CDT by Melissa Bagley M.D. [id number]
[2021-10-16 14:22] LABS: Basophils # 0.1 10^3/uL (0.0-0.1); Basophils % 0.5 %; Eosinophils # 0.2 10^3/uL (0.0-0.8); Hematocrit 41.1 % (37.0-47.0); Hemoglobin 12.7 g/dL (11.5-15.3); Lymphocytes # 4.2 10^3/uL (0.8-4.8); Lymphocytes % 39.3 %; Mean Corpuscular HGB Conc 30.9 g/dL (30.0-36.0); Mean Corpuscular Hemoglobin 26.6 pg (28.0-34.0); Mean Platelet Volume 11.8 fL (7.4-10.4); Monocytes # 0.5 10^3/uL (0.2-0.9); Monocytes % 4.9 %; Neutrophils # 5.69 10^3/uL (1.8-7.7); Neutrophils % 53.1 %; Nucleated Red Blood Cells % 0 %; Platelet Count 232 10^3/cmm (130-400); Red Blood Count 4.78 10^6/uL (4.1-5.3); Red Cell Distribution Width 19.4 % (12.1-15.1); White Blood Count 10.7 10^3/uL (4.0-10.0)
[2021-10-16] MEDS: naloxone 0.4 mg/ml SDV IVP (14:27)
--- NOTE | 2021-10-16 14:40 | ED_ITS ---
HPI - Overdose General: Chief Complaint: Overdose Stated Complaint: AMS Time Seen by Provider: 10/16/21 13:57 History of Present Illness: Patient is brought in by EMS after being found minimally responsive during a well person check. Patient was noted to be hypoxic and with decreased respirations. EMS noticed she had OxyContin 20 mg tablets that were filled 3 days ago missing 30 tablets. I gave the patient Narcan with significant improvement in her mental status, and respiratory status. Upon arrival the patient is alert and oriented. She states she was taking the medication for the pain in her back, but has no intention of hurting herself. The Narcan was given about 20 minutes prior to arrival. Review of Systems Const: Denies: fever(s) or body aches Eyes: Denies: change in vision or blurry vision ENMT: Denies: throat pain or odynophagia Card: Denies: chest pain or palpitations Resp: Denies: dyspnea or productive cough GI: Denies: abdominal pain, nausea or vomiting : Denies: flank pain or dysuria Musc: Reports: back pain; Denies: neck pain Skin/Breast: Denies: rash or pruritus Neuro: Denies: headache(s) or numbness in extremities Psych: Denies: anxiety or change in appetite Endo: Denies: polyuria or excessive sweating PFSH ED PFSH: Medical History Actinic keratosis Acute hypoxemic respiratory failure due to severe acute respiratory syndrome coronavirus 2 (SARS-CoV-2) disease Bilateral primary osteoarthritis of hip Bilateral primary osteoarthritis of knee Chronic low back pain Chronic lumbar radiculopathy COPD (chronic obstructive pulmonary disease) COVID-19 Degeneration of lumbar intervertebral disc Encounter for long-term opiate analgesic use Hypothyroid Non-healing skin lesion of nose On high dose antipsychotic drug therapy Opioid contract exists Pain in right knee Pneumonia due to 2019 novel coronavirus Post-traumatic stress disorder, chronic Psychiatric care Pulmonary embolism Schizoaffective disorder, bipolar type Schizoaffective disorder, bipolar type Spondylosis without myelopathy or radiculopathy, lumbar region Transient leg paralysis Surgical History History of colostomy Family History Father Cancer Mother Cancer Other Diabetes Social History Smoking and tobacco status: former smoker Alcohol intake: former Former alcohol use details: NOT CURRENT History of recent travel: No Physical Exam Const: COMMON NORMALS: no acute distress, patient oriented x3, healthy appearing and alert HENMT: COMMON NORMALS: normocephalic and atraumatic HEAD & SCALP: normocep halic and atraumatic Eye: COMMON NORMALS: Equal, round and reactive pupils present and EOMs intact bilaterally PUPIL: Yes Equal, round and reactive pupils present Neck/C-Spine: COMMON NORMALS: full ROM and supple Resp: COMMON NORMALS: normal respiratory effort, No retractions and No use of accessory muscles Cardio: COMMON NORMALS: regular rate and regular rhythm RATE: regular rate RHYTHM: regular rhythm GI: COMMON NORMALS: Normal to inspection, nondistended, normoactive bowel sounds present, Soft to palpation and non-tender PALPATION: Yes Soft to palpation Back/Pelvis: COMMON NORMALS: thoracic and lumbar spine normal to inspection and no thoracic nor lumbar tenderness Extremity: COMMON NORMALS: normal to inspection and full ROM Neuro: COMMON NORMALS: patient oriented x3 SENSORIUM/ORIENTATION: Yes alert Psych: COMMON NORMALS: mental status grossly normal and cooperative Skin: COMMON NORMALS: no rashes or lesions noted and no wounds GENERAL SKIN EXAM: no rashes or lesions noted Course Vital Signs: Vital signs: Vital Signs Temperature 98.2 F 10/16/21 14:07 Pulse Rate 85 10/16/21 16:24 Respiratory Rate 14 10/16/21 16:24 Blood Pressure 154/81 10/16/21 16:24 Pulse Oximetry 97 10/16/21 16:24 MDM - Overdose Medical Decision Making Patient is brought in by EMS after being found minimally responsive during a well person check. Patient was noted to be hypoxic and with decreased respirations. EMS noticed she had OxyContin 20 mg tablets that were filled 3 da ys ago missing 30 tablets. I gave the patient Narcan with significant improvement in her mental status, and respiratory status. Upon arrival the patient is alert and oriented. She states she was taking the medication for the pain in her back, but has no intention of hurting herself. The Narcan was given about 20 minutes prior to arrival. Will check labs, closely observe patient as I suspect we will have to placed on a Narcan drip given the amount of OxyContin that she took, and reassess. On reassessment the patient is again hypoxic and her respirations and mental status are decreasing. We will place her on a Narcan drip after giving her another bolus dose. On reassessment the patient is doing much better on the Narcan drip. She is still sleeping, however she awakens easily to voice and is much more lucid when she is awake. I discussed the case with the hospitalist and we will admit to the ICU for further management of her accidental OxyContin overdose. Lab Data : 10/16/21 14:07 10/16/21 14:07 Laboratory Results WBC 10.7 10^3/uL (4.0-10.0) H 10/16/21 14:07 RBC 4.78 10^6/uL (4.1-5.3) 10/16/21 14:07 Hgb 12.7 g/dL (11.5-15.3) 10/16/21 14:07 Hct 41.1 % (37.0-47.0) 10/16/21 14:07 MCV 86.0 fl (81-99) 10/16/21 14:07 MCH 26.6 pg (28.0-34.0) L 10/16/21 14:07 MCHC 30.9 g/dL (30.0-36.0) 10/16/21 14:07 RDW 19.4 % (12.1-15.1) H 10/16/21 14:07 Plt Count 232 10^3/cmm (130-400) 10/16/21 14:07 MPV 11.8 fL (7.4-10.4) H 10/16/21 14:07 Neut % (Auto) 53.1 % 10/16/21 14:07 Lymph % (Auto) 39.3 % 10/16/21 14:07 [place] % (Auto) 4.9 % 10/16/21 14:07 Eos % (Auto) 2.0 % 10/16/21 14:07 Baso % (Auto) 0.5 % 10/16/21 14:07 Neut # (Auto) 5.69 10^3/uL (1.8-7.7) 10/16/21 14:07 Lymph # (Auto) 4.2 10^3/uL (0.8-4.8) 10/16/21 14:07 [place] # (Auto) 0.5 10^3/uL (0.2-0.9) 10/16/21 14:07 Eos # (Auto) 0.2 10^3/uL (0.0-0.8) 10/16/21 14:07 Baso # (Auto) 0.1 10^3/uL (0.0-0.1) 10/16/21 14:07 Nucleated RBC % (auto) 0 % 10/16/21 14:07 Nucleated RBCs # 0.0 /100WBC 10/16/21 14:07 Sodium 141 mmol/L (136-145) 10/16/21 14:07 Potassium 4.3 mmol/L (3.5-5.1) 10/16/21 14:07 Chloride 103 mmol/L (98-107) 10/16/21 14:07 Carbon Dioxide 27 mmol/L (22-29) 10/16/21 14:07 Anion Gap 15.3 (5-19) 10/16/21 14:07 BUN 20 mg/dL (8-23) 10/16/21 14:07 Creatinine 1.5 mg/dL (0.5-0.9) H 10/16/21 14:07 GFR Calculation 34.7 mL/min (90-130) L 10/16/21 14:07 Glucose 123 mg/dL (65-115) H 10/16/21 14:07 Calculated Osmolality 296 mOsm/kg (285-295) H 10/16/21 14:07 Calcium 8.5 mg/dL (8.5-10.5) 10/16/21 14:07 Total Bilirubin 0.2 mg/dL (0.15-1.2) 10/16/21 14:07 AST 18 U/L (0-32) 10/16/21 14:07 ALT 15 U/L (0-33) 10/16/21 14:07 Alkaline Phosphatase 155 IU/L (35-105) H 10/16/21 14:07 Total Protein 7.6 g/dL (6.6-8.7) 10/16/21 14:07 Albumin 4.2 g/dL (3.5-5.2) 10/16/21 14:07 Globulin 3.4 g/dL (1.3-4.6) 10/16/21 14:07 Salicylates < 0.3 mg/dL (3-10) L 10/16/21 14:07 Acetaminophen < 5.0 ug/mL (10-30) L 10/16/21 14:07 Ethyl Alcohol < 10 mg/dL (0-10) 10/16/21 14:07 Critical Care Time Critical Care Time: Critical Care Time: Yes Total Critical Care Time: 35 Attestation: This case had a high probability of a clinically significant, sudden, or life threatening deterioration of this patient's condition which required my full and direct attention, intervention and personal management. Discharge Plan Discharge Patient Disposition: Placed in Observation Clinical Impression: Accidental overdose Coding Level of Care Code ED Distributor Publications for Srini Perdomo Exam Comprehensive
[2021-10-16 14:55] LABS: Alanine Aminotransferase 15 U/L (0-33); Albumin Level 4.2 g/dL (3.5-5.2); Alkaline Phosphatase 155 IU/L (35-105); Anion Gap 15.3 (5-19); Aspartate Amino Transferase 18 U/L (0-32); Blood Urea Nitrogen 20 mg/dL (8-23); Calcium 8.5 mg/dL (8.5-10.5); Carbon Dioxide 27 mmol/L (22-29); Chloride 103 mmol/L (98-107); Globulin 3.4 g/dL (1.3-4.6); Glomerular Filtration Rate 34.7 mL/min (90-130); Glucose 123 mg/dL (65-115); Osmolality Calculated 296 mOsm/kg (285-295); Potassium 4.3 mmol/L (3.5-5.1); Sodium 141 mmol/L (136-145); Total Bilirubin 0.2 mg/dL (0.15-1.2); Total Protein 7.6 g/dL (6.6-8.7)
[2021-10-16] MEDS: naloxone 2 MG in sodium chloride 0.9% (100 ml) 100 ML 20.4 MG IV ×2 (15:12→20:36)
[2021-10-16 15:36] LABS: Acetaminophen < 5.0 ug/mL (10-30); Alcohol Level < 10 mg/dL (0-10); Salicylate < 0.3 mg/dL (3-10)
[2021-10-16] MEDS: sodium chloride 0.9% 1,000 ML 999 ML IV (15:47)
--- NOTE | 2021-10-16 15:48 | PC.NURSE ---
Patient in bed, wakes up when spoken to. Patient drowsy but able to be stimulated with verbal communication. Patient denies any needs at this time, no distress noted. Patient call light within reach.
--- NOTE | 2021-10-16 17:04 | P.HP_ITS ---
Providers/Chief Complaint Primary Care Provider: Homero Arango MD Chief Complaint: AMS History of Present Illness Humera Navarrete is a 66 year old female who has been prescribed OxyContin for her back pain presented after taking 30 of them in last 48 hours, patient was prescribed OxyContin [address] Arango 3 days ago. She takes opiates for her back pain. She lives alone. Today when son checked on her she was normally responsive. EMS was called she was given Narcan, she was able to protect her airway, in the ER she was started on Narcan drip. EKG showing sinus rhythm, she is hemodynamically stable, she is opening her eyes and able to answer my questions however not able to recall events from the morning. She a sked me to turn on the TV. She was able to tell me that she lives alone and her son checked on her today. Currently on 2 L nasal cannula Review of Systems Const: Denies: fever(s) Eyes: Denies: change in vision ENMT: Denies: throat pain Card: Denies: chest pain Resp: Denies: dyspnea GI: Denies: abdominal pain : Denies: flank pain Musc: Denies: neck pain Skin/Breast: Denies: rash Neuro: Denies: headache(s) Psych: Denies: anxiety Endo: Denies: polyuria Mayank/Lymph: Denies: easy bruising All/Imm: Denies: urticaria Medications/Allergies Home Medications Medication Instructions Recorded Confirmed Last Taken Type albuterol sulfate 2.5 mg (3 mL) INHALATION QID PRN 07/16/20 10/16/21 Unknown Rx #90 ml Portable oxygen concentrator #1 ea 01/26/21 10/16/21 Unknown Rx lovastatin 40 mg tablet 40 mg PO DAILY@1800 #30 tab 05/27/21 10/16/21 Unknown Rx lamotrigine 200 mg tablet 200 mg PO DAILY #30 tab 07/13/21 10/16/21 Unknown Rx ziprasidone HCl 80 mg capsule 80 mg PO TID@0600,1200,1800 #90 cap 07/13/21 10/16/21 Unknown Rx (Geodon) pantoprazole 40 mg tablet,delayed 40 mg PO BID 30 Days #60 tab 07/27/21 10/16/21 Unknown Rx release (Protonix) levothyroxine 75 mcg tablet See Rx Instructions .ROUTE 08/16/21 10/16/21 Unknown Rx .COMPLEX #60 tab ropinirole 2 mg tablet 2 - 4 mg PO BEDTIME #180 tab 09/13/21 10/16/21 Unknown Rx trazodone 100 mg tablet 200 mg PO DAILY #60 tab 09/16/21 10/16/21 Unknown Rx vilazodone 10 mg tablet (Viibryd) 10 mg PO TID #90 tab 09/16/21 10/16/21 Unknown Rx aspirin 81 mg tablet,delayed 81 mg PO QAM #30 tab 10/06/21 10/16/21 Unknown Rx release budesonide 90 mcg/actuation breath 1 inh INHALATION BID #1 ea 10/12/21 10/16/21 Unknown Rx activated powder inhaler oxycodone 20 mg tablet 20 mg PO BID PRN 30 Days #60 tab 10/12/21 10/16/21 10/16/21 Rx quetiapine 400 mg tablet (Seroquel) 1,200 mg PO BEDTIME #90 tab 10/12/21 10/16/21 Unknown Rx solifenacin 10 mg tablet 10 mg PO DAILY 10/16/21 10/16/21 Unknown History Allergies Allergy/AdvReac Type Severity Reaction Status Date / Time divalproex sodium AdvReac BEHAVIORAL Verified 10/16/21 16:58 [From Depakote] CHANGES NAUSEA AND VOMITING lithium AdvReac BEHAVIORAL Verified 10/16/21 16:58 CHANGES NAUSEA AND VOMITING PFSH Acute PFSH: Medical History Actinic keratosis Acute hypoxemic respiratory failure due to severe acute respiratory syndrome coronavirus 2 (SARS-CoV-2) disease Bilateral primary osteoarthritis of hip Bilateral primary osteoarthritis of knee Chronic low back pain Chronic lumbar radiculopathy COPD (chronic obstructive pulmonary disease) COVID-19 Degeneration of lumbar intervertebral disc Encounter for long-term opiate analgesic use Hypothyroid Non-healing skin lesion of nose On high dose antipsychotic drug therapy Opioid contract exists Pain in right knee Pneumonia due to 2019 novel coronavirus Post-traumatic stress disorder, chronic Psychiatric care Pulmonary embolism Schizoaffective disorder, bipolar type Schizoaffective disorder, bipolar type Spondylosis without myelopathy or radiculopathy, lumbar region Transient leg paralysis Surgical History History of colostomy Family History Father Cancer Mother Cancer Other Diabetes Social History Smoking and tobacco status: former smoker Alcohol intake: former Former alcohol use details: NOT CURRENT History of recent travel: No Vitals/I&O/Wt Last Vital Signs Temp 98.2 F 10/16/21 14:07 Pulse 85 10/16/21 16:58 Resp 12 10/16/21 16:58 BP 156/96 10/16/21 16:58 Pulse Ox 97 10/16/21 16:58 Weight last 48 hrs Weight 90.718 kg Physical Exam Narrative: Very pleasant cooperative female Drowsy Currently on Narcan drip Hemodynamically stable Currently on 2 L cannula No active signs of respiratory depression No respiratory distress Awake Asked me to turn on the TV NIH score 0 S1, S2 No respiratory distress Looks euvolemic Abdomen is soft Data : 10/16/21 14:07 10/16/21 14:07 A&P Assessment and plan (1) Accidental overdose: Status: Acute (2) Iron deficiency anemia: Status: Acute Plan Accidental overdose on OxyContin Denies suicidal ideation Currently on Narcan drip Admit to ICU No QTC prolongation She is on high-dose antipsychotics as well Hold antipsychotics For her back pain would recommend Tylenol, lidocaine patch No signs of respiratory distress currently requiring 2 L nasal cannula SONYA related to dehydration, continue IV fluids Hold nephrotoxic agent Chronic lower back pain Hold opioids Monitor for signs of opiate withdrawal Judicious use of clonidine Patient is full code She is able to protect her airways, Cardiac diet DVT prophylaxis Heparin GERD: Protonix Hypothyroid: Continue levothyroxine Restless leg syndrome hold ropinirole for now Attestations Medical Necessity Statement*: Anticipating more than 2 midnights in the ICU currently needs monitoring for respiratory depression after overdose on OxyCont in Time Spent in Patient Care: 40 Coding Level of Care Code Acute Power Plant Engineer for Srini Perdomo Diagnoses Accidental overdose T50.901A Iron deficiency anemia D50.9
--- NOTE | 2021-10-16 17:48 | PC.NURSE ---
Report given to Stephanie GERMAN.
--- NOTE | 2021-10-16 18:10 | PC.NURSE ---
Pt arrives to [facility]. Pt alert and awake. Narcan gtt infusing into left Iv. Pt denies any pain or discomfort. Pt requesting Tv and water. Pt oriented to room and patient handbook.
[2021-10-16 18:40] LABS: Thyroid Stimulating Hormone 8.51 uIU/mL (0.27-4.20)
--- NOTE | 2021-10-16 19:10 | PC.NURSE ---
Bedside report completed with MAXI Huynh. Pt just admitted , only physical of admission completed the rest still needs done.
[2021-10-16] MEDS: pantoprazole DR 40 mg Tablet PO (20:35)
[2021-10-16] MEDS: heparin 5,000 unit/mL INJ 1 mL 5000 UNIT SUBCUT (20:35)
[2021-10-16] MEDS: sodium chloride 0.9% 1,000 ML 75 ML IV (20:36)
[2021-10-16 22:21] LABS: Amphetamines Screen Urine Negative (Negative); Barbiturates Screen Urine Negative (Negative); Benzodiazepines Screen Urine Negative (Negative); Cocaine Screen Urine Negative (Negative); Opiate Screen Urine Negative (Negative); PCP Screen Urine Negative (Negative); THC Screen Urine Positive (Negative)
[2021-10-17] VITALS (21 sets, daily range): BP systolic 99–157; BP diastolic 65–96; PULSE 60–84; RESP 10–22; TEMP 36.9–37.1; O2SAT 92–98
[2021-10-17] MEDS: naloxone 2 MG in sodium chloride 0.9% (100 ml) 100 ML 20.4 MG IV ×2 (01:50→07:01)
[2021-10-17] MEDS: acetaminophen 500 mg Tablet PO (05:30)
[2021-10-17] MEDS: heparin 5,000 unit/mL INJ 1 mL 5000 UNIT SUBCUT (05:31)
[2021-10-17] MEDS: levothyroxine 75 mcg Tablet PO (05:31)
[2021-10-17 05:39] LABS: Basophils # 0.1 10^3/uL (0.0-0.1); Basophils % 0.6 %; Eosinophils % 0.4 %; Hematocrit 38.3 % (37.0-47.0); Hemoglobin 11.9 g/dL (11.5-15.3); Lymphocytes # 2.5 10^3/uL (0.8-4.8); Lymphocytes % 29.5 %; Mean Corpuscular HGB Conc 31.1 g/dL (30.0-36.0); Mean Corpuscular Hemoglobin 26.6 pg (28.0-34.0); Mean Corpuscular Volume 85.7 fl (81-99); Mean Platelet Volume 11.6 fL (7.4-10.4); Monocytes # 0.4 10^3/uL (0.2-0.9); Monocytes % 4.3 %; Nucleated Red Blood Cells % 0 %; Platelet Count 210 10^3/cmm (130-400); Red Blood Count 4.47 10^6/uL (4.1-5.3); Red Cell Distribution Width 18.6 % (12.1-15.1); White Blood Count 8.3 10^3/uL (4.0-10.0)
[2021-10-17 06:02] LABS: Anion Gap 12.2 (5-19); Blood Urea Nitrogen 10 mg/dL (8-23); Calcium 8.5 mg/dL (8.5-10.5); Carbon Dioxide 28 mmol/L (22-29); Chloride 101 mmol/L (98-107); Glomerular Filtration Rate 62.6 mL/min (90-130); Glucose 120 mg/dL (65-115); Magnesium 2.3 mg/dL (1.7-2.3); Osmolality Calculated 284 mOsm/kg (285-295); Potassium 4.2 mmol/L (3.5-5.1); Sodium 137 mmol/L (136-145)
[2021-10-17 06:09] LABS: Slide Review Slide Review Perform
--- NOTE | 2021-10-17 06:50 | PC.NURSE ---
Bedside report completed with MAXI Huynh
[2021-10-17] MEDS: pantoprazole DR 40 mg Tablet PO (10:12)
[2021-10-17] MEDS: sennosides-docusate Tablet 1 TAB PO (10:12)
[2021-10-17] MEDS: sodium chloride 0.9% 1,000 ML 75 ML IV (10:12)
--- NOTE | 2021-10-17 11:47 | P.DS_ITS ---
Discharge Providers Date of Admission: 10/16/21 16:24 Date of Discharge: October 17, 2021 Attending Provider at Admission: Jesus Cote MD Attending Provider at Discharge: Jesus Cote MD Primary Care Provider: Homero Arango MD Diagnoses at Discharge Discharge Diagnosis (1) Accidental overdose: Status: Acute (2) Iron deficiency anemia: Status: Acute Reason for Visit Reason for Visit: AMS Hospital Course Hospital Course 66-year-old female who was admitted for management and monitoring after accidental overdose on her opioids. She was prescribed 60 tablets 4 days ago, 30 of the tablets were missing. Patient denied suicidal ideation. She was started on Narcan drip. She did not experience from sinus bradycardia, respiratory depression. Next day she was awake and alert, she wanted to go home, I have discontinued her opioids and asked her to see Dr. Arango. She is very energetic on ?19. NIH 0. She is not drowsy at all, she is not a threat to herself or the people around her. Family has been updated She is also taking marijuana and combining with her antipsychotics, antidepressants and opioids, I have counseled her not to mix all of these medications at the same time Physical Exam Narrative: Patient is awake and alert Not suicidal or homicidal No active complaints NIH 0 S1, S2 Hydrated Awake and alert Saturating well on room air No signs of respiratory depression Abdomen is soft Discharge Data Studies Completed and Pending Pending at discharge Category Date Time Status Arterial Blood Gas W/O Coox AM LABS Lab 10/17/21 04:00 Ordered Arterial Blood Gas W/O Coox Stat Lab 10/16/21 17:19 Ordered Laboratory Results WBC 8.3 10^3/uL (4.0-10.0) 10/17/21 05:20 RBC 4.47 10^6/uL (4.1-5.3) 10/17/21 05:20 Hgb 11.9 g/dL (11.5-15.3) 10/17/21 05:20 Hct 38.3 % (37.0-47.0) 10/17/21 05:20 MCV 85.7 fl (81-99) 10/17/21 05:20 MCH 26.6 pg (28.0-34.0) L 10/17/21 05:20 MCHC 31.1 g/dL (30.0-36.0) 10/17/21 05:20 RDW 18.6 % (12.1-15.1) H 10/17/21 05:20 Plt Count 210 10^3/cmm (130-400) 10/17/21 05:20 MPV 11.6 fL (7.4-10.4) H 10/17/21 05:20 Neut % (Auto) 65.0 % 10/17/21 05:20 Lymph % (Auto) 29.5 % 10/17/21 05:20 Swisher % (Auto) 4.3 % 10/17/21 05:20 Eos % (Auto) 0.4 % 10/17/21 05:20 Baso % (Auto) 0.6 % 10/17/21 05:20 Neut # (Auto) 5.40 10^3/uL (1.8-7.7) 10/17/21 05:20 Lymph # (Auto) 2.5 10^3/uL (0.8-4.8) 10/17/21 05:20 Swisher # (Auto) 0.4 10^3/uL (0.2-0.9) 10/17/21 05:20 Eos # (Auto) 0.0 10^3/uL (0.0-0.8) 10/17/21 05:20 Baso # (Auto) 0.1 10^3/uL (0.0-0.1) 10/17/21 05:20 Nucleated RBC % (auto) 0 % 10/17/21 05:20 Nucleated RBCs # 0.0 /100WBC 10/17/21 05:20 Sodium 137 mmol/L (136-145) 10/17/21 05:20 Potassium 4.2 mmol/L (3.5-5.1) 10/17/21 05:20 Chloride 101 mmol/L (98-107) 10/17/21 05:20 Carbon Dioxide 28 mmol/L (22-29) 10/17/21 05:20 Anion Gap 12.2 (5-19) 10/17/21 05:20 BUN 10 mg/dL (8-23) 10/17/21 05:20 Creatinine 0.9 mg/dL (0.5-0.9) 10/17/21 05:20 GFR Calculation 62.6 mL/min (90-130) L 10/17/21 05:20 Glucose 120 mg/dL (65-115) H 10/17/21 05:20 Calculated Osmolality 284 mOsm/kg (285-295) L 10/17/21 05:20 Calcium 8.5 mg/dL (8.5-10.5) 10/17/21 05:20 Magnesium 2.3 mg/dL (1.7-2.3) 10/17/21 05:20 Total Bilirubin 0.2 mg/dL (0.15-1.2) 10/16/21 14:07 AST 18 U/L (0-32) 10/16/21 14:07 ALT 15 U/L (0-33) 10/16/21 14:07 Alkaline Phosphatase 155 IU/L (35-105) H 10/16/21 14:07 Total Protein 7.6 g/dL (6.6-8.7) 10/16/21 14:07 Albumin 4.2 g/dL (3.5-5.2) 10/16/21 14:07 Globulin 3.4 g/dL (1.3-4.6) 10/16/21 14:07 TSH 8.51 uIU/mL (0.27-4.20) H 10/16/21 14:07 Salicylates < 0.3 mg/dL (3-10) L 10/16/21 14:07 Urine Opiates Screen Negative ng/mL (Negative) 10/16/21 21:45 Acetaminophen < 5.0 ug/mL (10-30) L 10/16/21 14:07 Ur Barbiturates Screen Negative ng/mL (Negative) 10/16/21 21:45 Ur Phencyclidine Scrn Negative ng/mL (Negative) 10/16/21 21:45 Ur Amphetamines Screen Negative ng/mL (Negative) 10/16/21 21:45 U Benzodiazepines Scrn Negative ng/mL (Negative) 10/16/21 21:45 Urine Cocaine Screen Negative ng/mL (Negative) 10/16/21 21:45 U Marijuana (THC) Screen Positive ng/mL (Negative) H 10/16/21 21:45 Ethyl Alcohol < 10 mg/dL (0-10) 10/16/21 14:07 Vitals Last Vital Signs Temp 98.6 F 10/17/21 07:30 Pulse 78 10/17/21 10:25 Resp 17 10/17/21 10:25 BP 114/69 10/17/21 07:30 Pulse Ox 92 10/17/21 10:25 Discharge Plan Discharge Patient Disposition: Home Condition: Stable Prescriptions: Continued (DME) Portable oxygen concentrator See Rx Instructions .Route .MEDSUPPLY Qty: 1 0RF Rx Instructions: 5 liters continuous oxygen budesonide 90 mcg/actuation aerosol powdr breath activated 1 inh inhalation BID Qty: 1 0RF albuterol sulfate 2.5 mg /3 mL (0.083 %) solution for nebulization 2.5 mg INHALATION QID PRN (Reason: shortness of breath or wheezing) Qty: 90 0RF lovastatin 40 mg tablet 40 mg PO DAILY@1800 Qty: 30 3RF lamotrigine 200 mg tablet 200 mg PO DAILY Qty: 30 2RF ziprasidone HCl [Geodon] 80 mg capsule 80 mg PO TID@0600,1200,1800 Qty: 90 2RF Hold Instructions: Resume on 02/02/21. levothyroxine 75 mcg tablet See Rx Instructions .ROUTE .COMPLEX Qty: 60 0RF Dose Instruction: TAKE 1 TABLET BY MOUTH EVERY DAY *NEEDS TSH CHECK BEFORE THIS SCRIPT RUNS COMPLETELY OUT* Rx Instructions: TAKE 1 TABLET BY MOUTH EVERY DAY *NEEDS TSH CHECK BEFORE THIS SCRIPT RUNS COMPLETELY OUT* ropinirole 2 mg tablet 2 - 4 mg PO BEDTIME Qty: 180 0RF Viibryd 10 mg tablet 10 mg PO TID Qty: 90 2RF aspirin 81 mg tablet,delayed release (DR/EC) 81 mg PO QAM Qty: 30 3RF quetiapine [Seroquel] 400 mg tablet 1,200 mg PO BEDTIME Qty: 90 2RF pantoprazole [Protonix] 40 mg tablet,delayed release (DR/EC) 40 mg PO BID 30 Days Qty: 60 0RF solifenacin 10 mg tablet 10 mg PO DAILY 0RF Discontinued oxycodone 20 mg tablet 20 mg PO BID PRN (Reason: pain) 30 Days Qty: 60 0RF trazodone 100 mg tablet 200 mg PO DAILY Qty: 60 2RF Discharge Orders: Discharge Order (Routine); Ordered 10/17/21 Ordered By: Jesus Cote Referrals: Homero Arango MD [Primary Care Provider] - 1-3 days Discharge Diet: Regular Discharge Activity: Increase activity as tolerated Patient Instructions: Anemia, Opioid Withdrawal (DC), Prescription Opioid Overdose (DC), Opioid Safety Discharge Attestations Time Spent in Discharge Care*: less than 30 min Status at Discharge: Cognitive status at discharge: cognitively intact , Behavioral status at discharge: cooperative , Quality Metrics Clinical Quality Measures [ No reported AMI, CVA or VTE this stay] Coding Level of Care Code Acute Chg FW DC note Diagnoses Accidental overdose T50.901A Iron deficiency anemia D50.9
--- NOTE | 2021-10-17 12:50 | PC.NURSE ---
Discharge instructions provided. Carenotes for anemia, Opiod withdrawal and opiod overdose provided and discussed. Medications continued and discontinued discussed. Follow-up appt to be made by patient Mon/Tues for 1-[address] Arango discussed. Pt verbalized understanding to all. Home medications, in pyxis, reviewed and returned to patient.
== END 2021-10-17 12:50 | disposition home or self-care (01) | DRG 918 ==
LOC: ER 16:24 → ICU 17:36
PROVIDERS: Admitting Provider Internal Medicine; Emergency Provider Emergency Medicine; PCP Internal Medicine; Visit Provider Internal Medicine
DX: T40.2X1A Poisoning by other opioids, accidental (unintentional), initial encounter (principal); N17.9 Acute kidney failure, unspecified; D50.9 Iron deficiency anemia, unspecified; R06.03 Acute respiratory distress; R41.82 Altered mental status, unspecified; R09.02 Hypoxemia; E86.0 Dehydration; M54.50 Low back pain, unspecified; G89.29 Other chronic pain; J44.9 Chronic obstructive pulmonary disease, unspecified; E03.9 Hypothyroidism, unspecified; G25.81 Restless legs syndrome; F25.0 Schizoaffective disorder, bipolar type; Z79.891 Long term (current) use of opiate analgesic; Z86.711 Personal history of pulmonary embolism; Z99.81 Dependence on supplemental oxygen; Z79.82 Long term (current) use of aspirin; Z87.891 Personal history of nicotine dependence; Z86.16 Personal history of COVID-19
CPT/HCPCS: 36415; 80048; 80053; 80306; 80307; 83735; 84443; 85025; 93005; 96365; 96366; 96372; 96375; 99285; J1644; J2310; J7030

== ENCOUNTER 2021-11-23 11:57 | Emergency (ER) | payer MEDICARE, MEDICAID, SELFPAY ==
[2021-11-23 12:03] VITALS: BP 135/55; PULSE 69; RESP 18; TEMP 36.6; O2SAT 99; BMI 30.7
--- NOTE | 2021-11-23 12:16 | CT_ITS ---
WS: [id number] CT HEAD NONCONTRAST HISTORY: ams TECHNIQUE: Contiguous axial imaging performed through the brain in 2.5 mm imaging. Bone and soft tiss ue windows. Sagittal and coronal reformats reviewed. All CT scans at [facility] use at least one of these dose optimization techniques: automated exposure control; mA and/or kV adjustment per pa tient size (includes targeted exams where dose is matched to clinical indication); or iterative recon struction. DLP: 1021.06 mGy.cm COMPARISON: 08/22/2021 No acute intracranial hemorrhage, midline shift or mass effect. No atrophy or prior infarcts or herniation. Minimal small vessel ischemic disease. No prior infarct. Ventricles: Normal size with no hydrocephalus. No inferior displacement of the cerebellar tonsils. Paranasal sinuses: As visualized are clear. Mastoid air cells: Well pneumatized. Calvarium and scalp: Skull is intact with no soft tissue edema or swelling. CT/CT head wo con* [id number] IMPRESSION: 1. No acute intracranial hemorrhage or edema. 2. Mild small vessel ischemic disease.
--- NOTE | 2021-11-23 12:16 | XR_ITS ---
WS: [id number] Exam: XR chest 1V portable [id number] Date/Time of Exam: 11/23/2021 12:27 PM Reason For Exam: ams Comparison 08/22/2021. The lungs are fully expanded and clear. Cardiomediastinal silhouette is unremarkable. There is eventr ation of the right diaphragm which is chronic. No pleural effusion. Bony structures are intact. XR/XR chest 1V portable [id number] IMPRESSION: 1. No acute cardiopulmonary process. 2. Chronic eventration of the right diaphragm.
--- NOTE | 2021-11-23 12:28 | ED_ITS ---
HPI - Altered Mental Status General: Chief Complaint: Altered Mental Status Stated Complaint: AMS Time Seen by Provider: 11/23/21 11:58 [facility] PFSH: Medical History Actinic keratosis Acute hypoxemic respiratory failure due to severe acute respiratory syndrome coronavirus 2 (SARS-CoV-2) disease Bilateral primary osteoarthritis of hip Bilateral primary osteoarthritis of knee Chronic low back pain Chronic lumbar radiculopathy COPD (chronic obstructive pulmonary disease) COVID-19 Degeneration of lumbar intervertebral disc Encounter for long-term opiate analgesic use Hypothyroid Non-healing skin lesion of nose On high dose antipsychotic drug therapy Opioid contract exists Pain in right knee Pneumonia due to 2019 novel coronavirus Post-traumatic stress disorder, chronic Psychiatric care Pulmonary embolism Schizoaffective disorder, bipolar type Schizoaffective disorder, bipolar type Spondylosis without myelopathy or radiculopathy, lumbar region Transient leg paralysis Surgical History History of colostomy Family History Father Cancer Mother Cancer Other Diabetes Social History Smoking and tobacco status: former smoker Alcohol intake: former Former alcohol use details: NOT CURRENT History of recent travel: No Course Vital Signs: Vital signs: Vital Signs Temperature 97.9 F 11/23/21 12:03 Pulse Rate 69 11/23/21 12:03 Respiratory Rate 18 11/23/21 12:03 Blood Pressure 135/55 11/23/21 12:03 Pulse Oximetry 99 11/23/21 12:03 Discharge Plan Discharge Condition: Stable Prescriptions: No Action (DME) Portable oxygen concentrator See Rx Instructions .Route .MEDSUPPLY Qty: 1 0RF Rx Instructions: 5 liters continuous oxygen budesonide 90 mcg/actuation aerosol powdr breath activated 1 inh inhalation BID Qty: 1 0RF albuterol sulfate 2.5 mg /3 mL (0.083 %) solution for nebulization 2.5 mg INHALATION QID PRN (Reason: shortness of breath or wheezing) Qty: 90 0RF lovastatin 40 mg tablet 40 mg PO DAILY@1800 Qty: 30 3RF lamotrigine 200 mg tablet 200 mg PO DAILY Qty: 30 2RF ziprasidone HCl [Geodon] 80 mg capsule 80 mg PO TID@0600,1200,1800 Qty: 90 2RF Hold Instructions: Resume on 02/02/21. ropinirole 2 mg tablet 2 - 4 mg PO BEDTIME Qty: 180 0RF Viibryd 10 mg tablet 10 mg PO TID Qty: 90 2RF aspirin 81 mg tablet,delayed release (DR/EC) 81 mg PO QAM Qty: 30 3RF quetiapine [Seroquel] 400 mg tablet 1,200 mg PO BEDTIME Qty: 90 2RF levothyroxine 88 mcg tablet 88 mcg PO DAILY Qty: 30 1RF Rx Instructions: recheck TSH in 6 weeks 11/15/21 pantoprazole [Protonix] 40 mg tablet,delayed release (DR/EC) 40 mg PO BID 30 Days Qty: 60 3RF oxycodone 20 mg tablet 20 mg PO BID PRN (Reason: pain) 30 Days Qty: 60 0RF solifenacin 10 mg tablet 10 mg PO DAILY 0RF Referrals: Homero Arango MD [Primary Care Provider] - Coding Level of Care Code ED Solar Photovoltaic Systems Engineer for Srini Perdomo
--- NOTE | 2021-11-23 12:40 | W.ED.GENADLT ---
HPI - General Adult General: Chief complaint: Altered Mental Status Stated complaint: AMS Time Seen by Provider: 11/23/21 11:58 History of Present Illness: Patient is a 66-year-old female with history of COVID with prior hospital admission, hypothyroidism, PVD currently not anticoagulated, schizoaffective disorder, bipolar disorder presenting to the emergency room for concerns of altered mental status. Patient does not know why she is here in the emergency room. Patient is occasionally answering question smiling and laughing when not prompted. Patient tells me that she has no focal complaints at this time. Onset:unknown Duration:unknown Location:home Severity:moderate Review of Systems General: Reports: ROS unobtainable due to medical condition and ROS unobtainable due to mental status PFSH ED PFSH: Medical History Actinic keratosis Acute hypoxemic respiratory failure due to severe acute respiratory syndrome coronavirus 2 (SARS-CoV-2) disease Bilateral primary osteoarthritis of hip Bilateral primary osteoarthritis of knee Chronic low back pain Chronic lumbar radiculopathy COPD (chronic obstructive pulmonary disease) COVID-19 Degeneration of lumbar intervertebral disc Encounter for long-term opiate analgesic use Hypothyroid Non-healing skin lesion of nose On high dose antipsychotic drug therapy Opioid contract exists Pain in right knee Pneumonia due to 2019 novel coronavirus Post-traumatic stress disorder, chronic Psychiatric care Pulmonary embolism Schizoaffective disorder, bipolar type Schizoaffective disorder, bipolar type Spondylosis without myelopathy or radiculopathy, lumbar region Transient leg paralysis Surgical History History of colostomy Family History Father Cancer Mother Cancer Other Diabetes Social History Smoking and tobacco status: former smoker Alcohol intake: former Former alcohol use details: NOT CURRENT History of recent travel: No Physical Exam Const: COMMON NORMALS: alert HENMT: COMMON NORMALS: atraumatic HEAD & SCALP: atraumatic MOUTH: moist mucous membranes not abnormal Eye: COMMON NORMALS: EOMs intact bilaterally and conjunctivae normal CONJUNCTIVA: Yes conjunctivae normal Neck/C-Spine: COMMON NORMALS: full ROM and supple Resp: COMMON NORMALS: normal respiratory effort and clear to auscultation bilaterally AUSCULTATION: clear to auscultation bilaterally Cardio: COMMON NORMALS: regular rate RATE: regular rate GI: COMMON NORMALS: Soft to palpation and non-tender PALPATION: Yes Soft to palpation Extremity: COMMON NORMALS: full ROM Neuro: SENSORIUM/ORIENTATION: Yes alert MOTOR EXAM: No Abnormal motor strength present and Other motor observations present (no focal motor deficits) OTHER: AAOx2, occasionally following commands, moving all extremities, CN2-12 grossly intact Psych: COMMON NORMALS: denies hallucinations, denies homicidal ideation and denies suicidal ideation; negative for Normal thought process present (non linear train of though) SPEECH: Yes Pressured speech present MOOD & AFFECT: Yes euthymic mood THOUGHT PROCESS: abnormal (non linear train of though) Course Vital Signs: Vital signs: Vital Signs Temperature 97.9 F 11/23/21 12:03 Pulse Rate 97 11/23/21 18:30 Respiratory Rate 16 11/23/21 18:30 Blood Pressure 166/78 11/23/21 17:26 Pulse Oximetry 95 11/23/21 18:30 Oxygen Delivery Me thod 11/23/21 18:30 MDM - General Adult Medical Decision Making 66-year-old female with a history of prior COVID-19, COPD, PE not currently anticoagulated, multiple psychiatric issues presenting to the emergency room for concerns of altered neuro status. On physical exam, patient is slightly disinhibited and laughing when not prompted. Patient has nonlinear train of thoughts but otherwise AAO x2, occasionally following commands. Rest of exam unremarkable. Lab work-up is largely within normal limit. UA is negative for UTI. CT head is negative for any acute findings. Dr. Ly assessed patient at bedside and tells me the patient has capacity and has a home nurse. Dr. Ly tells me the patient is stable for discharge. Disposition: Discharge. Patient counseled regarding diagnostic impression, treatment plan. Patient given ED strict return precautions to return for continuation, worsening, or development of new symptoms. Instructed to f/u w/ PCP regarding symptoms today. Patient verbalized understanding. Lab Data : 11/23/21 12:35 11/23/21 12:35 Radiology Impressions Chest X-Ray 11/23/21 12:16 IMPRESSION: 1. No acute cardiopulmonary process. 2. Chronic eventration of the right diaphragm. Head CT 11/23/21 12:16 IMPRESSION: 1. No acute intracranial hemorrhage or edema. 2. Mild small vessel ischemic disease. Laboratory Results WBC 7.8 10^3/uL (4.0-10.0) 11/23/21 12:35 RBC 4.80 10^6/uL (4.1-5.3) 11/23/21 12:35 Hgb 13.1 g/dL (11.5-15.3) 11/23/21 12:35 Hct 41.1 % (37.0-47.0) 11/23/21 12:35 MCV 85.6 fl (81-99) 11/23/21 12:35 MCH 27.3 pg (28.0-34.0) L 11/23/21 12:35 MCHC 31.9 g/dL (30.0-36.0) 11/23/21 12:35 RDW 15.0 % (12.1-15.1) 11/23/21 12:35 Plt Count 236 10^3/cmm (130-400) 11/23/21 12:35 MPV 11.2 fL (7.4-10.4) H 11/23/21 12:35 Neut % (Auto) 61.4 % 11/23/21 12:35 Lymph % (Auto) 31.1 % 11/23/21 12:35 [place] % (Auto) 5.2 % 11/23/21 12:35 Eos % (Auto) 1.4 % 11/23/21 12:35 Baso % (Auto) 0.8 % 11/23/21 12:35 Neut # (Auto) 4.77 10^3/uL (1.8-7.7) 11/23/21 12:35 Lymph # (Auto) 2.4 10^3/uL (0.8-4.8) 11/23/21 12:35 [place] # (Auto) 0.4 10^3/uL (0.2-0.9) 11/23/21 12:35 Eos # (Auto) 0.1 10^3/uL (0.0-0.8) 11/23/21 12:35 Baso # (Auto) 0.1 10^3/uL (0.0-0.1) 11/23/21 12:35 Nucleated RBC % (auto) 0 % 11/23/21 12:35 Nucleated RBCs # 0.0 /100WBC 11/23/21 12:35 Sodium 139 mmol/L (136-145) 11/23/21 12:35 Potassium 3.9 mmol/L (3.5-5.1) 11/23/21 12:35 Chloride 102 mmol/L (98-107) 11/23/21 12:35 Carbon Dioxide 24 mmol/L (22-29) 11/23/21 12:35 Anion Gap 16.9 (5-19) 11/23/21 12:35 BUN 13 mg/dL (8-23) 11/23/21 12:35 Creatinine 1.1 mg/dL (0.5-0.9) H 11/23/21 12:35 GFR Calculation 49.7 mL/min (90-130) L 11/23/21 12:35 Glucose 112 mg/dL (65-115) 11/23/21 12:35 Calculated Osmolality 289 mOsm/kg (285-295) 11/23/21 12:35 Calcium 9.0 mg/dL (8.5-10.5) 11/23/21 12:35 Total Bilirubin 0.3 mg/dL (0.15-1.2) 11/23/21 12:35 AST 16 U/L (0-32) 11/23/21 12:35 ALT 18 U/L (0-33) 11/23/21 12:35 Alkaline Phosphatase 161 IU/L (35-105) H 11/23/21 12:35 Ammonia 25 umol/L (11-51) 11/23/21 12:35 Troponin T Baseline 6 ng/L (0-10) 11/23/21 12:35 Troponin T 120 Minute 6.00 ng/L (0-10) 11/23/21 14:45 Delta Troponin T 0 ABS# (0-10) 11/23/21 14:45 Total Protein 6.8 g/dL (6.6-8.7) 11/23/21 12:35 Albumin 4.3 g/dL (3.5-5.2) 11/23/21 12:35 Globulin 2.5 g/dL (1.3-4.6) 11/23/21 12:35 Lipase 13 U/L (13-60) 11/23/21 12:35 TSH 4.63 uIU/mL (0.27-4.20) H 11/23/21 12:35 Free T4 1.02 ng/dL (0.82-1.77) 11/23/21 12:35 Urine Color Yellow (Yellow) 11/23/21 15:12 Urine Appearance Clear (CLEAR) 11/23/21 15:12 Urine pH 6 (5-7) 11/23/21 15:12 Ur Specific [place] 1.025 (1.005-1.030) 11/23/21 15:12 Urine Protein Neg (Negative) 11/23/21 15:12 Urine Glucose (UA) Norm (Normal) 11/23/21 15:12 Urine Ketones Negative (Negative) 11/23/21 15:12 Urine Blood Neg (Negative) 11/23/21 15:12 Urine Nitrate Negative (Negative) 11/23/21 15:12 Urine Bilirubin Neg (Negative) 11/23/21 15:12 Urine Urobilinogen Norm mg/dL (Negative) 11/23/21 15:12 Ur Leukocyte Esterase Negative (Negative) 11/23/21 15:12 Salicylates < 0.3 mg/dL (3-10) L 11/23/21 12:35 Urine Opiates Screen Negative ng/mL (Negative) 11/23/21 15:12 Acetaminophen < 5.0 ug/mL (10-30) L 11/23/21 12:35 Ur Barbiturates Screen Negative ng/mL (Negative) 11/23/21 15:12 Ur Phencyclidine Scrn Negative ng/mL (Negative) 11/23/21 15:12 Ur Amphetamines Screen Negative ng/mL (Negative) 11/23/21 15:12 U Benzodiazepines Scrn Negative ng/mL (Negative) 11/23/21 15:12 Urine Cocaine Screen Negative ng/mL (Negative) 11/23/21 15:12 U Marijuana (THC) Screen Positive ng/mL (Negative) H 11/23/21 15:12 Ethyl Alcohol < 10 mg/dL (0-10) 11/23/21 12:35 SARS-CoV-2 Ag (Rapid) Negative (Negative) 11/23/21 14:09 Imaging Data Other Imaging: Radiologist's impression: [employer] [place] [address] CT Scan Report Signed Patient: Humera Navarrete Unit #: [id number] : 1955 Age/Sex: 66 / F ADM Date: 11/23/21 Loc: ER Room/Bed: Attending Dr: Ordering Provider/Ordering MD: Jesse Jaramillo MD Date of Service: 11/23/21 Procedure(s): CT head wo con* [id number] Accession Number(s): [id number] Report Number: [id number] WS: [id number] CT HEAD NONCONTRAST HISTORY: ams TECHNIQUE: Contiguous axial imaging performed through the brain in 2.5 mm imaging. Bone and soft tissue windows. Sagittal and coronal reformats reviewed.? All CT scans at [facility] use at least one of these dose optimization techniques: automated exposure control; mA and/or kV adjustment per patient size (includes targeted exams where dose is matched to clinical indication); or iterative reconstruction. DLP: 1021.06 mGy.cm COMPARISON: 08/22/2021 No acute intracranial hemorrhage, midline shift or mass effect. No atrophy or prior infarcts or herniation.? Minimal small vessel ischemic disease. No prior infarct. Ventricles:? Normal size with no hydrocephalus. No inferior displacement of the cerebellar tonsils. Paranasal sinuses: As visualized are clear. Mastoid air cells: Well pneumatized. Calvarium and scalp: Skull is intact with no soft tissue edema or swelling. CT/CT head wo con* [id number] IMPRESSION: ? 1.? No acute intracranial hemorrhage or edema. 2.? Mild small vessel ischemic disease. ? Dictated By: Penny Ma DO Signed By: Penny Ma DO Signed Date/Time: 11/23/21 1351 DD/ 1324 [facility] [address] [place] [address] XRay Report Signed Patient: Humera Navarrete Unit #: [id number] : 1955 Age/Sex: 66 / F ADM Date: 11/23/21 Loc: ER Room/Bed: Attending Dr: Ordering Provider/Ordering MD: Jesse Jaramillo MD Date of Service: 11/23/21 Procedure(s): XR chest 1V portable [id number] Accession Number(s): [id number] Report Number: [id number] WS: [email or web address] Exam: XR chest 1V portable [id number] Date/Time of Exam: 11/23/2021 12:27 PM Reason For Exam: ams Comparison 08/22/2021. The lungs are fully expanded and clear. Cardiomediastinal silhouette is unremarkable. There is eventration of the right diaphragm which is chronic. No pleural effusion. Bony structures are intact. XR/XR chest 1V portable [id number] IMPRESSION: 1. No acute cardiopulmonary process. 2. Chronic eventration of the right diaphragm. ? Dictated By: Gabriele Barrera DO Signed By: Gabriele Barrera DO Signed Date/Time: 11/23/21 1304 DD/ 1303 Discharge Plan Discharge Patient Disposition: Home Clinical Impression: Altered mental status Condition: Stable Prescriptions: No Action (DME) Portable oxygen concentrator See Rx Instructions .Route .MEDSUPPLY Qty: 1 0RF Rx Instructions: 5 liters continuous oxygen budesonide 90 mcg/actuation aerosol powdr breath activated 1 inh inhalation BID Qty: 1 0RF albuterol sulfate 2.5 mg /3 mL (0.083 %) solution for nebulization 2.5 mg INHALATION QID PRN (Reason: shortness of breath or wheezing) Qty: 90 0RF lovastatin 40 mg tablet 40 mg PO DAILY@1800 Qty: 30 3RF lamotrigine 200 mg tablet 200 mg PO DAILY Qty: 30 2RF ropinirole 2 mg tablet 2 - 4 mg PO BEDTIME Qty: 180 0RF Viibryd 10 mg tablet 10 mg PO TID Qty: 90 2RF aspirin 81 mg tablet,delayed release (DR/EC) 81 mg PO QAM Qty: 30 3RF quetiapine [Seroquel] 400 mg tablet 1,200 mg PO BEDTIME Qty: 90 2RF levothyroxine 88 mcg tablet 88 mcg PO DAILY Qty: 30 1RF Rx Instructions: recheck TSH in 6 weeks 11/15/21 pantoprazole [Protonix] 40 mg tablet,delayed release (DR/EC) 40 mg PO BID 30 Days Qty: 60 3RF oxycodone 20 mg tablet 20 mg PO BID PRN (Reason: pain) 30 Days Qty: 60 0RF solifenacin 10 mg tablet 10 mg PO DAILY trazodone 100 mg Tablet 200 mg PO BEDTIME ziprasidone HCl 80 mg capsule 80 mg PO TID Discharge Orders: Discharge ED (Routine); Ordered 11/23/21 Ordered By: Jesse Jaramillo Referrals: Homero Arango MD [Primary Care Provider] - Discharge Diet: Advance as tolerated Discharge Activity: Increase activity as tolerated Patient Instructions: Altered Mental Status (ED) Activity Restrictions/Additional Instructions: Please come back to the emergency room if you need help, have any hallucinations, or you have any depression or have thoughts about hurting yourself or other people. Coding Level of Care Code ED Ultrasound Specialist for Srini Fwadis Exam Comprehensive
[2021-11-23 12:44] LABS: Basophils # 0.1 10^3/uL (0.0-0.1); Basophils % 0.8 %; Eosinophils # 0.1 10^3/uL (0.0-0.8); Eosinophils % 1.4 %; Hematocrit 41.1 % (37.0-47.0); Hemoglobin 13.1 g/dL (11.5-15.3); Lymphocytes # 2.4 10^3/uL (0.8-4.8); Lymphocytes % 31.1 %; Mean Corpuscular HGB Conc 31.9 g/dL (30.0-36.0); Mean Corpuscular Hemoglobin 27.3 pg (28.0-34.0); Mean Corpuscular Volume 85.6 fl (81-99); Mean Platelet Volume 11.2 fL (7.4-10.4); Monocytes # 0.4 10^3/uL (0.2-0.9); Monocytes % 5.2 %; Neutrophils # 4.77 10^3/uL (1.8-7.7); Neutrophils % 61.4 %; Nucleated Red Blood Cells % 0 %; Platelet Count 236 10^3/cmm (130-400); White Blood Count 7.8 10^3/uL (4.0-10.0)
[2021-11-23 13:06] LABS: Ammonia 25 umol/L (11-51)
[2021-11-23 13:08] LABS: Troponin(5th) Baseline 6 ng/L (0-10)
[2021-11-23 13:17] LABS: Alanine Aminotransferase 18 U/L (0-33); Albumin Level 4.3 g/dL (3.5-5.2); Alkaline Phosphatase 161 IU/L (35-105); Anion Gap 16.9 (5-19); Aspartate Amino Transferase 16 U/L (0-32); Blood Urea Nitrogen 13 mg/dL (8-23); Carbon Dioxide 24 mmol/L (22-29); Chloride 102 mmol/L (98-107); Free T4 Free Thyroxine 1.02 ng/dL (0.82-1.77); Globulin 2.5 g/dL (1.3-4.6); Glomerular Filtration Rate 49.7 mL/min (90-130); Glucose 112 mg/dL (65-115); Lipase 13 U/L (13-60); Osmolality Calculated 289 mOsm/kg (285-295); Potassium 3.9 mmol/L (3.5-5.1); Sodium 139 mmol/L (136-145); Thyroid Stimulating Hormone 4.63 uIU/mL (0.27-4.20); Total Bilirubin 0.3 mg/dL (0.15-1.2); Total Protein 6.8 g/dL (6.6-8.7)
[2021-11-23 13:20] LABS: Acetaminophen < 5.0 ug/mL (10-30); Alcohol Level < 10 mg/dL (0-10); Salicylate < 0.3 mg/dL (3-10)
[2021-11-23 14:10] VITALS: BP 164/90; PULSE 100; RESP 16; O2SAT 95
--- NOTE | 2021-11-23 14:16 | ECG_ITS ---
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 Measurements Intervals [place] Rate: 93 P: 63 WA: 168 QRS: 65 QRSD: 93 T: 45 QT: 291 QTc: 362 Interpretive Statements SINUS RHYTHM WITH FREQUENT VENTRICULAR PREMATURE COMPLEXES NONSPECIFIC ST & T-WAVE ABNORMALITY ABNORMAL RHYTHM ECG Compared to ECG 10/16/2021 16:36:20 Ventricular premature complex(es) now present Intraventricular conduction delay no longer present T-wave abnormality still present Electronically Signed On 11-23-2021 21:40:45 CDT by Melissa Bagley M.D. [id number]
--- NOTE | 2021-11-23 14:17 | PC.PHAR ---
pt unable to verify - last filled Viibryd 10 mg TID on 11/15/21 x 10 days, Trazodone 100mg (2) Bedtime on 11/15/21 x 30 days, and Geodon 80mg TID x 20 days. unable to verify which medication patient is taking
[2021-11-23 14:46] LABS: SARS Covid-2 Antigen Negative (Negative)
[2021-11-23 15:14] LABS: Add Urine Microscopic? NO; Charge for UA Resulting for Rev
[2021-11-23 15:19] LABS: Bilirubin Urine Neg (Negative); Blood Urine Neg (Negative); Glucose Urine UA Norm (Normal); Ketones Urine Negative (Negative); Nitrate Urine Negative (Negative); Protein Urine Neg (Negative); Specific Gravity, Urine 1.025 (1.005-1.030); Urine Appearance Clear (CLEAR); Urine Color Yellow (Yellow); pH Urine 6 (5-7)
[2021-11-23 15:20] LABS: Leukocyte Esterase Urine Negative (Negative); Urobilinogen Urine Norm (Negative)
[2021-11-23 15:25] LABS: Amphetamines Screen Urine Negative (Negative); Barbiturates Screen Urine Negative (Negative); Benzodiazepines Screen Urine Negative (Negative); Cocaine Screen Urine Negative (Negative); Opiate Screen Urine Negative (Negative); PCP Screen Urine Negative (Negative); THC Screen Urine Positive (Negative)
[2021-11-23 16:07] LABS: Troponin 5 2HR Delta 0 ABS# (0-10)
[2021-11-23 16:29] VITALS: BP 158/93; PULSE 80; RESP 16; O2SAT 94
[2021-11-23 17:26] VITALS: BP 166/78; PULSE 65; RESP 16; O2SAT 96
[2021-11-23 18:30] VITALS: PULSE 97; RESP 16; O2SAT 95
== END 2021-11-23 21:41 | disposition home or self-care (01) ==
PROVIDERS: Emergency Provider Emergency Medicine; PCP Internal Medicine
DX: R41.82 Altered mental status, unspecified (principal); Z79.82 Long term (current) use of aspirin; Z87.891 Personal history of nicotine dependence; J44.9 Chronic obstructive pulmonary disease, unspecified; Z20.822 Contact with and (suspected) exposure to COVID-19
CPT/HCPCS: 36415; 70450; 71045; 80053; 80306; 80307; 81003; 82140; 83690; 84439; 84443; 84484; 85025; 87426; 93005; 99285

== ENCOUNTER 2022-05-23 13:55 | Inpatient (IN) | payer MEDICAID, SELFPAY ==
[2022-05-23 13:55] VITALS: BP 141/87; PULSE 92; RESP 20; O2SAT 95
--- NOTE | 2022-05-23 14:05 | XR_ITS ---
WS: [email or web address] Exam: XR chest 1V portable [id number] Date/Time of Exam: 05/23/2022 2:17 PM Reason For Exam: AMS/intoxication/possible aspiration Comparison 11/23/2021. The lungs are fully inflated and clear. Normal cardiomediastinal silhouette. No pleural effusions. Ch ronic eventration of the right diaphragm. Unremarkable bony structures. XR/XR chest 1V portable [id number] IMPRESSION: 1. No acute cardiopulmonary process.
--- NOTE | 2022-05-23 14:07 | W.ED.PSYCHS ---
HPI - Psych General: Chief Complaint: Altered Mental Status Stated Complaint: AMS/ ETOH Time Seen by Provider: 05/23/22 13:57 Source: patient Mode of arrival: EMS History of Present Illness: 66-year-old female presents to the emergency room acutely intoxicated. She was drinking heavily since last night. She is significantly altered and is difficult to get much for history from her. She does express suicidal ideation she denies previous hospitalizations related to alcohol or mental health issues. EMS reported several ER liquor bottles nearby when they arrived. Patient will not quantify how much she drinks she has a history of PE she is on apixaban 5 mg twice daily she also history history of COPD she states multiple times that she is depressed. MD complaint: suicidal ideation, feels depressed and altered mental status (Intoxicated) Onset (ago): hour(s) Relieving factors: none Exacerbating factors: alcohol Context: recent alcohol abuse Associated symptoms: Reports depression and suicidal ideation Treatments prior to arrival: none Review of Systems General: Reports: Other (pt deniea most ROS, but very intoxicated) Const: Denies: fever(s), chills, body aches, change in appetite, fatigue or malaise ENMT: Denies: throat pain, ear or mastoid pain, nasal discharge or nasal congestion Card: Denies: chest pain, palpitations, irregular heart rhythm, edema, dyspnea on exertion or orthopnea Resp: Denies: dyspnea, productive cough or non-productive cough GI: Denies: abdominal pain, nausea, vomiting, hematemesis, coffee ground emesis, diarrhea, constipation, bloating, hematochezia or melena : Denies: flank pain, difficulty voiding, dysuria, urinary frequency or urinary urgency Skin/Breast: Denies: rash or pruritus Psych: Reports: depression and suicidal ideation [facility] ED PFSH: Medical History Actinic keratosis Acute hypoxemic respiratory failure due to severe acute respiratory syndrome coronavirus 2 (SARS-CoV-2) disease Bilateral primary osteoarthritis of hip Bilateral primary osteoarthritis of knee Chronic low back pain Chronic lumbar radiculopathy COPD (chronic obstructive pulmonary disease) COVID-19 Degeneration of lumbar intervertebral disc Encounter for long-term opiate analgesic use Hypothyroid Non-healing skin lesion of nose On high dose antipsychotic drug therapy Opioid contract exists Pain in right knee Pneumonia due to 2019 novel coronavirus Post-traumatic stress disorder, chronic Psychiatric care Pulmonary embolism Schizoaffective disorder, bipolar type Schizoaffective disorder, bipolar type Spondylosis without myelopathy or radiculopathy, lumbar region Transient leg paralysis Surgical History History of colostomy Family History Father Cancer Mother Cancer Other Diabetes Social History Smoking and tobacco status: former smoker Quit status (tobacco): has quit using tobacco Year quit tobacco: 2019 Second hand smoke exposure: No Smoking risk assessment/counseling performed?: No Alcohol intake: former Former alcohol use details: NOT CURRENT Desire information about alcohol rehabilitation?: No Counseling given: No Desire information about substance/drug rehabilitation?: No Counseling given: No History of recent travel: No Physical Exam Const: GENERAL APPEARANCE: cooperative ORIENTATION/CONSCIOUSNESS: Yes awake HENMT: COMMON NORMALS: normocephalic, atraumatic, hearing grossly normal bilaterally, external ears normal, EAC's normal, TM's normal bilaterally, Normal nasal mucous membranes and turbinates present, moist oral mucous membranes and oropharynx normal HEAD & SCALP: normocephalic and atraumatic NOSE: Normal nasal mucous membranes and turbinates present EXTERNAL EAR: Yes external ears normal EXTERNAL AUDITORY CANAL: EAC's normal TYMPANIC MEMBRANE: TM's normal bilaterally Eye: COMMON NORMALS: Equal, round and reactive pupils present, EOMs intact bilaterally, conjunctivae normal and no scleral icterus CONJUNCTIVA: Yes conjunctivae normal PUPIL: Yes Equal, round and reactive pupils present Neck/C-Spine: COMMON NORMALS: full ROM, no lymphadenopathy, supple and no JVD Resp: COMMON NORMALS: normal respiratory effort, No retractions, No use of accessory muscles and clear to auscultation bilaterally AUSCULTATION: clear to auscultation bilaterally Cardio: COMMON NORMALS: no JVD, regular rate, regular rhythm and No murmurs present (Cardio) RATE: regular rate RHYTHM: regular rhythm GI: COMMON NORMALS: Soft to palpation and No hepatosplenomegaly present AUSCULTATION: Yes normoactive bowel sounds PALPATION: Yes Soft to palpation, No Tenderness to palpation present (GI), No Guarding due to palpation present (GI) and Yes No hepatosplenomegaly present Extremity: COMMON NORMALS: normal to inspection, capillary refill normal, no clubbing, cyanosis or edema, no calf tenderness and no pedal edema Skin: COMMON NORMALS: no rashes or lesions noted GENERAL SKIN EXAM: no rashes or lesions noted Course Vital Signs: Vital signs: Vital Signs Pulse Rate 103 H 05/23/22 22:26 Respiratory Rate 18 05/23/22 22:26 Blood Pressure 146/82 05/23/22 22:26 Pulse Oximetry 96 05/23/22 22:26 Oxygen Delivery Me thod 05/23/22 22:20 [facility] - Psych Medical Decision Making Patient highly intoxicated on arrival her blood alcohol is trending down. She previously was on oxygen for pulmonary emboli but is not requiring at this time. She is otherwise seems relatively functional. Talk to Dr. Colbert about having her go to the MPU versus having her transferred to geriatric psych since she is physically still relatively capable of did not require any ambulation assistance or oxygen. If he elizabeth up enough and is ambulatory Dr. Coblert has agreed to take her on the floor. Patient ambulated without difficulty. She had a mild UTI. Given a gram of Rocephin. I did add Macrobid 1 p.o. twice daily for 7 days to her admission orders. Dr. Colbert is agreed to take orders are written. She is on a 96-hold for suicidal ideation. She has a moderate transaminitis most likely due to her alcohol use also has elevated white count and slightly elevated anion gap I suspect that is mostly due to alcohol use. She was given IV fluids in the emergency room. Medical Records I reviewed the patient's medical records. Lab Data I reviewed the patient's lab results. 05/23/22 14:04 05/23/22 14:04 Radiology Impressions Chest X-Ray 05/23/22 14:05 IMPRESSION: 1. No acute cardiopulmonary process. Laboratory Results WBC 13.5 10^3/uL (4.0-10.0) H 05/23/22 14:04 RBC 5.48 10^6/uL (4.1-5.3) H 05/23/22 14:04 Hgb 15.6 g/dL (11.5-15.3) H 05/23/22 14:04 Hct 47.7 % (37.0-47.0) H 05/23/22 14:04 MCV 87.0 fl (81-99) 05/23/22 14:04 MCH 28.5 pg (28.0-34.0) 05/23/22 14:04 MCHC 32.7 g/dL (30.0-36.0) 05/23/22 14:04 RDW 13.8 % (12.1-15.1) 05/23/22 14:04 Plt Count 343 10^3/cmm (130-400) 05/23/22 14:04 MPV 12.5 fL (7.4-10.4) H 05/23/22 14:04 Neut % (Auto) 66.4 % 05/23/22 14:04 Lymph % (Auto) 28.3 % 05/23/22 14:04 [place] % (Auto) 4.5 % 05/23/22 14:04 Eos % (Auto) 0.0 % 05/23/22 14:04 Baso % (Auto) 0.5 % 05/23/22 14:04 Neut # (Auto) 8.92 10^3/uL (1.8-7.7) H 05/23/22 14:04 Lymph # (Auto) 3.8 10^3/uL (0.8-4.8) 05/23/22 14:04 [place] # (Auto) 0.6 10^3/uL (0.2-0.9) 05/23/22 14:04 Eos # (Auto) 0.0 10^3/uL (0.0-0.8) 05/23/22 14:04 Baso # (Auto) 0.1 10^3/uL (0.0-0.1) 05/23/22 14:04 Nucleated RBC % (auto) 0 % 05/23/22 14:04 Nucleated RBCs # 0.0 /100WBC 05/23/22 14:04 Sodium 137 mmol/L (136-145) 05/23/22 14:04 Potassium 3.2 mmol/L (3.5-5.1) L 05/23/22 14:04 Chloride 96 mmol/L (98-107) L 05/23/22 14:04 Carbon Dioxide 22 mmol/L (22-29) 05/23/22 14:04 Anion Gap 22.2 (5-19) H 05/23/22 14:04 BUN 11 mg/dL (8-23) 05/23/22 14:04 Creatinine 0.7 mg/dL (0.5-0.9) 05/23/22 14:04 GFR Calculation 83.7 mL/min (90-130) L 05/23/22 14:04 Glucose 158 mg/dL (65-115) H 05/23/22 14:04 Calculated Osmolality 287 mOsm/kg (285-295) 05/23/22 14:04 Calcium 8.6 mg/dL (8.5-10.5) 05/23/22 14:04 Total Bilirubin 0.3 mg/dL (0.15-1.2) 05/23/22 14:04 AST 154 U/L (0-32) H 05/23/22 14:04 ALT 132 U/L (0-33) H 05/23/22 14:04 Alkaline Phosphatase 326 U/L (35-105) H 05/23/22 14:04 Total Protein 8.2 g/dL (6.6-8.7) 05/23/22 14:04 Albumin 4.3 g/dL (3.5-5.2) 05/23/22 14:04 Globulin 3.9 g/dL (1.3-4.6) 05/23/22 14:04 TSH 2.22 uIU/mL (0.27-4.20) 05/23/22 14:04 Urine Color Yellow (Yellow) 05/23/22 15:35 Urine Appearance Clear (CLEAR) 05/23/22 15:35 Urine pH 5 (5-7) 05/23/22 15:35 Ur Specific [place] 1.020 (1.005-1.030) 05/23/22 15:35 Urine Protein 1+ (Negative) H 05/23/22 15:35 Urine Glucose (UA) Norm (Normal) 05/23/22 15:35 Urine Ketones Negative (Negative) 05/23/22 15:35 Urine Blood 2+ (Negative) H 05/23/22 15:35 Urine Nitrate Negative (Negative) 05/23/22 15:35 Urine Bilirubin Neg (Negative) 05/23/22 15:35 Urine Urobilinogen Norm mg/dL (Negative) 05/23/22 15:35 Ur Leukocyte Esterase 2+ (Negative) H 05/23/22 15:35 Urine RBC 0-4 /hpf (0-2) H 05/23/22 15:35 Urine WBC 25-40 /hpf (0-5) H 05/23/22 15:35 Ur Squamous Epith Cells 10-15 /hpf (0-5) H 05/23/22 15:35 Ur Transition Epith Cell 10-15 /hpf 05/23/22 15:35 Amorphous Sediment Not Reportable 05/23/22 15:35 Urine Bacteria 2+ /hpf (NONE) H 05/23/22 15:35 Salicylates < 0.3 mg/dL (3-10) L 05/23/22 14:04 Urine Opiates Screen Negative ng/mL (Negative) 05/23/22 15:35 Acetaminophen < 5.0 ug/mL (10-30) L 05/23/22 14:04 Ur Barbiturates Screen Negative ng/mL (Negative) 05/23/22 15:35 Ur Phencyclidine Scrn Negative ng/mL (Negative) 05/23/22 15:35 Ur Amphetamines Screen Negative ng/mL (Negative) 05/23/22 15:35 U Benzodiazepines Scrn Negative ng/mL (Negative) 05/23/22 15:35 Urine Cocaine Screen Negative ng/mL (Negative) 05/23/22 15:35 U Marijuana (THC) Screen Positive ng/mL (Negative) H 05/23/22 15:35 Ethyl Alcohol 136 mg/dL (0-10) H 05/23/22 16:17 SARS-CoV-2 Ag (Rapid) negative (Negative) 05/23/22 14:44 Discharge Plan Discharge Patient Disposition: Admitted As Inpatient Admit Provider: Mikael Bear Clinical Impression: Depression with suicidal ideation, Alcoholic intoxication, Cystitis, Transaminitis Condition: Stable Coding Level of Care Code ED Rope Twisting Machine Operator for Chg Fwd Exam Comprehensive
[2022-05-23 14:20] LABS: Basophils # 0.1 10^3/uL (0.0-0.1); Basophils % 0.5 %; Hematocrit 47.7 % (37.0-47.0); Hemoglobin 15.6 g/dL (11.5-15.3); Lymphocytes # 3.8 10^3/uL (0.8-4.8); Lymphocytes % 28.3 %; Mean Corpuscular HGB Conc 32.7 g/dL (30.0-36.0); Mean Corpuscular Hemoglobin 28.5 pg (28.0-34.0); Mean Platelet Volume 12.5 fL (7.4-10.4); Monocytes # 0.6 10^3/uL (0.2-0.9); Monocytes % 4.5 %; Neutrophils # 8.92 10^3/uL (1.8-7.7); Neutrophils % 66.4 %; Nucleated Red Blood Cells % 0 %; Platelet Count 343 10^3/cmm (130-400); Red Blood Count 5.48 10^6/uL (4.1-5.3); Red Cell Distribution Width 13.8 % (12.1-15.1); White Blood Count 13.5 10^3/uL (4.0-10.0)
--- NOTE | 2022-05-23 14:32 | ECG_ITS ---
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 Measurements Intervals [place] Rate: 102 P: 66 AL: 135 QRS: 59 QRSD: 101 T: 259 QT: 383 QTc: 499 Interpretive Statements SINUS TACHYCARDIA LOW QRS VOLTAGE IN PRECORDIAL LEADS [QRS DEFLECTION < 1.0 mV IN CHEST LEADS] ST DEVIATION AND MODERATE T-WAVE ABNORMALITY, CONSIDER ANTEROLATERAL ISCHEMIA [-0.1+ mV T-WAVE IN V3-V6] ST DEVIATION AND MODERATE T-WAVE ABNORMALITY, CONSIDER INFERIOR ISCHEMIA [-0.1+ mV T-WAVE IN II/aVF] Compared to ECG 11/23/2021 17:57:15 Low QRS voltage now present Possible ischemia now present Sinus rhythm no longer present Ventricular premature complex(es) no longer present T-wave abnormality still present Electronically Signed On 05-24-2022 7:40:45 JUSTOWRITER OPERATOR by Warren Mohr M.D. [id number]
[2022-05-23 14:50] LABS: Alanine Aminotransferase 132 U/L (0-33); Albumin Level 4.3 g/dL (3.5-5.2); Alcohol Level 217 mg/dL (0-10); Alkaline Phosphatase 326 U/L (35-105); Anion Gap 22.2 (5-19); Aspartate Amino Transferase 154 U/L (0-32); Blood Urea Nitrogen 11 mg/dL (8-23); Calcium 8.6 mg/dL (8.5-10.5); Carbon Dioxide 22 mmol/L (22-29); Chloride 96 mmol/L (98-107); Globulin 3.9 g/dL (1.3-4.6); Glomerular Filtration Rate 83.7 mL/min (90-130); Glucose 158 mg/dL (65-115); Osmolality Calculated 287 mOsm/kg (285-295); Potassium 3.2 mmol/L (3.5-5.1); Salicylate < 0.3 mg/dL (3-10); Sodium 137 mmol/L (136-145); Thyroid Stimulating Hormone 2.22 uIU/mL (0.27-4.20); Total Bilirubin 0.3 mg/dL (0.15-1.2); Total Protein 8.2 g/dL (6.6-8.7)
[2022-05-23 14:51] LABS: Acetaminophen < 5.0 ug/mL (10-30)
[2022-05-23 15:05] LABS: SARS Covid-2 Antigen negative (Negative)
[2022-05-23] MEDS: pantoprazole 40 mg SDV IVP (15:42)
[2022-05-23] MEDS: sodium chloride 0.9% 1,000 ML 999 ML IV (15:43)
[2022-05-23 16:02] LABS: Amphetamines Screen Urine Negative (Negative); Barbiturates Screen Urine Negative (Negative); Benzodiazepines Screen Urine Negative (Negative); Cocaine Screen Urine Negative (Negative); Opiate Screen Urine Negative (Negative); PCP Screen Urine Negative (Negative); THC Screen Urine Positive (Negative)
[2022-05-23 16:09] LABS: Bilirubin Urine Neg (Negative); Blood Urine 2+ (Negative); Glucose Urine UA Norm (Normal); Ketones Urine Negative (Negative); Nitrate Urine Negative (Negative); Protein Urine 1+ (Negative); Urine Appearance Clear (CLEAR); Urine Color Yellow (Yellow); Urobilinogen Urine Norm (Negative); pH Urine 5 (5-7)
[2022-05-23 16:10] LABS: Add Urine Microscopic? YES; Leukocyte Esterase Urine 2+ (Negative)
[2022-05-23 16:11] LABS: Add Urine Culture? No; Bacteria Urine 2+ /hpf; RBC Urine 0-4 /hpf (0-2); WBC Urine 25-40 /hpf (0-5)
[2022-05-23 16:39] LABS: Alcohol Level 136 mg/dL (0-10)
[2022-05-23] MEDS: cefTRIAXone 1,000 MG in sodium chloride 0.9% (plus) 50 ML 100 MG IV (17:30)
[2022-05-23] MEDS: potassium chloride premix 100 ML 25 MEQ IV (17:43)
--- NOTE | 2022-05-23 18:33 | PC.NURSE ---
ATTEMPTED REPORT NURSE UNAVAILABLE.
[2022-05-23 19:00] VITALS: BP 151/82; PULSE 94; RESP 38; O2SAT 96
--- NOTE | 2022-05-23 19:06 | PC.NURSE ---
REPORT GIVEN TO [facility].
--- NOTE | 2022-05-23 19:59 | PC.NURSE ---
Report given to MAXI Knight. Delayed transfer to NPU d/t IV potassium infusing
[2022-05-23] MEDS: quetiapine 300 mg Tablet 1200 MG PO (20:41)
[2022-05-23] MEDS: trazodone 150 mg Tablet 300 MG PO (20:41)
[2022-05-23] MEDS: ropinirole 2 mg Tablet 4 MG PO (22:02)
--- NOTE | 2022-05-23 22:20 | PC.NURSE ---
66 yr.old female admitted to room 129-1 with dx of SI. Patient is voluntary. Arrived to unit via w/c accompanied by ED staff and security. Patient arrived to unit yelling out and moaning as well as thrashing body all over the place. Alert to self only. Patient full assist with changing clothes and transferring to bed. ED nurse stated patient had been incontinent of urine several times while in ED and would not keep her pants on. This was told to data analyst report writer upon arrival to unit. No PRN's given in ED for behaviors. Patient continued to yell out and make grunting noise while thrashing in w/c. At that time Ativan, Haldol and benadryl IM was given @ 2230. Patient was taken to room and changed by staff into scrubs and transferred to bed with full assist on both. A brief was placed on patient due to incontinence of bladder and bowel. This data analyst report writer sat with patient for several minutes and the patient continued to thrash about bed and grunt and moan. supervisor roller shop notified of patient's condition. This data analyst report writer stayed with patient while other nurse notified Dr. Bear of patient's continued behavior. MD advised to give zyprexa po and if that was not effective to give Geodon IM. Patient was given zyprexa at 2324. This data analyst report writer continued to sit with patient and asked patient several assessment questions. Patient was able to answer most questions appropriately. supervisor roller shop came to see patient while patient's behavior continued with trashing about bed and grunting and moaning. After several more minutes Geodon IM was given for continued behaviors. This data analyst report writer stayed at bedside until 01:30 to assure patient was safe. Patient did calm down approximately 1.5 hours after being given dose of Geodon.
[2022-05-23 22:26] VITALS: BP 146/82; PULSE 103; RESP 18; O2SAT 96
[2022-05-23] MEDS: LORazepam 2 mg/mL INJ 1 mL IM (22:30)
[2022-05-23] MEDS: diphenhydrAMINE 50 mg/mL SDV 1mL IM (22:30)
[2022-05-23] MEDS: haloperidol inj 5 mg/mL INJ 1 mL IM (22:30)
[2022-05-23] MEDS: OLANZapine 5 mg ODT PO (23:24)
[2022-05-23] MEDS: ziprasidone 20 mg/mL SDV IM (23:46)
[2022-05-24 06:00] VITALS: RESP 16
--- NOTE | 2022-05-24 06:52 | PC.NURSE ---
Patient has rested comfortably since last prn that was given. No signs of distress noted during night.
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
[2022-05-24] MEDS: levothyroxine 88 mcg Tablet PO (09:08)
[2022-05-24] MEDS: apixaban 5 mg Tablet PO ×2 (09:08→17:11)
[2022-05-24] MEDS: aspirin 81 mg EC Tablet PO (09:09)
[2022-05-24] MEDS: buPROPion XL (24 HR) 300 mg Tablet PO (09:09)
[2022-05-24] MEDS: cyanocobalamin 1,000 mcg Tablet 1000 MCG PO (09:09)
[2022-05-24] MEDS: pantoprazole DR 40 mg Tablet PO ×2 (09:09→17:11)
[2022-05-24] MEDS: ferrous sulfate EC 325 mg Tablet PO ×2 (09:09→17:11)
[2022-05-24] MEDS: lamoTRIgine 100 mg Tablet 200 MG PO (09:09)
[2022-05-24 09:13] LABS: Lactate (Lactic Acid level) 0.9 mmol/L (0.5-2.2)
[2022-05-24] MEDS: nitrofurantoin SR (BID) 100 mg Capsule PO ×2 (09:42→17:11)
--- NOTE | 2022-05-24 09:47 | PC.OT ---
OT EVALUATION ORDERS RECEIVED. EVALUATION ATTEMPTED TWICE THIS A.M. PATIENT DOES NOT AWAKEN TO NAME SAID LOUDLY. WILL ATTEMPT AGAIN AT A LATER TIME.
[2022-05-24] MEDS: multivitamin therapeutic Tablet 1 TAB PO (11:23)
[2022-05-24] MEDS: folic acid 1 mg Tablet PO (11:23)
[2022-05-24] MEDS: thiamine 100 mg Tablet PO (11:23)
[2022-05-24 14:00] VITALS: BP 144/85; PULSE 101; RESP 18; TEMP 36.6; O2SAT 97
[2022-05-24] MEDS: atorvastatin 40 mg Tablet 20 MG PO (17:10)
[2022-05-24] MEDS: ropinirole 2 mg Tablet 4 MG PO (19:40)
[2022-05-24] MEDS: trazodone 150 mg Tablet 300 MG PO (19:40)
[2022-05-24] MEDS: quetiapine 300 mg Tablet 1200 MG PO (19:41)
[2022-05-24 20:11] VITALS: BP 148/84; PULSE 90; RESP 18; TEMP 36.8; O2SAT 96
[2022-05-24] MEDS: OLANZapine 5 mg ODT PO (23:09)
--- NOTE | 2022-05-24 23:10 | PC.NURSE ---
Patient requesting medication for agitation. Patient noted to be rocking aggressively. Offered other interventions but patient continued to state she would like a medication to help her with her thoughts. PRN zyprexa po given. Staff spent time with patient and discussed positive coping skills and relaxation techniques.
--- NOTE | 2022-05-25 01:10 | PC.NURSE ---
Patient requesting assistance to Dayroom to watch TV. Reports unable to sleep and feels very anxious. Rated anxeity at a 10/10. PRN vistaril given as ordered. Staff spent time talking with patient. Patient able to express feelings appropriately.
[2022-05-25] MEDS: hyDROXYzine 25 mg Capsule 50 MG PO (01:12)
[2022-05-25] MEDS: trazodone 50 mg Tablet PO (01:12)
[2022-05-25 06:00] VITALS: BP 111/80; PULSE 88; RESP 18; TEMP 36.8; O2SAT 94
--- NOTE | 2022-05-25 06:17 | PC.NURSE ---
Patient has been sitting in dayroom watching TV since approximately 0100. Continues to express that she is very depressed and is frustrated with her continued feelings of hopelessness. Reinforced importance of coming to staff with any concerns. Voiced understanding.
[2022-05-25] MEDS: pantoprazole DR 40 mg Tablet PO ×2 (08:52→17:12)
[2022-05-25] MEDS: lamoTRIgine 100 mg Tablet 200 MG PO (08:52)
[2022-05-25] MEDS: nitrofurantoin SR (BID) 100 mg Capsule PO ×2 (08:52→17:11)
[2022-05-25] MEDS: cyanocobalamin 1,000 mcg Tablet 1000 MCG PO (08:53)
[2022-05-25] MEDS: levothyroxine 88 mcg Tablet PO (08:53)
[2022-05-25] MEDS: aspirin 81 mg EC Tablet PO (08:53)
[2022-05-25] MEDS: thiamine 100 mg Tablet PO (08:53)
[2022-05-25] MEDS: apixaban 5 mg Tablet PO ×2 (08:53→17:12)
[2022-05-25] MEDS: folic acid 1 mg Tablet PO (08:53)
[2022-05-25] MEDS: ferrous sulfate EC 325 mg Tablet PO ×2 (08:53→17:11)
[2022-05-25] MEDS: buPROPion XL (24 HR) 300 mg Tablet PO (08:53)
[2022-05-25] MEDS: multivitamin therapeutic Tablet 1 TAB PO (08:54)
[2022-05-25] MEDS: OLANZapine 5 mg ODT PO (11:18)
--- NOTE | 2022-05-25 11:46 | PC.NURSE ---
WAS NOTIFIED BY BRENDA GARCIA UPON ROUNDING PATIENT WAS FOUND WITH BLOODY KHOURY ON RIGHT WRIST. UPON ASSESSMENT OF WOUND IT APPEARS TO BE SUPERFICIAL ABRASION OF THE RIGHT WRIST. WHEN ASKED WHY SHE DID THIS TO HERSELF SHE STATED I TOOK THE CUP LID OFF AND CUT IT BECAUSE I AM SICK AND WANTED TO HURT MYSELF. YOU KNOW I AM SICK . WOUND CLEANED WITH NORMAL SALINE APPLIED TRIPLE ANTIBOTIC TO AREA AND PLACED BANDAID. REPORTED INCIDENT TO MOTOR ROOM CONTROLLER KYLIE, HOUSE SUPERVISIOR, AND DOCTOR HOLLY.
[2022-05-25 14:00] VITALS: BP 168/105; PULSE 81; RESP 17; TEMP 36.8; O2SAT 95
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
[2022-05-25 16:59] VITALS: BP 142/96
[2022-05-25] MEDS: atorvastatin 40 mg Tablet 20 MG PO (17:11)
--- NOTE | 2022-05-25 17:38 | PC.NURSE ---
1400 bp 168/105 p126 machine, 1659 bp 168/103 p81 machine manual 148/96 1740 150/84
[2022-05-25] MEDS: quetiapine 100 mg Tablet 200 MG PO (20:21)
[2022-05-25] MEDS: trazodone 150 mg Tablet 300 MG PO (20:21)
[2022-05-25] MEDS: quetiapine 300 mg Tablet 600 MG PO (20:21)
[2022-05-25] MEDS: ropinirole 2 mg Tablet 4 MG PO (20:22)
[2022-05-25] MEDS: blistex lip oint 7 gm Tube 1 APPLIC TOPICAL (20:30)
[2022-05-25 20:59] VITALS: BP 118/71; PULSE 85; RESP 18; TEMP 36.5; O2SAT 94
[2022-05-26] MEDS: escitalopram 10 mg Tablet PO (10:47)
[2022-05-26] MEDS: aspirin 81 mg EC Tablet PO (10:47)
[2022-05-26] MEDS: levothyroxine 88 mcg Tablet PO (10:47)
[2022-05-26] MEDS: multivitamin therapeutic Tablet 1 TAB PO (10:47)
[2022-05-26] MEDS: nitrofurantoin SR (BID) 100 mg Capsule PO ×2 (10:47→17:54)
[2022-05-26] MEDS: duloxetine 30 mg Capsule PO (10:47)
[2022-05-26] MEDS: buPROPion XL (24 HR) 300 mg Tablet PO (10:48)
[2022-05-26] MEDS: lamoTRIgine 100 mg Tablet 200 MG PO (10:48)
[2022-05-26] MEDS: apixaban 5 mg Tablet PO ×2 (10:48→17:54)
[2022-05-26] MEDS: pantoprazole DR 40 mg Tablet PO ×2 (10:48→17:54)
[2022-05-26] MEDS: folic acid 1 mg Tablet PO (10:48)
[2022-05-26] MEDS: cyanocobalamin 1,000 mcg Tablet 1000 MCG PO (10:48)
[2022-05-26] MEDS: ferrous sulfate EC 325 mg Tablet PO ×2 (10:49→17:54)
[2022-05-26] MEDS: neomycin-poly-bacitracin oint 28 gm 1 APPLIC TOPICAL ×2 (10:49→18:29)
[2022-05-26] MEDS: thiamine 100 mg Tablet PO (10:49)
[2022-05-26 14:00] VITALS: BP 125/80; PULSE 79; RESP 20; TEMP 36.6; O2SAT 98
[2022-05-26] MEDS: atorvastatin 40 mg Tablet 20 MG PO (17:54)
[2022-05-26] MEDS: blistex lip oint 7 gm Tube 1 APPLIC TOPICAL (17:56)
--- NOTE | 2022-05-26 18:12 | P.NPUPN_ITS ---
Subjective NPU Subjective: Patient presented today reporting that she has normally drink but acknowledged that she was over drinking tremendously that day. She reports that she is having significant depression and is anxious about what she is supposed to do. She asked this selling underwriter if he felt assisted-living was a good idea. We talked about her working with the social work team and any significant others about what is next and best but that assisted living vet is having a bad possibility. We had discussed the possibility of adding Lexapro, but she had forgotten agreeing to initiating Cymbalta. Mental Status Exam MSE Comments: This is an overweight white female in hospital scrubs with limited grooming and adequate eye contact. There was evidence of abnormal buccal facial oral movements appreciated. She appeared to be rocking back and forth and appeared to be in moderate distress. Speech was mostly normal rate and volume. Her mood was described as depressed. Her affect was mood congruent and dysphoric. Thought process linear/organized, thought content: Patient reported not feeling safe if her depression was not controlled, but denied homicidal ideation, there were no delusions reported or noted, she denied any auditory or visualizations. Attention and concentration appear limited, and memory appeared limited as well but none were formally tested. She was alert and oriented times person and place. Her insight was poor. Her judgment is poor. Her impulse control is limited. Vitals/I&O/Wt Last Vital Signs Temp 98.3 F 05/26/22 19:28 Pulse 80 05/26/22 19:28 Resp 16 05/26/22 19:28 BP 130/80 05/26/22 19:28 Pulse Ox 96 05/26/22 19:28 O2 Del Method 05/24/22 14:00 Weight last 48 hrs Weight 77.167 kg Data NPU 05/23/22 14:04 05/23/22 14:04 A&P Assessment and plan (1) Schizoaffective disorder, bipolar type: (2) Post-traumatic stress disorder, chronic: (3) Alcoholic intoxication: (4) Depression with suicidal ideation: Plan Patient is a 66-year-old white female with a history of PTSD and schizoaffective disorder bipolar type admitted with worsening depression and suicidal ideation. She arrived in the context of significant alcohol use and requested a change in her medications. 1. Continue medications with likely medication changes to be made out of concern of polypharmacy, reducing viibryd to 10mg daily with plan to discontinue and start cymbalta 30mg. Decrease seroquel from 1200mg at night to 800mg at night. 2. Engage patient in individual milieu and group therapy. 3. Encourage sober living treatment after discharge at the highest level of care to which the patient is willing to commit 4. CIWA protocol initiated for alcohol withdrawal 5. 15-minute checks on the unit for safety. Involuntary Hold Information 96 Hour Hold: 96 Hour Involuntary Admission: No Attestations NPU Medical Necessity Statement*: Patient hospitalization is medically necessary and the clinically appropriate intervention at this time. We will monitor medications and make changes as indicated. Her likely length of stay is 4-6 days. Coding Level of Care Code Acute Code for [facility] Diagnoses Schizoaffective disorder, bipolar type F25.0 Post-traumatic stress disorder, chronic F43.12 Alcoholic intoxication F10.929 Depression with suicidal ideation F32.A; R45.851
[2022-05-26 19:28] VITALS: BP 130/80; PULSE 80; RESP 16; TEMP 36.8; O2SAT 96
[2022-05-26] MEDS: quetiapine 100 mg Tablet 200 MG PO (20:06)
[2022-05-26] MEDS: ropinirole 2 mg Tablet 4 MG PO (20:06)
[2022-05-26] MEDS: quetiapine 300 mg Tablet 600 MG PO (20:07)
[2022-05-26] MEDS: trazodone 150 mg Tablet 300 MG PO (20:07)
[2022-05-27] MEDS: levothyroxine 88 mcg Tablet PO (08:20)
[2022-05-27] MEDS: ferrous sulfate EC 325 mg Tablet PO (08:20)
[2022-05-27] MEDS: cyanocobalamin 1,000 mcg Tablet 1000 MCG PO (08:20)
[2022-05-27] MEDS: lamoTRIgine 100 mg Tablet 200 MG PO (08:20)
[2022-05-27] MEDS: aspirin 81 mg EC Tablet PO (08:20)
[2022-05-27] MEDS: thiamine 100 mg Tablet PO (08:21)
[2022-05-27] MEDS: pantoprazole DR 40 mg Tablet PO (08:21)
[2022-05-27] MEDS: duloxetine 30 mg Capsule PO (08:21)
[2022-05-27] MEDS: multivitamin therapeutic Tablet 1 TAB PO (08:21)
[2022-05-27] MEDS: apixaban 5 mg Tablet PO (08:21)
[2022-05-27] MEDS: folic acid 1 mg Tablet PO (08:22)
[2022-05-27] MEDS: nitrofurantoin SR (BID) 100 mg Capsule PO (08:22)
[2022-05-27] MEDS: buPROPion XL (24 HR) 300 mg Tablet PO (08:22)
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
[2022-05-27 12:50] VITALS: BP 130/80; PULSE 80; RESP 16; TEMP 36.8; O2SAT 96
[2022-05-27 14:00] VITALS: BP 125/84; PULSE 80; RESP 20; TEMP 36.6; O2SAT 94
== END 2022-05-27 16:40 | disposition home or self-care (01) | DRG 885 ==
LOC: ER 18:07 → NP 23:21
PROVIDERS: Admitting Provider Psychiatry & Neurology Psychiatry; Emergency Provider Family Medicine; PCP Internal Medicine; Visit Provider Psychiatry & Neurology Psychiatry
DX: F25.0 Schizoaffective disorder, bipolar type (principal); R45.851 Suicidal ideations; F10.129 Alcohol abuse with intoxication, unspecified; Y90.7 Blood alcohol level of 200-239 mg/100 ml; F32.A Depression, unspecified; F12.90 Cannabis use, unspecified, uncomplicated; F43.12 Post-traumatic stress disorder, chronic; G89.29 Other chronic pain; M54.16 Radiculopathy, lumbar region; Z86.711 Personal history of pulmonary embolism; E03.9 Hypothyroidism, unspecified; J44.9 Chronic obstructive pulmonary disease, unspecified; Z86.16 Personal history of COVID-19; Z79.891 Long term (current) use of opiate analgesic; Z79.82 Long term (current) use of aspirin; Z79.01 Long term (current) use of anticoagulants; Z79.51 Long term (current) use of inhaled steroids
CPT/HCPCS: 36415; 71045; 80053; 80306; 80307; 81001; 83605; 84443; 85025; 87426; 92523; 92610; 93005; 96365; 96366; 96372; 96375; 97110; 97150; 97161; 97165; 99285; C9113; J0696; J1200; J1630; J2060; J3480; J3486; J7030